=== PATIENT | male | born 1945 | race Caucasian/White ===

== ENCOUNTER 2016-07-16 16:50 | Outpatient (CLI) | payer MEDICARE, OTHER | END 2016-07-16 16:51 | disposition home or self-care (01) | DX: N19 Unspecified kidney failure (principal); E78.5 Hyperlipidemia, unspecified; D64.9 Anemia, unspecified; Z12.5 Encounter for screening for malignant neoplasm of prostate; I10 Essential (primary) hypertension | CPT/HCPCS: 36415; 80053; 80061; 84443; 85025; G0103 ==

== ENCOUNTER 2016-07-16 16:50 | Outpatient (CLI) | payer MEDICARE, OTHER | END 2016-07-16 16:51 | disposition home or self-care (01) | DX: M62.81 Muscle weakness (generalized) (principal) ==

== ENCOUNTER 2016-08-01 16:15 | Outpatient (CLI) | payer MEDICARE, OTHER | END 2016-08-01 16:16 | disposition home or self-care (01) | DX: G89.4 Chronic pain syndrome (principal); K59.09 Other constipation; K66.0 Peritoneal adhesions (postprocedural) (postinfection); G62.9 Polyneuropathy, unspecified; F17.210 Nicotine dependence, cigarettes, uncomplicated; J44.1 Chronic obstructive pulmonary disease with (acute) exacerbation; K46.9 Unspecified abdominal hernia without obstruction or gangrene; Z79.891 Long term (current) use of opiate analgesic; K64.9 Unspecified hemorrhoids; Z91.14 Patient's other noncompliance with medication regimen; Z51.5 Encounter for palliative care ==

== ENCOUNTER 2016-10-25 16:15 | Outpatient (CLI) | payer MEDICARE, OTHER | END 2016-10-25 23:59 | DX: Z51.5 Encounter for palliative care (principal); G89.4 Chronic pain syndrome; K59.00 Constipation, unspecified; R63.4 Abnormal weight loss; J44.9 Chronic obstructive pulmonary disease, unspecified; I71.4 Abdominal aortic aneurysm, without rupture; I74.8 Embolism and thrombosis of other arteries; Z72.0 Tobacco use; Z79.891 Long term (current) use of opiate analgesic ==

== ENCOUNTER 2016-11-07 16:28 | Outpatient (CLI) | payer MEDICARE, OTHER | END 2016-11-07 16:29 | disposition short-term general hospital (02) | DX: R10.9 Unspecified abdominal pain (principal); R20.0 Anesthesia of skin | CPT/HCPCS: A0425; A0427 ==

== ENCOUNTER 2016-12-28 16:00 | Outpatient (CLI) | payer MEDICARE, OTHER | END 2016-12-28 16:01 | disposition home or self-care (01) | LOC: LAB.R 16:00 | PROVIDERS: ATTEND Family Medicine | DX: N39.0 Urinary tract infection, site not specified (principal) | CPT/HCPCS: 87086 ==

== ENCOUNTER 2017-01-01 15:14 | Outpatient (CLI) | payer MEDICARE, OTHER ==
--- NOTE | 2017-01-01 18:01 | CONSULTATION NOTE ---
DATE OF CONSULTATION: 01/01/2017 00:00:00 REQUESTING PROVIDER: Matthew Nunn MD. TIME OF VISIT: 10:30 to 11:30. TOPIC: Follow up palliative care consult. Thank you, Dr. Nunn, for allowing the palliative care consult service to be involved in the care of your patient. I am providing support for pain and symptom management, as well as transitions of care. The patient was brought in to the outpatient setting, though this was a taxing effort by his daharlane r Alba. BRIEF HISTORY OF PRESENT ILLNESS UPDATE: The patient recently diagnosed with an abdominal aortic aneu rysm, as well as superficial femoral artery occlusion bilaterally. He was supposed to be following up with his vascular surgeon in [place], Dr. Hagan, and still has not completed an appointment with this. He had also gotten a referral to [place] and decided to be seen back at [place]. The pat delbert does present with moderate cognitive deficits and he and his have not followed up with a salena peat appointments on a regular basis. His daughter was not aware of this and will facilitate this as soon as possible. The patient presents today with his underlying severe pain, located mostly in his a bdominal region, particularly in the lower area, exacerbated with standing and walking, relieved with rest. He continues to be somewhat attached to his oxycodone 30 mg 4 tabs 4 times a day. Has been rosa roached multiple times and trying different regimens and transitioning to methadone, but remains quit e resistant. He does stay pretty much within the confines of his prescription but tends to call last minute, and finds this has been the most effective for him and quite fearful of making any other gudino ges. He continues to have constipation. He did have a large bowel movement today with relief of some discomfort. In the context of this, he is not very consistent in approaching his bowel management and gives conflicting information as far as what he is doing with his bowel program. We were going through his review of systems. He reports chest pain, reports it is mostly upon rising, some heaviness and denies that it is reflux pain and has sharp pain down into his left arm. When ask ed length of duration of this, he reports several weeks and about 3-4 times a week. He reports it did not happen this morning. His pulse is 63, blood pressure 104/58, and O2 sat at 95% today, respirator y rate is 20. He has in the past seen Dr. George. The patient does have a history of 10 cardiac stent s and is high risk for an event. His other presenting symptom, which he had followed up with Dr. Nunn earlier was some urinary retent ion, difficulty emptying the bladder. He was dipped and initially recommended Macrobid, but since titi t point in time, UA came back negative. He does have a referral to a urologist and is awaiting an rosa ointment for that as well. SYMPTOM BURDEN: His abdominal pain, he is unable to differentiate if it is his hernia or increasing a bdominal pain that he had attributed earlier when he had been to the ED for his AAA. He has been javon nded several times that this is an important thing to follow up on and any further increase in this p ain or debilitating pain, he needs to go back into the emergency room. His daughter is going to [facility] w up an appointment. He does have ongoing fatigue, does spend most of his time lying down or resting. Denies any nausea. Reports poor appetite. This is more attributed to he has pain with eating. His we ight continues to decrease. He reports his latest weight was 142. He does have shortness of breath an d continues to smoke a pack a day. He continues with depression and feeling overwhelmed with all of t hese multiple health issues, though also talks about not wanting to . He does have underlying anxi ety, though is not able to really express this and perceives his quality of life as quite poor right now. PERFORMANCE STATUS: The patient is limited by his pain and this is compounded by the fact that his ch ronic pain is exacerbated when he stands or walks. He is having difficulty increased with bathing. I would put him at a palliative care performance status at 50%. REVIEW OF SYSTEMS ENT: He has recently seen the eye doctor because of watering and continued blurry vision. He is hard of hearing. I did encourage him to follow up with his PCP for getting his ears cleaned. Daughter was asking about an audiology appointment, but we did discuss unless they are planning to follow up with looking at obtaining an hearing aid, it most likely would serve of little purpose. CARDIOVASCULAR: As noted above. RESPIRATORY: He has decreased his smoking down to 1 pack a day, though when I saw him a couple of sats ago, it was 2 packs. He continues to struggle with this. He does have a dry, nonproductive cough. Is using samples of inhalers, both BREO and Symbicort and albuterol nebulizer about 1 time a day. GASTROINTESTINAL: As noted above. Both early satiety, pain from eating, decreased intake. Has not bee n very compliant with following through with Ensure. GENITOURINARY: As noted above. INTEGUMENTARY: No further complaints. NEUROLOGICAL: He gets frustrated with his memory issues. He does have lower extremity neuropathy that he continues to take Lyrica for at night. PSYCHIATRIC: He has longstanding depression. Continues to be quite frustrated with his who also has health problems. They are having trouble following through as far as adherence to appointments an d medications. There is quite a bit of tension. Alba does try and intervene and assist, but meets qu ite a bit of resistance from Ms. Vivar. ENDOCRINE: He has hypothyroidism. HEMATOLOGIC/IMMUNOLOGIC: Thought to have a recent urinary tract infection, though was found to be neg ative. PHYSICAL EXAMINATION GENERAL APPEARANCE: He is quite sallow, has temporal waisting, upper and lower extremity waisting. EYES: With periorbital edema. Eyes are bright red and bloodshot. ENT: His mucous membranes are slightly dry. NECK: Trachea midline. RESPIRATORY: Diminished breath sounds, particularly in the left lower lobe. His O2 sats are 95% at re st. ABDOMEN: He does have his binder on, has multiple protrusions of his hernias. SKIN: His color is slightly ashen. EXTREMITIES: Hands and feet are quite cool to touch. PALLIATIVE CARE DISCUSSION: The patient does appear somewhat overwhelmed with his multiple health pro blems, including, but not limited to his AAA, his COPD, now his chest pain, his cognitive decline, an d does worry about his immediate future. Alba is currently here at the appointment and is willing to follow through on instructions, though this creates a dynamic as well. IMPRESSION: This is a 71-year-old gentleman with multiple comorbidities, including chronic pain syndr ome. I am concerned about his report of chest pain given his underlying coronary artery disease. Have followed up with his PCP who will make an urgent cardiology referral. The patient has been instructe d that if he were to have prolonged chest pain, to call 911. He does present with ongoing functional and cognitive decline and weight loss. RECOMMENDATIONS/COUNSELING DONE 1. Chronic pain syndrome. There have also been complications of his colonoscopy. Prescriptions were r amaliaen. The patient remains resistant to any kind of changes. He does have problems at times of sta tim within his limitation. 2. Constipation. He is currently not using the supplement. Spoke with him again regarding his hemorrh oids and concerns about straining. Have instructed him to start the Miralax. The daughter will help h im follow through with this. This is 1 capful daily. Previous, his baseline had been for senna at [facility]. I did recommend that this would be something to restart. 3. Weight loss. This is exacerbated by his increased discomfort with eating. Has not been compliant a s far as following through with supplements. Again, encouraged to use the Ensure 3 times a day with p evelyn hydration and nutrition, encouraging small frequent feedings. 4. Chronic obstructive pulmonary disease. He does have difficulty tracking his prescriptions. Current ly says he has an inhaler of BREO and his Symbicort and using his albuterol. Revisited tobacco cessat ion strategies. Encouraged him to decrease at least to 5-6 cigarettes a day. 5. Chest pain. Update and consulted with PCP, Dr. Nunn, will make urgent request for cardiology appo intment, this was relay to patient along with concern. Inst. To call 911 if worsens or not relieved, agreed. 5. Advanced care planning. The patient does have a POLST in place, which is a DO NOT ATTEMPT RESUSCIT ATION WITH LIMITED INTERVENTIONS. Did encourage the patient to continue to define the quality of life and psychosocial support was offered. The patient does appear overwhelmed and depressed given his cu rrent situation. TIME SPENT: 60 minutes with greater than 50% of this done in counseling, coordination of care, follow up with Dr. Nunn for cardiology referral. This is communicated back to the patient that looking for it within a week, as well as to call 911 if his Nitrostat was not effective. New prescriptions were p rovided for his oxycodone and his trazodone given his increase in dosing of 100 mg daily. He is takin g 2 at night, still with problems with insomnia. We will meet again in 1 month. JOB #: [id number] EXT JOB #:[id number]
== END 2017-01-01 15:15 | disposition home or self-care (01) ==
LOC: PC 15:14
PROVIDERS: ATTEND Nurse Practitioner Adult Health
DX: Z51.5 Encounter for palliative care (principal); G89.4 Chronic pain syndrome; K59.00 Constipation, unspecified; K64.9 Unspecified hemorrhoids; R63.4 Abnormal weight loss; R68.81 Early satiety; J44.9 Chronic obstructive pulmonary disease, unspecified; I25.10 Atherosclerotic heart disease of native coronary artery without angina pectoris; R07.9 Chest pain, unspecified; G47.00 Insomnia, unspecified; I71.4 Abdominal aortic aneurysm, without rupture; I74.8 Embolism and thrombosis of other arteries; R41.89 Other symptoms and signs involving cognitive functions and awareness; R33.9 Retention of urine, unspecified; F32.9 Major depressive disorder, single episode, unspecified; Z91.11 Patient's noncompliance with dietary regimen; Z66 Do not resuscitate; Z72.0 Tobacco use; Z79.891 Long term (current) use of opiate analgesic; Z95.5 Presence of coronary angioplasty implant and graft
CPT/HCPCS: 99215

== ENCOUNTER 2017-01-29 15:42 | Outpatient (CLI) | payer MEDICARE, OTHER | END 2017-01-29 15:43 | disposition critical access hospital (66) | LOC: EMS 15:42 | PROVIDERS: ATTEND Surgery | DX: R07.9 Chest pain, unspecified (principal); R06.00 Dyspnea, unspecified; R61 Generalized hyperhidrosis | CPT/HCPCS: A0425; A0429 ==

== ENCOUNTER 2017-01-29 15:56 | Inpatient (IN) | payer MEDICARE, OTHER ==
--- NOTE | 2017-01-29 16:25 | ED Physician Documentation ---
PD HPI CHEST PAIN - Stated complaint Stated Complaint: CP - Chief complaint Chief Complaint: Cardiac - History obtained from History obtained from: Patient - History of Present Illness Timing - onset: How many days ago (2 days of some mid to low abd cramping pains , and then had some left chest pain today. Chest pain improved after few minutes. Abd pain persists. 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 No: Shortness of air, Nausea, Vomiting, Palpitations, Cough Similar symptoms before: Has not had sx before Review of Systems Constitutional: denies: Fever, Chills Nose: denies: Rhinorrhea / runny nose, Congestion Throat: denies: Sore throat Cardiac: reports: Chest pain / pressure. denies: Palpitations, Pedal edema, Calf pain Respiratory: denies: Cough GI: reports: Abdominal Pain. denies: Nausea, Vomiting, Diarrhea, Bloody / black stool : denies: Dysuria, Frequency Skin: denies: Rash, Lesions Musculoskeletal: reports: Back pain. denies: Neck pain Neurologic: reports: Generalized weakness. denies: Focal weakness, Numbness, Syncope, Headache Endocrine: denies: Weight loss, Easy bruising / bleeding Immunocompromised: denies: Immunocompromised PD PAST MEDICAL HISTORY - Past Medical History Cardiovascular: Hypertension, Coronary artery disease, DC Respiratory: COPD Neuro: None Endocrine/Autoimmune: None GI: Other : Benign prostate hypertrophy HEENT: Chronic hearing loss Psych: Depression Musculoskeletal: None Derm: None - Past Surgical History Past Surgical History: Yes General: Colonoscopy, Other Cardiovascular: Coronary stent - Present Medications Home Medications: Ambulatory Orders Medication Instructions Recorded Confirmed Tamsulosin [Flomax] 0.4 mg PO DAILY 01/19/13 01/30/17 Citalopram Hydrobromide [Celexa] 20 mg PO QPM 03/20/14 01/30/17 Clopidogrel Bisulfate [Plavix] 75 mg PO DAILY 03/20/14 01/30/17 Lovastatin 40 mg PO DAILY 03/20/14 01/30/17 Oxycodone HCl [Roxicodone] 60 - 120 mg PO Q6H PRN 03/20/14 01/30/17 Albuterol Sulfate [Proair Hfa 2 inh IH Q4H PRN 09/20/14 01/30/17 Inhaler] Aspirin [Ecotrin] 81 mg PO DAILY 09/20/14 01/30/17 Budesonide/Formoterol Fumarate 2 inh IH BID 09/20/14 01/30/17 [Symbicort 160-4.5 Mcg Inhaler] Docusate Sodium 100Mg Capsule 200 mg PO DAILY 09/20/14 01/30/17 [Colace 100Mg Capsule] Magnesium Hydroxide [Milk of 2,400 mg PO DAILY 09/20/14 01/30/17 Magnesia] Metoprolol Tartrate [Lopressor] 50 mg PO DAILY 09/20/14 01/30/17 traZODone [Desyrel] 50 mg PO HS 12/06/15 01/30/17 Nitroglycerin [Nitrostat] 1 tab [id number] ONCE 12/07/15 01/25/16 Budesonide [Pulmicort] 0.5 mg INH RTBID neb 01/31/17 Citalopram [CeleXA] 20 mg PO QPM tablet 01/31/17 Clopidogrel [Plavix] 75 mg PO DAILY tablet 01/31/17 Metronidazole [Flagyl ER] 500 mg PO QID #40 tablet.er 01/31/17 - Allergies Allergies/Adverse Reactions: Allergies Allergy/AdvReac Type Severity Reaction Status Date / Time Penicillins AdvReac Unknown Verified 01/25/16 08:48 - Social History Does the pt smoke?: Yes Smoking Status: Former smoker Does the pt drink ETOH?: No Does the pt have substance abuse?: No - Family History Family history: reports: Non contributory - Immunizations Immunizations are current?: Yes - POLST Patient has POLST: No PD ED PE NORMAL - Vitals Vital signs reviewed: Yes - General General: Alert and oriented X 3, No acute distress, Well developed/nourished, Other (thin) - HEENT HEENT: Pharynx benign - Neck Neck: Supple, no meningeal sign, No adenopathy - Cardiac Cardiac: RRR, No murmur - Respiratory Respiratory: Clear bilaterally - Abdomen Abdomen: Normal bowel sounds, Soft, Non distended, No organomegaly, Other (some palpable mass lower mid abd without tenderness. There is tenderness suprapubic area. ) - Back Back: No CVA TTP - Derm Derm: Normal color, Warm and dry - Extremities Extremities: No tenderness to palpate, No edema, No calf tenderness / cord - Neuro Neuro: Alert and oriented X 3, No motor deficit, Normal speech Results - Vitals Vitals: Oxygen O2 Source [Without Activity] Room air O2 Source [With Activity] Room air O2 Source Room air - EKG (time done) 16:10 Rate: Rate (enter#) (73) Rhythm: NSR Intervals: RBBB Ischemia: Normal ST segments, Non specific changes. No: ST elevation c/w ischemia Compare to prior EKG: Unchanged from prior EKG - Labs Labs: Laboratory Tests 01/29/17 01/29/17 01/29/17 16:05 16:05 16:05 WBC 11.3 H RBC 5.26 Hgb 16.6 Hct 49.4 MCV 93.9 MCH 31.6 H MCHC 33.6 RDW 13.2 Plt Count 199 MPV 9.7 Neut # 9.0 H Lymph # 1.2 L Preble # 0.9 Eos # 0.1 Baso # 0.1 Absolute Nucleated RBC 0.00 Nucleated RBCs 0.0 Sodium 135 Potassium 4.4 Chloride 101 Carbon Dioxide 26 Anion Gap 8.0 BUN 21 H Creatinine 1.1 Estimated GFR (MDRD) 66 L Glucose 134 H Calcium 9.4 Total Bilirubin 0.5 AST 19 ALT 20 Alkaline Phosphatase 66 Troponin I < 0.04 Total Protein 6.9 Albumin 4.4 Globulin 2.5 Albumin/Globulin Ratio 1.8 Lipase 26 - Rads (name of study) abd with contrast Radiology: Prelim report reviewed (4.7 cm AAA, slightly increased in size. No signs of leakage/bleeding. Diverticulitis lower abd. No free fluids. ) chest Radiology: Prelim report reviewed, EMP read contemporaneously (no acute process) PD MEDICAL DECISION MAKING - ED course Complexity details: considered differential (history of AAA so concern for rupture/leaking. Did CT to evaluate. This was stable and he does have diverticulitis. He had had less to eat and drink and BP improved readily with IV fluids. ), d/w patient Departure - Departure Disposition: 66 [facility] DC/Xfer Clinical Impression: Transient hypotension, Atypical chest pain Diverticulitis Qualifiers: Diverticulitis site: large intestine Diverticulitis bleeding: without bleeding Diverticulitis complication: without perforation or abscess Qualified Code(s): K57.32 - Diverticulitis of large intestine without perforation or abscess without bleeding Abdominal pain Qualifiers: Abdominal location: lower abdomen, unspecified Qualified Code(s): R10.30 - Lower abdominal pain, unspecified Condition: Fair Record reviewed to determine appropriate education?: Yes Discharge Date/Time: 01/29/17 20:58
[2017-01-29 16:29] LABS: BASOPHILS # (AUTO) 0.1 10^3/uL (0.0-0.1); BASOPHILS % (AUTO) 0.5 %; EOSINOPHILS # (AUTO) 0.1 10^3/uL (0.0-0.7); EOSINOPHILS % (AUTO) 0.5 %; HCT - HEMATOCRIT 49.4 % (42.0-52.0); HGB - HEMOGLOBIN 16.6 g/dL (14.0-18.0); LYMPHOCYTES # (AUTO) 1.2 10^3/uL (1.5-3.5); LYMPHOCYTES % (AUTO) 10.7 %; MEAN CORPUSCULAR HEMOGLOBIN 31.6 pg (27.0-31.0); MEAN CORPUSCULAR HGB CONC 33.6 g/dL (32.0-36.0); MEAN CORPUSCULAR VOLUME 93.9 fL (80.0-94.0); MEAN PLATELET VOLUME 9.7 fL (7.4-11.4); MONOCYTES # (AUTO) 0.9 10^3/uL (0.0-1.0); MONOCYTES % (AUTO) 8.4 %; NEUTROPHILS % (AUTO) 79.9 %; RED BLOOD COUNT 5.26 10^6/uL (4.70-6.10); RED CELL DISTRIBUTION WIDTH 13.2 % (12.0-15.0); UNCORRECTED WHITE BLOOD COUNT 11.3 x10^3/uL; WHITE BLOOD COUNT 11.3 x10^3/uL (4.8-10.8)
[2017-01-29] MEDS ORDERED: SODIUM CHLORIDE 0.9% 500 ML IV ONE (16:42)
[2017-01-29] MEDS ORDERED: ONDANSETRON 4 MG/2 ML VIAL IVP STA (16:44)
[2017-01-29] MEDS ORDERED: MORPHINE 2 MG/ML CARPUJECT IVP STA (16:44)
[2017-01-29 16:48] LABS: ALBUMIN/GLOBULIN RATIO 1.8 (1.0-2.2); BILIRUBIN,TOTAL 0.5 mg/dL (0.2-1.0); CALCIUM 9.4 mg/dL (8.5-10.3); CREATININE 1.1 mg/dL (0.6-1.2); POTASSIUM 4.4 mmol/L (3.5-5.0); TOTAL PROTEIN 6.9 g/dL (6.7-8.2)
[2017-01-29] MEDS ORDERED: ONDANSETRON 4 MG/2 ML VIAL ONE (17:03)
[2017-01-29] MEDS ORDERED: MORPHINE 2 MG/ML CARPUJECT ONE (17:03)
[2017-01-29] MEDS ORDERED: IOPAMIDOL-300 100 ML VIAL IVP ONE (17:45)
--- NOTE | 2017-01-29 18:54 | CT Preliminary Report ---
Exam: CT Abdomen/Pelvis W/ IMPRESSION: 1. Slowly increasing size of the infrarenal abdominal aortic aneurysm measuring 4.7 x 4.5 cm on the c urrent study compared with the previous 4.3 x 4.1 cm. No retroperitoneal hematoma is noted. 2. Persistent wide mouth ventral wall hernia noted. No incarcerated bowel noted. 3. Multiple bowel resections are noted. At the site of anastomosis in the mid anterior abdomen, there is a short segment of dilated bowel. Remaining bowel is otherwise unremarkable. 4. Renal stones without obstruction. 5. Gallstones without inflammation 6. Diverticulosis with mild wall thickening. Minimal adjacent stranding. Acute or acute on chronic di verticulitis can have this appearance. Correlate clinically.. [facility] SITE ID: [id number]
[2017-01-29] MEDS ORDERED: cefTRIAXone 1 GM VIAL IVP STA (19:07)
[2017-01-29] MEDS ORDERED: metroNIDAZOLE 500 MG/100 ML 100 ML IV ONE (19:07)
[2017-01-29] MEDS ORDERED: SODIUM CHLORIDE FLUSH 0.9% 10 ML SYRINGE IVP PRN (19:34)
[2017-01-29] MEDS ORDERED: cefTRIAXone 1 GM VIAL ONE (19:39)
[2017-01-29] MEDS ORDERED: ACETAMINOPHEN 325 MG TABLET PO PRN (19:45)
[2017-01-29] MEDS ORDERED: PROCHLORPERAZINE 10 MG/2 ML VIAL IVP PRN (19:45)
[2017-01-29] MEDS ORDERED: ONDANSETRON 4 MG/2 ML VIAL IVP PRN (19:45)
--- NOTE | 2017-01-29 19:45 | CT Report ---
EXAM: CT ABDOMEN AND PELVIS EXAM DATE: 01/29/2017 05:47 PM. CLINICAL HISTORY: Chest/abdominal pain; history of AAA. COMPARISONS: 10/13/2014. TECHNIQUE: Routine helical CT imaging was performed through the abdomen and pelvis. IV contrast: 100 mL Isovue-300. Enteric contrast: No. Reconstructions: Coronal and sagittal. In accordance with CT protocol optimization, one or more of the following dose reduction techniques w ere utilized for this exam: automated exposure control, adjustment of mA and/or KV based on patient s ize, or use of iterative reconstructive technique. FINDINGS: Lung Bases: Emphysema is present at the lung bases. No consolidation, masses or nodules. No effusions . Small hiatal hernia. Liver: Normal. No masses. Small hypodense cystic structures are noted in the liver parenchyma. Gallbladder/Bile Ducts: Dependent stones are present in the gallbladder. No gallbladder wall thickeni ng or pericholecystic inflammation. Common bile duct dilation measures up to [address] one or mass. Spleen: Normal. Pancreas: No pancreatic mass is noted. Mild pancreatic duct dilation. No calcifications are present. Pancreatic atrophy is present. Adrenal Glands: Normal. Kidneys: No enhancing renal mass or hydronephrosis. Bilateral intrarenal calcifications are identifie d. No ureteral stone is noted. Focal areas of scarring are noted in the inferior right kidney. Peritoneal Cavity/Bowel: Normal-appearing stomach. Duodenum is normal. Previous small bowel resection with primary anastomosis. Increasing prominence of the mid to distal small bowel at the level of the anastomosis in the anterior mid abdomen. This is best seen on image 3, 47. The bowel distention has increased since the prior study. Remaining bowel is nondilated. Diffuse sigmoid diverticulosis is pre sent. Mild wall thickening is present in the mid to proximal sigmoid colon and distal left colon with minimal adjacent stranding. No colonic dilation concerning for obstruction. Appendix is not seen. No pathologic retroperitoneal, mesenteric or pelvic adenopathy. Pelvic Organs: No bladder stones or calcifications are noted. Moderate prostate enlargement with coar se calcifications. Mild seminal vesicle enlargement. No pelvic mass or adenopathy is present. Vasculature: Infrarenal abdominal aortic aneurysm measuring a maximum of 4.7 x 4.5 cm. Extensive thro mbus is noted. Previously measuring 4.3 x 4.1 cm. No retroperitoneal hematoma is noted. Right and lef t common iliac arteries measure 1.7 cm and 1.7 cm respectively. Extensive atheromatous calcified and noncalcified plaques are present throughout the abdominal aorta. The celiac axis and SMA are widely p atent. Significant atheromatous plaques are present at the origin of the renal arteries bilaterally. Bones: No significant abnormality. Other: Persistent wide mouth ventral wall hernia. No incarcerated bowel. Multiple bowel loops are adh erent to the anterior abdominal wall. Adhesions to the abdominal wall are not excluded. IMPRESSION: 1. Slowly increasing size of the infrarenal abdominal aortic aneurysm measuring 4.7 x 4.5 cm on the c urrent study compared with the previous 4.3 x 4.1 cm. No retroperitoneal hematoma is noted. 2. Persistent wide mouth ventral wall hernia noted. No incarcerated bowel noted. 3. Multiple bowel resections are noted. At the site of anastomosis in the mid anterior abdomen, there is a short segment of dilated bowel. Remaining bowel is otherwise unremarkable. 4. Renal stones without obstruction. 5. Gallstones without inflammation. 6. Diverticulosis with mild wall thickening. Minimal adjacent stranding. Acute or acute on chronic di verticulitis can have this appearance. Correlate clinically. [facility] Referring Provider Line: [phone] SITE ID: [id number]
[2017-01-29] MEDS ORDERED: diphenhydrAMINE INJ 50 MG/ML VIAL ONE (20:15)
[2017-01-29 20:16] LABS: BASOPHILS # (AUTO) 0.1 10^3/uL (0.0-0.1); EOSINOPHILS % (AUTO) 0.5 %; HCT - HEMATOCRIT 49.8 % (42.0-52.0); HGB - HEMOGLOBIN 16.9 g/dL (14.0-18.0); LYMPHOCYTES % (AUTO) 20.8 %; MEAN CORPUSCULAR HEMOGLOBIN 32.1 pg (27.0-31.0); MEAN CORPUSCULAR HGB CONC 33.9 g/dL (32.0-36.0); MEAN CORPUSCULAR VOLUME 94.5 fL (80.0-94.0); MEAN PLATELET VOLUME 9.2 fL (7.4-11.4); MONOCYTES # (AUTO) 0.9 10^3/uL (0.0-1.0); MONOCYTES % (AUTO) 9.3 %; NEUTROPHILS # (AUTO) 6.4 10^3/uL (1.5-6.6); NEUTROPHILS % (AUTO) 68.4 %; RED BLOOD COUNT 5.27 10^6/uL (4.70-6.10); UNCORRECTED WHITE BLOOD COUNT 9.4 x10^3/uL; WHITE BLOOD COUNT 9.4 x10^3/uL (4.8-10.8)
[2017-01-29] MEDS ORDERED: DEXAMETHASONE 10 MG/ML VIAL IVP STA (20:16)
[2017-01-29] MEDS ORDERED: ALBUTEROL NEB 2.5 MG/3 ML INH STA (20:16)
[2017-01-29] MEDS ORDERED: diphenhydrAMINE INJ 50 MG/ML VIAL IVP STA (20:16)
[2017-01-29] MEDS ORDERED: ALBUTEROL NEB 2.5 MG/3 ML INH ONE (20:30)
[2017-01-29] MEDS ORDERED: BUDESONIDE/FORMOTEROL 160/4.5 MCG INHALER INH SCH (21:00)
[2017-01-29] MEDS ORDERED: CITALOPRAM HYDROBROMIDE 20 MG PO SCH (21:00)
[2017-01-29] MEDS: SODIUM CHLORIDE 0.9% 1,000 ML IV SCH (21:57)
[2017-01-29] MEDS: traZODone 50 MG TABLET PO SCH ×2 (22:05→22:14)
[2017-01-29] MEDS: CITALOPRAM 10 MG TABLET PO SCH (22:09)
[2017-01-29] MEDS: SODIUM CHLORIDE FLUSH 0.9% 10 ML SYRINGE IVP SCH (22:15)
--- NOTE | 2017-01-29 23:31 | XRAY Preliminary Report ---
Exam: XR Chest 1 View IMPRESSION: Hyperinflation, otherwise unremarkable single view chest. [facility] SITE ID: [id number]
--- NOTE | 2017-01-29 23:34 | XRAY Report ---
EXAM: CHEST RADIOGRAPHY EXAM DATE: 01/29/2017 11:10 PM. CLINICAL HISTORY: Cough and shortness of breath. Fever. COMPARISON: 07/16/2016. TECHNIQUE: 1 view. FINDINGS: Lungs/Pleura: Hyperinflated lungs. No focal opacities evident. No pleural effusion. No pneumothorax. Mediastinum: Within exam limitations, cardiomediastinal contour is normal. Other: No bone abnormality identified. IMPRESSION: Hyperinflation, otherwise unremarkable single view chest. [facility] Referring Provider Line: [phone] SITE ID: [id number]
[2017-01-30] MEDS: MORPHINE 2 MG/ML CARPUJECT IVP PRN ×4 (03:27→21:32)
[2017-01-30] MEDS: metroNIDAZOLE 500 MG/100 ML 100 ML IV SCH ×4 (04:11→22:05)
--- NOTE | 2017-01-30 04:43 | HISTORY & PHYSICAL EXAMINATION ---
Chief Complaint - Chief Complaint Chief Complaint: Abdominal Pain History of Present Illness - Admitted From Admitted From:: Emergency Department - History Obtained From Records Reviewed: Yes History obtained from: Patient Exam Limitations: None - History of Present Illness HPI Comment/Other: Patient is a 71 yo male with a past medical history significant for an abdominal aortic aneurysm, colon resection with chronic abdominal pain on high dose opioids, umbilical hernia, coronary artery disease status post 10 stents, depression, hypertension and COPD who presented to the emergency department with 3-4 days of abdominal pain. The patient states that he initially began having left lower quadrant abdominal pain nearly a week ago and noticed this as it was different from his chronic abdominal. He states that the pain comes and goes but over the last 2 days it has become more frequent and severe. He admits to associated nausea and diarrhea which started this afternoon. He also states he has had a decreased appetite. He states he had fevers and chills yesterday as well as generalized weakness. He states that recently he is mostly bedbound and only gets out of bed to go to the bathroom or eat but has not left the house in sometime due to his chronic pain. The patient states that he has also been experiencing increasing shortness of breath and coughing. He admits to weight loss over the last 2-3 months but could not quantify the weight. He states that today he began having left sided chest pain in the lower left chest wall with diaphoresis. He states that this continued throughout the day and he finally decided to come to the ED. On presentation to the ED the patient was afebrile but he was hypotensive with blood pressure in the 90s systolic and hypoxic down to 87% on room air. The patient appeared to be quite anxious and in distress. His initial EKG was unchanged from previous and his troponin was negative. The patient did have a mild leukocytosis of 11.3. The patient underwent a CTA of his abdomen which showed a slowly increasing size of infrarenal abdominal aortic aneurysm measuring 4.7 x 4.5 cm increased from 4.3 x 4.1 cm with no hematoma noted. He also was found to have a ventral wall hernia and diverticulitis. The patient was admitted for IV antibiotics and further monitoring. Review of Systems - Constitutional Constitutional: reports: Fatigue, Fever, Chills, Malaise, Weakness, Poor appetite, Diaphoresis, Weight loss - Eyes Eyes: denies: Pain, Irritation, Amaurosis, Blurred vision, Spots in vision, Field loss, Vision loss, Dipolpia - Ears, Nose & Throat Ears, Nose & Throat: denies: Ear pain, Hearing loss, Hearing aids, Tinnitus, Vertigo, Nasal pain, Nasal discharge, Sore throat, Hoarseness - Cardiovascular Cariovascular: reports: Chest pain, Exertional dyspnea, Decr. exercise tolerance. denies: Edema, Lightheadedness, Syncope, Orthopnea - Respiratory Respiratory: reports: Cough, Sputum production, SOB at rest, SOB with exertion. denies: Wheezing - Gastrointestinal Gastrointestinal: reports: Abdominal pain, Diarrhea, Nausea, Vomiting, Poor appetite. denies: Abdominal distention, Constipation, Rectal bleeding, Black stools, Bloody stools, Coffee grounds emesis - Genitourinary Genitourinary: denies: Dysuria, Frequency, Urgency, Hematuria, Incontinence - Musculoskeletal Musculoskeletal: denies: Muscle pain, Back pain, Muscle aches, Stiffness, Limited range of motion, Muscle weakness, Joint pain - Integumentary Integumentary: reports: Lesions - Neurological Neurological: reports: General weakness. denies: Focal weakness, Headache, Dizziness, Numbness, Abnormal gait, Slurred speech - Psychiatric Psychiatric: reports: Depression, Anxiety - Endocrine Endocrine: denies: Polyuria, Polydypsia, Polyphagia, Intolerance to cold, Intolerance to heat - Hematologic/Lymphatic Hematologic/Lymphatic: denies: Bruising, Lymphadenopathy History - Past Medical History Cardiovascular: reports: Hypertension, Coronary artery disease (10 stents), PA Respiratory: reports: COPD Neuro: reports: None Endocrine/Autoimmune: reports: None GI: reports: Hiatal hernia, Other (Chronic abdominal pain) : reports: Benign prostate hypertrophy HEENT: reports: Chronic hearing loss Psych: reports: Depression, Anxiety Musculoskeletal: reports: None Derm: reports: None MRSA Hx?: No Other Past Medical History: AAA - Past Surgical History General: reports: Colonoscopy, Other Cardiovascular: reports: Coronary stent - Family & Social History Family History: Mother: (Bro: Suicide), Alzheimer's Disease, Father: , PA (at 57yo), Brother: , Mental Illness (Depression) Living arrangement: At home Living Situation: With spouse/s.o. Social History Notes: Lives in [place] with spouse. States that he prevously lived in [place] and had some abdominal pain and what sounds like an obstruction 8-9 years ago and had a bowel resection which apparently went wrong and he has a bunch of scarring on his abdomen and chronic pain since. He is very limited due to his pain and barely gets out of bed. He has 3 biological kids. He smokes 1PPD and has been doing so for 50 years. Was previously a heavy drinker but has quit. Denies any drug use. - Substance History Use: Uses substance without health or social issues: NONE Abuse: Recurrent use of substance despite neg consequences: NONE Dependence: Experiences withdrawal or developed tolerances: NONE - POLST Patient has POLST: No POLST Status: DNR Meds/Allgy - Home Medications Home Medications: Ambulatory Orders Medication Instructions Recorded Confirmed Tamsulosin [Flomax] 0.4 mg PO DAILY 01/19/13 01/25/16 Citalopram Hydrobromide [Celexa] 20 mg PO QPM 03/20/14 01/24/16 Clopidogrel Bisulfate [Plavix] 75 mg PO DAILY 03/20/14 01/24/16 Lovastatin 40 mg PO DAILY 03/20/14 01/24/16 Oxycodone HCl [Roxicodone] 60 - 120 mg PO Q6H PRN 03/20/14 01/24/16 Albuterol Sulfate [Proair Hfa] 2 inh IH Q4H PRN 09/20/14 01/25/16 Aspirin [Ecotrin] 81 mg PO DAILY 09/20/14 01/24/16 Budesonide/Formoterol Fumarate 2 inh IH BID 09/20/14 01/24/16 [Symbicort 160-4.5 Mcg Inhaler] Docusate Sodium 100Mg Capsule 200 mg PO DAILY 09/20/14 01/24/16 [Colace] Magnesium Hydroxide [Milk of 2,400 mg PO DAILY 09/20/14 01/24/16 Magnesia] Metoprolol Tartrate [Lopressor] 50 mg PO DAILY 09/20/14 01/24/16 traZODone [Desyrel] 50 mg PO HS 12/06/15 01/24/16 Nitroglycerin [Nitrostat] 1 tab [id number] ONCE 12/07/15 01/25/16 - Allergies Allergies/Adverse Reactions: Allergies Allergy/AdvReac Type Severity Reaction Status Date / Time Penicillins AdvReac Unknown Verified 01/25/16 08:48 Exam - Vital Signs Reviewed Vital Signs: Yes Vital Signs: Vital Signs x48h Temp Pulse Pulse Resp BP Pulse Ox 01/30/17 00:16 36.8 C 71 16 117/67 94 01/29/17 20:55 36.7 C 76 16 113/49 L 95 01/29/17 20:35 73 16 - Physical Exam General Appearance: positive: Alert, Mild distress, Anxious, Other (Grimacing in pain) Eyes Bilateral: positive: Normal inspection, PERRL, EOMI, No lid inflammation, Conjunctivae nml, No scleral icterus ENT: positive: ENT inspection nml, Pharynx nml, Dry mucous membranes. negative : Purulent nasal drainage, Pharyngeal erythema, Oral lesions Neck: positive: Nml inspection, Thyroid nml, No JVD, Trachea midline. negative : Thyromegaly, Lymphadenopathy (R), Lymphadenopathy (L), Stiff neck, Carotid bruit, Tracheal deviation Respiratory: positive: Chest non-tender, No respiratory distress, Other ( Diminished throughout) Cardiovascular: positive: Regular rate & rhythm, No murmur, No gallop Peripheral Pulses: positive: 2+ Abdomen: positive: Nml bowel sounds, Tenderness (Throughout including left lower quadrant), Other (scarring over the mid abd and ubilicus. Hernia.). negative: Guarding, Rebound, Hepatomegaly Back: positive: Nml inspection. negative: CVA tenderness (R), CVA tenderness (L ) Skin: positive: Color nml, No rash, Dry. negative: Cyanosis, Pallor Extremities: positive: Non-tender, Full ROM, Nml appearance, No pedal edema Neurologic/Psychiatric: positive: Oriented x3, CN's nml (2-12), Motor nml, Sensation nml, Depressed mood/affect (Depressed and anxious) Conclusion/Plan - Problem List (1) Diverticulitis Conclusion/Plan: Patient presented with LLQ abd pain, nausea, poor appetite and elevated WBC CTA of abdomen showed diverticulitis Plan: IV abx with cipro and flagyl Clear liquid diet IVFs Monitor Qualifiers: Diverticulitis site: large intestine Diverticulitis bleeding: without bleeding Diverticulitis complication: without perforation or abscess Qualified Code(s): K57.32 - Diverticulitis of large intestine without perforation or abscess without bleeding (2) Chest pain Conclusion/Plan: Does not appear to be cardiac with normal EKG and trops Does not appear to be secondary to AAA as no rupture Plan: Monitor on tele Repeat trops Echo (3) Chronic pain Conclusion/Plan: Chronic abdominal pain since surgery 8 years ago Patient on high dose opioids Sees pain clinic for Oxycodone 120 mg q6 hours Will continue patient on home dose of oxy with breakthrough IV pain meds given new pain. (4) COPD (chronic obstructive pulmonary disease) Conclusion/Plan: Stable Decreased breath sounds but no wheezing or exacerbation Place on O2 as patient was mildly hypoxic on presentation Continue budesonide and formoterol (5) AAA (abdominal aortic aneurysm) without rupture Conclusion/Plan: AAA has grown from previous imaging but only slightly No rupture or hematoma seen Will need to continue to monitor as outpatient Does not appear to be cause of abdominal or chest pain. (6) Depression Conclusion/Plan: Continue celexa and trazadone Patient appears to be anxious and has depressed mood (7) Prophylactic use of low molecular weight heparin for venous thromboembolism Conclusion/Plan: Place on lovenox - Lab Results Lab results reviewed: Yes Smith Bones: 01/29/17 20:10 01/29/17 16:05 - Diagnostic Imaging Results Diagnostic Imaging Results: positive: Final report reviewed Diagnostic Imaging Results Comments: CXR: Negative CTA Abdomen: Diverticulitis and slowly growing infrarenal AAA - EKG Results EKG Interpreted Independently: Yes Issues/Core Measures - Anticipated LOS Anticipated Stay Length: 2 or more midnights - DVT/VTE - Prophylaxis VTE/DVT Prophylaxis med ordered at admit?: Yes
[2017-01-30] MEDS: SODIUM CHLORIDE FLUSH 0.9% 10 ML SYRINGE IVP SCH ×3 (05:10→21:37)
[2017-01-30] MEDS: CIPROFLOXACIN 400 MG/200 ML 200 ML IV SCH ×2 (05:11→18:23)
[2017-01-30 06:34] LABS: INR 1.1 (0.8-1.2); PT - PROTHROMBIN TIME 12.7 secs (9.9-12.6)
[2017-01-30] MEDS: SODIUM CHLORIDE 0.9% 1,000 ML IV SCH ×2 (06:37→14:52)
[2017-01-30 06:42] LABS: ALBUMIN/GLOBULIN RATIO 1.3 (1.0-2.2); BILIRUBIN,TOTAL 0.7 mg/dL (0.2-1.0); MAGNESIUM 1.8 mg/dL (1.7-2.8); POTASSIUM 4.1 mmol/L (3.5-5.0); TOTAL PROTEIN 6.8 g/dL (6.7-8.2)
[2017-01-30] MEDS: PANTOPRAZOLE 40 MG TABLET PO SCH (06:47)
[2017-01-30] MEDS: BUDESONIDE 0.5 MG/2 ML NEB INH SCH ×2 (07:29→19:00)
[2017-01-30] MEDS: FORMOTEROL FUMARATE NEB 20 MCG/2 ML INH SCH ×2 (07:45→19:00)
[2017-01-30] MEDS ORDERED: cefTRIAXone 2 GM in SODIUM CHLORIDE 0.9% MINIBAG 100 ML IV SCH (09:00)
[2017-01-30] MEDS: ASPIRIN EC 81 MG TABLET PO SCH (09:32)
[2017-01-30] MEDS: METOPROLOL TARTRATE 50 MG TABLET PO SCH (09:32)
[2017-01-30] MEDS: TAMSULOSIN 0.4 MG CAPSULE PO SCH (09:32)
[2017-01-30] MEDS: CLOPIDOGREL 75 MG TABLET PO SCH (09:32)
[2017-01-30] MEDS: POLYETHYLENE GLYCOL 3350 17 GM PACKET PO SCH (09:33)
[2017-01-30] MEDS: ENOXAPARIN 40 MG/0.4 ML SYRINGE SUBQ SCH (09:33)
[2017-01-30] MEDS: oxyCODONE 30 MG TABLET PO PRN ×2 (11:09→17:26)
--- NOTE | 2017-01-30 18:50 | PROVIDER PROGRESS NOTE ---
Subjective - Prog Note Date Prog Note Date: 01/30/17 (Pt denies any further chest pain and cannot remember having any. Pt requesting advancing diet in order to be DCh more quickly. Palliative care reports Pt has severe PTSD from prior 18 mo hospitalization related to abd. surgery. Will advance diet. ) Prog Note Time: 18:50 (Pt becoming more anxious and had refused Nicoderm while not smoking, will start now.) Objective - Vital Signs/Intake & Output Vital Signs: Vital Signs x48h Temp Pulse Resp BP Pulse Ox 01/30/17 15:31 37.0 C 60 16 120/60 95 01/30/17 14:00 36.3 C L 60 18 107/66 95 Intake & Output: Intake & Output 01/27/17 01/28/17 01/29/17 01/30/17 23:59 23:59 23:59 23:59 Intake Total 2182 Output Total 1450 Balance 732 - Lab Results Fish Bones: 01/29/17 20:10 01/30/17 06:20 Other Labs: Lab Results x24hrs 01/30/17 01/30/17 01/30/17 Range/Units 06:20 06:20 06:20 WBC (4.8-10.8) x10^3/uL RBC (4.70-6.10) 10^6/uL Hgb (14.0-18.0) g/dL Hct (42.0-52.0) % MCV (80.0-94.0) fL MCH (27.0-31.0) pg MCHC (32.0-36.0) g/dL RDW (12.0-15.0) % Plt Count (130-450) 10^3/uL MPV (7.4-11.4) fL Neut # (1.5-6.6) 10^3/uL Lymph # (1.5-3.5) 10^3/uL Gladwin # (0.0-1.0) 10^3/uL Eos # (0.0-0.7) 10^3/uL Baso # (0.0-0.1) 10^3/uL Absolute Nucleated RBC x10^3/uL Nucleated RBCs /100WBC PT (9.9-12.6) secs INR (0.8-1.2) Sodium 136 (135-145) mmol/L Potassium 4.1 (3.5-5.0) mmol/L Chloride 103 (101-111) mmol/L Carbon Dioxide 23 (21-32) mmol/L Anion Gap 10.0 (6-13) BUN 21 H (6-20) mg/dL Creatinine 1.0 (0.6-1.2) mg/dL Estimated GFR (MDRD) 73 L (>89) Glucose 199 H (70-100) mg/dL Lactic Acid 1.3 (0.5-2.2) mmol/L Calcium 9.0 (8.5-10.3) mg/dL Phosphorus 3.0 (2.5-4.6) mg/dL Magnesium 1.8 (1.7-2.8) mg/dL Total Bilirubin 0.7 (0.2-1.0) mg/dL AST 20 (10-42) IU/L ALT 20 (10-60) IU/L Alkaline Phosphatase 58 (42-121) IU/L Troponin I < 0.04 (<0.49) ng/mL Total Protein 6.8 (6.7-8.2) g/dL Albumin 3.9 (3.2-5.5) g/dL Globulin 2.9 (2.1-4.2) g/dL Albumin/Globulin Ratio 1.3 (1.0-2.2) 01/30/17 01/30/17 01/29/17 Range/Units 06:20 00:35 20:10 WBC 9.4 (4.8-10.8) x10^3/uL RBC 5.27 (4.70-6.10) 10^6/uL Hgb 16.9 (14.0-18.0) g/dL Hct 49.8 (42.0-52.0) % MCV 94.5 H (80.0-94.0) fL MCH 32.1 H (27.0-31.0) pg MCHC 33.9 (32.0-36.0) g/dL RDW 13.0 (12.0-15.0) % Plt Count 188 (130-450) 10^3/uL MPV 9.2 (7.4-11.4) fL Neut # 6.4 (1.5-6.6) 10^3/uL Lymph # 2.0 (1.5-3.5) 10^3/uL Gladwin # 0.9 (0.0-1.0) 10^3/uL Eos # 0.0 (0.0-0.7) 10^3/uL Baso # 0.1 (0.0-0.1) 10^3/uL Absolute Nucleated RBC 0.00 x10^3/uL Nucleated RBCs 0.0 /100WBC PT 12.7 H (9.9-12.6) secs INR 1.1 (0.8-1.2) Sodium (135-145) mmol/L Potassium (3.5-5.0) mmol/L Chloride (101-111) mmol/L Carbon Dioxide (21-32) mmol/L Anion Gap (6-13) BUN (6-20) mg/dL Creatinine (0.6-1.2) mg/dL Estimated GFR (MDRD) (>89) Glucose (70-100) mg/dL Lactic Acid (0.5-2.2) mmol/L Calcium (8.5-10.3) mg/dL Phosphorus (2.5-4.6) mg/dL Magnesium (1.7-2.8) mg/dL Total Bilirubin (0.2-1.0) mg/dL AST (10-42) IU/L ALT (10-60) IU/L Alkaline Phosphatase (42-121) IU/L Troponin I < 0.04 (<0.49) ng/mL Total Protein (6.7-8.2) g/dL Albumin (3.2-5.5) g/dL Globulin (2.1-4.2) g/dL Albumin/Globulin Ratio (1.0-2.2)
[2017-01-30] MEDS: NICOTINE 14 MG PATCH TOP SCH (19:29)
[2017-01-30] MEDS: CITALOPRAM 10 MG TABLET PO SCH (21:31)
[2017-01-30] MEDS: traZODone 50 MG TABLET PO SCH (21:31)
[2017-01-30] MEDS ORDERED: traZODone 50 MG TABLET PO SCH (22:55)
[2017-01-31] MEDS: MORPHINE 2 MG/ML CARPUJECT IVP PRN ×2 (01:09→11:28)
[2017-01-31] MEDS: metroNIDAZOLE 500 MG/100 ML 100 ML IV SCH ×2 (03:49→10:41)
[2017-01-31] MEDS: SODIUM CHLORIDE 0.9% 1,000 ML IV SCH (03:50)
[2017-01-31] MEDS: CIPROFLOXACIN 400 MG/200 ML 200 ML IV SCH (05:10)
[2017-01-31] MEDS: SODIUM CHLORIDE FLUSH 0.9% 10 ML SYRINGE IVP SCH (05:57)
[2017-01-31] MEDS: PANTOPRAZOLE 40 MG TABLET PO SCH (06:27)
[2017-01-31 06:31] LABS: ALBUMIN/GLOBULIN RATIO 1.7 (1.0-2.2); BILIRUBIN,TOTAL 0.9 mg/dL (0.2-1.0); CALCIUM 8.3 mg/dL (8.5-10.3); CREATININE 0.8 mg/dL (0.6-1.2); MAGNESIUM 1.7 mg/dL (1.7-2.8); PHOSPHORUS 1.9 mg/dL (2.5-4.6); POTASSIUM 3.1 mmol/L (3.5-5.0); TOTAL PROTEIN 5.6 g/dL (6.7-8.2)
[2017-01-31] MEDS: FORMOTEROL FUMARATE NEB 20 MCG/2 ML INH SCH (07:45)
[2017-01-31] MEDS: BUDESONIDE 0.5 MG/2 ML NEB INH SCH (07:45)
[2017-01-31] MEDS: oxyCODONE 30 MG TABLET PO PRN (08:37)
[2017-01-31] MEDS ORDERED: POTASSIUM CHLORIDE 20 MEQ TABLET PO SCH (09:00)
[2017-01-31] MEDS: NICOTINE 14 MG PATCH TOP SCH (10:03)
[2017-01-31] MEDS: POLYETHYLENE GLYCOL 3350 17 GM PACKET PO SCH (10:04)
[2017-01-31] MEDS: CLOPIDOGREL 75 MG TABLET PO SCH (10:04)
[2017-01-31] MEDS: ASPIRIN EC 81 MG TABLET PO SCH (10:04)
[2017-01-31] MEDS: METOPROLOL TARTRATE 50 MG TABLET PO SCH (10:04)
[2017-01-31] MEDS: ENOXAPARIN 40 MG/0.4 ML SYRINGE SUBQ SCH (10:06)
[2017-01-31] MEDS: TAMSULOSIN 0.4 MG CAPSULE PO SCH (10:31)
[2017-01-31 11:24] VITALS: BP 126/59
--- NOTE | 2017-01-31 12:41 | Discharge Plan ---
Discharge Plan Diet: Regular Activity Restrictions: No Restrictions Shower Restrictions: No Driving Restrictions: No No Smoking: If you smoke, Please STOP! Call for help. Disposition: 01 Home, Self Care Condition: Fair Prescriptions: Metronidazole [Flagyl ER] 500 mg PO QID #40 tablet.er Instruction Topics: Aneurysm Abdominal Aortic, Chronic Pain, Chronic Pain Manage Activity, Chronic Pain Manage Meds, Chronic Pain Therapies Mind Body, Diverticulitis Dc, Hypotension Dc, Abdomen Aortic Aneurysm Surg Dc Follow-up with: Gareth Nunn MD [Primary Care Provider] -
--- NOTE | 2017-02-03 02:28 | DISCHARGE SUMMARY ---
DATE OF ADMISSION: 01/29/2017 DATE OF DISCHARGE: 01/31/2017 HISTORY: This is a 71-year-old white male with a history of abdominal aortic aneurysm, history of co ginette resection, chronic abdominal pain, umbilical hernia, PTSD secondary to an 18-month recuperation f rom extensive abdominal surgeries, coronary disease with multiple stents, hypertension, COPD, depress ion. The patient presented to the emergency room with 3-4 days of abdominal pain and then specifical ly left lower quadrant abdominal pain and generalized weakness. He was mostly bed bound, complaining of shortness of breath, cough, weight loss over 2-3 months. On the day of emergency room presentati on, he was complaining of significant left lower quadrant pain radiating up into the abdomen and up i nto the epigastric area and chest. His blood pressure was 90 systolic, and he was hypoxic with a sat uration on room air of 87%. FAMILY HISTORY: Noncontributory. SOCIAL HISTORY: There was no history of substance abuse or alcohol dependence. MEDICATIONS AT HOME 1. Flomax. 2. Celexa. 3. Plavix. 4. Lovastatin. 5. Oxycodone. 6. Albuterol inhaler. 7. Baby aspirin. 8. Symbicort. 9. Colace. 10. Milk of magnesia. 11. Lopressor. 12. Desyrel. 13. Nitroglycerin sublingual. ALLERGIES: PENICILLIN. PHYSICAL EXAMINATION ABDOMEN: Positive for mild abdominal pain diffusely to light palpation. RESPIRATORY: Diminished breath sounds diffusely, but no rales or rhonchi. HOSPITAL COURSE: The patient underwent a CTA of the abdomen, which showed a slightly increasing size of the infrarenal abdominal aortic aneurysm of 4.7 x 4.5 cm in size (increased from 4.3 x 4.1 cm), n o hematoma. White blood count 11.3 with a left shift, normal electrolytes, glucose of 199, normal BU N and creatinine, normal lipase, normal troponin x3. He had EKG that was unchanged from baseline. C hest x-ray showed hyperinflation but no acute changes. The patient was placed on IV antibiotics, he received resuscitation of his low blood pressure with fl uids, and his diet was made a clear diet and then slowly advanced to a solid diet. The patient impro cooper significantly on the second day with only localized mild left lower quadrant pain to palpation. He was able to tolerate solid foods. His white count decreased. There was no fever. He was able to ambulate without difficulty. He was discharged with p.o. Flagyl and continuation of his other medic ations in fair condition. JOB #: [id number] EXT JOB #:[id number]
== END 2017-01-31 15:20 | disposition home or self-care (01) | DRG 392 ==
LOC: EDUNIT# → ED 15:56 → MS2 19:35
PROVIDERS: ADMIT Internal Medicine; ATTEND Internal Medicine
DX: K57.32 Diverticulitis of large intestine without perforation or abscess without bleeding (principal); R07.89 Other chest pain; I95.9 Hypotension, unspecified; R10.30 Lower abdominal pain, unspecified; J44.9 Chronic obstructive pulmonary disease, unspecified; F17.210 Nicotine dependence, cigarettes, uncomplicated; I71.4 Abdominal aortic aneurysm, without rupture; F43.10 Post-traumatic stress disorder, unspecified; F32.9 Major depressive disorder, single episode, unspecified; G89.29 Other chronic pain; R10.9 Unspecified abdominal pain; K43.9 Ventral hernia without obstruction or gangrene; I10 Essential (primary) hypertension; I25.10 Atherosclerotic heart disease of native coronary artery without angina pectoris; N40.0 Benign prostatic hyperplasia without lower urinary tract symptoms; H91.90 Unspecified hearing loss, unspecified ear; Z95.5 Presence of coronary angioplasty implant and graft; I25.2 Old myocardial infarction; Z79.891 Long term (current) use of opiate analgesic; Z79.02 Long term (current) use of antithrombotics/antiplatelets; Z79.51 Long term (current) use of inhaled steroids; Z79.82 Long term (current) use of aspirin; Z79.899 Other long term (current) drug therapy; Z90.49 Acquired absence of other specified parts of digestive tract
CPT/HCPCS: 36415; 71010; 74177; 80053; 83605; 83690; 83735; 84100; 84484; 85025; 85610; 93005; 94640; 96374; 96375; 99284; 99285; 99406

== ENCOUNTER 2017-03-01 12:30 | Outpatient (CLI) | payer MEDICARE, OTHER ==
--- NOTE | 2017-03-01 17:21 | PROVIDER PROGRESS NOTE ---
Palliative Care Follow Up - Referral Referring Provider: Dr. Nunn Time of Visit: [id number] pm Referral setting: Home (patient is seen in his home setting secondary to it is a taxing and considerable effort for him to leave the home related to severe pain) Referral Reason: Chronic Abdominal Pain - Information Sources Records Reviewed: Old records reviewed, Other (recent hospitalization -01/31) History obtained from: Patient, Family ( Magy present for visit) Exam limitations: Clinical condition (patient with ongoing cognitive decline; [place]; and short term memory issues) - History of Present Illness Update Brief HPI Update: This is a 71 year old gentleman with chronic abdominal pain as a result of complications from a complications of a colonoscopy, requiring multiple abdominal surgeries, neuropathic in nature. He continues to have multiple pain generators including adhesions and herniations, needing to wear an abdominal binder as a result of thinning of the abdominal wall. he was recently diagnosed when he presented with severe escalating pain to [facility] in [place] with an abdominal aneurysm, most recently with increased pain resulting in hospitalization at [facility] 01/29-01/31, had a left shift with WBC so was treated with antibiotics with improvement of pain. He remains quite frail. He continues on his chronic pain regimen of oxycodone 30 mg tabs 4 times a day, has been unwilling to attempt another regimen, feels it works "good enough". Has tried sustained relief morphine with increased confusion, and did not finish transition of trial to methadone before returning back to baseline. Social History - Living Situation Living arrangement: At home Living Situation: With spouse/s.o. (complicated relationship as drinks) Support System: Daughter Thalia, lives on property, does try to assist as allowed, she herself has health problems but provides support and transportation. Medications/Allergies - Medications Home Medications: Ambulatory Orders Medication Instructions Recorded Confirmed Tamsulosin [Flomax] 0.4 mg PO DAILY 01/19/13 03/01/17 Lovastatin 40 mg PO DAILY 03/20/14 03/01/17 Oxycodone HCl [Roxicodone] 60 - 120 mg PO Q6H PRN 03/20/14 03/01/17 Albuterol Sulfate [Proair Hfa 2 inh IH Q4H PRN 09/20/14 03/01/17 Inhaler] Aspirin [Ecotrin] 81 mg PO DAILY 09/20/14 03/01/17 Metoprolol Tartrate [Lopressor] 50 mg PO DAILY 09/20/14 03/01/17 traZODone [Desyrel] 200 mg PO HS 12/06/15 03/01/17 Nitroglycerin [Nitrostat] 1 tab [id number] ONCE 12/07/15 03/01/17 Citalopram [CeleXA] 20 mg PO QPM tablet 01/31/17 03/01/17 Clopidogrel [Plavix] 75 mg PO DAILY tablet 01/31/17 03/01/17 Albuterol 2.5 mg NEB BID PRN 03/01/17 03/01/17 Fluticasone/Vilanterol [Breo 1 inh INH DAILY 03/01/17 03/01/17 Ellipta 100-25 Mcg INH] - Allergies Allergies/Adverse Reactions: Allergies Allergy/AdvReac Type Severity Reaction Status Date / Time Penicillins AdvReac Unknown Verified 01/25/16 08:48 Review of Systems - Constitutional Constitutional: reports: Fatigue, Poor appetite (increase in food intake causes escalation of pain), Other (patient feels he has not lost anymore weight though appears thinner; scales not available at home visit). denies: Fever, Chills - Eyes Eyes: reports: Blurred vision, Vision loss (recent cataract surgery, does not feel gained much sigh) - Ears, Nose & Throat Ears, Nose & Throat: reports: Hearing loss (very hard of hearing; often does not clarify information if can't hear) - Cardiovascular Cariovascular: reports: Chest pain (reports episodes of chest pain have abated) , Exertional dyspnea, Decr. exercise tolerance - Respiratory Respiratory: reports: Cough (still smoking about 8 cigs /day; uses neb about once daily), SOB at rest, SOB with exertion - Gastrointestinal Gastrointestinal: reports: Abdominal pain, Constipation, Nausea (intermittent nausea; run out of antiemetic), Reflux/heartburn, Poor appetite, Other (early satiety). denies: Rectal bleeding, Black stools, Bloody stools - Genitourinary Genitourinary: reports: Frequency (had appointment with urologist had to cancel ; feels going better wondering about rescheduling), Urgency - Musculoskeletal Musculoskeletal: reports: Muscle pain, Back pain, Muscle aches, Stiffness, Muscle weakness - Integumentary Integumentary: reports: Dryness, Hair changes (thinning) - Neurological Neurological: reports: General weakness, Memory problems, Abnormal gait ( difficult with increased pain when stands; more difficult to walk), Other ( upper extremety tremors intermittent in nature) - Psychiatric Psychiatric: reports: Depression, Anxiety. denies: Suicidal (wants this to be over; but denies will make or planning action; brother committed suicide last year "wouldn't do that to my family") - Endocrine Endocrine: reports: Intolerance to cold - Hematologic/Lymphatic Hematologic/Lymphatic: reports: Recurrent infections (treated recently for presume diverticulitis) - All Other Systems All Other Systems: reports: Reviewed and negative Physical Examination - Vital Signs Temperature: 96.5 C Pulse Rate: 65 Respiratory Rate: 20 O2 Saturation: 98 (ra at rest) Blood Pressure: 90/52 - Physical Exam General Appearance: positive: Mild distress, Anxious, Cachetic Eyes Bilateral: positive: Conjunctivae nml, No scleral icterus ENT: positive: No signs of dehydration Neck: positive: No JVD, Trachea midline Respiratory: positive: Other (very diminished throughout). negative: Wheezes, Rales, Rhonchi Cardiovascular: positive: Regular rate & rhythm Abdomen: positive: Tenderness, Guarding, Other (distant bowel tones-hypoactive;) Skin: positive: Pallor Extremities: positive: No pedal edema, Other (gait shuffled; difficulty standing straight) Neurologic/Psychiatric: positive: Disoriented to time, Depressed mood/affect Palliative Care - POLST Patient has POLST: Yes POLST Status: DNR, Limited Interventions (determine the use of AB with comfort as the goal; no medically assisted nutrition. Goal is to focus on quality of life) Pain: Pain worsening, Location (abdominal right upper quadrant baseline; lower abdominal new-dull ache) Drowsiness: Moderate (4-6) Nausea: Moderate (4-6) (reports intermittent nausea after eating) Anxiety: Mild (1-3) Dyspnea: Moderate (4-6) (noted with increase smoking; improves when cuts back or quits) Anorexia: Moderate (4-6) (using Ensure 2-3 times a day; does not tolerate much solid food these days) Insomnia: Sleeps poorly (has been taking more trazadone than recommended as poor sleep; inst. max 200 mg/24 hours agreed) Constipation: Yes, Opoid induced, Managed (patient unclear what taking reports moving regularly though has hemorrhoids is non adherent to inst. provided) Feelings of wellbeing/Perceived Quality of Life: Worsening Performance Status: Current level of functioning [difficult tolerating showering, spends most of time in bed; sitting more uncomfortable; does get up and walk through house several times a day, feels he is doing better but remains quite sedantary] . Palliative Care Performance Status [40%]. - Palliative Care Discussion: patient's understanding is AA is not worse; had scan so is not planning to follow up with vascular surgeon at this time. Patient remains very depressed about his current situation; isolates self; has both cognitive and functional decline. One joe is [place] who have started up with preseason, he looks forward to this. Is not interested in really changing anything or accepting increase support or referrals for pain clinic. "I am just getting tired of this ". Approached perhaps changing up antidepressant to mirtazipine to help with sleep/depression/appetite, he dislikes change but will consider. Results - Lab Results Lab results reviewed: Yes Lab and Imaging Results: Patient with low potassium/phosphorus in hospitalization; will arrange for labs in follow up unclear if corrected Impression and Recommendations - Palliative Care Impression: This is Recommendations/Counseling Done: 1. Chronic abdominal pain, evaluation regarding pain levels and current regimen. Patient despite severity of pain, feels current regimen is only one that has given some relief, unwilling to consider another trial of methadone. Rx written, counseled on opiod safety and storage, provides oversight as patient forgetful. 2. Depression, recent hospitalization for presumed diverticulitis, found very difficult, experiences almost a PTSD. Gets very anxious as can't smoke, heaving nicotine addiction. Continues to perceive poor quality of life with increasing health issues is very discouraged. 3. AAA, has increased slightly, ongoing monitoring,knows to access emergent care for acute pain changes. Unclear plan for ongoing follow up, will f/u with PCP recommendation. 4. COPD, remains compromised. Currently using Breo, feels symbicort works better , large co-pay so using samples. Encouraged if tight/wheezing to increase neb use. REviewed recommendations to stop or cut down on smoking, does better when he is not. 5. CAD. Patient with referral to cardiology, did never call and make appointment. Encouraged to follow up regarding risk factors and concerns. 6. Advanced care planning. Patient has difficulty following up on appointments needed to meet his ongoing complex health needs, has continued complaints and concerns, then cancels or does not follow up. Suspect with cognitive decline and depression is unable to follow through, complex social situation impacts this as well. Time Spent: 30 minutes with greater than 50% done in counseling for depression/pain and anticipatory guidance.
== END 2017-03-01 12:31 | disposition home or self-care (01) ==
LOC: PC 12:30
PROVIDERS: ATTEND Nurse Practitioner Adult Health
DX: Z51.5 Encounter for palliative care (principal); G89.4 Chronic pain syndrome; R10.30 Lower abdominal pain, unspecified; R10.11 Right upper quadrant pain; Z79.891 Long term (current) use of opiate analgesic; F32.9 Major depressive disorder, single episode, unspecified; I71.4 Abdominal aortic aneurysm, without rupture; J44.9 Chronic obstructive pulmonary disease, unspecified; I25.10 Atherosclerotic heart disease of native coronary artery without angina pectoris; K66.0 Peritoneal adhesions (postprocedural) (postinfection); F17.210 Nicotine dependence, cigarettes, uncomplicated; Z66 Do not resuscitate
CPT/HCPCS: 99348

== ENCOUNTER 2017-05-01 15:28 | Outpatient (CLI) | payer MEDICARE, OTHER ==
--- NOTE | 2017-05-01 20:40 | CONSULTATION NOTE ---
Palliative Care Follow Up - Referral Referring Provider: Dr. Tino Nunn Time of Visit: [id number] Referral setting: [facility] [place] Referral Reason: Chronic Pain Syndrome - Information Sources History/Review of Systems obtained from: Patient Exam limitations: Other (patient with STM issues; poor recall of symptoms and medication regimen) - History of Present Illness Update Brief HPI Update: This is a 71 year old gentleman with multiple co-morbidities that impact his health and quality of life including: advanced COPD with continued smoking; AAA currently not symptomatic; chronic abdominal pain as a result of complications of a colonoscopy, requiring multiple abdominal surgeries and continues to fairly chronic but severe in nature. He had a fall yesterday, unable to elicit underlying cause but did fall on abdomen. On exam, no bruising or acute trauma noted, tenderness to palpation but refuses further work up or exam. Patient is depressed, poor short term memory, question medication adherence and what is currently on. has been overseeing pain medications as patient tends to not keep track. He remains quite frail. He is on his baseline oxycodone 30 mg tabs 4 tabs every six hours, given his social situation, and resistant have continued current regimen and when offered alternatives today despite unhappy with pain levels and quality of life does not want to change. Social History - Living Situation Living arrangement: At home Living Situation: With spouse/s.o. (with own health care issue) Support System: Daughter on property, provides some support. Patient here today with friend Medications/Allergies - Medications Home Medications: Ambulatory Orders Medication Instructions Recorded Confirmed Tamsulosin [Flomax] 0.4 mg PO DAILY 01/19/13 05/01/17 Lovastatin 40 mg PO DAILY 03/20/14 05/01/17 Oxycodone HCl [Roxicodone] 120 mg PO Q6H PRN 03/20/14 05/01/17 Albuterol Sulfate [Proair Hfa 2 inh IH Q4H PRN 09/20/14 03/01/17 Inhaler] Aspirin [Ecotrin] 81 mg PO DAILY 09/20/14 03/01/17 Metoprolol Tartrate [Lopressor] 50 mg PO DAILY 09/20/14 05/01/17 traZODone [Desyrel] 200 mg PO HS 12/06/15 05/01/17 Nitroglycerin [Nitrostat] 1 tab [id number] ONCE 12/07/15 05/01/17 Citalopram [CeleXA] 20 mg PO QPM tablet 01/31/17 03/01/17 Clopidogrel [Plavix] 75 mg PO DAILY tablet 01/31/17 05/01/17 Albuterol 2.5 mg NEB BID PRN 03/01/17 03/01/17 Fluticasone/Vilanterol [Breo 1 inh INH DAILY 03/01/17 05/01/17 Ellipta 100-25 Mcg INH] - Allergies Allergies/Adverse Reactions: Allergies Allergy/AdvReac Type Severity Reaction Status Date / Time Penicillins AdvReac Unknown Verified 01/25/16 08:48 Review of Systems - Constitutional Constitutional: reports: Fatigue - Eyes Eyes: reports: Vision loss - Ears, Nose & Throat Ears, Nose & Throat: reports: Hearing loss, Postnasal drainage, Dry mouth - Cardiovascular Cardiovascular: reports: Decr. exercise tolerance. denies: Chest pain - Respiratory Respiratory: reports: Cough, SOB at rest, SOB with exertion, Other (continues to smoke 1/2-1 pack a day) - Gastrointestinal Gastrointestinal: reports: Abdominal pain, Constipation, Bloating, Poor appetite , Early satiety. denies: Rectal bleeding - Genitourinary Genitourinary: reports: Urgency, Nocturia - Musculoskeletal Musculoskeletal: reports: Muscle weakness, Assistive devices (uses cane/walker; wheelchair to get into clinic today) - Integumentary Integumentary: reports: Dryness - Neurological Neurological: reports: General weakness, Memory problems, Abnormal gait - Psychiatric Psychiatric: reports: Depression, Anxiety - Endocrine Endocrine: reports: Intolerance to cold - Hematologic/Lymphatic Hematologic/Lymphatic: reports: Bruising - All Other Systems All Other Systems: reports: Reviewed and negative Physical Exam - Vital Signs Temperature: 97.7 C Pulse Rate: 62 Respiratory Rate: 20 Blood Pressure: 106/55 - Physical Exam General Appearance: positive: Moderate distress (from pain) Eyes Bilateral: positive: Conjunctivae nml, No scleral icterus ENT: positive: No signs of dehydration Neck: positive: Trachea midline Cardiovascular: positive: Regular rate & rhythm Respiratory: positive: Diminished throughout, Rhonchi Abdomen: positive: Distended, Other (scarred stretching at surgical repair; hernia prominent; very tender to touch had binder loose and distress with reapplication; had fall yesterday on coffee table to abdomen; no external bruising noted;) Skin: positive: Pallor, Dryness Extremities: positive: No pedal edema, Other (in wheelchair;) Neurologic/Psychiatric: positive: Disoriented to time, Weakness, Depressed mood/ affect, Flat affect Palliative Care - POLST Patient has POLST: Yes POLST Status: DNR, Limited Interventions (determine the use of antibiotics with comfort as the goal; no medical nutrition) Pain: Pain unchanged, Location (abdominal particulary right sided area of hernia ; worsens with standing; eating; walking; reports severity not changed; no further exacerbation of aneurysm pain or chest pain but more painful from baseline related to fall; did not want further work up or testing) Tiredness/Fatigue: Moderate (4-6) Drowsiness/Sedation: Mild (1-3) Nausea: Mild (1-3) Depression: Severe (7-10), Suidical ideation ("wants to " denies has plan; wouldn't do that to my family or myself) Anxiety: None Dyspnea: Moderate (4-6) Anorexia: Moderate (4-6) ("forces self to eat" thinks has gained some weight) Sleep: Sleep improved (reports getting 3-4 hours of sleep at at time) Constipation: Yes, Opoid induced, Managed (reports using daily suppositories with relief of constipation;) Feelings of wellbeing/Perceived Quality of Life: Poor, Worsening Performance Status: Spends most of time in bed/couch as more comfortable in prone condition; tries to walk the hallways regularly; is able still to bath independently but is painful as has to have binder off - Palliative Care Discussion: Patient continues to complain of poor quality of life and poor pain control, though when offered other regimens; referrals or consider revisiting methadone is resistant and I suspect fearful. His perception is he does at least get some relief and it is what he "knows". Admits to depression, wanting to "be out of his misery" has very little to look forward to. Is less able to track things, aware of cognitive decline which adds one more stressor. and he argue alot about her issues. Impression and Recommendations - Palliative Care Impression: This is a 71 year old gentleman who continues to struggle with his poor quality of life, he has multiple co-morbidities, high symptom burden, and remains fearful of change. He is at high risk for hospitalization with his continued smoking and COPD, increasing weakness and risk for falls, and underlying AAA. Recommendations/Counseling Done: 1. Acute on chronic abdominal pain. Patient with recent fall though denies injury, and unable to elicit trauma injury other then some increase tenderness from baseline last night. Patient declines further work up or evaluation, does not feel warrants trip to ED. (hates ED/ hospitalization). Reviewed again my recommendations for opioid rotation, declines at this time. RX written, continues to over see as patient tracks poorly, did manage to not "run" out before we got to our appointment. Suggest consider possible celiac block, will to explore referral, declined at this time. Reviewed s/s to seek ED access if has worsening pain or noted injury. 2. Constipation, opioid induced. Will continue with daily suppositories as effective. 3. AAA, had increased slightly with scans from last hospitalization in January, has not further appointments and is somewhat fatalistic as well as poor understanding of condition. 4. COPD. Remains very compromised, counseled to decrease smoking as he does better with less, even he admits. Encouraged to contact PCP for samples of Symbicort (has not used for month and declines to buy); using nebulizer BID, encouraged to TID to keep secretions loose. Inst. to follow up on flu shot. 5. Weakness. Will get repeat labs as has not had since hospitalization, nutrition has improved some but concerned with recent fall and lack of follow through. Declined to have done at today's appointment, lab slip provided and friend reports will assist him in following through. 6. Advanced care planning. Patient has difficulty following up as needed on appointments, did not follow through on cardiology, urology, or thoracic surgeon. Fatalistic as far as ready to go, but also very fearful of dying. Encouraged to follow up with PCP as priority.
== END 2017-05-01 15:29 | disposition home or self-care (01) ==
LOC: PC 15:28
PROVIDERS: ATTEND Nurse Practitioner Adult Health
DX: Z51.5 Encounter for palliative care (principal); G89.4 Chronic pain syndrome; T40.2X5D Adverse effect of other opioids, subsequent encounter; K59.03 Drug induced constipation; I71.4 Abdominal aortic aneurysm, without rupture; J44.9 Chronic obstructive pulmonary disease, unspecified; R53.1 Weakness; Z72.0 Tobacco use; Z91.81 History of falling; Z79.891 Long term (current) use of opiate analgesic; Z66 Do not resuscitate
CPT/HCPCS: 99215

== ENCOUNTER 2017-06-27 17:12 | Outpatient (CLI) | payer MEDICARE, OTHER ==
--- NOTE | 2017-06-27 17:26 | CONSULTATION NOTE ---
Palliative Care Follow Up - Referral Referring Provider: Dr. Tino Nunn Time of Visit: 8425-6975 Referral setting: Home (Patient is seen in his home setting secondary is considerable and taxing effort for patient to leave the home related to his acute on chronic pain and fatigue.) Referral Reason: Abdominal Pain/COPD - Information Sources Records reviewed: Previous records reviewed History/Review of Systems obtained from: Patient Exam limitations: Clinical condition (Patient was short-term memory issues, poor recall and difficulty tracking symptoms) - History of Present Illness Update Brief HPI Update: This is a 71-year-old gentleman with multiple comorbidities that impact his health, and quality of life including; advanced COPD with continued tobacco abuse; AAA currently not symptomatic; chronic abdominal pain as result of complications of a colonoscopy requiring multiple abdominal surgeries with severe residual neuropathic pain syndrome patient continues to decline both cognitively and functionally, he does spend most of his time laying down, he can ambulate short distances. He does appear to have had more weight loss and quite cachectic. Reports this is attributed to the fact he has increased pain with eating. He does have long-standing advanced COPD. His breath sounds are diminished throughout, he does have a loose rolling cough with scattered rhonchi. He does use his albuterol nebulizer 2 times a day. He continues to smoke, he reports he cut back while down to 8-9 cigarettes but is back up to at least a pack and a half a day. It is coming on the anniversary of his brother' s suicide, he denies suicidality himself but does report increased depression with the holidays. He does appear somewhat holl[place] and ashen and remains quite entrenched in his current pain regimen and unwilling to make many changes, his perception it is as good as is going to get. Social History - Living Situation Living arrangement: At home Living Situation: With spouse/s.o. Support System: Patient lives with spouse, who also has underlying health problems and is very concerned about patient. They do have a daughter who provides intermittent support, but she currently is ill as well. Medications/Allergies - Medications Home Medications: Ambulatory Orders Medication Instructions Recorded Confirmed Tamsulosin [Flomax] 0.4 mg PO DAILY 01/19/13 05/01/17 Lovastatin 40 mg PO DAILY 03/20/14 05/01/17 Oxycodone HCl [Roxicodone] 120 mg PO Q6H PRN 03/20/14 05/01/17 Albuterol Sulfate [Proair Hfa 2 inh IH Q4H PRN 09/20/14 03/01/17 Inhaler] Aspirin [Ecotrin] 81 mg PO DAILY 09/20/14 03/01/17 Metoprolol Tartrate [Lopressor] 50 mg PO DAILY 09/20/14 05/01/17 traZODone [Desyrel] 200 mg PO HS 12/06/15 05/01/17 Nitroglycerin [Nitrostat] 1 tab [id number] ONCE 12/07/15 05/01/17 Citalopram [CeleXA] 20 mg PO QPM tablet 01/31/17 03/01/17 Clopidogrel [Plavix] 75 mg PO DAILY tablet 01/31/17 05/01/17 Albuterol 2.5 mg NEB BID PRN 03/01/17 03/01/17 - Allergies Allergies/Adverse Reactions: Allergies Allergy/AdvReac Type Severity Reaction Status Date / Time Penicillins AdvReac Unknown Verified 01/25/16 08:48 Review of Systems - Constitutional Constitutional: reports: Fatigue, Poor appetite, Weight loss - Eyes Eyes: reports: Vision loss - Ears, Nose & Throat Ears, Nose & Throat: reports: Hearing loss - Cardiovascular Cardiovascular: reports: Decr. exercise tolerance. denies: Chest pain - Respiratory Respiratory: reports: Cough, Sputum production, SOB at rest, SOB with exertion - Gastrointestinal Gastrointestinal: reports: Constipation, Poor appetite, Early satiety - Genitourinary Genitourinary: reports: Frequency - Musculoskeletal Musculoskeletal: reports: Muscle pain, Back pain, Stiffness, Muscle weakness - Integumentary Integumentary: reports: Dryness - Neurological Neurological: reports: General weakness, Memory problems - Psychiatric Psychiatric: reports: Depression. denies: Suicidal Physical Exam - Vital Signs Temperature: 98.0 C Pulse Rate: 81 Respiratory Rate: 18 O2 Saturation: 92 (ra @ rest) Blood Pressure: 114/72 - Physical Exam General Appearance: positive: Mild distress, Cachetic Eyes Bilateral: positive: Normal inspection ENT: positive: Dry mucous membranes Neck: positive: Trachea midline. negative: Lymphadenopathy (R), Lymphadenopathy (L) Cardiovascular: positive: Regular rate & rhythm Respiratory: positive: Diminished in bases, Rhonchi, Other (rolling cough) Abdomen: positive: Nml bowel sounds, Tenderness, Guarding, Other (abdominal binder on; hernia thinned skin protudes size of orange) Skin: positive: Pallor Extremities: positive: No pedal edema, Other (upper and lower extremity wasting) Neurologic/Psychiatric: positive: Disoriented to time, Weakness, Slurred/abnml speech, Depressed mood/affect Palliative Care - POLST Patient has POLST: Yes POLST Status: DNR, Limited Interventions Pain: Pain worsening, Location (abdominal; worsens with eating/digestion) Tiredness/Fatigue: Moderate (4-6) Drowsiness/Sedation: Moderate (4-6) Nausea: Mild (1-3) Depression: Moderate (4-6) Anxiety: Moderate (4-6) Dyspnea: Moderate (4-6) Anorexia: Severe (7-10) Sleep: Variable sleep pattern Constipation: Yes, Opoid induced, Managed (This is daily suppositories with good relief per patient report) Feelings of wellbeing/Perceived Quality of Life: Poor, Worsening Performance Status: Patient with increased pain with up and ambulating, though he is trying to stay active at least in the house. He is able to bathe independently, is most comfortable laying flat in bed where he spends most of his time watching TV. - Palliative Care Discussion: Patient continues to perceive his quality of life is quite poor and continues to perseverate on what has happened to him, I theme of "I am a good person" why this is happening to me. He does report depression, though denies suicidality at this point in time. He tends to be withdrawn, very little interaction with his , but does have a good friend that he meets with regularly on a daily basis that provides him support. He is expecting family here for the holidays, and is looking forward to this. Impression and Recommendations - Palliative Care Impression: .This is a 71-year-old gentleman who continues to struggle with worsening quality of life, has multiple comorbidities and high symptom burden, he remains quite fearful of change and with underlying depression. He remains at high risk for hospitalization with his continued smoking, advanced COPD, risk for falls, and underlying AAA Recommendations/Counseling Done: 1. Acute on chronic abdominal pain. Patient continues to have lower abdominal pain, worsening with eating, ambulation, and poor response to opioid therapy. Patient on oxycodone 120 mg every 6 hours, reports that last for 2-3 hours with some relief, has been offered multiple other options as far as follow-up but remains quite reticent to make any change. His is providing dosing, they are storing it in a safe place, re4. Advanced COPD. Continues to remain very compromised despite counseling for cutting back on smoking does try but is unable to sustain. He currently is only using his albuterol nebulizer, ran out of his other support MDIs. Remains at high risk for recurrent pneumonia. 2. Weakness. Had recommended repeat labs, patient was not accommodating last visit, reports he will follow through this time lab order sent to hospital. Did review this information with who will encourage him to follow through. 3. Depression. Patient continues with depressive symptoms, denies suicidality , discussed weighing benefits and burdens of titrating up antidepressant, patient currently wants to leave as is.visited other options i.e. including referral for celiac block, referral for buprenorphine consultation, has trialed long acting morphine, and methadone in distant past. 4 constipation, opioid induced, patient will continue with daily suppositories as effective and compliant. 5. AAA, has not had any further scans since January, no increase in symptoms originally that triggered previous ED visit. Recommended follow up with Dr. Nunn for further referrals as needed. Time Spent: 30 minutes with greater than 50% of this done in counseling and following up on opioid safety use, depressive symptoms, ordered labs.
== END 2017-06-27 17:13 | disposition home or self-care (01) ==
LOC: PC 17:12
PROVIDERS: ATTEND Nurse Practitioner Adult Health
DX: Z51.5 Encounter for palliative care (principal); G89.4 Chronic pain syndrome; R10.30 Lower abdominal pain, unspecified; R53.1 Weakness; F32.9 Major depressive disorder, single episode, unspecified; K59.03 Drug induced constipation; T40.2X5D Adverse effect of other opioids, subsequent encounter; I71.4 Abdominal aortic aneurysm, without rupture; J44.9 Chronic obstructive pulmonary disease, unspecified; Z66 Do not resuscitate; Z72.0 Tobacco use; Z91.81 History of falling; Z79.891 Long term (current) use of opiate analgesic
CPT/HCPCS: 99348

== ENCOUNTER 2017-07-31 11:00 | Outpatient (CLI) | payer MEDICARE, OTHER ==
--- NOTE | 2017-07-31 13:40 | CONSULTATION NOTE ---
Palliative Care Follow Up - Referral Referring Provider: Dr. Tino Nunn Time of Visit: 1111:45 Referral setting: Home Referral Reason: Chronic Abdominal Pain/COPD - Information Sources Records reviewed: Previous records reviewed History/Review of Systems obtained from: Patient, Family (spoke with Magy ) Exam limitations: Clinical condition (patient with short term memory issues;) - History of Present Illness Update Brief HPI Update: This is a 71-year-old gentleman with multiple comorbidities including advanced COPD, continued tobacco abuse, AAA though currently not symptomatic, chronic abdominal pain as result of complications of a colonoscopy requiring multiple abdominal surgeries with residual neuropathic pain syndrome. Patient does continue to decline both functionally and cognitively, he is quite thin and appears quite cachectic. He continues to smoke despite it impacting his long standing advanced COPD. He has continued on his oxycodone 30 mg tabs 120 mg every 6 hours, we have gone round and round about transitioning over to more effective pain regimen, he has agreed today though to consider titrating back. He does have intermittent depression, denies suicidality today, the continues to struggle with his perceived poor quality of life. Social History - Living Situation Living arrangement: At home Living Situation: With spouse/s.o. (He lives with his Magy, who is very concerned about patient's underlying issues particularly his cognitive decline. She herself is quite frail and has multiple health issues as well) Medications/Allergies - Medications Home Medications: Ambulatory Orders Medication Instructions Recorded Confirmed Tamsulosin [Flomax] 0.4 mg PO DAILY 01/19/13 07/31/17 Lovastatin 40 mg PO DAILY 03/20/14 07/31/17 Oxycodone HCl [Roxicodone] 120 mg PO TID 03/20/14 07/31/17 Albuterol Sulfate [Proair Hfa 2 inh IH Q4H PRN 09/20/14 07/31/17 Inhaler] Aspirin [Ecotrin] 81 mg PO DAILY 09/20/14 07/31/17 Metoprolol Tartrate [Lopressor] 50 mg PO DAILY 09/20/14 07/31/17 Nitroglycerin [Nitrostat] 1 tab [id number] ONCE 12/07/15 07/31/17 Citalopram [CeleXA] 20 mg PO QPM tablet 01/31/17 07/31/17 Clopidogrel [Plavix] 75 mg PO DAILY tablet 01/31/17 07/31/17 Albuterol 2.5 mg NEB BID PRN 03/01/17 07/31/17 Oxycodone HCl [Roxicodone] 90 mg PO DAILY MDD nte 15 tab07/31/17 07/31/17 hours - Allergies Allergies/Adverse Reactions: Allergies Allergy/AdvReac Type Severity Reaction Status Date / Time Penicillins AdvReac Unknown Verified 01/25/16 08:48 Review of Systems - Constitutional Constitutional: reports: Fatigue, Poor appetite - Eyes Eyes: reports: Vision loss - Ears, Nose & Throat Ears, Nose & Throat: reports: Hearing loss - Cardiovascular Cardiovascular: reports: Exertional dyspnea, Decr. exercise tolerance. denies: Chest pain - Respiratory Respiratory: reports: Cough, Wheezing, SOB with exertion - Gastrointestinal Gastrointestinal: reports: Constipation, Early satiety - Genitourinary Genitourinary: reports: Frequency - Musculoskeletal Musculoskeletal: reports: Stiffness, Limited range of motion, Muscle weakness - Integumentary Integumentary: reports: Dryness - Neurological Neurological: reports: General weakness, Memory problems - Psychiatric Psychiatric: reports: Depression, Anxiety. denies: Suicidal - Endocrine Endocrine: reports: Intolerance to cold - Hematologic/Lymphatic Hematologic/Lymphatic: denies: Recurrent infections - All Other Systems All Other Systems: reports: Reviewed and negative Physical Exam - Vital Signs Temperature: 98.5 C Pulse Rate: 96 Respiratory Rate: 18 O2 Saturation: 96 Blood Pressure: 108/64 - Physical Exam General Appearance: positive: Mild distress, Anxious Eyes Bilateral: positive: Normal inspection ENT: positive: No signs of dehydration Neck: positive: No JVD, Trachea midline Cardiovascular: positive: Regular rate & rhythm, Tachycardia Respiratory: positive: Diminished throughout Abdomen: positive: Nml bowel sounds, Tenderness, Other (herniated areas through thinned abdominal wall; tender to touch; wearing abdominal binder) Skin: positive: Pallor, Dryness, Bruising Extremities: positive: No pedal edema, Other (weak and shakey getting up and down; more pain with ambulation) Neurologic/Psychiatric: positive: Disoriented to time, Depressed mood/affect, Flat affect Palliative Care - POLST Patient has POLST: Yes POLST Status: DNR, Selective Treatment Pain: Pain unchanged, Severity (Pain continues to be quite severe, sharp shooting through abdomen, worse when needs to have bowel movement. Also worse when stand straight and walking with any kind of stretching onto the abdominal area. Spends most of his time laying down as this is the most comfortable position. He has been on the oxycodone 30 mg 4 tabs every 6 hours for a long extended period of time, despite multiple conversations about looking at alternatives. He is today ready to discuss at least titrating back, though does not want to introduce or retry methadone) Tiredness/Fatigue: Severe (7-10) (Reports has no energy to do anything, will draw labs today) Drowsiness/Sedation: Mild (1-3) Nausea: None Depression: Moderate (4-6) Anxiety: Moderate (4-6) Dyspnea: Moderate (4-6) (Reports is trying to cut back on smoking, is smoking about 9 cigerettes a day down from usual pack) Anorexia: Moderate (4-6) (Eating causes increased pain, patient tends to just have [employer] [place] breakfast sausages and soup. He is using Ensure 1-2 times a day ) Sleep: Sleeps poorly (Patient feels trazodone is no longer effective, does use occasional [id number] sleeping meds. Will discontinue trazodone per request), Variable sleep pattern Constipation: Yes, Opoid induced, Unmanaged (She intends to be inconsistent in his bowel program, uses senna occastionally and dependent on suppository) Feelings of wellbeing/Perceived Quality of Life: Poor, Worsening Performance Status: Patient having increased balance problems, less able to tolerate showering. Does spend most of his time in bed. He does take short walks in the house. His friend has been taking him out for drives and walks, this is been less often because of the weather - Palliative Care Discussion: Patient continues to perceive current quality of life is quite poor, has intermittent thoughts of suicidality, reports this is resolved at this point in time. Did discuss his overall goals, at this point in time would like to go ahead and titrate off opioids, significantly long conversation this patient has gone "cold turkey" before in the past. Discussed success with depend on him tolerating long slow taper, in the context of just his long-term use and his personality and his physical dependence as well as emotional concerns. Results - Lab Results Lab results reviewed: Yes Lab and Imaging Results: Labs drawn no significant abnormalities noted message left for patient 1/26 Impression and Recommendations - Palliative Care Impression: This is a 71-year-old gentleman who continues to struggle with his ongoing worsening quality of life, has multiple comorbidities and high symptom burden with chronic pain syndrome. He continues to be at high risk for hospitalization with his continued smoking, advanced COPD, risk for falls, and underlying AAA. At this point in time he has agreed to titrate back on his pain medication, patient does have ongoing short-term memory issues, as well as high risk depression and suicidality Recommendations/Counseling Done: 1. Chronic pain syndrome secondary to long-standing neuropathic changes as a result of multiple surgeries. Will decrease by 1 tablet from total of 16-15 for 1 month. Patient has gone "cold turkey in the past" education regarding danger in doing this, commitment for long-term success, also discussed at length other alternatives. Patient in agreement. is the one who gives out medications, agreement made that the 3 tablet timing would be after dinner, and we would continue to titrate down over the next few months. Can do a quicker if patient tolerates but will take a small step this month given patient's commitment to try 2. Depression. Patient has made agreement not to hurt himself, had recommended increasing his citalopram from 20 mg to 40, at this point in time remains resistant to any kind of medication changes or increases. We have tried this before as well. Did discuss at length again ways to challenge some of his catastrophic thinking, encouraged him to go out around rides and walks with his friends more often, as well as to decrease his isolation. Did offer follow-up counseling or referral, patient continues to be quite resistant to any intervention. 3. Insomnia. Patient has chosen to stop trazodone, will use [id number], patient is not a good candidate for further benzodiazepines or other sleep med. Does awaken frequently to vapor or smoke. 4. Constipation, opioid induced. Patient continues to titrate his own medications, though has been educated on bowel programs. 5. Advanced care planning. Does have a LISA ST in place, continues to struggle with poor health and fragility. With patient's cognitive issues does tend to cause quite a bit of tension as far as between he and his , did review care plan and goals where were heading with his decreasing opioid use with the goal for decreased sedation, constipation, and hopefully improved cognition. Time Spent: Time spent 45 minutes with good 50% of this done in counseling coordination of care follow-up regarding opioid safety, counseling for depression, and setting goals.
== END 2017-07-31 11:01 | disposition home or self-care (01) ==
LOC: PC 11:00
PROVIDERS: ATTEND Nurse Practitioner Adult Health
DX: Z51.5 Encounter for palliative care (principal); G89.4 Chronic pain syndrome; F32.9 Major depressive disorder, single episode, unspecified; G47.00 Insomnia, unspecified; K59.03 Drug induced constipation; T40.2X5D Adverse effect of other opioids, subsequent encounter; K66.0 Peritoneal adhesions (postprocedural) (postinfection); J44.9 Chronic obstructive pulmonary disease, unspecified; I71.4 Abdominal aortic aneurysm, without rupture; Z79.891 Long term (current) use of opiate analgesic; Z66 Do not resuscitate; Z72.0 Tobacco use; Z91.81 History of falling
CPT/HCPCS: 99349

== ENCOUNTER 2017-07-31 11:40 | Outpatient (CLI) | payer MEDICARE, OTHER ==
[2017-07-31 12:56] LABS: BASOPHILS # (AUTO) 0.1 10^3/uL (0.0-0.1); EOSINOPHILS # (AUTO) 0.1 10^3/uL (0.0-0.7); EOSINOPHILS % (AUTO) 0.9 %; HGB - HEMOGLOBIN 17.9 g/dL (14.0-18.0); LYMPHOCYTES # (AUTO) 1.4 10^3/uL (1.5-3.5); LYMPHOCYTES % (AUTO) 17.1 %; MEAN CORPUSCULAR HEMOGLOBIN 32.2 pg (27.0-31.0); MEAN CORPUSCULAR HGB CONC 34.4 g/dL (32.0-36.0); MEAN CORPUSCULAR VOLUME 93.6 fL (80.0-94.0); MEAN PLATELET VOLUME 10.4 fL (7.4-11.4); MONOCYTES % (AUTO) 12.7 %; NEUTROPHILS # (AUTO) 5.6 10^3/uL (1.5-6.6); NEUTROPHILS % (AUTO) 68.3 %; PLT - PLATELET COUNT 191 10^3/uL (130-450); RED BLOOD COUNT 5.54 10^6/uL (4.70-6.10); RED CELL DISTRIBUTION WIDTH 12.3 % (12.0-15.0); WHITE BLOOD COUNT 8.2 x10^3/uL (4.8-10.8)
[2017-07-31 13:10] LABS: PLATELET MORPHOLOGY RARE GIANT PLATELETS (NORMAL)
[2017-07-31 13:20] LABS: ALBUMIN 4.1 g/dL (3.2-5.5); ALBUMIN/GLOBULIN RATIO 1.5 (1.0-2.2); BILIRUBIN,TOTAL 0.7 mg/dL (0.2-1.0); CALCIUM 9.2 mg/dL (8.5-10.3); CREATININE 1.1 mg/dL (0.6-1.2); PHOSPHORUS 2.9 mg/dL (2.5-4.6); TOTAL PROTEIN 6.8 g/dL (6.7-8.2)
== END 2017-07-31 11:41 | disposition home or self-care (01) ==
LOC: LAB.R 11:40
PROVIDERS: ATTEND Nurse Practitioner Adult Health
DX: Z79.899 Other long term (current) drug therapy (principal); E83.39 Other disorders of phosphorus metabolism
CPT/HCPCS: 80053; 84100; 85025

== ENCOUNTER 2017-08-28 15:00 | Outpatient (CLI) | payer MEDICARE, OTHER ==
--- NOTE | 2017-08-28 17:23 | CONSULTATION NOTE ---
Palliative Care Follow Up - Referral Referring Provider: Dr. Tino Nunn Time of Visit: [id number] Referral setting: Home (Patient seen in his home setting secondary is patient seen in his home setting secondary considerable and taxing effort for the patient leave the home or to be upright for long periods of time secondary to his chronic pain. Also to facilitate family meeting with his Magy) Referral Reason: Chronic Abdominal Pain/COPD - Information Sources Records reviewed: Previous records reviewed History/Review of Systems obtained from: Patient, Family (Reviewed with June) Exam limitations: Clinical condition (patient continues to present with progressive neurocognitive decline) - History of Present Illness Update Brief HPI Update: This is a 71-year-old gentleman with multiple comorbidities including advanced COPD, tobacco abuse, AAA, and chronic abdominal pain as result of complications of a colonoscopy requiring multiple abdominal surgeries with residual neuropathic pain syndrome. Patient appears quite frail, reports challenged to get adequate intake secondary to eating increases his pain, does spend most of his time in bed as he is most comfortable laying out right. We have agreed to titrate back his oxycodone 30 mg tabs from a total of 16 tabs in 24 hours to 15 tabs. Patient had called me a few days after visit last time, had essentially cut back 50%, and ended up with severe withdrawal symptoms. Patient reports he was just impatient to get off these "hellish meds". Patient reports only taking 2 tabs every 6 hours, this was not the original discussion, we reviewed medication use though with was taking 4 tabs a.m. 4 tabs late afternoon 4 tabs at dinner and 3 tabs at bedtime as instructed. She reports he continues to have very severe short-term memory issues, gets days and nights mixed up, is quite impulsive, and now has developed some significant paranoia over the last couple months. She reports he is deathly afraid of getting cancer, any adds that are on the TV he sure he has that illness, and when she tries to correct her challenge his thought processes he gets quite angry and frustrated. Patient is disoriented to time, very poor recall of any short-term issues, appears to have some insight and is quite distressed by his ongoing cognitive decline. Social History - Living Situation Living arrangement: At home Living Situation: With spouse/s.o. (Magy is exhibiting severe caregiver fatigue, she does herself present as quite frail and with further weight loss. She does have a follow-up with her primary care physician next week, she is finding it much more difficult to manage patient's fluctuating cognitive and mental status.) Medications/Allergies - Medications Home Medications: Ambulatory Orders Medication Instructions Recorded Confirmed Tamsulosin [Flomax] 0.4 mg PO DAILY 01/19/13 08/28/17 Lovastatin 40 mg PO DAILY 03/20/14 08/28/17 Oxycodone HCl [Roxicodone] 120 mg PO BID 03/20/14 08/28/17 Albuterol Sulfate [Proair Hfa 2 inh IH Q4H PRN 09/20/14 08/28/17 Inhaler] Aspirin [Ecotrin] 81 mg PO DAILY 09/20/14 08/28/17 Metoprolol Tartrate [Lopressor] 50 mg PO DAILY 09/20/14 08/28/17 Nitroglycerin [Nitrostat] 1 tab [id number] ONCE 12/07/15 08/28/17 Citalopram [CeleXA] 20 mg PO QPM tablet 01/31/17 08/28/17 Clopidogrel [Plavix] 75 mg PO DAILY tablet 01/31/17 08/28/17 Albuterol 2.5 mg NEB BID PRN 03/01/17 08/28/17 Oxycodone HCl [Roxicodone] 90 mg PO BID MDD nte 14 tabs/24 07/31/17 08/28/17 hours Trazodone HCl 100 mg PO DAILY PRN 08/29/17 08/29/17 - Allergies Allergies/Adverse Reactions: Allergies Allergy/AdvReac Type Severity Reaction Status Date / Time Penicillins AdvReac Unknown Verified 01/25/16 08:48 Review of Systems - Constitutional Constitutional: reports: Fatigue, Weakness, Poor appetite, Weight loss (patient unable to weigh scale broken;) - Eyes Eyes: reports: Vision loss - Ears, Nose & Throat Ears, Nose & Throat: reports: Hearing loss, Dry mouth - Cardiovascular Cardiovascular: reports: Exertional dyspnea, Decr. exercise tolerance. denies: Chest pain - Respiratory Respiratory: reports: Cough (rolling cough; still smoking about 1/2 pack a day) , Wheezing, SOB with exertion - Gastrointestinal Gastrointestinal: reports: Abdominal distention, Constipation, Bloating, Poor appetite, Early satiety. denies: Rectal bleeding - Genitourinary Genitourinary: reports: Other (abdominal pain with urinating at baseline) - Musculoskeletal Musculoskeletal: reports: Muscle weakness (spending majority of time in bed because more comfortable laying down;) - Integumentary Integumentary: reports: Dryness, Other (distressed with frequent) - Neurological Neurological: reports: Memory problems (patient reports memory issues continue to be problematic; reports patient doesn't remember much of anything these days as to what had for breakfast; calls people to "solve problems" and doesn't remember has called) - Psychiatric Psychiatric: reports: Depression (patient continues to express feelings of hopelessness and last of worth), Delusions ( reports patient watching TV and paranoid about every thing right now; flu/getting cancer/any medication ad) - Endocrine Endocrine: reports: Intolerance to cold - Hematologic/Lymphatic Hematologic/Lymphatic: reports: Bleeding tendencies (patient skips plavix at times because of bruising; reiterated medication compliance). denies: Anemia, Recurrent infections - All Other Systems All Other Systems: reports: Reviewed and negative Physical Exam - Vital Signs Temperature: 97.8 C Pulse Rate: 68 Respiratory Rate: 20 O2 Saturation: 99 (ra @ rest) Blood Pressure: 112/76 - Physical Exam General Appearance: positive: No acute distress, Anxious Eyes Bilateral: positive: Conjunctivae nml ENT: positive: No signs of dehydration Neck: positive: Trachea midline Cardiovascular: positive: Regular rate & rhythm, Systolic murmur Respiratory: positive: Diminished in bases (scattered rhonchi; clear with coughing), Rhonchi Abdomen: positive: Abnml bowel sounds (hypoactive), Tenderness, Guarding, Other (abdominal binder on) Skin: positive: Dryness, Bruising Extremities: positive: No pedal edema Neurologic/Psychiatric: positive: Disoriented to time, Weakness, Depressed mood/ affect, Flat affect Palliative Care - POLST Patient has POLST: Yes POLST Status: DNR, Selective Treatment Pain: Pain unchanged, Location (abdominal pain; see HPI) Tiredness/Fatigue: Severe (7-10) Drowsiness/Sedation: None Nausea: None Depression: Moderate (4-6) Anxiety: Severe (7-10) Dyspnea: Moderate (4-6) Anorexia: Moderate (4-6), Weight loss Sleep: Sleeps poorly Constipation: Yes, Opoid induced, Unmanaged Feelings of wellbeing/Perceived Quality of Life: Poor, Worsening Performance Status: Patient reports that he spends most of his time in bed, he is showering more frequently, does ambulate around the house though his gait is quite tentative. I would put him at a PPS of 60% - Palliative Care Discussion: Patient continues to present with severe distress regarding his current situation, his increased dependence, and feeling of hopelessness and helplessness. He does denies suicidality today. He does present with a juxtaposition in the context he wants this to be over with, but he is actually deathly afraid of dying, and fearful of getting "cancer", though he understands this does not make much sense. Results - Lab Results Lab results reviewed: Yes Lab and Imaging Results: Reviewed labs with patient, reassurance given. Impression and Recommendations - Palliative Care Impression: This is a 71-year-old gentleman with multiple core morbidities including fairly severe chronic pain syndrome, he continues to struggle with his worsening quality of life. In agreement to continue to titrate back opioid load, patient remains at high risk for hospitalization with his continued smoking, advanced COPD, risk for falls, and underlying AAA. He presents with ongoing functional and cognitive decline, as well as progressive weight loss. Palliative care provide support as patient allows, to just symptom management and psychosocial distress Recommendations/Counseling Done: 1. Chronic pain syndrome secondary is long-standing neuropathic changes as result of his abdominal surgeries. Both patient and in agreement to continue slow taper of oxycodone. Will decrease by 1 tablet of oxycodone 30 mg tabs from 15-14. Patient resistant to considering other alternatives including methadone, has been giving correctly, patient with poor recall, and did attempt again a rapid titration resulting in severe withdrawal symptoms. Patient still having a fairly high degree of distress, worsening by positioning , and with eating and defecation. 2. Depression. Patient continues to express distress regarding current quality of life, but at this point denies suicidality. He continues to be resistant to titrating antidepressant up. As well as other psychosocial support. 3. Insomnia. Patient does want to reinitiate his trazodone 100 mg, Continues to sleep poorly. He reports this is related to the pain. Discuss he is not a good candidate for any benzodiazepines are further medications to increase his fall risk. He does awaken frequently to vapor or smoke, I suspect some of this is related to his tobacco abuse as well. 4. Constipation, opioid induced. reports patient still sits for long periods of time on the toilet, does not appear to titrate his medications appropriately though patient reports he does. Alternating between constipation and diarrhea, appears to have difficulty tracking as far as medication adherence. 5. Medication adherence. Patient able to show me his daily medications, he takes them from bottles. does feel like he is doing this appropriately, but does sound like he skips his Plavix from time to time, educated on risk of this. will continue to dispense pain medications, she is able to verbalize back correct regimen,. 6. Advanced care planning. Patient does have a LISA ST in place, continues to struggle with poor health and his fragility. is quite fragile as well, am concerned regarding caregiver fatigue and burden or if she were to have further decline. Initiate conversation with regarding considering increased support, she does feel she has people to call and her daughter would step up if needed. Time Spent: 45 minutes with greater than 50% of this done in counseling for opioid safety and coordination of care follow-up with family conference with and anticipatory guidance
== END 2017-08-28 15:01 | disposition home or self-care (01) ==
LOC: PC 15:00
PROVIDERS: ATTEND Nurse Practitioner Adult Health
DX: Z51.5 Encounter for palliative care (principal); G89.4 Chronic pain syndrome; F32.9 Major depressive disorder, single episode, unspecified; G47.00 Insomnia, unspecified; K59.03 Drug induced constipation; T40.2X5D Adverse effect of other opioids, subsequent encounter; J44.9 Chronic obstructive pulmonary disease, unspecified; Z72.0 Tobacco use; I71.4 Abdominal aortic aneurysm, without rupture; R10.9 Unspecified abdominal pain; M62.81 Muscle weakness (generalized); R63.4 Abnormal weight loss; F41.9 Anxiety disorder, unspecified; Z91.81 History of falling; Z79.82 Long term (current) use of aspirin; Z79.891 Long term (current) use of opiate analgesic; Z79.02 Long term (current) use of antithrombotics/antiplatelets; Z66 Do not resuscitate
CPT/HCPCS: 99349

== ENCOUNTER 2017-09-27 20:05 | Outpatient (CLI) | payer MEDICARE, OTHER ==
--- NOTE | 2017-09-27 20:16 | CONSULTATION NOTE ---
Palliative Care Follow Up - Referral Referring Provider: Dr. Tino Nunn Time of Visit: [id number] Referral setting: Home (Patient was severe pain, is a taxing considerable effort for him to leave the home. Also to facilitate family conferencing and treatment planning) Referral Reason: Advanced COPD/Chronic Abdominal Pain - Information Sources Records reviewed: Previous records reviewed History/Review of Systems obtained from: Patient, Family ( Magy) Exam limitations: Clinical condition (patient with severe STM issues; but appears much clearer today) - History of Present Illness Update Brief HPI Update: This is a 71-year-old gentleman with multiple comorbidities including advanced COPD, tobacco abuse, AAA, and chronic abdominal pain as result of complications of colonoscopy requiring multiple abdominal surgeries with residual neuropathic pain syndrome. Patient remains severely depressed, denies suicidal ideation, though does admit to quitting medications for 2 weeks, without any clear explanation. He has restarted these 2 days ago. The other concern is he does report severe symptoms, most likely cardiac in nature, yesterday. He refused to go to the hospital nor that his called 911. He does report symptoms have resolved today, but they included left shoulder pain, sweating, weakness, and report he was actually fairly fearful as he had slept with her last night. Patient did admit he was hoping it was his heart, and this would all be over with. I did recommend follow-up fairly urgently with his frame expander, he continues to decline any kind of intervention, this is consistent with his past behaviors. He perceives his life as "not worth living". But denies he would intentionally kill himself, he was hoping to let nature take its course. He did have a brother, who committed suicide by gunshot, and found this both distressing to himself as well as did does not feel like he could do that to his . Is continued to remain resistant to other means of pain relief, counseling for depression, or titration of his antidepressants. We have been decreasing his oxycodone slowly, this is in agreement that he is been more confused on it lately. We have decreased it from a total of 16 down to 14, and he is in agreement to continue at 13. He is on oxycodone 30 mg tabs. Patient does have some underlying cognitive decline, but both myself and his have noted in today's visit he has a little bit more clear, more able to track, he has previously tried to quit "cold turkey" with severe withdrawal symptoms. His pain remains fairly unrelenting though, it is worse with eating, also with standing and walking. He reports the pain pills do work some, but only give relief for 2-3 hours, he describes this as a sharp knife stabbing pain. It does interfere with sleep. He has been offered multiple times follow-up in a pain clinic, recommendation to switch to methadone, consider some kind of pain block. He remains resistant and fearful of any changes. He does report his AAA is "acting up" but and able to tell me specifically what this means. Social History - Living Situation Living arrangement: At home Living Situation: With spouse/s.o. Support System: His Magy, has her own underlying health issues, she is quite thin and cachectic and appears quite fragile and frail herself. She does get quite frustrated with Otoniel as far as his resistance to pursuing to make things any better. She has been overseeing his pain medication management, though he does his own other medications, she was not aware until his refills came on his pills that he had quit for 2 weeks and encouraged him to restart Medications/Allergies - Medications Home Medications: Ambulatory Orders Medication Instructions Recorded Confirmed Tamsulosin [Flomax] 0.4 mg PO DAILY 01/19/13 09/27/17 Lovastatin 40 mg PO DAILY 03/20/14 09/27/17 Oxycodone HCl [Roxicodone] 120 mg PO ACHS 03/20/14 09/27/17 Albuterol Sulfate [Proair Hfa 2 inh IH Q4H PRN 09/20/14 09/27/17 Inhaler] Aspirin [Ecotrin] 81 mg PO DAILY 09/20/14 09/27/17 Metoprolol Tartrate [Lopressor] 50 mg PO DAILY 09/20/14 09/27/17 Nitroglycerin [Nitrostat] 1 tab [id number] ONCE 12/07/15 09/27/17 Citalopram [CeleXA] 20 mg PO QPM tablet 01/31/17 09/27/17 Clopidogrel [Plavix] 75 mg PO DAILY tablet 01/31/17 09/27/17 Albuterol 2.5 mg NEB BID PRN 03/01/17 09/27/17 Oxycodone HCl [Roxicodone] 90 mg PO TID MDD nte 13 tabs/24 07/31/17 09/27/17 hours Trazodone HCl 100 mg PO DAILY PRN 08/29/17 09/27/17 Budesonide/Formoterol Fumarate 1 puffs INH DAILY 09/27/17 09/27/17 [Symbicort 160-4.5 Mcg Inhaler] - Allergies Allergies/Adverse Reactions: Allergies Allergy/AdvReac Type Severity Reaction Status Date / Time Penicillins AdvReac Unknown Verified 01/25/16 08:48 Review of Systems - Constitutional Constitutional: reports: Fatigue, Poor appetite, Other (Patient has not weighed himself, though he does appear quite thin and cachectic in appearance) - Eyes Eyes: reports: Vision loss - Ears, Nose & Throat Ears, Nose & Throat: reports: Hearing loss, Nasal congestion (Patient reports nasal congestion with allergies, discussed Claritin or Flonase, he will consider ) - Cardiovascular Cardiovascular: reports: Decr. exercise tolerance, Other (reports left shoulder pain yesterday; today resolved; did use nitro-does not recall if helpful or not) . denies: Palpitations - Respiratory Respiratory: reports: SOB with exertion, Other (smoking continues at 8-10 cigerettes/day) - Gastrointestinal Gastrointestinal: reports: Abdominal pain, Nausea (intermittent), Poor appetite , Early satiety. denies: Rectal bleeding - Genitourinary Genitourinary: denies: Incontinence - Musculoskeletal Musculoskeletal: reports: Stiffness, Muscle weakness, Assistive devices (uses cane) - Integumentary Integumentary: reports: Dryness - Neurological Neurological: reports: General weakness, Memory problems (Patient still has poor short-term memory issues, poor recall of events, but does seem more clear and engaged today.) - Psychiatric Psychiatric: reports: Depression (Please see HPI, patient continues with depression though is quite resistant to any kind of intervention) - Endocrine Endocrine: denies: Diabetes type 2, Hypothyroidism - Hematologic/Lymphatic Hematologic/Lymphatic: denies: Recurrent infections - All Other Systems All Other Systems: reports: Reviewed and negative Physical Exam - Vital Signs Temperature: 97.6 C Pulse Rate: 87 Respiratory Rate: 18 O2 Saturation: 94 (ra @ rest) Blood Pressure: 132/72 - Physical Exam General Appearance: positive: Moderate distress, Anxious Eyes Bilateral: positive: Conjunctivae nml, No scleral icterus ENT: positive: ENT inspection nml, No signs of dehydration Neck: positive: No JVD, Trachea midline Cardiovascular: positive: Regular rate & rhythm Respiratory: positive: Diminished throughout. negative: Wheezes, Rales, Rhonchi Abdomen: positive: Nml bowel sounds, Tenderness, Other (has abdominal binder on) Skin: positive: Pallor, Dryness Extremities: positive: No pedal edema, Other (very shakey when up; difficulty standing upright secondary to pain) Neurologic/Psychiatric: positive: Disoriented to time, Weakness, Depressed mood/ affect, Flat affect Palliative Care - POLST Patient has POLST: Yes POLST Status: DNR, Selective Treatment Pain: Pain unchanged, Location (see HPI;) Tiredness/Fatigue: Severe (7-10) Drowsiness/Sedation: Mild (1-3) Nausea: Mild (1-3) Depression: Severe (7-10), Suidical ideation Anxiety: Moderate (4-6) Dyspnea: Moderate (4-6) Anorexia: Moderate (4-6) Sleep: Sleeps poorly Constipation: Yes, Opoid induced, Managed Feelings of wellbeing/Perceived Quality of Life: Poor, Worsening Performance Status: Patient does spend the majority of his time laying flat in bed and watching TV, this is because standing or ambulating causes increased pain. He is able to ambulate to the bathroom, is getting weaker and more difficulty with tolerating showering. I would put him at a PPS of 50% - Palliative Care Discussion: Patient continues to express his distress and feeling "stuck" and "not worth living, and it sucks". Pain he should not gently challenged regarding his behaviors, that are quite self-destructive, and though not overtly suicidal certainly covert suicidal. Patient has restarted his medications, has agreed to no further self-harm, but is hoping at some point for it all to end. His father had had heart attack at 57, but reports family longevity except his brother's suicide, in his family. Reviewed options again regarding follow-up with cardiology, increasing antidepressant or switching out, as well as alternative pain regimens. He continues to be quite resistant, though he does allow me to continue to see him monthly, and is still intent on trying to taper down opioids. Patient has made contract for no further self-harm for the next 4 weeks, and has been encouraged to call 911 for any recurrent cardiac issues. Impression and Recommendations - Palliative Care Impression: This is a 71-year-old gentleman with multiple comorbidities, with exacerbation in his depression. He has been off his antidepressants for greater than 2 weeks , suspect this may be a contributing factor. He has restarted, will continue to titrate back opioid load per patient's goals. He remains at high risk for hospitalization with his continued smoking, advanced COPD, risk for falls, and underlying AAA. Palliative care support has patient allows, to provide symptom management and address psychological distress Recommendations/Counseling Done: 1. Chronic pain syndrome secondary long-standing neuropathic changes as result of his abdominal surgeries. Will continue with slow taper of oxycodone. Will decrease 1 tablet of oxycodone 30 mg tablets from 14-13. Again patient remains resistant to considering other alternatives including methadone. is been overseeing and giving correctly. Patient still has a fairly high degree of distress and pain, worsening by positioning, eating, and defecation. 2. Depression. This appears exacerbated today, I suspect it is worsened by his being off his antidepressants for 2 weeks. Does present with suicidal ideation, though has made contract not to intentionally further work on self- harm. Have instructed his Magy to call with any concerns, or contact the suicide hotline. 3. Insomnia. Patient did reinitiate his trazodone 100 mg, reports this has helped. 4. Constipation. Patient is reporting he is titrating his medications appropriately, no exacerbation in his hemorrhoids. 5. Medication adherence. Patient has reinitiated his medications, will continue per his report. 6. CAD. Patient does present with high risk for cardiac event, does appear have some kind of episode yesterday. Had declined to call 911. Declines follow -up with frame expander, the most likely would be of benefit. Did use nitro with relief, encouraged if recurrent chest pain to access emergency care. 7. Advanced care planning. Patient does have a LISA ST in place, does not want to extend his suffering or life if he were to have an event, he continues to struggle with poor health and his fragility. does present with caregiver burnout as well, she declines further support, had offered palliative medical cost consultant. Time Spent: 45 minutes with greater than 50% of this done in counseling regarding depression , pain management, medication adherence, and cardiac symptoms. Anticipatory guidance provided and family conference
== END 2017-09-27 20:06 | disposition home or self-care (01) ==
LOC: PC 20:05
PROVIDERS: ATTEND Nurse Practitioner Adult Health
DX: Z51.5 Encounter for palliative care (principal); G89.4 Chronic pain syndrome; F32.9 Major depressive disorder, single episode, unspecified; R45.851 Suicidal ideations; G47.00 Insomnia, unspecified; K59.03 Drug induced constipation; T40.2X5D Adverse effect of other opioids, subsequent encounter; I25.10 Atherosclerotic heart disease of native coronary artery without angina pectoris; J44.9 Chronic obstructive pulmonary disease, unspecified; I71.4 Abdominal aortic aneurysm, without rupture; R41.81 Age-related cognitive decline; K64.9 Unspecified hemorrhoids; Z79.02 Long term (current) use of antithrombotics/antiplatelets; Z79.891 Long term (current) use of opiate analgesic; Z72.0 Tobacco use; Z79.82 Long term (current) use of aspirin; Z66 Do not resuscitate; Z91.81 History of falling; Z91.14 Patient's other noncompliance with medication regimen
CPT/HCPCS: 99349

== ENCOUNTER 2017-11-06 14:36 | Outpatient (CLI) | payer MEDICARE, OTHER | END 2017-11-06 14:37 | disposition home or self-care (01) | LOC: EMS 14:36 | PROVIDERS: ATTEND Surgery | DX: K62.5 Hemorrhage of anus and rectum (principal); R10.9 Unspecified abdominal pain | CPT/HCPCS: A0425; A0429 ==

== ENCOUNTER 2017-11-06 14:51 | Emergency (ER) | payer MEDICARE, OTHER ==
[2017-11-06] MEDS ORDERED: SODIUM CHLORIDE 0.9% 1,000 ML IV ONE (15:02)
--- NOTE | 2017-11-06 15:05 | ED Physician Documentation ---
PD HPI ABD PAIN - Stated complaint Stated Complaint: ABD PX - Chief complaint Chief Complaint: Abd Pain - History obtained from History obtained from: Patient, EMS - History of Present Illness Timing - onset: Today (72-year-old gentleman with history of COPD, known AAA measuring about 4-1/[address] last year, diverticulosis, history of diverticulitis, and multiple bowel resections and abdominal wall hernias presents with a single episode of lower GI bleeding with diffuse abdominal pain today. He was noted to be orthostatic en route) Review of Systems Ten Systems: 10 systems reviewed and negative Constitutional: denies: Fever, Chills Cardiac: denies: Chest pain / pressure, Palpitations Respiratory: denies: Dyspnea, Cough GI: reports: Abdominal Pain, Bloody / black stool. denies: Nausea, Vomiting : denies: Dysuria, Frequency PD PAST MEDICAL HISTORY - Past Medical History Past Medical History: Yes Cardiovascular: Hypertension, Coronary artery disease, OR Respiratory: COPD Neuro: None Endocrine/Autoimmune: None GI: Hiatal hernia, Diverticulitis, Other : Benign prostate hypertrophy HEENT: Chronic hearing loss Psych: Depression Musculoskeletal: None Derm: None - Past Surgical History Past Surgical History: Yes General: Bowel surgery, Colonoscopy, Other Cardiovascular: Coronary stent, AAA - Present Medications Home Medications: Ambulatory Orders Medication Instructions Recorded Confirmed Tamsulosin [Flomax] 0.4 mg PO DAILY 01/19/13 09/27/17 Lovastatin 40 mg PO DAILY 03/20/14 09/27/17 Oxycodone HCl [Roxicodone] 120 mg PO ACHS 03/20/14 09/27/17 Albuterol Sulfate [Proair Hfa 2 inh IH Q4H PRN 09/20/14 09/27/17 Inhaler] Aspirin [Ecotrin] 81 mg PO DAILY 09/20/14 09/27/17 Metoprolol Tartrate [Lopressor] 50 mg PO DAILY 09/20/14 09/27/17 Nitroglycerin [Nitrostat] 1 tab [id number] ONCE 12/07/15 09/27/17 Citalopram [CeleXA] 20 mg PO QPM tablet 01/31/17 09/27/17 Clopidogrel [Plavix] 75 mg PO DAILY tablet 01/31/17 09/27/17 Albuterol 2.5 mg NEB BID PRN 03/01/17 09/27/17 Oxycodone HCl [Roxicodone] 90 mg PO TID MDD nte 13 tabs/24 07/31/17 09/27/17 hours Trazodone HCl 100 mg PO DAILY PRN 08/29/17 09/27/17 Budesonide/Formoterol Fumarate 1 puffs INH DAILY 09/27/17 09/27/17 [Symbicort 160-4.5 Mcg Inhaler] Ciprofloxacin HCl [Cipro] 500 mg PO BID #14 tablet 11/06/17 Metronidazole [Flagyl] 500 mg PO TID #20 tablet 11/06/17 - Allergies Allergies/Adverse Reactions: Allergies Allergy/AdvReac Type Severity Reaction Status Date / Time Penicillins AdvReac Unknown Verified 01/25/16 08:48 - Social History Does the pt smoke?: Yes Smoking Status: Current every day smoker Does the pt drink ETOH?: No Does the pt have substance abuse?: No - Immunizations Immunizations are current?: Yes - POLST Patient has POLST: Yes POLST Status: DNR PD ED PE NORMAL - Vitals Vital signs reviewed: Yes - General General: Alert and oriented X 3, No acute distress - HEENT HEENT: PERRL, EOMI - Neck Neck: Supple, no meningeal sign, No bony TTP - Cardiac Cardiac: RRR, No murmur - Respiratory Respiratory: No respiratory distress - Abdomen Abdomen: Other (Multiple anterior abdominal scars with palpable and protruding but non-tender ventral hernias. Active peristalsis noted visually. Normal bowel tones. There is some mild diffuse abdominal tenderness.) - Derm Derm: Normal color, Warm and dry - Extremities Extremities: No edema, No calf tenderness / cord - Neuro Neuro: Alert and oriented X 3, Normal speech - Psych Psych: Normal mood, Normal affect Results - Vitals Vitals: Vital Signs - 24 hr 11/06/17 11/06/17 14:55 15:29 Temperature 37.3 C Heart Rate 84 81 Respiratory 18 18 Rate Blood Pressure 134/84 H 134/84 H O2 Saturation 95 96 Oxygen O2 Source [Without Activity] Room air O2 Source [With Activity] Room air O2 Source Room air - Labs Labs: Laboratory Tests 11/06/17 11/06/17 11/06/17 15:15 15:15 15:15 WBC 10.7 RBC 4.98 Hgb 16.2 Hct 47.3 MCV 94.8 H MCH 32.5 H MCHC 34.3 RDW 13.4 Plt Count 202 MPV 9.1 Neut # 9.0 H Lymph # 0.8 L [place] # 0.8 Eos # 0.0 Baso # 0.1 Absolute Nucleated RBC 0.00 Nucleated RBC % 0.0 Sodium 139 Potassium 4.2 Chloride 104 Carbon Dioxide 25 Anion Gap 10.0 BUN 14 Creatinine 1.0 Estimated GFR (MDRD) 73 L Glucose 117 H Calcium 9.5 Total Bilirubin 0.4 AST 16 ALT 13 Alkaline Phosphatase 66 Total Protein 6.9 Albumin 4.4 Globulin 2.5 Albumin/Globulin Ratio 1.8 Lipase 22 Blood Type O POSITIVE Antibody Screen NEGATIVE - Rads (name of study) CT A/P Radiology: EMP read contemporaneously (Sigmoid colitis, Stable prominent postsurgical changes and AAA.) PD MEDICAL DECISION MAKING - ED course ED course: 72-year-old gentleman with a resolved episode of lower GI bleeding found due to colitis. He did not have any bleeding in the department and very much wanted to go home. He was administered Cipro and Flagyl for the colitis and advised to return for any recurrent bleeding. Departure - Departure Disposition: Home, Self Care Clinical Impression: Hematochezia, Colitis Condition: Good Record reviewed to determine appropriate education?: Yes Prescriptions: Ciprofloxacin HCl [Cipro] 500 mg PO BID #14 tablet Metronidazole [Flagyl] 500 mg PO TID #20 tablet Comments: Return for any recurrent bleeding or if anything else worsens. Follow-up with your doctor in 2 days for recheck.
[2017-11-06] MEDS ORDERED: IOPAMIDOL-300 100 ML VIAL ONE (15:22)
[2017-11-06 15:23] LABS: BASOPHILS # (AUTO) 0.1 10^3/uL (0.0-0.1); BASOPHILS % (AUTO) 0.6 %; EOSINOPHILS % (AUTO) 0.4 %; HGB - HEMOGLOBIN 16.2 g/dL (14.0-18.0); LYMPHOCYTES # (AUTO) 0.8 10^3/uL (1.5-3.5); LYMPHOCYTES % (AUTO) 7.7 %; MEAN CORPUSCULAR HEMOGLOBIN 32.5 pg (27.0-31.0); MEAN CORPUSCULAR HGB CONC 34.3 g/dL (32.0-36.0); MEAN CORPUSCULAR VOLUME 94.8 fL (80.0-94.0); MEAN PLATELET VOLUME 9.1 fL (7.4-11.4); MONOCYTES # (AUTO) 0.8 10^3/uL (0.0-1.0); MONOCYTES % (AUTO) 7.1 %; NEUTROPHILS % (AUTO) 84.2 %; PLT - PLATELET COUNT 202 10^3/uL (130-450); RED BLOOD COUNT 4.98 10^6/uL (4.70-6.10); RED CELL DISTRIBUTION WIDTH 13.4 % (12.0-15.0); WHITE BLOOD COUNT 10.7 x10^3/uL (4.8-10.8)
[2017-11-06 15:44] LABS: ALBUMIN 4.4 g/dL (3.2-5.5); ALBUMIN/GLOBULIN RATIO 1.8 (1.0-2.2); BILIRUBIN,TOTAL 0.4 mg/dL (0.2-1.0); CALCIUM 9.5 mg/dL (8.5-10.3); TOTAL PROTEIN 6.9 g/dL (6.7-8.2)
--- NOTE | 2017-11-06 16:40 | CT Preliminary Report ---
Exam: CT ABDOMEN/PELVIS W/ IMPRESSION: 1. Long segment distal left and mid and proximal sigmoid wall thickening and adjacent inflammation. I maging findings are most concerning for colitis. Additional diverticulosis is present. 2. Multiple small bowel resections. Probable previous appendectomy. Stable prominent air-fluid level within mildly dilated bowel in lower anterior abdomen at the site of a previous anastomosis. No addit ional dilated bowel to suggest obstruction. 3. Large fusiform infrarenal abdominal aortic aneurysm. No retroperitoneal hematoma or rupture. Exten sive atheromatous calcified plaques and thrombus are noted in the abdominal aorta. 4. Stable wide mouth midline anterior abdominal wall hernia. [facility] SITE ID: [id number]
--- NOTE | 2017-11-06 16:58 | CT Report ---
EXAM: CT ABDOMEN AND PELVIS EXAM DATE: 11/06/2017 04:09 PM. CLINICAL HISTORY: Abdominal pain, lower gastrointestinal bleed. COMPARISONS: 01/29/2017. TECHNIQUE: Routine helical CT imaging was performed through the abdomen and pelvis. IV contrast: 100 mL Isovue-300. Enteric contrast: No. Reconstructions: Coronal and sagittal. In accordance with CT protocol optimization, one or more of the following dose reduction techniques w ere utilized for this exam: automated exposure control, adjustment of mA and/or KV based on patient s ize, or use of iterative reconstructive technique. FINDINGS: Lung Bases: No cardiac enlargement. Coronary artery calcifications are noted in all the major vessels . No effusions. Incidental small hiatal hernia noted. Lower lobe emphysema noted. Liver: Small simple left liver cyst. No mass or intrahepatic bile duct dilation. Gallbladder/Bile Ducts: Debris present in the gallbladder without gallbladder fossa inflammation. Com mon bile duct measures up to 9 mm. No obstructing stone or mass. Spleen: Normal. Pancreas: Normal. Adrenal Glands: Mildly thickened left adrenal gland. No focal adrenal mass or nodule. Kidneys: No mass or hydronephrosis. Cortical thinning is noted in the inferior-posterior right kidney . Nonobstructing bilateral renal stones are noted. Peritoneal Cavity/Bowel: Diffuse colonic diverticulosis is present with long segment sigmoid wall thi ckening and pericolonic inflammation. Additional thickening and adjacent inflammation is noted in the distal left colon. No dilated bowel, perforation, abscess or portal venous gas. Patient is status po st multiple small bowel resections. Probable postsurgical changes in the region of the cecum possibly from a previous appendectomy. Visualized stomach and small bowel are grossly unremarkable. Stable pr ominent air-fluid level in the distal small bowel in the anterior lower abdomen in the region of prev ious resection and anastomosis. Distal small bowel resection in the left mid abdomen. No bulky adenopathy. Pelvic Organs: Normal bladder. Mild prostate enlargement with central coarse prostate calcifications. No seminal vesicle lesion or significant enlargement. Vasculature: Normal IVC. Extensive atheromatous calcified and noncalcified plaques throughout the abd ominal aorta. Extensive calcified plaques are present at the origin of both renal arteries. Fusiform infrarenal abdominal aortic aneurysm with significant thrombus. Maximal axial diameter is 4.5 x 4.5 c m on image 3, 44. No retroperitoneal hematoma. There is at least ectasia of both common iliac arterie s measuring up to 1.7 cm bilaterally. No retroperitoneal hematoma. Bones: No significant abnormality. Other: Stable wide mouth anterior midline abdominal wall hernia. Multiple bowel loops are adherent to this region as before. IMPRESSION: 1. Long segment distal left and mid and proximal sigmoid wall thickening and adjacent inflammation. I maging findings are most concerning for colitis. Additional diverticulosis is present. 2. Multiple small bowel resections. Probable previous appendectomy. Stable prominent air-fluid level and mildly dilated bowel in lower anterior abdomen at the site of a previous anastomosis. No addition al dilated bowel to suggest obstruction. 3. Large fusiform infrarenal abdominal aortic aneurysm. No retroperitoneal hematoma or rupture. Exten sive atheromatous calcified plaques and thrombus are noted in the abdominal aorta. 4. Stable wide mouth midline anterior abdominal wall hernia. [facility] Referring Provider Line: [phone] SITE ID: [id number]
[2017-11-06] MEDS ORDERED: metroNIDAZOLE 250 MG TABLET PO STA (17:11)
[2017-11-06] MEDS ORDERED: CIPROFLOXACIN 250 MG TABLET PO STA (17:11)
[2017-11-06 17:23] VITALS: BP 154/89
[2017-11-06] MEDS ORDERED: IOPAMIDOL-300 100 ML VIAL IVP ONE (17:49)
== END 2017-11-06 17:45 | disposition home or self-care (01) ==
LOC: EDUNIT# → ED 14:51
DX: K92.1 Melena (principal); K52.9 Noninfective gastroenteritis and colitis, unspecified; I10 Essential (primary) hypertension; I25.10 Atherosclerotic heart disease of native coronary artery without angina pectoris; I25.2 Old myocardial infarction; Z95.5 Presence of coronary angioplasty implant and graft; F17.200 Nicotine dependence, unspecified, uncomplicated
CPT/HCPCS: 36415; 74177; 80053; 83690; 85025; 86850; 86900; 86901; 96360; 96361; 99283; A9270; Q9967

== ENCOUNTER 2017-12-05 19:05 | Outpatient (CLI) | payer MEDICARE, OTHER ==
--- NOTE | 2017-12-05 20:52 | CONSULTATION NOTE ---
Palliative Care Follow Up - Referral Referring Provider: Dr. Tino Nunn Time of Visit: 11:45-12:30 Referral setting: Home (It is a taxing considerable effort for the patient to leave the home, this also allows for family conferencing his is quite frail also. She is also involved in overseeing his pain medications and needs to be included as part of the treatment plan) Referral Reason: Chronic Abd Pain/Depression/Advanced COPD - Information Sources Records reviewed: Previous records reviewed History/Review of Systems obtained from: Patient, Family ( Magy present at visit) Exam limitations: Clinical condition (patient with STM issues/COUNCIL) - History of Present Illness Update Brief HPI Update: This is a 71-year-old gentleman with multiple comorbidities including advanced COPD, tobacco abuse, AAA, and chronic abdominal pain as result of complications of colonoscopy requiring multiple abdominal surgeries with residual neuropathic pain syndrome. Patient did have ED visit on 11/[address] of the abdomen showing inflammatory process along the long distal sigmoid, given his presentation they did treat for colitis. He reports he had only minimal improvement in his pain with the course of Cipro and Flagyl. He does report his pain is close to baseline, but continues to be somewhat overwhelming. Patient had requested, though he does have very poor short-term memory and recall, to be titrated down off his oxycodone. He reports his pain goes from unbearable to bearable with the oxycodone 30 mg tabs he takes 4 tabs in the a.m. and then 3 tabs noon dinner and bedtime. Today he remains quite resistant as far as considering further titration, this is somewhat attributed to his exacerbation of pain episode. He does appear quite thin and cachectic, he reports he is down to 130 pounds, his baseline is usually between 145 and 150. His skills were not working at the home. He does report he is having increased pain with eating, he is using boost, his reports he eats all the time. Of note patient is terrified of having cancer, was quite relieved that his scans did not show any evidence of disease, though he does continue to smoke but has cut down to 10 cigarettes. Continues to struggle with memory problems, though he does seem somewhat clearer today. He is disoriented to date, but not to person or place. He remains profoundly depressed, and remains mostly isolated and homebound. Social History - Living Situation Living arrangement: At home Living Situation: With spouse/s.o. (His Magy also has significant health problems, she appears quite thin and cachectic as well. The daughter Ximena lives on the property, does provide some help and support.) Medications/Allergies - Medications Home Medications: Ambulatory Orders Medication Instructions Recorded Confirmed Tamsulosin [Flomax] 0.4 mg PO DAILY 01/19/13 12/05/17 Lovastatin 40 mg PO DAILY 03/20/14 12/05/17 Oxycodone HCl [Roxicodone] 120 mg PO ACHS 03/20/14 12/05/17 Albuterol Sulfate [Proair Hfa 2 inh IH Q4H PRN 09/20/14 12/05/17 Inhaler] Aspirin [Ecotrin] 81 mg PO DAILY 09/20/14 12/05/17 Metoprolol Tartrate [Lopressor] 50 mg PO DAILY 09/20/14 12/05/17 Nitroglycerin [Nitrostat] 1 tab [id number] ONCE 12/07/15 12/05/17 Citalopram [CeleXA] 20 mg PO QPM tablet 01/31/17 12/05/17 Clopidogrel [Plavix] 75 mg PO DAILY tablet 01/31/17 12/05/17 Albuterol 2.5 mg NEB BID PRN 03/01/17 12/05/17 Oxycodone HCl [Roxicodone] 90 mg PO TID MDD nte 13 tabs/24 07/31/17 12/05/17 hours Trazodone HCl 100 mg PO DAILY PRN 08/29/17 12/05/17 Budesonide/Formoterol Fumarate 1 puffs INH DAILY 09/27/17 12/05/17 [Symbicort 160-4.5 Mcg Inhaler] Bisacodyl [Dulcolax] 1 - 2 tab PO DAILY PRN 12/05/17 12/05/17 - Allergies Allergies/Adverse Reactions: Allergies Allergy/AdvReac Type Severity Reaction Status Date / Time Penicillins AdvReac Unknown Verified 01/25/16 08:48 Review of Systems - Constitutional Constitutional: reports: Fatigue, Weakness, Weight loss - Eyes Eyes: reports: Vision loss - Ears, Nose & Throat Ears, Nose & Throat: reports: Hearing loss, Dry mouth - Cardiovascular Cardiovascular: reports: Exertional dyspnea, Decr. exercise tolerance. denies: Chest pain - Respiratory Respiratory: reports: SOB with exertion. denies: SOB at rest - Gastrointestinal Gastrointestinal: reports: Constipation (does not follow any bowel program), Early satiety, Other (stomach pain with eating) - Genitourinary Genitourinary: reports: Frequency - Musculoskeletal Musculoskeletal: reports: Muscle aches, Stiffness, Muscle weakness, Assistive devices (uses cane) - Integumentary Integumentary: reports: Dryness - Neurological Neurological: reports: General weakness, Memory problems - Psychiatric Psychiatric: reports: Depression, Anxiety - All Other Systems All Other Systems: reports: Reviewed and negative Physical Exam - Vital Signs Temperature: 97.1 C Pulse Rate: 61 Respiratory Rate: 18 O2 Saturation: 91 (ra @ rest) Blood Pressure: 112/64 - Physical Exam General Appearance: positive: Moderate distress (related to pain behaviors;) Eyes Bilateral: positive: Normal inspection ENT: positive: No signs of dehydration Neck: positive: Trachea midline Cardiovascular: positive: Regular rate & rhythm Respiratory: positive: Diminished throughout. negative: Wheezes Abdomen: positive: Nml bowel sounds, Tenderness, Other (abdominal binder on) Skin: positive: Pallor, Dryness Extremities: positive: No pedal edema Neurologic/Psychiatric: positive: Disoriented to time, Weakness, Depressed mood/ affect, Flat affect Palliative Care - POLST Patient has POLST: Yes POLST Status: DNR, Selective Treatment Pain: Pain worsening, Location (abdominal; severe exacerabation with recent colitis) Tiredness/Fatigue: Severe (7-10) Drowsiness/Sedation: Moderate (4-6) Nausea: None Depression: Moderate (4-6) Anxiety: Moderate (4-6) Dyspnea: Moderate (4-6) Anorexia: Moderate (4-6) Sleep: Variable sleep pattern Constipation: Yes, Opoid induced, Unmanaged Feelings of wellbeing/Perceived Quality of Life: Poor, Worsening Performance Status: Patient does spend most of his time in bed, he does ambulate short distances in the house with his cane. He does mostly instant food for meal prep. Showers about every other day, but this is with poor activity tolerance. Patient does present today with some functional decline - Palliative Care Discussion: Patient reports has had a bad month with his recent ED visit and exacerbation of pain. Does feel overwhelmed at most times, lonely, and isolated. He reports he and Melida getting along a little bit better, both appear in poor health. He is to be this depressed, denies he would kill himself, he could not do that to his family. He does spend most of his time watching golf, and is most comfortable laying down. Results - Lab Results Lab results reviewed: Yes Impression and Recommendations - Palliative Care Impression: This is a 71-year-old gentleman with multiple comorbidities including a recent exacerbation of his abdominal pain. He was diagnosed with exacerbation of his colitis, recently treated Cipro and Flagyl with mild improvement. Patient continues to struggle with high symptom burden of pain, constipation, anxiety, and depression. He does present with cachexia and increased weight loss today. Palliative care provide support as patient allows to provide symptom management and address psychological distress. Recommendations/Counseling Done: 1. Chronic pain syndrome secondary long-standing neuropathic changes as a result of his abdominal surgeries. Patient remains both ambivalent and resistant regarding taper of oxycodone, with recent exacerbation of colitis he is at his 13 oxycodone 30 in 24 hours. His pain does cause him quite a bit of distress, worsening by positioning, walking, eating, and defecation. Requested he try to do 3 tabs every 6 hours and drop 1 tab, did the right prescription to cover 13 tabs in 24 hours. He was able to make it through the month this time, he often runs out early. Requested set aside at least 2-3 days worth, so this patient does not have withdrawals at end of month. Continue to offer alternatives the patient remains quite resistant though he has poor short-term memory is unable to recall exactly all his resistances he actually might benefit from methadone but given the home situation would not be appropriate. And there will soon be someone being able to prescribe buprenorphine, patient actually interested in considering treatment, will see when available. 2. Colitis. She with mild improvement, patient does meet with PCP on 12/13, will defer if further treatment would be of benefit. 3. Depression. Patient back on antidepressants, is doing somewhat better. Continues to have intermittent suicidal ideation, though has no plan for self- harm. Patient reports today he would not do that as he would not put his ' s to this. Instructed to call his symptoms of suicidality increase are to call if concern. 4.Constipation. Patient unable to recall our report what he is taking for his bowels, denies any pain with his hemorrhoids or bleeding. Patient has been educated multiple times will not further pursue. 5. Medication adherence. Patient reports he is taking his medication at this point in time. 6. CAD. Patient denies any chest pain since last visit. 7. Advanced care planning. Patient does have a LISA ST in place, he does not want to extend his suffering or life if he were to have an event, though this is in juxtaposition to his fear of dying of cancer. He continues to struggle with poor health and fragility. does get distressed with patient's fluctuating mood and health Time Spent: 50 minutes was given 50% of this done in counseling regarding pain and symptom management and anticipatory guidance. Will follow up with PCP he when available regarding referral for buprenorphine and follow-up on colitis
== END 2017-12-05 19:06 | disposition home or self-care (01) ==
LOC: PC 19:05
PROVIDERS: ATTEND Nurse Practitioner Adult Health
DX: Z51.5 Encounter for palliative care (principal); G89.4 Chronic pain syndrome; G98.8 Other disorders of nervous system; K66.0 Peritoneal adhesions (postprocedural) (postinfection); R45.851 Suicidal ideations; K59.03 Drug induced constipation; T40.2X5D Adverse effect of other opioids, subsequent encounter; K64.9 Unspecified hemorrhoids; I25.10 Atherosclerotic heart disease of native coronary artery without angina pectoris; F32.9 Major depressive disorder, single episode, unspecified; F41.9 Anxiety disorder, unspecified; J44.9 Chronic obstructive pulmonary disease, unspecified; I71.4 Abdominal aortic aneurysm, without rupture; R64 Cachexia; R41.3 Other amnesia; Z72.0 Tobacco use; Z66 Do not resuscitate; Z79.899 Other long term (current) drug therapy; Z79.891 Long term (current) use of opiate analgesic; K51.50 Left sided colitis without complications
CPT/HCPCS: 99349

== ENCOUNTER 2017-12-11 10:21 | Outpatient (CLI) | payer MEDICARE, OTHER | END 2017-12-11 10:22 | disposition critical access hospital (66) | LOC: EMS 10:21 | PROVIDERS: ATTEND Surgery | DX: M54.5 Low back pain (principal); W01.0XXA Fall on same level from slipping, tripping and stumbling without subsequent striking against object, initial encounter | CPT/HCPCS: A0425; A0429 ==

== ENCOUNTER 2017-12-11 10:38 | Emergency (ER) | payer MEDICARE, OTHER ==
[2017-12-11] MEDS ORDERED: fentaNYL 100 MCG/2 ML VIAL IVP STA ×4 (10:49→16:59)
--- NOTE | 2017-12-11 11:03 | ED Physician Documentation ---
PD HPI BACK INJURY - Stated complaint Stated Complaint: LOW BACK PX / GLF - History obtained from History obtained from: Patient, EMS - History of Present Illness Location: Lower Type of injury: Fall Where injury occurred: Home Timing - onset: Last night Timing - duration: Hours Timing - details: Abrupt onset, Still present Pain level max: 10 Pain level now: 10 Quality: Pain, Spasm, Sharp Improved by: Immobilization Worsened by: Moving, Palpating Associated symptoms: No: Fever, Weakness, Numbness, Incontinent of urine, Unable to urinate, Hematuria, Incontinent of stool Contributing factors: Anticoagulated (plavix). No: Prior back surgery Similar symptoms before: Has not had sx before Recently seen: Emergency Dept - Additional information Additional information: 72-year-old male with history of COPD has had a fall last night falling backwards landing directly on his buttocks and at that time he had significant pain in his lower back he continues to have pain at a level of 10 out of 10. He is having a hard time moving around or getting out of bed. He is called the ambulance this morning to be transported the hospital. He usually takes Percocet at home for pain he has not had pain medication since last night. His was taken to the emergency department last night for a fall and the patient fell while she was leaving the house in the ambulance. Review of Systems Constitutional: denies: Fever Eyes: denies: Decreased vision Ears: denies: Ear pain Nose: denies: Congestion Throat: denies: Sore throat Cardiac: denies: Chest pain / pressure Respiratory: denies: Dyspnea, Cough GI: denies: Abdominal Pain, Nausea, Vomiting : denies: Dysuria, Frequency Musculoskeletal: reports: Back pain. denies: Extremity pain Neurologic: denies: Generalized weakness, Focal weakness, Numbness PD PAST MEDICAL HISTORY - Past Medical History Cardiovascular: Hypertension, Coronary artery disease, [place] Respiratory: COPD Endocrine/Autoimmune: None GI: Hiatal hernia, Diverticulitis, Other : Benign prostate hypertrophy HEENT: Chronic hearing loss Psych: Depression Musculoskeletal: None Derm: None - Past Surgical History Past Surgical History: Yes General: Bowel surgery, Colonoscopy, Other Cardiovascular: Coronary stent, AAA - Present Medications Home Medications: Ambulatory Orders Medication Instructions Recorded Confirmed Tamsulosin [Flomax] 0.4 mg PO DAILY 01/19/13 12/05/17 Lovastatin 40 mg PO DAILY 03/20/14 12/05/17 Oxycodone HCl [Roxicodone] 120 mg PO ACHS 03/20/14 12/05/17 Albuterol Sulfate [Proair Hfa 2 inh IH Q4H PRN 09/20/14 12/05/17 Inhaler] Aspirin [Ecotrin] 81 mg PO DAILY 09/20/14 12/05/17 Metoprolol Tartrate [Lopressor] 50 mg PO DAILY 09/20/14 12/05/17 Nitroglycerin [Nitrostat] 1 tab [id number] ONCE 12/07/15 12/05/17 Citalopram [CeleXA] 20 mg PO QPM tablet 01/31/17 12/05/17 Clopidogrel [Plavix] 75 mg PO DAILY tablet 01/31/17 12/05/17 Albuterol 2.5 mg NEB BID PRN 03/01/17 12/05/17 Oxycodone HCl [Roxicodone] 90 mg PO TID MDD nte 13 tab/24 07/31/17 12/05/17 hours Trazodone HCl 100 mg PO DAILY PRN 08/29/17 12/05/17 Budesonide/Formoterol Fumarate 1 puffs INH DAILY 09/27/17 12/05/17 [Symbicort 160-4.5 Mcg Inhaler] Bisacodyl [Dulcolax] 1 - 2 tab PO DAILY PRN 12/05/17 12/05/17 Lidocaine Patch 5% [Lidoderm Patch] 1 each TOP DAILY PRN #12 patch 12/11/17 - Allergies Allergies/Adverse Reactions: Allergies Allergy/AdvReac Type Severity Reaction Status Date / Time No Known Drug Allergies Allergy Verified 12/11/17 10:43 - Social History Does the pt smoke?: Yes Smoking Status: Current every day smoker Does the pt drink ETOH?: No Does the pt have substance abuse?: No - Immunizations Immunizations are current?: Yes - POLST Patient has POLST: Yes POLST Status: DNR PD ED PE NORMAL - Vitals Vital signs reviewed: Yes (hypoxia) - General General: Well developed/nourished, Other (The patient appears to be in pain and has some delay in execution of motor commands. Smells heavily of tobacco) - HEENT HEENT: Atraumatic, PERRL, EOMI - Neck Neck: Supple, no meningeal sign - Respiratory Respiratory: No respiratory distress - Abdomen Abdomen: Soft, Non tender - Back Back: No CVA TTP, Other (There is tenderness and firmness to the lower lumbar spine centrally and to the paraspinous muscles bilaterally of the lower lumbar spine ) - Derm Derm: Normal color, Warm and dry, No rash - Extremities Extremities: No deformity, No edema - Neuro Neuro: No motor deficit, No sensory deficit Eye Opening: Spontaneous Motor: Obeys Commands Verbal: Oriented GCS Score: 15 - Psych Psych: Other (mood is withdrawn and the affect is flat. ) Results - Vitals Vitals: Vital Signs - 24 hr 12/11/17 12/11/17 12/11/17 10:43 14:07 16:45 Temperature 36.9 C Heart Rate 88 80 84 Respiratory 18 20 22 Rate Blood Pressure 121/79 123/62 156/111 H O2 Saturation 88 L 88 L 92 Oxygen O2 Source [] Room air O2 Source [] Room air O2 Source Room air - Labs Labs: Laboratory Tests 12/11/17 12/11/17 12/11/17 12:56 12:56 12:56 WBC 13.1 H RBC 5.25 Hgb 17.2 Hct 49.3 MCV 93.9 MCH 32.7 H MCHC 34.8 RDW 12.7 Plt Count 146 MPV 9.5 Neut # (Auto) 10.4 H Lymph # (Auto) 1.0 L Rooks # (Auto) 1.5 H Eos # (Auto) 0.1 Baso # (Auto) 0.1 Absolute Nucleated RBC 0.01 Nucleated RBC % 0.1 Sodium 135 Potassium 4.0 Chloride 101 Carbon Dioxide 26 Anion Gap 8.0 BUN 11 Creatinine 1.0 Estimated GFR (MDRD) 73 L Glucose 115 H Calcium 8.9 Total Bilirubin 1.1 H AST 21 ALT 20 Alkaline Phosphatase 69 Troponin I < 0.04 Total Protein 6.8 Albumin 3.9 Globulin 2.9 Albumin/Globulin Ratio 1.3 Lipase 23 - Rads (name of study) lumbar spine Radiology: Prelim report reviewed (Impression: 1. Multilevel lumbar spondylolysis spondylolysis without evidence of acute osseous abnormality bone detail is somewhat limited by demineralization. 2. 5.9 cm infrarenal abdominal aortic aneurysm, increased since prior study.), EMP read indepedently (There is an anterior wedge compression fracture of L1 that is not present on recent CT scan. ), See rad report CT abd/pel without Radiology: Prelim report reviewed (Impression: 1. New L1 vertebral body compression fracture with 20% loss of vertebral body height. New compared to 11/06/2017. 2 4.5 cm abdominal aortic aneurysm with extensive atherosclerotic calcified plaque and mural thrombus without interval change.3 Previous bowel surgery with dilated loops of small bowel and air-fluid levels associated with enteroenterostomy. This may represent postsurgical dilation, not excluding a pattern of ileus or early obstruction 4 no perforation or abscess 5 bilateral nonobstructing kidney stones.), EMP read indepedently, See rad report PD MEDICAL DECISION MAKING - ED course Complexity details: reviewed results, re-evaluated patient, considered differential, d/w patient ED course: 72-year-old male with a history of COPD and multiple abdominal surgeries and chronic pain has now developed a lumbar compression fracture secondary to a fall last night. He does have some relief of his pain with use of fentanyl given. He is placed into a TL brace. Departure - Departure Disposition: 01 Home, Self Care Clinical Impression: Lumbar compression fracture Qualifiers: Encounter type: initial encounter Lumbar vertebra fracture level: L1 Fracture type: closed Qualified Code(s): S32.010A - Wedge compression fracture of first lumbar vertebra, initial encounter for closed fracture Instructions: ED Fx Comp Vertebral Follow-Up: Gareth Nunn MD [Primary Care Provider] - Prescriptions: Lidocaine Patch 5% [Lidoderm Patch] 1 each TOP DAILY PRN #12 patch PRN Reason: Pain
--- NOTE | 2017-12-11 12:01 | XRAY Preliminary Report ---
Exam: XR LUMBAR SPINE 2 VIEW IMPRESSION: 1. Multilevel lumbar spondylosis without evidence of acute osseous abnormality. Bone detail is somewh at limited by demineralization. 2. 5.9 cm infrarenal abdominal aortic aneurysm, increased since the prior study. [facility] SITE ID: [id number]
--- NOTE | 2017-12-11 12:01 | XRAY Report ---
EXAM: LUMBOSACRAL SPINE RADIOGRAPHY EXAM DATE: 12/11/2017 11:41 AM. CLINICAL HISTORY: Fall on buttocks severe low back pain. COMPARISONS: 09/03/2012. TECHNIQUE: 3 views. FINDINGS: Alignment: Normal. No spondylolisthesis or scoliosis. Bones: Five ljo-isr-nmbmorr lumbar vertebral bodies are present. Bones are demineralized, thus limiti ng sensitivity for subtle fractures. No obvious acute fracture is seen. Disks: Loss of intervertebral disk space height is seen at L4-L5 L5-S1 along with mild marginal spurr ing. Facets: Facet arthropathy is seen at L4-L5 and L5-S1. Sacroiliac Joints: Unremarkable. Soft Tissues: Aortoiliac atherosclerotic disease is again seen. An infrarenal abdominal aortic aneury sm has increased in size now measuring 5.9 cm. IMPRESSION: 1. Multilevel lumbar spondylosis without evidence of acute osseous abnormality. Bone detail is somewh at limited by demineralization. 2. 5.9 cm infrarenal abdominal aortic aneurysm, increased since the prior study. [facility] Referring Provider Line: [phone] SITE ID: [id number]
[2017-12-11 13:02] LABS: BASOPHILS # (AUTO) 0.1 10^3/uL (0.0-0.1); BASOPHILS % (AUTO) 0.7 %; EOSINOPHILS # (AUTO) 0.1 10^3/uL (0.0-0.7); EOSINOPHILS % (AUTO) 0.5 %; HGB - HEMOGLOBIN 17.2 g/dL (14.0-18.0); LYMPHOCYTES % (AUTO) 7.8 %; MEAN CORPUSCULAR HEMOGLOBIN 32.7 pg (27.0-31.0); MEAN CORPUSCULAR HGB CONC 34.8 g/dL (32.0-36.0); MEAN CORPUSCULAR VOLUME 93.9 fL (80.0-94.0); MEAN PLATELET VOLUME 9.5 fL (7.4-11.4); MONOCYTES # (AUTO) 1.5 10^3/uL (0.0-1.0); MONOCYTES % (AUTO) 11.5 %; NEUTROPHILS # (AUTO) 10.4 10^3/uL (1.5-6.6); NEUTROPHILS % (AUTO) 79.5 %; PLT - PLATELET COUNT 146 10^3/uL (130-450); RED BLOOD COUNT 5.25 10^6/uL (4.70-6.10); RED CELL DISTRIBUTION WIDTH 12.7 % (12.0-15.0); WHITE BLOOD COUNT 13.1 x10^3/uL (4.8-10.8)
[2017-12-11 13:14] LABS: ALBUMIN 3.9 g/dL (3.2-5.5); ALBUMIN/GLOBULIN RATIO 1.3 (1.0-2.2); BILIRUBIN,TOTAL 1.1 mg/dL (0.2-1.0); CALCIUM 8.9 mg/dL (8.5-10.3); TOTAL PROTEIN 6.8 g/dL (6.7-8.2)
[2017-12-11] MEDS ORDERED: IOPAMIDOL-300 100 ML VIAL ONE (14:50)
--- NOTE | 2017-12-11 15:07 | CT Report ---
EXAM: CT ABDOMEN AND PELVIS EXAM DATE: 12/11/2017 02:36 PM. CLINICAL HISTORY: Severe lower back pain after fall. Abdominal aortic aneurysm. COMPARISONS: 11/06/2017. TECHNIQUE: Routine helical CT imaging was performed through the abdomen and pelvis. IV contrast: 100 ML ISOVUE 300. Enteric contrast: No. Reconstructions: Coronal and sagittal. In accordance with CT protocol optimization, one or more of the following dose reduction techniques w ere utilized for this exam: automated exposure control, adjustment of mA and/or KV based on patient s ize, or use of iterative reconstructive technique. FINDINGS: Lung Bases: There is asymmetric dependent density in the posterior right lower lobe. There is a moder ate degree of diffuse centrilobular emphysema. Liver: There are multiple small subcentimeter round low-density lesions within the liver which appear without significant interval change. Gallbladder/Bile Ducts: There are dependent densities of sludge or stones within the gallbladder with out other findings of acute cholecystitis. Spleen: Normal. Pancreas: Normal. Adrenal Glands: Normal. Kidneys: The right kidney is small in size. There is no hydronephrosis. There are bilateral kidney st ones. The larger stones in the upper pole of the right kidney measure 5 mm in diameter. Peritoneal Cavity/Bowel: Again demonstrated is diastases of the rectus sheath. There is thinning of t zoe ventral abdominal wall musculature with anterior bulging of the rectus sheath. There are findings of previous bowel surgery. There are dilated small bowel loops in the left mid abdomen which measure up to 5.4 cm in diameter and contain an air-fluid level, located near a surgical anastomosis. There i s gas and stool within the colon. There is no free air, free fluid or abscess. There are scattered di verticula within the colon which appear without significant change. Pelvic Organs: Urinary bladder appears unremarkable. Vasculature: There is an abdominal aortic aneurysm containing mural thrombus. The outer diameter of t zoe abdominal aortic aneurysm measures 4.5 cm on sagittal reconstructions, without significant interva l change. There is diffuse atherosclerotic vascular calcification. There is bilateral atherosclerotic disease and hypoenhancement of the femoral arteries. Bones: There is a new compression fracture of the L1 vertebral body. There is approximately 20% loss of vertebral body height without retropulsion or subluxation. No pedicle or facet fracture. Other: None. IMPRESSION: 1. New L1 vertebral body compression fracture with 20% loss of vertebral body height. New compared to 11/06/2017. 2. 4.5 cm abdominal aortic aneurysm with extensive atherosclerotic calcified plaque and mural thrombu s without interval change. 3. Previous bowel surgery with dilated loops of small bowel and air-fluid levels associated with ente roenterostomy. This may represent postsurgical dilation, not excluding 8 pattern of ileus or early ob struction. 4. No perforation or abscess. 5. Bilateral nonobstructing kidney stones. [facility] Referring Provider Line: [phone] SITE ID: [id number]
[2017-12-11 16:47] VITALS: BP 156/111
[2017-12-11] MEDS ORDERED: IOPAMIDOL-300 100 ML VIAL IVP ONE (17:14)
== END 2017-12-11 18:07 | disposition home or self-care (01) ==
LOC: EDUNIT# → ED 10:38
DX: S32.010A Wedge compression fracture of first lumbar vertebra, initial encounter for closed fracture (principal); W18.30XA Fall on same level, unspecified, initial encounter; Y92.009 Unspecified place in unspecified non-institutional (private) residence as the place of occurrence of the external cause; M43.06 Spondylolysis, lumbar region; I10 Essential (primary) hypertension; J44.9 Chronic obstructive pulmonary disease, unspecified; F17.200 Nicotine dependence, unspecified, uncomplicated; Z79.02 Long term (current) use of antithrombotics/antiplatelets; Z79.82 Long term (current) use of aspirin
CPT/HCPCS: 36415; 72100; 74177; 80053; 83690; 84484; 85025; 96374; 96376; 99283; 99284; Q9967

== ENCOUNTER 2017-12-14 09:39 | Outpatient (CLI) | payer MEDICARE, OTHER | END 2017-12-14 09:40 | disposition critical access hospital (66) | LOC: EMS 09:39 | PROVIDERS: ATTEND Surgery | DX: M54.5 Low back pain (principal); R26.2 Difficulty in walking, not elsewhere classified | CPT/HCPCS: A0425; A0427 ==

== ENCOUNTER 2017-12-14 09:48 | Emergency (ER) | payer MEDICARE, OTHER ==
--- NOTE | 2017-12-14 10:11 | ED Physician Documentation ---
PD HPI BACK INJURY - Stated complaint Stated Complaint: BACK PX - History obtained from History obtained from: Patient, EMS - History of Present Illness Location: Lower (thoracolumbar area) Type of injury: Fall (he is unsteady and walks with cane and sometimes walker ( is supposed to be using walker). fell few nights ago and hurt upper lumbar area. Seen in ED and had CT spine showing L1 compression fracture with 20% loss of height.) Where injury occurred: Home Timing - onset: How many days ago (few) Timing - duration: Days Timing - details: Abrupt onset, Still present, Waxing and waning Quality: Pain, Sharp Worsened by: Moving. No: Palpating Associated symptoms: Weakness (generalized). No: Fever, Numbness, Incontinent of urine Similar symptoms before: Has not had sx before Recently seen: Emergency Dept (Dx with compression fracture and sent home without Rx change.) Review of Systems Constitutional: reports: Myalgias, Fatigue (chronic). denies: Fever, Chills Nose: denies: Rhinorrhea / runny nose, Congestion Throat: denies: Sore throat Cardiac: denies: Chest pain / pressure, Palpitations Respiratory: denies: Dyspnea, Cough GI: denies: Abdominal Pain, Nausea : denies: Dysuria, Frequency, Incontinent Skin: denies: Rash, Lesions, Abrasion (s) Musculoskeletal: reports: Back pain. denies: Neck pain Neurologic: denies: Focal weakness, Numbness Immunocompromised: denies: Immunocompromised PD PAST MEDICAL HISTORY - Past Medical History Past Medical History: Yes Cardiovascular: Hypertension, Coronary artery disease, [place] Respiratory: COPD Endocrine/Autoimmune: None GI: Hiatal hernia, Diverticulitis, Other : Benign prostate hypertrophy HEENT: Chronic hearing loss Psych: Depression Musculoskeletal: None Derm: None - Past Surgical History Past Surgical History: Yes General: Bowel surgery, Colonoscopy, Other Cardiovascular: Coronary stent, AAA - Present Medications Home Medications: Ambulatory Orders Medication Instructions Recorded Confirmed Tamsulosin [Flomax] 0.4 mg PO DAILY 01/19/13 12/05/17 Lovastatin 40 mg PO DAILY 03/20/14 12/05/17 Oxycodone HCl [Roxicodone] 120 mg PO ACHS 03/20/14 12/05/17 Albuterol Sulfate [Proair Hfa 2 inh IH Q4H PRN 09/20/14 12/05/17 Inhaler] Aspirin [Ecotrin] 81 mg PO DAILY 09/20/14 12/05/17 Metoprolol Tartrate [Lopressor] 50 mg PO DAILY 09/20/14 12/05/17 Nitroglycerin [Nitrostat] 1 tab [id number] ONCE 12/07/15 12/05/17 Citalopram [CeleXA] 20 mg PO QPM tablet 01/31/17 12/05/17 Clopidogrel [Plavix] 75 mg PO DAILY tablet 01/31/17 12/05/17 Albuterol 2.5 mg NEB BID PRN 03/01/17 12/05/17 Oxycodone HCl [Roxicodone] 90 mg PO TID MDD nte 13 tab/07/31/17 12/05/17 hours Trazodone HCl 100 mg PO DAILY PRN 08/29/17 12/05/17 Budesonide/Formoterol Fumarate 1 puffs INH DAILY 09/27/17 12/05/17 [Symbicort 160-4.5 Mcg Inhaler] Bisacodyl [Dulcolax] 1 - 2 tab PO DAILY PRN 12/05/17 12/05/17 Lidocaine Patch 5% [Lidoderm Patch] 1 each TOP DAILY PRN #12 patch 12/11/17 Calcitonin [Fortical] 1 sprays CAM DAILY #1 bottle 12/14/17 Naproxen 375 mg PO BID #20 tablet 12/14/17 - Allergies Allergies/Adverse Reactions: Allergies Allergy/AdvReac Type Severity Reaction Status Date / Time No Known Drug Allergies Allergy Verified 12/11/17 10:43 - Social History Does the pt smoke?: Yes Smoking Status: Current every day smoker Does the pt drink ETOH?: No Does the pt have substance abuse?: No - Immunizations Immunizations are current?: Yes - POLST Patient has POLST: Yes POLST Status: DNR PD ED PE NORMAL - Vitals Vital signs reviewed: Yes - General General: Alert and oriented X 3, Well developed/nourished - HEENT HEENT: Atraumatic, Pharynx benign - Neck Neck: Supple, no meningeal sign, No adenopathy - Cardiac Cardiac: RRR, No murmur - Respiratory Respiratory: Clear bilaterally - Abdomen Abdomen: Normal bowel sounds, Soft, Non tender, Non distended - Derm Derm: Normal color, Warm and dry, No rash - Extremities Extremities: No tenderness to palpate, Normal ROM s pain - Neuro Neuro: Alert and oriented X 3, No motor deficit, Normal speech Eye Opening: Spontaneous Motor: Obeys Commands Verbal: Oriented GCS Score: 15 - Psych Psych: No: Normal affect (flat) Results - Vitals Vitals: Vital Signs - 24 hr 12/14/17 12/14/17 09:49 17:00 Temperature 98.6 C H Heart Rate 94 79 Respiratory 18 18 Rate Blood Pressure 136/74 H 155/78 H O2 Saturation 93 94 Oxygen O2 Source [Without Activity] Room air O2 Source [With Activity] Room air O2 Source Nasal cannula PD MEDICAL DECISION MAKING - ED course Complexity details: reviewed old records, re-evaluated patient (he went to bathroom using cane with escort but not really assisted. Shakey walking. Still normal neuro exam in legs. ), d/w family (Patient wanted to go back home after meds here. Concern from his and daughter about his ability to get around there due to pain and stability. They did not want to have him return home, but also realized hard to get to SNF/Rehab on a saturday. They asked about admission. Not admission criteria per se, except for intractable pain. I was going to supplement his usually meds with some extra orally, but daughter on phone expresses concern about his alertness and falling with medications for pain, so I did not give any extra nargotics (erased the Rx on discharge instructions) but will still give Clacitonin and ani-inflammatories. ), d/w multi site leasing consultant (Hospitalist, who felt not admission criteria, but she will come to ED and talk wiht the patient and family. Subsequently it was decided that the family would come pick him up. They can look into rehab or such through PMD Saturday if still needing help. ) - Sepsis Event Vital Signs: Vital Signs - 24 hr 12/14/17 12/14/17 09:49 17:00 Temperature 98.6 C H Heart Rate 94 79 Respiratory 18 18 Rate Blood Pressure 136/74 H 155/78 H O2 Saturation 93 94 Oxygen O2 Source [Without Activity] Room air O2 Source [With Activity] Room air O2 Source Nasal cannula Departure - Departure Disposition: 01 Home, Self Care Clinical Impression: Uncontrolled pain Lumbar compression fracture Qualifiers: Encounter type: subsequent encounter Lumbar vertebra fracture level: L1 Fracture type: closed Fracture healing: with routine healing Qualified Code(s): S32.010D - Wedge compression fracture of first lumbar vertebra, subsequent encounter for fracture with routine healing Back pain Qualifiers: Back pain location: low back pain Chronicity: acute Back pain laterality: midline Sciatica presence: without sciatica Qualified Code(s): M54.5 - Low back pain Condition: Stable Record reviewed to determine appropriate education?: Yes Instructions: ED Fx Comp Vertebral Follow-Up: Gareth Nunn MD [Primary Care Provider] - Olive Robles ARNP [Provider Admit Priv/Credential] - Prescriptions: Calcitonin [Fortical] 1 sprays CAM DAILY #1 bottle Naproxen 375 mg PO BID #20 tablet Comments: Continue usual medications for pain. Add anti-inflammatory naproxen twice daily for a week. Also calcitonin nasal spray to help heal the compression fracture faster so it hurts less. Follow-up with your primary care. I will put in for home health referral. Also contact Olive Robles on Saturday regarding other treatment options or medication adjustments. Discharge Date/Time: 12/14/17 17:57
[2017-12-14] MEDS ORDERED: KETOROLAC 60 MG/2 ML VIAL IVP STA (10:35)
[2017-12-14] MEDS ORDERED: HYDROmorphone 2 MG/ML VIAL IVP STA (10:35)
[2017-12-14] MEDS ORDERED: LORazepam 2 MG/ML VIAL IVP STA (10:35)
[2017-12-14] MEDS ORDERED: DEXAMETHASONE 10 MG/ML VIAL PO STA (13:44)
[2017-12-14] MEDS ORDERED: fentaNYL 50 MCG PATCH TOP STA (13:44)
[2017-12-14 17:57] VITALS: BP 155/78
== END 2017-12-14 17:57 | disposition home or self-care (01) ==
LOC: EDUNIT# → ED 09:48 → SUPCPDRO 09:48 → ED 17:57
DX: S32.010D Wedge compression fracture of first lumbar vertebra, subsequent encounter for fracture with routine healing (principal); M54.5 Low back pain; M54.6 Pain in thoracic spine; G89.29 Other chronic pain; W18.39XD Other fall on same level, subsequent encounter; I10 Essential (primary) hypertension; I25.10 Atherosclerotic heart disease of native coronary artery without angina pectoris; I25.2 Old myocardial infarction; J44.9 Chronic obstructive pulmonary disease, unspecified; N40.0 Benign prostatic hyperplasia without lower urinary tract symptoms; F17.200 Nicotine dependence, unspecified, uncomplicated
CPT/HCPCS: 96374; 96375; 99283; 99284; J1170; J2060

== ENCOUNTER 2017-12-17 11:15 | Outpatient (CLI) | payer MEDICARE, OTHER ==
--- NOTE | 2017-12-17 21:53 | CONSULTATION NOTE ---
Palliative Care Follow Up - Referral Referring Provider: Dr. Tino Nunn Time of Visit: [id number] Referral setting: Home (It is a taxing and considerable effort for the patient to leave the home secondary to pain and limited mobililty) Referral Reason: Lumbar Fx/Chronic Abd Pain/Depression/Advanced COPD - Information Sources Records reviewed: Previous records reviewed History/Review of Systems obtained from: Patient (Magy , present for visit ), Family Exam limitations: Clinical condition (patient with severe pain and STM issues/ moderately confused) - History of Present Illness Update Brief HPI Update: This is an unfortunate 72-year-old gentleman who underlying has severe ongoing chronic abdominal pain related to a recent complications of a colonoscopy requiring multiple abdominal surgeries with residual neuropathic pain syndrome. He also has a AAA,, advanced COPD, tobacco abuse, and recent treatment for colitis in November. His had passed out on 12/11, he had panicked and called 911 and she has rib fractures, he himself then had a fall falling backwards, landing directly on his buttocks with significant pain in his lower back. On evaluation at the ED he did have a lumbar fracture, to the L1 vertebral body. Of note during that examination his infrarenal abdominal aortic aneurysm was 5.9 cm increased from his 4.5 cm on 11/06. He is on baseline oxycodone 30 mg tablets that he usually at baseline takes 3 AM late afternoon dinnertime and 4 at midnight. He had been on a very slow taper given his anxiety and chronic pain syndrome. This was not providing enough assistance, they had been giving him 2-3 every 4 hours to respond to the acuteness of his pain, but he did end up back in the ED with uncontrolled pain 12/14. Today he feels like he needs to go to the half-way, he relates this as he cannot take care of himself. He had refused admission at the hospital for pain control, and returned home. It has been very difficult as far as his mobility, his pain is exacerbated from getting sitting to standing, with ambulation, he is quite tearful and overwrought. They have not picked up the calcitonin, they have been using the Advil as instructed and awaiting the Naprosyn, and have not applied the lidocaine patches. This would not be unusual for this situation, patient and both are quite frail and forgetful, and patient's cognitive status continues to worsen. Social History - Living Situation Living arrangement: At home Living Situation: With spouse/s.o. (Magy Now with further physical limitations secondary to her rib fractures; Ximena daughter providing some support ) Medications/Allergies - Medications Home Medications: Ambulatory Orders Medication Instructions Recorded Confirmed Tamsulosin [Flomax] 0.4 mg PO DAILY 01/19/13 12/17/17 Oxycodone HCl [Roxicodone] 120 mg PO ACHS 03/20/14 12/17/17 Albuterol Sulfate [Proair Hfa 2 inh IH Q4H PRN 09/20/14 12/17/17 Inhaler] Aspirin [Ecotrin] 81 mg PO DAILY 09/20/14 12/17/17 Metoprolol Tartrate [Lopressor] 50 mg PO DAILY 09/20/14 12/17/17 Nitroglycerin [Nitrostat] 1 tab [id number] ONCE 12/07/15 12/17/17 Citalopram [CeleXA] 20 mg PO QPM tablet 01/31/17 12/17/17 Albuterol 2.5 mg NEB BID PRN 03/01/17 12/17/17 Oxycodone HCl [Roxicodone] 90 mg PO TID MDD nte 13 tabs/24 07/31/17 12/17/17 hours Trazodone HCl 100 mg PO DAILY PRN 08/29/17 12/17/17 Budesonide/Formoterol Fumarate 1 puffs INH DAILY 09/27/17 12/17/17 [Symbicort 160-4.5 Mcg Inhaler] Bisacodyl [Dulcolax] 1 - 2 tab PO DAILY PRN 12/05/17 12/17/17 Lidocaine Patch 5% [Lidoderm Patch] 1 each TOP DAILY PRN #12 patch 12/11/1706/24 Calcitonin [Fortical] 1 sprays CAM DAILY #1 bottle 12/14/17 12/17/17 Naproxen 375 mg PO BID #20 tablet 12/14/17 12/17/17 - Allergies Allergies/Adverse Reactions: Allergies Allergy/AdvReac Type Severity Reaction Status Date / Time No Known Drug Allergies Allergy Verified 12/11/17 10:43 Review of Systems - Constitutional Constitutional: reports: Fatigue, Weakness, Poor appetite, Weight loss - Eyes Eyes: reports: Vision loss - Ears, Nose & Throat Ears, Nose & Throat: reports: Hearing loss, Dry mouth - Cardiovascular Cardiovascular: reports: Exertional dyspnea, Decr. exercise tolerance. denies: Chest pain, Edema - Respiratory Respiratory: reports: SOB at rest, SOB with exertion - Gastrointestinal Gastrointestinal: reports: Abdominal pain, Abdominal distention, Constipation, Reflux/heartburn, Bloating, Poor appetite, Early satiety - Genitourinary Genitourinary: reports: Frequency - Musculoskeletal Musculoskeletal: reports: Muscle pain, Back pain, Muscle aches, Stiffness, Limited range of motion, Muscle weakness, Assistive devices - Integumentary Integumentary: reports: Dryness - Neurological Neurological: reports: General weakness, Memory problems, Incoordination - Psychiatric Psychiatric: reports: Depression, Anxiety - Hematologic/Lymphatic Hematologic/Lymphatic: reports: Anemia - All Other Systems All Other Systems: reports: Reviewed and negative Physical Exam - Vital Signs Temperature: 97.2 C Pulse Rate: 104 Respiratory Rate: 20 O2 Saturation: 95 (ra @ rest) Blood Pressure: 128/64 - Physical Exam General Appearance: positive: Severe distress, Anxious, Cachetic Eyes Bilateral: positive: Normal inspection ENT: positive: Dry mucous membranes Neck: positive: No JVD, Trachea midline Cardiovascular: positive: Tachycardia (had not taken metoprolol) Respiratory: positive: Diminished throughout. negative: Wheezes, Rales, Rhonchi Abdomen: positive: Tenderness, Guarding, Other (has abd binder on) Skin: positive: Pallor, Dryness Extremities: positive: No pedal edema Neurologic/Psychiatric: positive: Disoriented to time, Weakness, Depressed mood/ affect, Flat affect, Other (difficulty tracking conversation; STM continues to worsen difficult recall of events;) Palliative Care - POLST Patient has POLST: Yes POLST Status: DNR, Selective Treatment Pain: Pain worsening, Location (Patient reports severe lower back pain, 10 out of 10. Patient pain worsens from sitting to standing any kind of twisting. Is using the walker, reports pain pills do help for about 2-3 hours, but difficulty finding overall relief. has been administering the oxycodone 30 mg tabs 2-3 at a time with a total of the 13 and 24 hours. Daughter to forklift picker Naprosyn today, in the meantime has been using 400 mg of Advil every 4-6 hours as well. I applied a lidocaine patch while I was there. They have used some ice.) Tiredness/Fatigue: Severe (7-10) (difficulty sleeping with the pain; reports getting nights and days mixed up) Drowsiness/Sedation: Mild (1-3) Nausea: None Depression: Severe (7-10) Anxiety: Severe (7-10) Dyspnea: Moderate (4-6) Anorexia: Mild (1-3) Sleep: Sleeps poorly Constipation: Yes, Opoid induced, Unmanaged Feelings of wellbeing/Perceived Quality of Life: Poor, Worsening Performance Status: Patient fragile and shaky, difficulty ambulating short distances, difficulty getting from sitting to standing does not appear he is going to be able to bathe himself. He has got a raised toilet seat, does have a front wheeled walker. We did discuss at length obtaining a hospital bed, at this point in time he wants to wait. Physical therapy visit do after mine, patient needs instruction on proper techniques for transfers and standing as well as use of walker - Palliative Care Discussion: Patient feeling overwhelmed and distressed, he just "wants to ". He reports is the worst pain is ever had, which is actually fairly significant given his underlying chronic pain syndrome. We did review that this is an acute process, that this will improve, patient does not have the resources to pay for a half-way facility stay. They have not initiated any kind of plan regarding accessing [place] [facility], though this was not unexpected that he would need increased assistance in the future. Magy herself is feeling poorly, she is overwrought, feeling somewhat distressed as reviewing the medications and patient's poor medication adherence "I feel like him to do bad data taking care of him". They are receiving some assistance from their daughter, and she is pain someone to come help with housecleaning temporarily. Impression and Recommendations - Palliative Care Impression: This is a 72-year-old gentleman who has a long list of comorbidities including advanced COPD, increasing AAA, recent diagnosis of colitis, chronic abdominal pain with neuropathic syndrome, and coronary artery disease. He does appear quite overwrought with his most recent acute injury of lumbar fracture, he presents with ongoing functional and cognitive decline. Both he and his are currently overwhelmed by current situation. Will enlist home health services including PT, QUALITY IMPROVEMENT COORDINATOR, and bathing services, the patient most likely would benefit from a half-way stay he is unable to afford it. Palliative care to provide ongoing support for pain and symptom management and anticipatory guidance Recommendations/Counseling Done: 1. Acute lumbar L1 fracture. Reviewed managing medications with regarding pain, instructed to obtain calcitonin and instructed on use, applied lidocaine patch to lumbar area, instructed to be placed daily. Instructed continue with the oxycodone 30 mg tabs 2-3 every 4 hours, to initiate Naprosyn when it arrives. Will enlist help of physical therapy for instruction on heat and ice and positioning. As well as proper body mechanics for managing getting in and out of bed and use a walker. Communication was made with pending physical therapist for visit. Will also have them provide home health aide services to address personal hygiene. 2. Medication adherence patient is not reordered multiple medications, he stopped the Plavix on his own secondary to bruising. He also stopped his antidepressant and his statin. Is quite adamant will not restart Plavix, despite risk, but agreed to restart antidepressant. to administer oxycodone , though this does create distress, patient's memory per her report he can he remember when he is given them from his and often argues with her. She will also oversee his other new medication coming and assist with patch change. Other medications were sorted through and throughout medications, patient did not want in [facility], but did allow me to put out pills. Patient has not taken his metoprolol and pulse was up, given at time of visit. 3. Constipation. Patient has been instructed multiple times on bowel program, reports no BM for 2 days, does use a variety of techniques including disimpaction. Again reviewed need with decreased mobility, decreased intake the need to be more adherent to regular bowel program. 4. COPD. Did encourage patient to decreased smoking, has increased over the last several days given his stress over his recent fall. Reviewed high risk for pneumonia given his immobility. He does have a nebulizer, instructed to use it if feeling more tight, also instructed to restart his Symbicort daily. 5. Advanced care planning. Will enlist the help of the certified medical transcriptionist to initiate COPD ES application, this does highlight the fragility of the situation, the patient continues to decline may need placement or workers in home. Patient does have a LISA ST in place, he does have multiple comorbidities and increasing sequela related to this, this is highlighted by his current acute situation. 6. Depression. Patient has long-standing depression, often toys with suicidal ideation though denies at current visit, he reports he would not do that to his . He is feeling somewhat of a rotten overwhelmed. Patient has agreed to restart his Celexa, [facility] Did instruct to reorder from their mail order. A medical palliative care social worker clinical to see patient for counseling as well Time Spent: [id number] for home health services. Patient is homebound secondary considerable taxing effort for him to leave the home given his pain and most recent acute injury of lumbar fracture. Home health PT for safety eval, evaluate and treat lumbar fracture, instruction on management of ergonomics, modalities for pain relief, and home exercise program when appropriate. Home health aide for bathing services is unable to shower independently at this point in time. emergency worker for long and short-term planning as well as counseling for adjustment to current situation. Patient does have ongoing severe depression. [facility] home health Time spent 45 minutes was given 50% of this done in counseling and coordination of care related to patient's current situation, pain and pain control and anticipatory guidance
== END 2017-12-17 11:16 | disposition home or self-care (01) ==
LOC: PC 11:15
PROVIDERS: ATTEND Nurse Practitioner Adult Health
DX: Z51.5 Encounter for palliative care (principal); S32.019D Unspecified fracture of first lumbar vertebra, subsequent encounter for fracture with routine healing; T41.3X6A Underdosing of local anesthetics, initial encounter; T50.996A Underdosing of other drugs, medicaments and biological substances, initial encounter; Z91.130 Patient's unintentional underdosing of medication regimen due to age-related debility; Y92.009 Unspecified place in unspecified non-institutional (private) residence as the place of occurrence of the external cause; R00.0 Tachycardia, unspecified; T44.7X6A Underdosing of beta-adrenoreceptor antagonists, initial encounter; F32.9 Major depressive disorder, single episode, unspecified; T43.226A Underdosing of selective serotonin reuptake inhibitors, initial encounter; K59.03 Drug induced constipation; T40.2X5D Adverse effect of other opioids, subsequent encounter; G89.4 Chronic pain syndrome; M79.2 Neuralgia and neuritis, unspecified; R10.9 Unspecified abdominal pain; I71.4 Abdominal aortic aneurysm, without rupture; J44.9 Chronic obstructive pulmonary disease, unspecified; F41.9 Anxiety disorder, unspecified; R41.0 Disorientation, unspecified; Z72.0 Tobacco use; Z79.1 Long term (current) use of non-steroidal anti-inflammatories (NSAID); Z79.891 Long term (current) use of opiate analgesic; Z66 Do not resuscitate; Z87.19 Personal history of other diseases of the digestive system; I25.10 Atherosclerotic heart disease of native coronary artery without angina pectoris; Z59.6 Low income
CPT/HCPCS: 99349

== ENCOUNTER 2018-01-01 00:15 | Outpatient (CLI) | payer MEDICARE, OTHER | END 2018-01-01 00:16 | disposition critical access hospital (66) | LOC: EMS 00:15 | PROVIDERS: ATTEND Surgery | DX: R19.7 Diarrhea, unspecified (principal) | CPT/HCPCS: A0425; A0429 ==

== ENCOUNTER 2018-01-01 00:43 | Emergency (ER) | payer MEDICARE, OTHER ==
[2018-01-01] MEDS: IPRATROPIUM/ALBUTEROL 3 ML NEB INH STA (01:21)
--- NOTE | 2018-01-01 01:48 | ED Physician Documentation ---
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 he has no c/o on my HPI. Review of Systems Constitutional: reports: Reviewed and negative Cardiac: reports: Reviewed and negative Respiratory: reports: Reviewed and negative GI: reports: Diarrhea (resolved). denies: Abdominal Pain, Nausea, Vomiting, Constipation : reports: Reviewed and negative Neurologic: reports: Generalized weakness PD PAST MEDICAL HISTORY - Past Medical History Cardiovascular: Hypertension, Coronary artery disease, [place] Respiratory: COPD Endocrine/Autoimmune: None GI: Hiatal hernia, Diverticulitis, Other : Benign prostate hypertrophy HEENT: Chronic hearing loss Psych: Depression Musculoskeletal: None Derm: None - Past Surgical History Past Surgical History: Yes General: Bowel surgery, Colonoscopy, Other Cardiovascular: Coronary stent, AAA - Present Medications Home Medications: Ambulatory Orders Medication Instructions Recorded Confirmed Tamsulosin [Flomax] 0.4 mg PO DAILY 01/19/13 12/17/17 Oxycodone HCl [Roxicodone] 120 mg PO ACHS 03/20/14 12/17/17 Albuterol Sulfate [Proair Hfa 2 inh IH Q4H PRN 09/20/14 12/17/17 Inhaler] Aspirin [Ecotrin] 81 mg PO DAILY 09/20/14 12/17/17 Metoprolol Tartrate [Lopressor] 50 mg PO DAILY 09/20/14 12/17/17 Nitroglycerin [Nitrostat] 1 tab [id number] ONCE 12/07/15 12/17/17 Citalopram [CeleXA] 20 mg PO QPM tablet 01/31/17 12/17/17 Albuterol 2.5 mg NEB BID PRN 03/01/17 12/17/17 Oxycodone HCl [Roxicodone] 90 mg PO TID MDD nte 13 tabs/24 07/31/17 12/17/17 hours Trazodone HCl 100 mg PO DAILY PRN 08/29/17 12/17/17 Budesonide/Formoterol Fumarate 1 puffs INH DAILY 09/27/17 12/17/17 [Symbicort 160-4.5 Mcg Inhaler] Bisacodyl [Dulcolax] 1 - 2 tab PO DAILY PRN 12/05/17 12/17/17 Lidocaine Patch 5% [Lidoderm Patch] 1 each TOP DAILY PRN #12 patch 12/11/1706/24 Calcitonin [Fortical] 1 sprays CAM DAILY #1 bottle 12/14/17 12/17/17 Naproxen 375 mg PO BID #20 tablet 12/14/17 12/17/17 - Allergies Allergies/Adverse Reactions: Allergies Allergy/AdvReac Type Severity Reaction Status Date / Time No Known Drug Allergies Allergy Verified 01/01/18 00:51 - Social History Does the pt smoke?: Yes Smoking Status: Current every day smoker Does the pt drink ETOH?: No Does the pt have substance abuse?: No - Immunizations Immunizations are current?: Yes - POLST Patient has POLST: Yes POLST Status: DNR PD ED PE NORMAL - Vitals Vital signs reviewed: Yes - General General: No acute distress, Well developed/nourished, Other (awake, alert, oriented x 2 (disoriented to time)) - HEENT HEENT: Atraumatic, PERRL, EOMI, Moist mucous membranes - Neck Neck: Supple, no meningeal sign - Cardiac Cardiac: RRR, No murmur - Respiratory Respiratory: No respiratory distress, Clear bilaterally - Abdomen Abdomen: Soft, Non tender, Non distended, Other (old, healed surgical scarring periumbicus and inferiorly in midline) - Back Back: No CVA TTP - Derm Derm: Normal color, Warm and dry - Extremities Extremities: No edema Results - Vitals Vitals: Vital Signs - 24 hr 01/01/18 01/01/18 01/01/18 00:48 01:06 02:48 Temperature 36.6 C Heart Rate 68 79 94 Respiratory 18 18 18 Rate Blood Pressure 137/78 H 134/84 H O2 Saturation 93 95 01/01/18 03:46 Temperature Heart Rate 71 Respiratory 18 Rate Blood Pressure 150/77 H O2 Saturation 97 Oxygen O2 Source [Without Activity] Room air O2 Source [With Activity] Room air O2 Source Room air - Labs Labs: Laboratory Tests 01/01/18 01/01/18 01/01/18 01:35 01:35 02:00 WBC 16.2 H RBC 5.25 Hgb 16.8 Hct 50.6 MCV 96.4 H MCH 32.1 H MCHC 33.3 RDW 12.8 Plt Count 253 MPV 9.3 Neut # (Auto) 13.7 H Lymph # (Auto) 1.2 L Hill # (Auto) 1.1 H Eos # (Auto) 0.1 Baso # (Auto) 0.1 Absolute Nucleated RBC 0.01 Nucleated RBC % 0.1 Sodium 136 Potassium 5.1 H Chloride 101 Carbon Dioxide 28 Anion Gap 7.0 BUN 22 H Creatinine 1.1 Estimated GFR (MDRD) 66 L Glucose 100 Calcium 9.3 Total Bilirubin 0.8 AST 20 ALT 18 Alkaline Phosphatase 93 Total Protein 6.8 Albumin 4.0 Globulin 2.8 Albumin/Globulin Ratio 1.4 Lipase 36 Urine Color YELLOW Urine Clarity CLEAR Urine pH 7.0 Ur Specific [place] 1.010 Urine Protein NEGATIVE Urine Glucose (UA) NEGATIVE Urine Ketones NEGATIVE Urine Occult Blood NEGATIVE Urine Nitrite NEGATIVE Urine Bilirubin NEGATIVE Urine Urobilinogen 1 (NORMAL) Ur Leukocyte Esterase NEGATIVE Ur Microscopic Review NOT INDICATED Urine Culture Comments NOT INDICATED PD MEDICAL DECISION MAKING - ED course Complexity details: reviewed results, re-evaluated patient, considered differential, d/w patient, d/w family - Sepsis Event Vital Signs: Vital Signs - 24 hr 01/01/18 01/01/18 01/01/18 00:48 01:06 02:48 Temperature 36.6 C Heart Rate 68 79 94 Respiratory 18 18 18 Rate Blood Pressure 137/78 H 134/84 H O2 Saturation 93 95 01/01/18 03:46 Temperature Heart Rate 71 Respiratory 18 Rate Blood Pressure 150/77 H O2 Saturation 97 Oxygen O2 Source [Without Activity] Room air O2 Source [With Activity] Room air O2 Source Room air Departure - Departure Disposition: 01 Home, Self Care Clinical Impression: COPD exacerbation, Chronic pain, Lumbar compression fracture, Diarrhea Condition: Good Instructions: ED Fx Comp Vertebral, ED Vomiting Diarrhea Nonspecific Ad Follow-Up: Gareth Nunn MD [Primary Care Provider] - Within 3 Days Discharge Date/Time: 01/01/18 04:02
[2018-01-01 02:12] LABS: BASOPHILS # (AUTO) 0.1 10^3/uL (0.0-0.1); BASOPHILS % (AUTO) 0.7 %; EOSINOPHILS # (AUTO) 0.1 10^3/uL (0.0-0.7); EOSINOPHILS % (AUTO) 0.5 %; HGB - HEMOGLOBIN 16.8 g/dL (14.0-18.0); LYMPHOCYTES # (AUTO) 1.2 10^3/uL (1.5-3.5); LYMPHOCYTES % (AUTO) 7.1 %; MEAN CORPUSCULAR HEMOGLOBIN 32.1 pg (27.0-31.0); MEAN CORPUSCULAR HGB CONC 33.3 g/dL (32.0-36.0); MEAN CORPUSCULAR VOLUME 96.4 fL (80.0-94.0); MEAN PLATELET VOLUME 9.3 fL (7.4-11.4); MONOCYTES # (AUTO) 1.1 10^3/uL (0.0-1.0); MONOCYTES % (AUTO) 6.7 %; NEUTROPHILS # (AUTO) 13.7 10^3/uL (1.5-6.6); PLT - PLATELET COUNT 253 10^3/uL (130-450); RED BLOOD COUNT 5.25 10^6/uL (4.70-6.10); RED CELL DISTRIBUTION WIDTH 12.8 % (12.0-15.0); WHITE BLOOD COUNT 16.2 x10^3/uL (4.8-10.8)
[2018-01-01 02:18] LABS: BILIRUBIN,URINE NEGATIVE (NEGATIVE); GLUCOSE, URINE (UA) NEGATIVE (NEGATIVE); KETONES,URINE (UA) NEGATIVE (NEGATIVE); LEUKOCYTE ESTERASE, URINE NEGATIVE (NEGATIVE); NITRITE,URINE NEGATIVE (NEGATIVE); OCCULT BLOOD,URINE NEGATIVE (NEGATIVE); PROTEIN,URINE NEGATIVE (NEGATIVE); UROBILINOGEN,URINE 1 (NORMAL) E.U./dL (NORMAL)
[2018-01-01 02:21] LABS: ALBUMIN/GLOBULIN RATIO 1.4 (1.0-2.2); BILIRUBIN,TOTAL 0.8 mg/dL (0.2-1.0); CALCIUM 9.3 mg/dL (8.5-10.3); CREATININE 1.1 mg/dL (0.6-1.2); TOTAL PROTEIN 6.8 g/dL (6.7-8.2)
[2018-01-01 02:42] LABS: CLARITY,URINE CLEAR (CLEAR)
[2018-01-01] MEDS: SODIUM CHLORIDE 0.9% 1,000 ML IV STA (02:49)
[2018-01-01 03:47] VITALS: BP 150/77
== END 2018-01-01 04:02 | disposition home or self-care (01) ==
LOC: EDUNIT# → SUPCPDRO 00:43 → ED 00:43
DX: J44.1 Chronic obstructive pulmonary disease with (acute) exacerbation (principal); G89.29 Other chronic pain; R19.7 Diarrhea, unspecified; I10 Essential (primary) hypertension; Z79.82 Long term (current) use of aspirin; Z79.891 Long term (current) use of opiate analgesic; F17.200 Nicotine dependence, unspecified, uncomplicated
CPT/HCPCS: 36415; 80053; 81001; 81003; 83690; 85025; 87086; 94640; 96360; 99283; 99284

== ENCOUNTER 2018-01-02 12:21 | Outpatient (CLI) | payer MEDICARE, OTHER | END 2018-01-02 12:22 | disposition critical access hospital (66) | LOC: EMS 12:21 | PROVIDERS: ATTEND Surgery | DX: M54.9 Dorsalgia, unspecified (principal); R20.0 Anesthesia of skin | CPT/HCPCS: A0425; A0427 ==

== ENCOUNTER 2018-01-02 12:35 | Emergency (ER) | payer MEDICARE, OTHER ==
[2018-01-02] MEDS ORDERED: HYDROmorphone 1 MG/ML CARPUJECT IVP STA ×2 (13:49→15:27)
[2018-01-02 14:04] LABS: BASOPHILS # (AUTO) 0.1 10^3/uL (0.0-0.1); BASOPHILS % (AUTO) 0.7 %; EOSINOPHILS # (AUTO) 0.1 10^3/uL (0.0-0.7); EOSINOPHILS % (AUTO) 0.8 %; LYMPHOCYTES # (AUTO) 1.7 10^3/uL (1.5-3.5); LYMPHOCYTES % (AUTO) 14.7 %; MEAN CORPUSCULAR HEMOGLOBIN 32.1 pg (27.0-31.0); MEAN CORPUSCULAR HGB CONC 33.6 g/dL (32.0-36.0); MEAN CORPUSCULAR VOLUME 95.4 fL (80.0-94.0); MEAN PLATELET VOLUME 8.9 fL (7.4-11.4); MONOCYTES # (AUTO) 1.2 10^3/uL (0.0-1.0); MONOCYTES % (AUTO) 10.2 %; NEUTROPHILS # (AUTO) 8.7 10^3/uL (1.5-6.6); NEUTROPHILS % (AUTO) 73.6 %; PLT - PLATELET COUNT 262 10^3/uL (130-450); RED BLOOD COUNT 5.62 10^6/uL (4.70-6.10); WHITE BLOOD COUNT 11.8 x10^3/uL (4.8-10.8)
[2018-01-02] MEDS ORDERED: IOPAMIDOL-300 100 ML VIAL ONE (14:10)
[2018-01-02 14:16] LABS: ALBUMIN 4.1 g/dL (3.2-5.5); ALBUMIN/GLOBULIN RATIO 1.4 (1.0-2.2); BILIRUBIN,TOTAL 0.8 mg/dL (0.2-1.0); CALCIUM 9.2 mg/dL (8.5-10.3); CREATININE 1.1 mg/dL (0.6-1.2); TOTAL PROTEIN 7.1 g/dL (6.7-8.2)
[2018-01-02] MEDS ORDERED: IOPAMIDOL-300 100 ML VIAL IVP ONE (14:26)
--- NOTE | 2018-01-02 14:55 | CT Report ---
Procedure Date: 01/02/2018 Accession Number: [id number] / [id number] Procedure: CT - Abdomen/Pelvis Angio CPT Code: FULL RESULT: EXAM: CT ANGIOGRAM ABDOMEN AND PELVIS WITH CONTRAST EXAM DATE: 01/02/2018 02:23 PM. CLINICAL HISTORY: Low back pain, h/o AAA. COMPARISONS: 12/11/2017. TECHNIQUE: Routine helical CT angiogram imaging was performed through the abdomen and pelvis in the arterial phase. IV contrast: ISOVUE 300 100mL. Enteric contrast: No. Reconstructions: Coronal, sagittal, and 3D MIP reconstructions. In accordance with CT protocol optimization, one or more of the following dose reduction techniques were utilized for this exam: automated exposure control, adjustment of mA and/or KV based on patient size, or use of iterative reconstructive technique. FINDINGS: Vasculature: Infrarenal abdominal aortic aneurysm with maximal transverse diameter of 4.8 x 4.3 cm, unchanged from prior (axial image 92). As before there is extensive mural thrombus and the opacified lumen measures approximately 18 mm in diameter at its narrowest. Mildly aneurysmal common iliac arteries are similar in diameter compared to prior. Moderate to severe atherosclerosis of the aorta and its major branches. Lung Bases: Emphysema. No consolidation or pleural effusion. Abdominal Solid Organs: The liver, spleen, pancreas, and bilateral adrenal glands demonstrate no significant abnormality. Nonobstructive bilateral nephrolithiasis again demonstrated. No hydronephrosis. Gallbladder/bile ducts: Cholelithiasis without evidence of cholecystitis. Upper normal diameter of the common bile duct as before. Peritoneal Cavity: No ascites or pneumoperitoneum. Bowel anastomoses and numerous right abdominal surgical clips. Dilated segment of small bowel measuring up to 7 cm in diameter, near an anastomosis, has mildly increased in caliber compared to prior. Additional dilated loops of small and large bowel with air-fluid levels are present. Moderate to severe diverticulosis without definite evidence of diverticulitis. Pelvic Organs: The urinary bladder and pelvic organs demonstrate no significant abnormality. Bones: Severe compression fracture of the L1 vertebral body, with greater than 75% loss of height, significantly progressed compared to prior. The bones are diffusely demineralized. Other: Diastasis recti and anteriorly bulging loops of bowel as before. IMPRESSION: 1. No significant change in size or appearance of the abdominal aortic aneurysm. No evidence of rupture. 2. Severe compression deformity of the L1 vertebral body has significantly worsened compared to prior study performed 22 days ago. 3. Bowel findings suggest ileus, but early/developing obstruction is not entirely excluded. 4. Chronic and incidental findings as above. RADIA
--- NOTE | 2018-01-02 14:58 | ED Physician Documentation ---
PD HPI BACK PAIN - Stated complaint Stated Complaint: BACK PX - Chief complaint Chief Complaint: Back Pain - History obtained from History obtained from: Patient, EMS - History of Present Illness Timing - onset: How many months ago (1) Timing - duration: Months (1) Timing - details: Gradual onset Pain level max: 10 Pain level now: 6 Location: Lower Quality: Pain, Spasm, Similar to prior episodes Associated symptoms: No: Fever, Weakness, Numbness, Incontinent of urine, Unable to urinate, Hematuria, Incontinent of stool Improves with: Rest Worsened by: Movement Contributing factors: Other (L1 compression fracture) Recently seen: Other (has been seen for pain control in the past.) Review of Systems Ten Systems: 10 systems reviewed and negative Constitutional: denies: Fever, Chills Ears: denies: Ear pain Nose: denies: Rhinorrhea / runny nose, Congestion Throat: denies: Sore throat Cardiac: denies: Chest pain / pressure Respiratory: denies: Cough GI: reports: Diarrhea (A few days ago, none now). denies: Vomiting, Hematemesis : denies: Dysuria, Frequency, Hesitancy Skin: denies: Rash Musculoskeletal: denies: Neck pain Neurologic: denies: Headache PD PAST MEDICAL HISTORY - Past Medical History Cardiovascular: Hypertension, Coronary artery disease, [place] Respiratory: COPD Endocrine/Autoimmune: None GI: Hiatal hernia, Diverticulitis, Other : Benign prostate hypertrophy HEENT: Chronic hearing loss Psych: Depression Musculoskeletal: None Derm: None - Past Surgical History Past Surgical History: Yes General: Bowel surgery, Colonoscopy, Other Cardiovascular: Coronary stent, AAA - Present Medications Home Medications: Ambulatory Orders Medication Instructions Recorded Confirmed Tamsulosin [Flomax] 0.4 mg PO DAILY 01/19/13 12/17/17 Oxycodone HCl [Roxicodone] 120 mg PO ACHS 03/20/14 12/17/17 Albuterol Sulfate [Proair Hfa 2 inh IH Q4H PRN 09/20/14 12/17/17 Inhaler] Aspirin [Ecotrin] 81 mg PO DAILY 09/20/14 12/17/17 Metoprolol Tartrate [Lopressor] 50 mg PO DAILY 09/20/14 12/17/17 Nitroglycerin [Nitrostat] 1 tab [id number] ONCE 12/07/15 12/17/17 Citalopram [CeleXA] 20 mg PO QPM tablet 01/31/17 12/17/17 Albuterol 2.5 mg NEB BID PRN 03/01/17 12/17/17 Oxycodone HCl [Roxicodone] 90 mg PO TID MDD nte 13 tabs/24 07/31/17 12/17/17 hours Trazodone HCl 100 mg PO DAILY PRN 08/29/17 12/17/17 Budesonide/Formoterol Fumarate 1 puffs INH DAILY 09/27/17 12/17/17 [Symbicort 160-4.5 Mcg Inhaler] Bisacodyl [Dulcolax] 1 - 2 tab PO DAILY PRN 12/05/17 12/17/17 Lidocaine Patch 5% [Lidoderm Patch] 1 each TOP DAILY PRN #12 patch 12/11/1706/24 Calcitonin [Fortical] 1 sprays CAM DAILY #1 bottle 12/14/17 12/17/17 Naproxen 375 mg PO BID #20 tablet 12/14/17 12/17/17 - Allergies Allergies/Adverse Reactions: Allergies Allergy/AdvReac Type Severity Reaction Status Date / Time No Known Drug Allergies Allergy Verified 01/01/18 00:51 - Social History Does the pt smoke?: Yes Smoking Status: Current every day smoker Does the pt drink ETOH?: No Does the pt have substance abuse?: No - Immunizations Immunizations are current?: Yes - POLST Patient has POLST: Yes POLST Status: DNR PD ED PE NORMAL - Vitals Vital signs reviewed: Yes - General General: Alert and oriented X 3, No acute distress, Well developed/nourished - HEENT HEENT: PERRL, Moist mucous membranes - Neck Neck: Supple, no meningeal sign - Cardiac Cardiac: RRR - Respiratory Respiratory: No respiratory distress, Clear bilaterally - Abdomen Abdomen: Soft, Non tender, Non distended - Back Back: Other (Tender to palpation around L1.) - Derm Derm: Warm and dry - Neuro Neuro: Alert and oriented X 3, No motor deficit, No sensory deficit - Psych Psych: Normal mood, Normal affect Results - Vitals Vitals: Oxygen O2 Source [Without Activity] Room air O2 Source [With Activity] Room air O2 Source Room air - Labs Labs: Laboratory Tests 01/02/18 01/02/18 13:56 13:56 WBC 11.8 H RBC 5.62 Hgb 18.0 Hct 53.6 H MCV 95.4 H MCH 32.1 H MCHC 33.6 RDW 13.0 Plt Count 262 MPV 8.9 Neut # (Auto) 8.7 H Lymph # (Auto) 1.7 [place] # (Auto) 1.2 H Eos # (Auto) 0.1 Baso # (Auto) 0.1 Absolute Nucleated RBC 0.01 Nucleated RBC % 0.1 Sodium 136 Potassium 4.0 Chloride 100 L Carbon Dioxide 28 Anion Gap 8.0 BUN 15 Creatinine 1.1 Estimated GFR (MDRD) 66 L Glucose 96 Calcium 9.2 Total Bilirubin 0.8 AST 19 ALT 19 Alkaline Phosphatase 96 Total Protein 7.1 Albumin 4.1 Globulin 3.0 Albumin/Globulin Ratio 1.4 Lipase 36 - Rads (name of study) Abdomen pelvis CT Radiology: Prelim report reviewed, EMP read contemporaneously, See rad report ( No significant change in size or appearance of the abdominal aortic aneurysm. No evidence of rupture. Severe compression deformity of the L1 vertebral body has significantly worsened compared to prior study performed 22 days ago. Bowel findings suggest ileus, but early/developing obstruction is not entirely excluded. Chronic and incidental findings as above.) PD MEDICAL DECISION MAKING - ED course Complexity details: reviewed results, re-evaluated patient, considered differential, d/w patient, d/w family ED course: Patient is a 72-year-old male with ongoing pain from an L1 compression fracture. He is being seen by palliative care with maritza Elizalde. His AAA is stable in appearance and shows no evidence of rupture at this time. Pain well controlled in the emergency department. An LSO brace was applied and he is able to get himself up from the bed with his cane walk across the emergency department to the bathroom, utilize the bathroom and walked back to bed without difficulty. He had not taken any of his pain medications at home today. Recommend that he continue his pain medications. We did discuss respite care, rehab or fdc and he declines all of these options. He is adamant that he does not want to be anywhere but out of his home and states that he has enough help at home. I then spoke with his daughter when she picked him up in the emergency department as well and she states she will follow-up with Olive Robles. Patient and family counseled regarding signs and symptoms for which I believe and urgent re-evaluation would be necessary. Patient with good understanding of and agreement to plan and is comfortable going home at this time This document was made in part using voice recognition software. While efforts are made to proofread this document, sound alike and grammatical errors may occur. - Sepsis Event Vital Signs: Oxygen O2 Source [Without Activity] Room air O2 Source [With Activity] Room air O2 Source Room air Departure - Departure Disposition: 01 Home, Self Care Clinical Impression: AAA (abdominal aortic aneurysm) without rupture Compression fracture of L1 lumbar vertebra Qualifiers: Encounter type: initial encounter Fracture type: closed Qualified Code(s): S32.010A - Wedge compression fracture of first lumbar vertebra, initial encounter for closed fracture Condition: Good Instructions: ED Fx Comp Vertebral Follow-Up: Gareth Nunn MD [Primary Care Provider] - Within 3 Days Comments: You need to use a walker at home and wear the LSO brace you were given today. This will help with your pain. Return if you worsen. Your AAA is stable today. Discharge Date/Time: 01/02/18 16:36
[2018-01-02 15:09] VITALS: BP 128/75
[2018-01-02] MEDS ORDERED: KETOROLAC 60 MG/2 ML VIAL IVP STA (15:27)
== END 2018-01-02 16:36 | disposition home or self-care (01) ==
LOC: EDUNIT# → ED 12:35
DX: I71.4 Abdominal aortic aneurysm, without rupture (principal); S32.010A Wedge compression fracture of first lumbar vertebra, initial encounter for closed fracture; X58.XXXA Exposure to other specified factors, initial encounter; I10 Essential (primary) hypertension; I25.10 Atherosclerotic heart disease of native coronary artery without angina pectoris; I25.2 Old myocardial infarction; F17.200 Nicotine dependence, unspecified, uncomplicated; Z95.5 Presence of coronary angioplasty implant and graft
CPT/HCPCS: 36415; 74174; 80053; 83690; 85025; 96374; 96375; 96376; 99283; 99284; J1170; Q9967

== ENCOUNTER 2018-01-28 16:04 | Outpatient (CLI) | payer MEDICARE, OTHER ==
[2018-01-28 16:26] LABS: BASOPHILS # (AUTO) 0.1 10^3/uL (0.0-0.1); BASOPHILS % (AUTO) 0.5 %; EOSINOPHILS # (AUTO) 0.1 10^3/uL (0.0-0.7); EOSINOPHILS % (AUTO) 0.9 %; HGB - HEMOGLOBIN 16.7 g/dL (14.0-18.0); LYMPHOCYTES # (AUTO) 1.4 10^3/uL (1.5-3.5); LYMPHOCYTES % (AUTO) 14.2 %; MEAN CORPUSCULAR HEMOGLOBIN 32.3 pg (27.0-31.0); MEAN CORPUSCULAR HGB CONC 33.3 g/dL (32.0-36.0); MEAN CORPUSCULAR VOLUME 97.1 fL (80.0-94.0); MEAN PLATELET VOLUME 9.1 fL (7.4-11.4); MONOCYTES # (AUTO) 0.7 10^3/uL (0.0-1.0); MONOCYTES % (AUTO) 7.4 %; NEUTROPHILS # (AUTO) 7.4 10^3/uL (1.5-6.6); PLT - PLATELET COUNT 201 10^3/uL (130-450); RED BLOOD COUNT 5.15 10^6/uL (4.70-6.10); RED CELL DISTRIBUTION WIDTH 13.1 % (12.0-15.0); WHITE BLOOD COUNT 9.6 x10^3/uL (4.8-10.8)
[2018-01-28 16:37] LABS: CALCIUM 9.3 mg/dL (8.5-10.3)
== END 2018-01-28 16:05 | disposition home or self-care (01) ==
LOC: LAB 16:04
PROVIDERS: ATTEND Physician Assistant
DX: Z01.818 Encounter for other preprocedural examination (principal); Z01.812 Encounter for preprocedural laboratory examination; M51.36 Other intervertebral disc degeneration, lumbar region; M54.5 Low back pain; S32.010A Wedge compression fracture of first lumbar vertebra, initial encounter for closed fracture
CPT/HCPCS: 36415; 80048; 85025; 93005

== ENCOUNTER 2018-02-14 13:00 | Outpatient (CLI) | payer MEDICARE, OTHER ==
--- NOTE | 2018-02-14 19:40 | CONSULTATION NOTE ---
Palliative Care Follow Up - Referral Referring Provider: Dr. Matthew Nunn Time of Visit: [id number] Referral setting: Home (It is a taxing considerable effort for the patient to leave the home secondary to severe pain, home visit also made to adjust treatment plan.) Referral Reason: L1 fracture/acute on chronic pain syndrome - Information Sources Records reviewed: Previous records reviewed History/Review of Systems obtained from: Patient, Family (Magy present for visit) Exam limitations: Clinical condition (patient with severe STM issues) - History of Present Illness Update Brief HPI Update: This is an unfortunate 72-year-old gentleman who has underlying chronic abdominal pain related to complications of a colonoscopy several years ago, requiring multiple abdominal surgeries and hospitalizations 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 He also has a AAA, advanced COPD, tobacco abuse, and recent treatment for colitis in November. On 12/11 Patient had a fall, landing directly on his buttocks with significant pain in his lower back. He was found at that point in time to have a lumbar fracture to the L1 vertebral body. Of note during that exam his AAA had also increased to 5.9 cm from 4.5 cm on 11/06/2017. He had another acute episode of uncontrolled pain on 01/02, at that point in time was found to have a worsening L1 fracture, with 75% loss of height. Had initiated home health PT, with little response. Patient finally agreed after much cajoling, to get workup with orthopedist. He was scheduled for a kyphoplasty after he was cleared for surgery, in early February, 3 days prior to the surgery he felt absolutely "wonderful" and canceled the surgery despite all the work that when in to getting him scheduled. About a week later, patient had exacerbated and severe pain searing pain again. He has difficulty with any kind of twisting or bending, worsens with standing and walking, and can barely stand to be up greater than 10 minutes. We discussed at length no increase in his opioid was going to address his loss of height in his spine, he has nerve compression, and has tolerated gabapentin/ Lyrica poorly in the past. Patient continues with poor balance, mild cough negative deficits, and ongoing weight loss. Social History - Living Situation Living arrangement: At home Living Situation: With spouse/s.o. (Both patient and are quite frail, is very resistant to hiring any assistance or further exploring [facility], have been seen by the home health high school social studies tutor and are aware of resources. Neither 1 of them drives, which complicates their access to appointments. They do have a daughter who lives on the property, she has health issues as well.) Medications/Allergies - Medications Home Medications: Ambulatory Orders Medication Instructions Recorded Confirmed Tamsulosin [Flomax] 0.4 mg PO DAILY 01/19/13 02/16/18 Oxycodone HCl [Roxicodone] 120 mg PO ACHS 03/20/14 02/16/18 Albuterol Sulfate [Proair Hfa 2 inh IH Q4H PRN 09/20/14 02/16/18 Inhaler] Aspirin [Ecotrin] 81 mg PO DAILY 09/20/14 02/16/18 Metoprolol Tartrate [Lopressor] 50 mg PO DAILY 09/20/14 02/16/18 Nitroglycerin [Nitrostat] 1 tab [id number] ONCE 12/07/15 02/16/18 Citalopram [CeleXA] 20 mg PO QPM tablet 01/31/17 12/17/17 Albuterol 2.5 mg NEB BID PRN 03/01/17 02/16/18 Oxycodone HCl [Roxicodone] 90 mg PO TID MDD nte 13 tab/24 07/31/17 02/16/18 hours Trazodone HCl 200 mg PO QPM PRN 08/29/17 02/16/18 Budesonide/Formoterol Fumarate 2 puffs INH BID 09/27/17 02/16/18 [Symbicort 160-4.5 Mcg Inhaler] Bisacodyl [Dulcolax] 1 - 2 tab PO DAILY PRN 12/05/17 02/16/18 Bisacodyl Supp [Dulcolax Supp] 10 mg ID DAILY PRN 02/16/18 02/16/18 Clopidogrel [Plavix] 75 mg PO DAILY 02/16/18 02/16/18 Lovastatin 40 mg PO DAILY 02/16/18 02/16/18 - Allergies Allergies/Adverse Reactions: Allergies Allergy/AdvReac Type Severity Reaction Status Date / Time No Known Drug Allergies Allergy Verified 01/01/18 00:51 Review of Systems - Constitutional Constitutional: reports: Fatigue, Weight loss (132) - Eyes Eyes: reports: Vision loss - Ears, Nose & Throat Ears, Nose & Throat: reports: Hearing loss, Dry mouth - Cardiovascular Cardiovascular: reports: Exertional dyspnea, Decr. exercise tolerance. denies: Chest pain (no recent use of nitrp) - Respiratory Respiratory: reports: Cough, Sputum production (white phelgm), Wheezing ( intermittent), SOB with exertion - Gastrointestinal Gastrointestinal: reports: Abdominal pain, Early satiety, Other (pain with eating; no new problem) - Genitourinary Genitourinary: reports: Frequency - Musculoskeletal Musculoskeletal: reports: Back pain (exacerbated again), Muscle aches, Stiffness , Limited range of motion, Muscle weakness, Assistive devices (uses cane despite encouragement to use walker; balance poor) - Integumentary Integumentary: reports: Dryness - Neurological Neurological: reports: General weakness, Memory problems - Psychiatric Psychiatric: reports: Depression, Anxiety - Hematologic/Lymphatic Hematologic/Lymphatic: reports: Bruising (restarted Plavix with increased spontancious bruising of UE). denies: Anemia, Recurrent infections - All Other Systems All Other Systems: reports: Reviewed and negative Physical Exam - Vital Signs Temperature: 96.8 C Pulse Rate: 65 Respiratory Rate: 18 O2 Saturation: 90 (ra @ rest; smoking more again) Blood Pressure: 102/64 - Physical Exam General Appearance: positive: Moderate distress (related to back pain) Eyes Bilateral: positive: Normal inspection ENT: positive: No signs of dehydration Neck: positive: No JVD, Trachea midline Cardiovascular: positive: Regular rate & rhythm Respiratory: positive: Diminished throughout, Wheezes (expiratory upper lobes;) Abdomen: positive: Tenderness, Guarding, Other (hernias with abdominal binder on ) Skin: positive: Dryness, Bruising Extremities: positive: No pedal edema, Other (hands and feet cold to touch) Neurologic/Psychiatric: positive: Disoriented to time, Depressed mood/affect, Flat affect Palliative Care - POLST Patient has POLST: Yes POLST Status: DNR, Selective Treatment Pain: Pain worsening, Location (Patient has baseline abdominal pain, that he does described as severe. It does worsen with eating, constipation, and standing for long periods of time. He is most comfortable laying flat. He does wear abdominal binder. Patient has been long-term on oxycodone 30 mg tabs for a total of 13 tabs in 24 hours. We were titrating him down until he had his lumbar fracture. Patient reports L1 fracture worsening, had improved for briefly about 3 days, and now is "excruciating again". Opioids are not helping. Patient had gone through workup to have procedure of I believe kyphoplasty done. But had canceled as he had felt he did not need it.) Tiredness/Fatigue: Moderate (4-6) Drowsiness/Sedation: Moderate (4-6) Nausea: None Depression: Severe (7-10) Anxiety: Moderate (4-6) Dyspnea: Moderate (4-6) Anorexia: Moderate (4-6) Sleep: Variable sleep pattern Constipation: Yes, Opoid induced, Intermittent constipation Feelings of wellbeing/Perceived Quality of Life: Poor, Worsening Performance Status: Patient had been working with physical therapy home health, with little improvement has patient pain continued to fluctuate. He was receiving bating services at that point in time, patient can only sponge bathe at this point as he cannot tolerate standing in the shower. He tries to be up several times a day and ambulate short distances, but can only tolerate being upright for about 10 minutes. - Palliative Care Discussion: Long discussion with patient and , patient has many barriers has why cannot reconsider surgery. We did discuss in the context as far as pain management, patient has tolerated other medications poorly, is been unwilling to transition to methadone, though with his current cardiac status and cognitive status would be challenging in this setting. Did discuss in the context of quality of life, given the patient's severe distress, would recommend moving forward again and rescheduling surgery. 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 Results - Lab Results Lab results reviewed: Yes Lab and Imaging Results: recent labs for surgery; no concerns; Impression and Recommendations - Palliative Care Impression: This is a 72-year-old gentleman who has a long list of comorbidities including advanced COPD, increasing AAA, chronic abdominal pain with neuropathic syndrome , coronary artery disease, and tobacco abuse. Patient with worsening back pain secondary to L1 fracture and 75% of height loss, has worsened his functional status as well as his quality of life significantly. Palliative care providing support and encouragement to follow through on procedure. Recommendations/Counseling Done: 1. L1 fracture. Patient with little motivation to be engaged with home health physical therapy, has been instructed on use of brace which he refuses to use, home exercises, and proper techniques. Long discussion frame benefits and burdens and encouraged to move forward with rescheduling surgery. He did have the consult done and surgery scheduled, had mild improvement for 3 days and cancel. Magy sees the benefit in this, she will follow through on rescheduling and making arrangements. Patient in agreement in the end, given there are very few options that will be of benefit medically. 2. Medication adherence. Patient has restarted his Plavix and lovastatin. does administer oxycodone as patient cannot remember when he is taking it. She is quite distressed as he does argue with her, patient did not allow me to review his medications the feels he is taking them appropriately. 3. COPD, patient has resumed his smoking and increased with his increased pain. He is at high risk for pneumonia given his immobility, he is using his Symbicort, he has somewhat wheezy today. Instructed to restart his albuterol nebulizer twice daily and cut down on his smoking. 4. Abdominal pain. Will continue to titrate back oxycodone after procedure. Patient would be a better candidate for methadone but given his memory and home situation unable to follow through on this. Patient does want to titrate back, but in agreement this is not the time to be doing this. Will keep him at the oxycodone 30 mg not to exceed 13 tablets in 24 hours. 5. Advanced care planning. The patient did see the biomedical repair technician, patient and did not want to follow through on [facility] application. Patient does have a LISA ST in place, he does have multiple comorbidities with increasing sequela related to this. Patient is quite fragile with ongoing weight loss, increased functional and cognitive decline Time Spent: 45 minutes with greater than 50% of this done in counseling particularly around follow-through on his surgery, anticipatory guidance, encouragement regarding medication adherence and continue with activity
== END 2018-02-14 13:01 | disposition home or self-care (01) ==
LOC: PC 13:00
PROVIDERS: ATTEND Nurse Practitioner Adult Health
DX: Z51.5 Encounter for palliative care (principal); S32.019D Unspecified fracture of first lumbar vertebra, subsequent encounter for fracture with routine healing; J44.9 Chronic obstructive pulmonary disease, unspecified; F17.200 Nicotine dependence, unspecified, uncomplicated; G89.29 Other chronic pain; R10.9 Unspecified abdominal pain; K59.03 Drug induced constipation; T40.2X5A Adverse effect of other opioids, initial encounter; Z79.82 Long term (current) use of aspirin; Z79.02 Long term (current) use of antithrombotics/antiplatelets; M62.81 Muscle weakness (generalized); F32.9 Major depressive disorder, single episode, unspecified; F41.9 Anxiety disorder, unspecified; I71.4 Abdominal aortic aneurysm, without rupture; Z66 Do not resuscitate
CPT/HCPCS: 99349

== ENCOUNTER 2018-03-17 12:17 | Outpatient (CLI) | payer MEDICARE, OTHER ==
--- NOTE | 2018-03-17 13:45 | MRI Report ---
Reason: LOW BACK PAIN Procedure Date: 03/17/2018 Accession Number: [id number] / [id number] Procedure: MRI - Lumbar Spine W/O CPT Code: FULL RESULT: EXAM: MRI LUMBAR SPINE WITHOUT CONTRAST EXAM DATE: 03/17/2018 12:57 PM. CLINICAL HISTORY: 72-year-old male. LOW BACK PAIN. COMPARISON: LUMBAR SPINE 2 VIEW 12/11/2017 ABDOMEN/PELVIS ANGIO 01/02/2018. TECHNIQUE: Multiplanar, multisequence T1-weighted and fluid-sensitive sequences of the lumbar spine from T12 to S1 without contrast. Other: None. FINDINGS: Spinal Canal: The conus terminates at T12-L1. The conus medullaris and cauda equina are unremarkable. Alignment: No scoliosis or spondylolisthesis. Bone Marrow: No interval development of new fractures. Stable severe compression fracture of the L1 vertebral body with approximately 75% central height loss, similar to prior CT performed on 01/02/2018. Approximately 4 mm retropulsion. There is edema within the L1 vertebral body, confirming subacute nature of the fracture. No bone marrow edema at other visualized levels. Disk Levels/Facets: T12-L1: Retropulsion of the L1 vertebral body results in mild central canal narrowing. No foraminal narrowing. L1-L2: No significant central canal or foraminal narrowing. L2-L3: Mild diffuse disk bulge. No significant facet arthropathy. No significant central canal narrowing. Mild bilateral foraminal narrowing. L3-L4: Mild diffuse disk bulge. Mild bilateral facet arthropathy. Mild central canal narrowing. Mild to moderate bilateral foraminal narrowing. L4-L5: Moderate disk height loss and desiccation. Moderate diffuse disk bulge with endplate spurring. Moderate right and mild to moderate left facet arthropathy. Mild central canal narrowing. Moderate to severe right foraminal narrowing. Mild left foraminal narrowing. Mild right lateral recess narrowing with mass-effect on traversing right L5 nerve. L5-S1: Moderate disk height loss and desiccation. Moderate diffuse disk bulge. Mild bilateral facet arthropathy. No significant central canal narrowing. Moderate to severe right and moderate left foraminal narrowing. Musculature: Normal. No edema or fatty atrophy. Other: Redemonstration large abdominal aortic aneurysm, with maximal AP dimension approximately 4.7 cm (series 701 image 15), similar to prior CT. The partially visualized retroperitoneum is unremarkable. IMPRESSION: 1. Moderate multilevel degenerative spondylosis, as detailed above and summarized below. The most significant levels are likely L4-L5 and L5-S1. No cord signal abnormality at any level. 2. No interval development of new fractures. 3. Stable severe compression fracture of the L1 vertebral body with approximately 75% central height loss, similar to prior CT performed on 01/02/2018. Approximately 4 mm retropulsion. There is edema within the L1 vertebral body, confirming subacute nature of the fracture. 4. At the T12-L1 level, the retropulsion of the L1 vertebral body results in mild central canal narrowing. No foraminal narrowing. 5. L2-L3 level demonstrates no significant central canal narrowing. Mild bilateral foraminal narrowing. 6. L3-L4 level demonstrates mild central canal narrowing. Mild to moderate bilateral foraminal narrowing. 7. L4-L5 level demonstrates mild central canal narrowing. Moderate to severe right foraminal narrowing. Mild left foraminal narrowing. Mild right lateral recess narrowing with mass-effect on traversing right L5 nerve. Recommend correlation for right L4 radicular symptoms. 8. L5-S1 level demonstrates no significant central canal narrowing. Moderate to severe right and moderate left foraminal narrowing. Recommend correlation for right greater than left L5 radicular symptoms. 9. Redemonstration large abdominal aortic aneurysm, with maximal AP dimension approximately 4.7 cm (series 701 image 15), similar to prior CT. Comment: The following findings are so common in adults without low back pain that while we report their presence, they must be interpreted with caution and in the context of the clinical situation. (Reference Katrinvik et al, Spine 2001) Prevalence of findings in patients without low back pain: Disk degeneration (any evidence): 92% Disk desiccation/T2 signal loss: 83% Disk height loss: 56% Disk bulge: 64% Disk protrusion: 32% Annular tear/high intensity zone: 38% RADIA
== END 2018-03-17 12:18 | disposition home or self-care (01) ==
LOC: DI 12:17
PROVIDERS: ATTEND Orthopaedic Surgery
DX: M47.816 Spondylosis without myelopathy or radiculopathy, lumbar region (principal); M48.061 Spinal stenosis, lumbar region without neurogenic claudication; M48.56XA Collapsed vertebra, not elsewhere classified, lumbar region, initial encounter for fracture; I71.4 Abdominal aortic aneurysm, without rupture
CPT/HCPCS: 72148

== ENCOUNTER 2018-03-21 14:50 | Outpatient (CLI) | payer MEDICARE, OTHER | END 2018-03-21 14:51 | disposition home or self-care (01) | LOC: RT 14:50 | PROVIDERS: ATTEND Orthopaedic Surgery | DX: Z01.818 Encounter for other preprocedural examination (principal) | CPT/HCPCS: 36415; 80048; 85027; 93005 ==

== ENCOUNTER → 2018-03-21 | Outpatient (CLI) | payer MEDICARE, OTHER ==
[2018-03-21 14:56] LABS: MEAN CORPUSCULAR HEMOGLOBIN 32.7 pg (27.0-31.0); MEAN CORPUSCULAR HGB CONC 34.4 g/dL (32.0-36.0); MEAN CORPUSCULAR VOLUME 94.9 fL (80.0-94.0); RED BLOOD COUNT 4.91 10^6/uL (4.70-6.10); RED CELL DISTRIBUTION WIDTH 13.6 % (12.0-15.0); WHITE BLOOD COUNT 11.7 x10^3/uL (4.8-10.8)
[2018-03-21 15:03] LABS: CALCIUM 9.2 mg/dL (8.5-10.3)
== END ==
LOC: LAB 08:00
PROVIDERS: ATTEND Orthopaedic Surgery
DX: Z01.812 Encounter for preprocedural laboratory examination (principal)
CPT/HCPCS: 36415; 80048; 85027

== ENCOUNTER 2018-04-29 11:50 | Outpatient (CLI) | payer MEDICARE, OTHER ==
--- NOTE | 2018-04-29 19:22 | CONSULTATION NOTE ---
Palliative Care Follow Up - Referral Referring Provider: Dr. Keller (new provider) Dr. Nunn referral source Time of Visit: [id number] Referral setting: Home (Is a taxing considerable effort for patient leave the home secondary to severe abdominal pain, weakness, and ability to facilitate family conference) Referral Reason: Acute on Chronic Pain/Advanced COPD - Information Sources Records reviewed: Previous records reviewed History/Review of Systems obtained from: Patient, Family (Magy part of visit, his ) Exam limitations: Clinical condition (Patient with mild dementia, significant short-term memory issues.) - History of Present Illness Update Brief HPI Update: This is a 72-year-old gentleman who has underlying chronic abdominal pain related to complications of colonoscopy several years ago, requiring multiple abdominal surgeries and hospitalizations 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 He also has a known AAA advanced COPD, tobacco abuse, and recent lumbar fracture to the L1 vertebrae. Of note during that exam his AAA is also increased to 5.9 cm from 4.5 cm on 11-06-2017. Due to her variety of issues, he finally did get his kyphoplasty, has had some improvement of his "searing pain", but continues with some residual back pain and ongoing background abdominal pain. Prior to his fall an acute fracture, we were attempting to titrate back his oxycodone, he has long-term been on high chronic doses. He has been unwilling to try other medications, and given his poor medication adherence is a poor candidate for methadone. He continues to have ongoing functional and cognitive decline, major depressive disorder, denies suicidality, though is just "waiting to ". He is to establish care with Dr. Keller on 05/07. Patient does appear more cachectic, his last weight was 132. Though he does report he is eating and drinking, this is confirmed by his . Social History - Living Situation Living arrangement: At home Living Situation: With spouse/s.o. Support System: Patient lives at home, his is chronically ill as well as well as concern regarding her fluctuating status secondary to drinking. She does oversee his pain medication, but is quite exhausted with his ongoing cognitive decline and intermittent confusion. The daughter does live on the property, provides intermittent transportation but for the most part is not involved in their care Medications/Allergies - Medications Home Medications: Ambulatory Orders Medication Instructions Recorded Confirmed Tamsulosin [Flomax] 0.4 mg PO DAILY 01/19/13 04/29/18 Albuterol Sulfate [Proair Hfa 2 inh IH Q4H PRN 09/20/14 04/29/18 Inhaler] Aspirin [Ecotrin] 81 mg PO DAILY 09/20/14 04/29/18 Metoprolol Tartrate [Lopressor] 50 mg PO DAILY 09/20/14 04/29/18 Nitroglycerin [Nitrostat] 1 tab [id number] ONCE 12/07/15 04/29/18 Citalopram [CeleXA] 20 mg PO QPM tablet 01/31/17 04/29/18 Albuterol 2.5 mg NEB BID PRN 03/01/17 04/29/18 Oxycodone HCl [Roxicodone] 90 mg PO QID MDD nte 13 tabs/24 07/31/17 04/29/18 hours Trazodone HCl 100 - 200 mg PO QPM PRN 08/29/17 04/29/18 Budesonide/Formoterol Fumarate 2 puffs INH BID 09/27/17 04/29/18 [Symbicort 160-4.5 Mcg Inhaler] Bisacodyl [Dulcolax] 1 - 2 tab PO DAILY PRN 12/05/17 04/29/18 Bisacodyl Supp [Dulcolax Supp] 10 mg OR DAILY PRN 02/16/18 04/29/18 Clopidogrel [Plavix] 75 mg PO DAILY 02/16/18 04/29/18 Lovastatin 40 mg PO DAILY 02/16/18 04/29/18 - Allergies Allergies/Adverse Reactions: Allergies Allergy/AdvReac Type Severity Reaction Status Date / Time No Known Drug Allergies Allergy Verified 01/01/18 00:51 Review of Systems - Constitutional Constitutional: reports: Fatigue, Weakness, Weight loss (patient unable to weigh self but admits to weight loss; appears thin). denies: Fever, Chills - Eyes Eyes: reports: Vision loss - Ears, Nose & Throat Ears, Nose & Throat: reports: Hearing loss, Dental decay (Patient has lost multiple teeth, bridge is broken, has plan to follow-up with dentist.), Dry mouth - Cardiovascular Cardiovascular: reports: Decr. exercise tolerance. denies: Chest pain, Edema - Respiratory Respiratory: reports: Cough, SOB with exertion. denies: SOB at rest - Gastrointestinal Gastrointestinal: reports: Constipation (reports goes every other day with supp and ducolax tabs), Nausea (intermittent nausea; does not take medication), Good appetite (using supplements;) - Genitourinary Genitourinary: reports: Dysuria, Frequency (up at night several times) - Musculoskeletal Musculoskeletal: reports: Back pain (improved after surgery; not resolved but much better), Muscle aches, Stiffness, Limited range of motion, Muscle weakness - Integumentary Integumentary: reports: Dryness - Neurological Neurological: reports: General weakness, Memory problems, Abnormal gait (related to pain; unable to stand efrect) - Psychiatric Psychiatric: reports: Depression, Anxiety - All Other Systems All Other Systems: reports: Reviewed and negative Physical Exam - Vital Signs Temperature: 97.2 C Pulse Rate: 62 Respiratory Rate: 18 O2 Saturation: 95 (ra @ rest) Blood Pressure: 122/62 - Physical Exam General Appearance: positive: Mild distress, Anxious Eyes Bilateral: positive: Normal inspection ENT: positive: No signs of dehydration Neck: positive: No JVD, Trachea midline Cardiovascular: positive: Irregularly irregular Respiratory: positive: Diminished throughout. negative: Wheezes, Rales, Rhonchi Abdomen: positive: Soft, Nml bowel sounds, Tenderness, Distended, Other (abdominal binder; can see herniation) Skin: positive: Pallor, Dryness Extremities: positive: No pedal edema Neurologic/Psychiatric: positive: Disoriented to time, Weakness, Depressed mood/affect, Flat affect Palliative Care - POLST Patient has POLST: Yes POLST Status: DNR, Selective Treatment Pain: Location (Patient has 2 areas of pain; lower mid back at L1, reports is improving slowly. Increased pain with bending or twisting. Patient also has chronic low abdominal pain, reports hernias are increasing, escalated pain with bowel movements, residual sharp shooting pain after moves bowels. Has been compliant with staying within his 13/tabs in 24 hours. continues to allocate. Patient's pain though is impacting his sleep, though this is not new. He continues to perceive his life is "miserable". Though does not want to change his pain regimen, but is willing to talk to Dr. Keller regarding buprenorphine) Tiredness/Fatigue: Severe (7-10) Drowsiness/Sedation: Mild (1-3) Nausea: Mild (1-3) Depression: Moderate (4-6) Anxiety: Severe (7-10) Dyspnea: Moderate (4-6) Anorexia: None Sleep: Sleeps poorly Constipation: Yes, Opoid induced, Managed (Reports goes every other day with suppository and use of Dulcolax tabs.) Feelings of wellbeing/Perceived Quality of Life: Poor, No change Performance Status: Patient's pain is exacerbated by standing, patient does spend most the time in recliner and/or in bed. He does shower independently but is very fearful of falling. Patient is quite sedentary, does ambulate around the house. Has had PT in past without much improvement of pain or activity - Palliative Care Discussion: Patient continues to be overwhelmed by his poor quality of life, feels like he is just "existing" and waiting to . He is not able to identify any joe, or activities of distraction. Patient remains chronically depressed, resistant to any suggestions or changes or offers of counseling and support. Impression and Recommendations - Palliative Care Impression: This is a 72-year-old gentleman who has a long list of comorbidities including advanced COPD, increasing AAA, chronic abdominal pain with neuropathic syndrome, coronary artery disease, top alcohol abuse, and recent worsening back pain secondary to L1 fracture in 75% of height loss. He did follow through with kyphoplasty, with some improvement in his pain, but overall continues to perceive his quality of life is poor. Palliative care providing support and oversight in this fragile situation. Recommendations/Counseling Done: 1. Aftercare L1 fracture. Patient has had surgery, did follow through, did improve his pain control though continues to have residual back pain. 2. Medication adherence patient is currently not taking his medications, continues to administer oxycodone as patient cannot remember when he is taking it. Continue to be concerned regarding adherence to schedule, this complicates making any further pain regimen changes. 3. Abdominal pain. Will titrate back oxycodone to 12 in 24 hours from 13. We had started titration prior to fall. Patient seen Dr. Keller 05/07. Unclear if patient could candidate for buprenorphine because of difficulty with adherence. Could enlist help of , may be able to switch. requested not to change amount, in case patient does not tolerate titration down. Goal will be to stay compliant with 12 tablets in 24 hours. 4. COPD. Patient smoking 10-12 cigarettes a day, does report increased shortness of breath. Is using Symbicort, has not wheezing, is using Nebulizer twice a day. He is starting to feel increased shortness of breath. Encouraged to get his flu shot MD appointment or at pharmacy sooner. Patient has been counseled yet again on cutting down his smoking. 5. Insomnia. Patient tends to overuse medications, he ran out of his trazodone early. Reviewed maximum dose is 200 mg at bedtime. May start with 100 and re peat if needed. Requested put limitations as far as access to medication. Prescription provided 6. Advanced care planning. Patient and have seen medical front desk specialist, they choose again not to follow through on the COPD EES application. Patient does have a POLST in place. Patient presents is very anxious regarding and dying in contrast to his complaints regarding quality of life and wanting this to be done with. Will have medical palliative care bilingual social worker follow-up again soon. Time Spent: 30 minutes with greater than 50% of this done in counseling regarding pain and symptom management, insomnia, and anticipatory guidance.
== END 2018-04-29 11:51 | disposition home or self-care (01) ==
LOC: PC 11:50
PROVIDERS: ATTEND Nurse Practitioner Adult Health
DX: Z51.5 Encounter for palliative care (principal); G89.4 Chronic pain syndrome; J44.9 Chronic obstructive pulmonary disease, unspecified; F03.90 Unspecified dementia, unspecified severity, without behavioral disturbance, psychotic disturbance, mood disturbance, and anxiety; M54.5 Low back pain; K66.0 Peritoneal adhesions (postprocedural) (postinfection); K46.9 Unspecified abdominal hernia without obstruction or gangrene; I71.4 Abdominal aortic aneurysm, without rupture; F32.9 Major depressive disorder, single episode, unspecified; T43.211A Poisoning by selective serotonin and norepinephrine reuptake inhibitors, accidental (unintentional), initial encounter; G47.00 Insomnia, unspecified; Z91.14 Patient's other noncompliance with medication regimen; Z66 Do not resuscitate; Z79.891 Long term (current) use of opiate analgesic; Z72.0 Tobacco use; F10.10 Alcohol abuse, uncomplicated; Z79.51 Long term (current) use of inhaled steroids; Z79.899 Other long term (current) drug therapy
CPT/HCPCS: 99348

== ENCOUNTER 2018-05-27 14:00 | Outpatient (CLI) | payer MEDICARE, OTHER ==
--- NOTE | 2018-05-27 17:20 | CONSULTATION NOTE ---
Palliative Care Follow Up - Referral Referring Provider: Dr. Keller Time of Visit: [id number] Referral setting: Home Referral Reason: Chronic Abd Pain/COPD/Pal Care - Information Sources Records reviewed: Previous records reviewed History/Review of Systems obtained from: Patient, Family ( Magy at visit) Exam limitations: Clinical condition (patient with poor STM; ongoing cognitive decline;) - History of Present Illness Update Brief HPI Update: This is a 72-year-old gentleman who has underlying chronic abdominal pain related to complications of a colonoscopy several years ago, requiring multiple abdominal surgeries and hospitalizations leaving him with residual chronic neuropathic pain syndrome. He reports this continues to be quite painful, it wakes him up the pain is nagging at him at all times., He describes it is a sharp pain deep ache, eating makes it worse, he gets some relief with bowel mo vements but then has residual painful bowel spasms. He continues on oxycodone 30 mg tablets using up 13 tabs in 24 hours. We had started titration as he is been on long-term high chronic doses, late spring, then he had an acute injury with his lumbar fracture. Reports this is continued to heal and is coming along. He continues to have a AAA, denies any increased pain or abdominal discomfort related to this, does feel this has a different pain related to it. Patient continues to be somewhat sedentary, is most comfortable laying down. He does get some dizziness when he is up, he does try to get up and ambulate short distances. But spends most this time watching TV. He continues to have cognitive decline, gets easily confused, has difficulty tracking. His is in poor health as well, she is quite forgetful and sleeps a lot. Patient was supposed of established with Dr. Keller on 05/07, hope for is for him to be evaluated for Suboxone. Patient unable to obtain the appropriate transportation, continues have difficulty complying with appointments and or medications. Social History - Living Situation Living arrangement: At home Living Situation: With spouse/s.o. Support System: His daughter does provide most of the transportation for appointments, shopping, they do hire some. They have limited financial and emotional resources. Medications/Allergies - Medications Home Medications: Ambulatory Orders Medication Instructions Recorded Confirmed Tamsulosin [Flomax] 0.4 mg PO DAILY 01/19/13 04/29/18 Albuterol Sulfate [Proair Hfa 2 inh IH Q4H PRN 09/20/14 04/29/18 Inhaler] Aspirin [Ecotrin] 81 mg PO DAILY 09/20/14 04/29/18 Metoprolol Tartrate [Lopressor] 50 mg PO DAILY 09/20/14 04/29/18 Nitroglycerin [Nitrostat] 1 tab [id number] ONCE 12/07/15 04/29/18 Citalopram [CeleXA] 20 mg PO QPM tablet 01/31/17 04/29/18 Albuterol 2.5 mg NEB BID PRN 03/01/17 04/29/18 Oxycodone HCl [Roxicodone] 90 mg PO QID MDD nte 13 tab/24 07/31/17 04/29/18 hours Trazodone HCl 100 - 200 mg PO QPM PRN 08/29/17 04/29/18 Budesonide/Formoterol Fumarate 2 puffs INH BID 09/27/17 04/29/18 [Symbicort 160-4.5 Mcg Inhaler] Bisacodyl [Dulcolax] 1 - 2 tab PO DAILY PRN 12/05/17 04/29/18 Bisacodyl Supp [Dulcolax Supp] 10 mg ID DAILY PRN 02/16/18 04/29/18 Clopidogrel [Plavix] 75 mg PO DAILY 02/16/18 04/29/18 Lovastatin 40 mg PO DAILY 02/16/18 04/29/18 - Allergies Allergies/Adverse Reactions: Allergies Allergy/AdvReac Type Severity Reaction Status Date / Time No Known Drug Allergies Allergy Verified 01/01/18 00:51 Review of Systems - Constitutional Constitutional: reports: Fatigue, Weakness. denies: Fever - Eyes Eyes: reports: Vision loss - Ears, Nose & Throat Ears, Nose & Throat: reports: Hearing loss, Hearing aids (tried and sent back;), Dental decay - Cardiovascular Cardiovascular: reports: Lightheadedness, Exertional dyspnea, Decr. exercise tolerance - Respiratory Respiratory: reports: Cough, SOB with exertion. denies: SOB at rest - Gastrointestinal Gastrointestinal: reports: Abdominal pain, Abdominal distention, Constipation, Good appetite. denies: Rectal bleeding, Nausea, Reflux/heartburn - Musculoskeletal Musculoskeletal: reports: Muscle pain, Back pain, Muscle aches, Stiffness, Muscle weakness - Integumentary Integumentary: reports: Dryness - Neurological Neurological: reports: General weakness, Memory problems - Psychiatric Psychiatric: reports: Depression, Anxiety. denies: Suicidal - Endocrine Endocrine: reports: Intolerance to cold - Hematologic/Lymphatic Hematologic/Lymphatic: denies: Recurrent infections - All Other Systems All Other Systems: reports: Reviewed and negative Physical Exam - Vital Signs Temperature: 97.7 C Pulse Rate: 64 Respiratory Rate: 18 O2 Saturation: 93 (ra @ rest) Blood Pressure: 102/64 - Physical Exam General Appearance: positive: Moderate distress, Other (appears very cachetic) Eyes Bilateral: positive: Normal inspection ENT: positive: Other (poor dentition; top teeth are mostly broken; planning to see dentist) Neck: positive: Trachea midline Cardiovascular: positive: Irregularly irregular Respiratory: positive: Diminished throughout. negative: Wheezes, Rales, Rhonchi Abdomen: positive: Tenderness, Other (has abdominal binder on) Skin: positive: Pallor, Dryness Extremities: positive: No pedal edema Neurologic/Psychiatric: positive: Disoriented to time, Weakness, Depressed mood/affect, Flat affect, Other (easily confused) Palliative Care - POLST Patient has POLST: Yes POLST Status: DNR, Selective Treatment Pain: Pain worsening (abdominal see HPI), Pain improved (in back) Tiredness/Fatigue: Moderate (4-6) Drowsiness/Sedation: Moderate (4-6) Nausea: None Depression: Moderate (4-6) (reports "not to bad" from his baseline) Anxiety: Moderate (4-6) (resumed discussion regarding titrating pain meds) Dyspnea: Moderate (4-6) Anorexia: None Sleep: Variable sleep pattern (awakens in pain) Constipation: Opoid induced, Managed Feelings of wellbeing/Perceived Quality of Life: Poor, No change Performance Status: Patient most comfortable lying down, does spend most the day in the bed watching TV. Does report he gets up and walks short distances. He is somewhat concerned over his unsteadiness, so is less often bathing. Patient unable to participate in any household tasks. I would put him at a PPS of 50% - Palliative Care Discussion: Patient perceives he is "just waiting to ". He has no plans to hasten this, but feels like it is taking quite a while. In juxtaposition to this though, patient is very anxious about dying and his health. Though he is an willing to make any significant health changes. He continues to smoke, though reports is down to 6 cigarettes a day. He dislikes being on the opioids, but is fearful of any kind of change as far as his medications or pain management. He continues to perceive his quality of life is quite poor, is one thing he likes to do is to watch football. Impression and Recommendations - Palliative Care Impression: This is a 72-year-old gentleman with a long list of comorbidities including advanced COPD, increasing AAA, chronic abdominal pain with neuropathic pain syndrome, coronary artery disease, tobacco abuse, both functional and cognitive decline. Patient remains quite fragile, perceives his life is poor, has high symptom burden. Palliative care providing support and oversight in this fragile situation is much as patient allows. Recommendations/Counseling Done: 1. COPD. Patient reports decreased his smoking to 6 cigarettes a day, continues have fluctuating shortness of breath. Patient has been counseled multiple times regarding his smoking, is willing to cut down but does not perceive it as a achievable goal to quit. 2. Medication adherence. Unclear exactly what patient is taking, does take his meds from the bottle. Reports he has following directions but did not agreed to review today. reports she is providing oversight, though does not appear she is reliably involved. 3. Abdominal pain. Patient did not trial cutting back oxycodone to 12 in 24 hours from 13. Patient was to see Dr. Keller, was hopeful he be a candidate for buprenorphine, but concern regarding difficulty of adherence. We will go ahead and decreased total amount given by 5 tabs every month, patient is in agreement with this strategy. Rx is written for oxycodone 30 mg tabs for a total of 385 tabs. 4. Advanced care planning. Patient does have a LISA ST in place, continues to have high anxiety, but also quite distressed with his current quality of life. Patient does have difficulty following through on medical appointments and adherence to medical regimens. Palliative care continue to work with patient, as patient does trust our relationship. Time Spent: 30 minutes with greater than 50% of this done in counseling regarding pain and symptom management, safety review, and anticipatory guidance.
== END 2018-05-27 14:01 | disposition home or self-care (01) ==
LOC: PC 14:00
PROVIDERS: ATTEND Nurse Practitioner Adult Health
DX: Z51.5 Encounter for palliative care (principal); J44.9 Chronic obstructive pulmonary disease, unspecified; G89.4 Chronic pain syndrome; K66.0 Peritoneal adhesions (postprocedural) (postinfection); F41.9 Anxiety disorder, unspecified; F32.9 Major depressive disorder, single episode, unspecified; I71.4 Abdominal aortic aneurysm, without rupture; R41.81 Age-related cognitive decline; R26.81 Unsteadiness on feet; I25.10 Atherosclerotic heart disease of native coronary artery without angina pectoris; Z66 Do not resuscitate; Z72.0 Tobacco use; Z79.891 Long term (current) use of opiate analgesic; Z91.14 Patient's other noncompliance with medication regimen; Z91.19 Patient's noncompliance with other medical treatment and regimen
CPT/HCPCS: 99348

== ENCOUNTER 2018-06-06 15:36 | Outpatient (CLI) | payer MEDICARE, OTHER | END 2018-06-06 15:37 | disposition critical access hospital (66) | LOC: EMS 15:36 | PROVIDERS: ATTEND Surgery | DX: R06.02 Shortness of breath (principal); R05 Cough | CPT/HCPCS: A0425; A0429 ==

== ENCOUNTER 2018-06-06 15:46 | Emergency (ER) | payer MEDICARE, OTHER ==
[2018-06-06 16:06] LABS: BASOPHILS # (AUTO) 0.1 10^3/uL (0.0-0.1); BASOPHILS % (AUTO) 1.4 %; EOSINOPHILS # (AUTO) 0.1 10^3/uL (0.0-0.7); EOSINOPHILS % (AUTO) 1.3 %; HGB - HEMOGLOBIN 16.6 g/dL (14.0-18.0); LYMPHOCYTES # (AUTO) 1.1 10^3/uL (1.5-3.5); LYMPHOCYTES % (AUTO) 13.4 %; MEAN CORPUSCULAR HEMOGLOBIN 32.3 pg (27.0-31.0); MEAN CORPUSCULAR HGB CONC 33.4 g/dL (32.0-36.0); MEAN CORPUSCULAR VOLUME 96.7 fL (80.0-94.0); MONOCYTES # (AUTO) 0.6 10^3/uL (0.0-1.0); MONOCYTES % (AUTO) 7.6 %; NEUTROPHILS # (AUTO) 6.2 10^3/uL (1.5-6.6); NEUTROPHILS % (AUTO) 76.3 %; PLT - PLATELET COUNT 220 10^3/uL (130-450); RED BLOOD COUNT 5.13 10^6/uL (4.70-6.10); WHITE BLOOD COUNT 8.2 x10^3/uL (4.8-10.8)
--- NOTE | 2018-06-06 16:08 | ED Physician Documentation ---
PD HPI DYSPNEA - Stated complaint Stated Complaint: SOA - History obtained from History obtained from: Patient - History of Present Illness Timing - onset: Other (72 yo with COPD with 4 days of cough. Makes chronic abd hernia pain worse. Taking albuterol/symbicort without relief. Chronic abd pain treated with oxycodone.) Review of Systems Ten Systems: 10 systems reviewed and negative Constitutional: denies: Fever, Chills Cardiac: reports: Chest pain / pressure (tight) Respiratory: reports: Dyspnea, Cough GI: reports: Abdominal Pain. denies: Nausea, Vomiting, Diarrhea PD PAST MEDICAL HISTORY - Past Medical History Cardiovascular: Hypertension, Coronary artery disease, [place] Respiratory: COPD Endocrine/Autoimmune: None GI: Hiatal hernia, Diverticulitis, Other : Benign prostate hypertrophy HEENT: Chronic hearing loss Psych: Depression Musculoskeletal: None Derm: None - Past Surgical History Past Surgical History: Yes General: Bowel surgery, Colonoscopy, Other Cardiovascular: Coronary stent, AAA - Present Medications Home Medications: Ambulatory Orders Medication Instructions Recorded Confirmed Tamsulosin [Flomax] 0.4 mg PO DAILY 01/19/13 04/29/18 Albuterol Sulfate [Proair Hfa 2 inh IH Q4H PRN 09/20/14 04/29/18 Inhaler] Aspirin [Ecotrin] 81 mg PO DAILY 09/20/14 04/29/18 Metoprolol Tartrate [Lopressor] 50 mg PO DAILY 09/20/14 04/29/18 Nitroglycerin [Nitrostat] 1 tab [id number] ONCE 12/07/15 04/29/18 Citalopram [CeleXA] 20 mg PO QPM tablet 01/31/17 04/29/18 Albuterol 2.5 mg NEB BID PRN 03/01/17 04/29/18 Oxycodone HCl [Roxicodone] 90 mg PO QID MDD nte 13 tabs/24 07/31/17 04/29/18 hours Trazodone HCl 100 - 200 mg PO QPM PRN 08/29/17 04/29/18 Budesonide/Formoterol Fumarate 2 puffs INH BID 09/27/17 04/29/18 [Symbicort 160-4.5 Mcg Inhaler] Bisacodyl [Dulcolax] 1 - 2 tab PO DAILY PRN 12/05/17 04/29/18 Bisacodyl Supp [Dulcolax Supp] 10 mg UT DAILY PRN 02/16/18 04/29/18 Clopidogrel [Plavix] 75 mg PO DAILY 02/16/18 04/29/18 Lovastatin 40 mg PO DAILY 02/16/18 04/29/18 Benzonatate [Tessalon Perle] 100 - 200 mg PO TID PRN #30 capsule 06/06/18 Doxycycline Hyclate 100 mg PO BID #20 capsule 06/06/18 predniSONE [Deltasone] 20 mg PO [id number] #21 tab 06/06/18 - Allergies Allergies/Adverse Reactions: Allergies Allergy/AdvReac Type Severity Reaction Status Date / Time No Known Drug Allergies Allergy Verified 06/06/18 15:53 - Social History Does the pt smoke?: Yes Smoking Status: Current every day smoker Does the pt drink ETOH?: No Does the pt have substance abuse?: No - Family History Family history: reports: Non contributory - Immunizations Immunizations are current?: Yes - POLST Patient has POLST: Yes POLST Status: DNR PD ED PE NORMAL - Vitals Vital signs reviewed: Yes - General General: Alert and oriented X 3, No acute distress - HEENT HEENT: PERRL, EOMI - Neck Neck: Supple, no meningeal sign, No bony TTP - Cardiac Cardiac: RRR, No murmur - Respiratory Respiratory: Other (Wheezy throughout with increased I:E ratio) - Abdomen Abdomen: Soft, Other (mild diffuse TTP, a lot of incisional scars with weak abd wall) - Back Back: No CVA TTP, No spinal TTP - Extremities Extremities: No edema, No calf tenderness / cord - Neuro Neuro: Alert and oriented X 3, Normal speech - Psych Psych: Normal mood, Normal affect Results - Vitals Vitals: Vital Signs - 24 hr 06/06/18 06/06/18 15:47 16:30 Temperature 37.3 C Heart Rate 84 75 Respiratory 18 18 Rate Blood Pressure 167/89 H O2 Saturation 97 Oxygen O2 Source [] Room air O2 Source [] Room air O2 Source Nasal cannula - EKG (time done) 1603 Rate: Rate (enter#) (71) Rhythm: NSR [place]: Normal Intervals: RBBB QRS: Normal Ischemia: Normal ST segments - Labs Labs: Laboratory Tests 06/06/18 06/06/18 06/06/18 15:57 15:57 15:57 WBC 8.2 RBC 5.13 Hgb 16.6 Hct 49.6 MCV 96.7 H MCH 32.3 H MCHC 33.4 RDW 13.0 Plt Count 220 MPV 9.0 Neut # (Auto) 6.2 Lymph # (Auto) 1.1 L [place] # (Auto) 0.6 Eos # (Auto) 0.1 Baso # (Auto) 0.1 Absolute Nucleated RBC 0.00 Nucleated RBC % 0.0 Sodium 138 Potassium 4.2 Chloride 103 Carbon Dioxide 27 Anion Gap 8.0 BUN 16 Creatinine 1.0 Estimated GFR (MDRD) 73 L Glucose 173 H Calcium 9.0 Total Bilirubin 0.9 AST 24 ALT 23 Alkaline Phosphatase 76 Troponin I < 0.04 Total Protein 7.0 Albumin 4.3 Globulin 2.7 Albumin/Globulin Ratio 1.6 Lipase 25 - Rads (name of study) 1v chest Radiology: EMP read contemporaneously (Mostly clear with evidence of hyperinflation for me, the radiologist reads minimal bibasilar nonspecific infiltrates.) PD MEDICAL DECISION MAKING - ED course ED course: 52-year-old gentleman with history of COPD who presents with apparent COPD exacerbation. He received nebs in the department as well as steroids and doxycycline. No clear pneumonia on x-ray and his white count is normal. We ambulated him on room air in the hallway after treatment and he remained above 90% without supplemental oxygen. Departure - Departure Disposition: 01 Home, Self Care Clinical Impression: COPD exacerbation Condition: Good Record reviewed to determine appropriate education?: Yes Instructions: ED COPD Flare Prescriptions: Benzonatate [Tessalon Perle] 100 - 200 mg PO TID PRN #30 capsule PRN Reason: Cough Doxycycline Hyclate 100 mg PO BID #20 capsule predniSONE [Deltasone] 20 mg PO [id number] #21 tab Comments: Call your doctor to arrange a follow-up appointment, make the next available appointment. In the interim, return anytime if worse or if new symptoms develop. Your blood pressure was elevated today on check into the emergency department. This does not mean that you have hypertension, it is a common phenomenon to come to the emergency department and have elevated blood pressure. I recommend that you see your primary care physician within the week to have it rechecked when you are feeling better.
[2018-06-06 16:16] LABS: ALBUMIN 4.3 g/dL (3.2-5.5); ALBUMIN/GLOBULIN RATIO 1.6 (1.0-2.2); BILIRUBIN,TOTAL 0.9 mg/dL (0.2-1.0)
[2018-06-06] MEDS ORDERED: IPRATROPIUM/ALBUTEROL 3 ML NEB INH STA (16:16)
--- NOTE | 2018-06-06 16:28 | XRAY Report ---
Reason: short of air Procedure Date: 06/06/2018 Accession Number: [id number] / [id number] Procedure: XR - Chest 1 View X-Ray CPT Code: 46619 FULL RESULT: EXAM: CHEST RADIOGRAPHY EXAM DATE: 06/06/2018 04:12 PM. CLINICAL HISTORY: Shortness of breath. Cough for 3 days. COMPARISON: CHEST 1 VIEW 01/29/2017 11:16 PM. TECHNIQUE: 1 view. FINDINGS: Lungs/Pleura: Mild bibasal interstitial opacity, atelectasis versus mild edema or infiltrate. No significant pleural effusion or evidence of pneumothorax. Mediastinum: Heart size is in the normal range. Moderately tortuous, calcified aorta. Mild central pulmonary vascular congestion. Other: None. IMPRESSION: 1. Mild bibasal interstitial opacity, atelectasis versus mild edema or infiltrate. RADIA
[2018-06-06] MEDS ORDERED: predniSONE 20 MG TABLET PO STA (16:30)
[2018-06-06] MEDS ORDERED: DOXYCYCLINE 100 MG TABLET PO STA (16:30)
[2018-06-06 17:23] VITALS: BP 156/80
== END 2018-06-06 17:12 | disposition home or self-care (01) ==
LOC: EDUNIT# → ED 15:46
DX: J44.1 Chronic obstructive pulmonary disease with (acute) exacerbation (principal); I45.10 Unspecified right bundle-branch block; I10 Essential (primary) hypertension; I25.2 Old myocardial infarction; I25.10 Atherosclerotic heart disease of native coronary artery without angina pectoris; Z95.5 Presence of coronary angioplasty implant and graft; F17.200 Nicotine dependence, unspecified, uncomplicated
CPT/HCPCS: 36415; 71045; 80053; 83690; 84484; 85025; 93005; 94640; 99284; A9270; J7512

== ENCOUNTER 2018-09-04 15:15 | Outpatient (CLI) | payer MEDICARE, OTHER ==
--- NOTE | 2018-09-04 18:16 | CONSULTATION NOTE ---
Palliative Care Follow Up - Referral Referring Provider: Dr. Ricki Esteban Time of Visit: 1137-1228 Referral setting: Home (It is a taxing and considerable effort for the patient to leave the home; home visit to facilitate family conference and treatment plan) Referral Reason: Chronic Abdominal Pain/advanced COPD - Information Sources Records reviewed: Previous records reviewed History/Review of Systems obtained from: Patient, Family ( Magy) Exam limitations: Clinical condition (patient with STM deficits; poor recall) - History of Present Illness Update Brief HPI Update: This is a 72-year-old gentleman who has underlying chronic abdominal pain related to complications of a colonoscopy several years ago, requiring multiple abdominal surgeries and hospitalizations leaving him with residual chronic neuropathic pain syndrome he has been long-term on oxycodone, on fairly high doses, have trialed other approaches including methadone, long-acting morphine, but patient has defaulted back to what he is familiar with. He did have an episode of acute pain from injury of his lumbar fracture, he had a kyphoplasty for this which is improved his baseline pain but still has residual. Continues to have a AAA, denies increased pain or abdominal discomfort related to this. He does feel his herniations are worsening, and on examination they are bulging out significantly more, no redness, are easily reduced, and recommended wearing his binder titer. We had started a titration down on his oxycodone both by my recommendations at his request, but got interrupted with his acute pain with his fall. Today he would like to continue this. He has been on oxycodone 30 mg using up to 13 tabs in 24 hours, we are going to decrease this slowly given his past history to 12 tabs in 24 hours. Patient has had an exacerbation of his COPD since I last seen him, he is currently on oxygen now for about a month, though continues to smoke. His O2 sats off of oxygen are 90% at rest, with deep breathing can bring up to 93. He has had lower readings in his physician office. He continues with a chronic moist cough, using DuoNeb twice daily, continues to smoke 10 cigarettes a day, and remains quite sedentary. Patient does present today with hypotension of 92/52, has had ongoing weight loss, and continues to struggle with transportation and support for managing at home, as well as dental problems. Social History - Living Situation Living arrangement: At home Living Situation: With spouse/s.o. Support System: continues to appear quite frail and fragile as well, they do have a daugh ter lives on the property. She does help with some transportation and shopping, as well as they do hire some assistance. no longer drives and this is made it more complicated. Medications/Allergies - Medications Home Medications: Ambulatory Orders Medication Instructions Recorded Confirmed Tamsulosin [Flomax] 0.4 mg PO DAILY 01/19/13 09/05/18 Albuterol Sulfate [Proair Hfa 2 inh IH Q4H PRN 09/20/14 09/05/18 Inhaler] Aspirin [Ecotrin] 81 mg PO DAILY 09/20/14 09/05/18 Metoprolol Tartrate [Lopressor] 50 mg PO DAILY 09/20/14 09/05/18 Nitroglycerin [Nitrostat] 1 tab [id number] ONCE 12/07/15 09/05/18 Citalopram [CeleXA] 20 mg PO QPM tablet 01/31/17 09/05/18 Albuterol 2.5 mg NEB BID PRN 03/01/17 09/05/18 Oxycodone HCl [Roxicodone] 90 mg PO QID MDD nte 12 tabs/24 07/31/17 09/05/18 hours Trazodone HCl 100 - 200 mg PO QPM PRN 08/29/17 09/05/18 Budesonide/Formoterol Fumarate 2 puffs INH BID 09/27/17 09/05/18 [Symbicort 160-4.5 Mcg Inhaler] Bisacodyl [Dulcolax] 1 - 2 tab PO DAILY PRN 12/05/17 09/05/18 Bisacodyl Supp [Dulcolax Supp] 10 mg AL DAILY PRN 02/16/18 09/05/18 Clopidogrel [Plavix] 75 mg PO DAILY 02/16/18 09/05/18 Lovastatin 40 mg PO DAILY 02/16/18 09/05/18 Ipratropium/Albuterol [Duoneb] 1 inh INH Q4HR PRN 09/05/18 09/05/18 - Allergies Allergies/Adverse Reactions: Allergies Allergy/AdvReac Type Severity Reaction Status Date / Time codeine Allergy Unknown Verified 07/17/18 09:06 Penicillins Allergy Unknown Verified 07/17/18 09:06 iv dye Allergy Unknown Uncoded 07/17/18 09:06 Review of Systems - Constitutional Constitutional: reports: Fatigue, Poor appetite, Weight loss (128 at md office yesterday). denies: Fever, Chills - Eyes Eyes: reports: Vision loss - Ears, Nose & Throat Ears, Nose & Throat: reports: Hearing loss, Dental decay (Patient is a losing upper teeth, has a bridge, is moving towards having teeth all pulled for dentures. Also complains of taste changes interfering with his intake), Dry mouth - Cardiovascular Cardiovascular: reports: Decr. exercise tolerance. denies: Chest pain - Respiratory Respiratory: reports: Cough, Sputum production (yellow), SOB with exertion, Other (new oxygen). denies: SOB at rest - Gastrointestinal Gastrointestinal: reports: Early satiety, Other (taste changes). denies: Constipation, Rectal bleeding, Nausea - Musculoskeletal Musculoskeletal: reports: Stiffness, Muscle weakness, Assistive devices (uses walker outside of home) - Integumentary Integumentary: reports: Dryness - Neurological Neurological: reports: General weakness, Memory problems - Psychiatric Psychiatric: reports: Depression, Anxiety. denies: Suicidal - Endocrine Endocrine: reports: Intolerance to cold - All Other Systems All Other Systems: reports: Reviewed and negative Physical Exam - Vital Signs Temperature: 96.8 C Pulse Rate: 72 Respiratory Rate: 20 O2 Saturation: 90 (ra @ rest; with deep breathing up to 93) Blood Pressure: 92/52 - Physical Exam General Appearance: positive: Mild distress Eyes Bilateral: positive: Normal inspection ENT: positive: Other (poor dentition) Cardiovascular: positive: Regular rate & rhythm Respiratory: positive: Diminished throughout. negative: Wheezes Abdomen: positive: Tenderness, Other (right LQ ;hernias more pronounced; easily reduced) Skin: positive: Pallor, Dryness, Bruising Extremities: positive: No pedal edema Neurologic/Psychiatric: positive: Disoriented to time, Weakness, Depressed mood/affect, Flat affect Palliative Care - POLST Patient has POLST: Yes POLST Status: DNR, Selective Treatment Pain: Pain unchanged, Location (Includes baseline abdominal pain sharp shooting, travels to abdomen. Worse with standing or stretching. Patient most comfortable laying down flat. Patient also has residual back pain, though this is improved. Is using 13 oxycodone 30 mg/24; did not run out; psmp checke d/verified) Tiredness/Fatigue: Moderate (4-6) Drowsiness/Sedation: Mild (1-3) Nausea: None Depression: Moderate (4-6) Anxiety: Moderate (4-6) Dyspnea: Moderate (4-6) Anorexia: Moderate (4-6), Weight loss ( documented wt ER 145; yest 09/03 128 at md office; patient attributes it to early satiety, taste changes, and difficulty with teeth; reports eats well; patient using instant breakfast but out currently) Constipation: Yes, Opoid induced, Managed, Comment (no further problem with hemmorhoids) Feelings of wellbeing/Perceived Quality of Life: Poor, No change Performance Status: Patient remains quite sedentary, does spend most of his time lying in bed watching TV, most of this is related to his underlying pain syndrome. He does get up and ambulate around the home, but his friend is encouraging him trying to get him out to walk with walker. He has been to could hold to do it during the winter months, but is looking forward to this coming spring. He is able to shower couple times so week, but this does exacerbate his pain as well. I would put him at a PPS of 60% - Palliative Care Discussion: Patient continues to ends decreased quality of life, expresses depression and anxiety, though denies suicidality. He keeps hoping he will does not in his sleep. He gets very anxious when he does have health problems, and often called 911 or goes to the ED, though his expression for his goals are to not have his suffering extended, and feels like he is ready for end of life. Patient gets quite exacerbated with his cognitive deficits, reports he "feels stupid", is unable to really express anything that provides him joe or comfort. He and his continue to do have a somewhat complicated relationship, both with underlying health and addiction problems Impression and Recommendations - Palliative Care Impression: Is a 72-year-old gentleman with a long list of comorbidities including advanced COPD, now oxygen dependent, increasing AAA, chronic abdominal pain with neuropathic pain syndrome, coronary artery disease, tobacco abuse, and continues to presents with both functional and cognitive decline. Patient now presenting with increased weight loss, from last visit 144 down today 128. Palliative care continue to provide support and oversight in both this complex social situation as patient allows, as well as patient's ongoing failure to thrive. Recommendations/Counseling Done: 1. Weight loss. Patient presents with a 9% weight loss over 3-month period, this is multifactorial in origin. Patient attributes some to his dental decay, he is getting dentures, as well as taste changes, and early satiety. Patient also has increased pain when he eats, and this can be a deterrent. Also identified barrier is shopping and getting food, discussed with both patient and is willing to try Meals on Wheels, left referral for 2-week trial and cannot to contact . Did encourage to increase his use of instant breakfast to 2-3 times a day if patient continues to not eat. 2. Advanced COPD. Patient with recent exacerbation of his COPD, did have an ED visit and May. Patient now oxygen dependent, though currently not wearing oxygen secondary to smoking. 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 Patient's use of new DuoNeb was initiated through his own doing and has been using his 's, though it is on his primary care list, call the primary care office for patient to get proper prescription and instruction. Counseling provided regarding tobacco cessation, and oxygen safety. 3. Abdominal pain. Patient instructed to wear his abdominal binder somewhat tighter, is having more trouble with his hernias, they are easily reduced. Patient wanting to continue oxycodone taper, has remained compliant within his prescription, will go ahead and write oxycodone 30 mg for #360 with not to exceed 12 tabs in 24 hours. Agreement is next prescription if patient tolerates to go down to #330. Counseling provided regarding encouraged increase activity, to initiate walking program to augment support for his pain management. Particularly his back. Patient had declined follow-up at outpatient therapy. 4. Advanced care planning. Patient does have a LISA ST in place, continues to have high anxiety this is juxtaposed to his concern for poor quality of life, and not wanting to extend suffering. Patient does present with ongoing decline with cognitive, functional, and now with weight loss and progression of his COPD. Palliative care to continue to provide support for patient and transition to hospice when appropriate Time Spent: 30 minutes with greater than 50% of this done in counseling regarding pain management instruction on diet and weight loss, tobacco cessation, and proper medication use and adherence
== END 2018-09-04 15:16 | disposition home or self-care (01) ==
LOC: PC 15:15
PROVIDERS: ATTEND Nurse Practitioner Adult Health
DX: Z51.5 Encounter for palliative care (principal); R63.4 Abnormal weight loss; J44.9 Chronic obstructive pulmonary disease, unspecified; G89.4 Chronic pain syndrome; K46.9 Unspecified abdominal hernia without obstruction or gangrene; K66.0 Peritoneal adhesions (postprocedural) (postinfection); M54.5 Low back pain; S32.009S Unspecified fracture of unspecified lumbar vertebra, sequela; I71.4 Abdominal aortic aneurysm, without rupture; I95.9 Hypotension, unspecified; R68.81 Early satiety; R43.9 Unspecified disturbances of smell and taste; F32.9 Major depressive disorder, single episode, unspecified; F41.9 Anxiety disorder, unspecified; I25.10 Atherosclerotic heart disease of native coronary artery without angina pectoris; R41.81 Age-related cognitive decline; K02.9 Dental caries, unspecified; Z66 Do not resuscitate; Z72.0 Tobacco use; Z99.81 Dependence on supplemental oxygen; Z91.81 History of falling; Z79.891 Long term (current) use of opiate analgesic
CPT/HCPCS: 99348

== ENCOUNTER 2018-09-10 07:55 | Outpatient (CLI) | payer MEDICARE, OTHER | END 2018-09-10 07:56 | disposition critical access hospital (66) | LOC: EMS 07:55 | PROVIDERS: ATTEND Surgery | DX: R06.02 Shortness of breath (principal); R05 Cough; R10.31 Right lower quadrant pain | CPT/HCPCS: A0425; A0427 ==

== ENCOUNTER 2018-09-10 08:12 | Inpatient (IN) | payer MEDICARE, OTHER ==
--- NOTE | 2018-09-10 08:26 | ED Physician Documentation ---
History of Present Illness - Stated complaint Stated Complaint: SOA - Chief complaint Chief Complaint: Resp - Additonal information Additional information: 72-year-old male who was brought in for increased of breath. The patient has a history of COPD and is oxygen dependent. The patient reports normally only being able to go a short distance before he is short of breath but now the patient feels short of breath at rest. The patient reports increased cough. The patient denies any chest pain, racing heart or increased peripheral edema. No other associated symptoms. No clear triggering factors. No other associated symptoms Review of Systems Constitutional: reports: Fatigue. denies: Fever, Chills Eyes: denies: Discharge Ears: denies: Ear pain Nose: denies: Congestion Throat: denies: Oral lesions / sores, Sore throat Cardiac: denies: Chest pain / pressure Respiratory: reports: Dyspnea, Cough GI: denies: Abdominal Pain : denies: Dysuria Skin: denies: Rash Musculoskeletal: denies: Neck pain Neurologic: denies: Generalized weakness PD PAST MEDICAL HISTORY - Past Medical History Cardiovascular: Hypertension, Coronary artery disease, [place] Respiratory: COPD Endocrine/Autoimmune: None GI: Hiatal hernia, Diverticulitis, Other : Benign prostate hypertrophy HEENT: Chronic hearing loss Psych: Depression Musculoskeletal: None Derm: None - Past Surgical History Past Surgical History: Yes General: Bowel surgery, Colonoscopy, Other Cardiovascular: Coronary stent, AAA - Present Medications Home Medications: Ambulatory Orders Medication Instructions Recorded Confirmed Tamsulosin [Flomax] 0.4 mg PO DAILY 01/19/13 09/05/18 Albuterol Sulfate [Proair Hfa 2 inh IH Q4H PRN 09/20/14 09/05/18 Inhaler] Aspirin [Ecotrin] 81 mg PO DAILY 09/20/14 09/05/18 Metoprolol Tartrate [Lopressor] 50 mg PO DAILY 09/20/14 09/05/18 Nitroglycerin [Nitrostat] 1 tab [id number] ONCE 12/07/15 09/05/18 Citalopram [CeleXA] 20 mg PO QPM tablet 01/31/17 09/05/18 Albuterol 2.5 mg NEB BID PRN 03/01/17 09/05/18 Oxycodone HCl [Roxicodone] 90 mg PO QID MDD nte 12 tab/07/31/1719 hours Trazodone HCl 100 - 200 mg PO QPM PRN 08/29/17 09/05/18 Budesonide/Formoterol Fumarate 2 puffs INH BID 09/27/17 09/05/18 [Symbicort 160-4.5 Mcg Inhaler] Bisacodyl [Dulcolax] 1 - 2 tab PO DAILY PRN 12/05/17 09/05/18 Bisacodyl Supp [Dulcolax Supp] 10 mg [place] DAILY PRN 02/16/18 09/05/18 Clopidogrel [Plavix] 75 mg PO DAILY 02/16/18 09/05/18 Lovastatin 40 mg PO DAILY 02/16/18 09/05/18 Ipratropium/Albuterol [Duoneb] 1 inh INH Q4HR PRN 09/05/18 09/05/18 - Allergies Allergies/Adverse Reactions: Allergies Allergy/AdvReac Type Severity Reaction Status Date / Time codeine Allergy Unknown Verified 09/10/18 08:17 Penicillins Allergy Unknown Verified 09/10/18 08:17 iv dye Allergy Unknown Uncoded 07/17/18 09:06 - Social History Does the pt smoke?: Yes Smoking Status: Current every day smoker Does the pt drink ETOH?: No Does the pt have substance abuse?: No - Immunizations Immunizations are current?: Yes - POLST Patient has POLST: Yes POLST Status: DNR PD ED PE NORMAL - General General: Alert and oriented X 3, Other (72-year-old frail-appearing male who at rest is not actively short of breath but with gentle motion becomes tachypneic) - HEENT HEENT: Atraumatic, PERRL, EOMI, Ears normal - Neck Neck: No JVD - Cardiac Cardiac: RRR, Strong equal pulses - Respiratory Respiratory: Other (Decreased aeration, no respiratory distress, bilateral rhonchi) - Abdomen Abdomen: Soft, Non tender - Derm Derm: Normal color - Extremities Extremities: No deformity, No edema - Neuro Neuro: Alert and oriented X 3, Normal speech - Psych Psych: Normal mood Results - Vitals Vitals: Vital Signs - 24 hr 09/10/18 09/10/18 09/10/18 08:14 09:22 10:02 Temperature 37.4 C 36.9 C Heart Rate 98 100 103 H Respiratory 20 26 H 22 Rate Blood Pressure 127/63 122/59 L O2 Saturation 91 L 92 09/10/18 11:22 Temperature 36.7 C Heart Rate 104 H Respiratory 22 Rate Blood Pressure 116/68 O2 Saturation 91 L Oxygen O2 Source [] Room air O2 Source [] Room air O2 Source Nasal cannula Oxygen Flow Rate 6 - EKG (time done) 08:26 Rate: Rate (enter#) Rhythm: NSR Other comments: Other comments (Sinus rhythm, [place] interval 118 ms, QRS duration 118 ms, nonspecific ST segments, upright T waves: Sinus rhythm with premature atrial beats and incomplete right bundle branch block) - Labs Labs: Laboratory Tests 09/10/18 09/10/18 09/10/18 08:45 08:45 08:45 WBC 21.8 H RBC 4.62 L Hgb 14.7 Hct 44.4 MCV 96.2 H MCH 31.9 H MCHC 33.1 RDW 13.8 Plt Count 255 MPV 9.0 Neut # (Auto) Not Reportable Lymph # (Auto) Not Reportable [place] # (Auto) Not Reportable Eos # (Auto) Not Reportable Baso # (Auto) Not Reportable Absolute Nucleated RBC Not Reportable Total Counted 100 Band Neuts % (Manual) 2 Reactive Lymphs % (Man) 3 Abnorm Lymph % (Manual) 0 Nucleated RBC % Not Reportable Neutrophils # (Manual) 19.6 H Lymphocytes # (Manual) 1.3 L Monocytes # (Manual) 0.9 Eosinophils # (Manual) 0.0 Basophils # (Manual) 0.0 Differential Comment MANUAL DIFFERENTIAL Platelet Morphology RARE GIANT PLATELETS Sodium 138 Potassium 3.9 Chloride 99 L Carbon Dioxide 27 Anion Gap 12.0 BUN 16 Creatinine 0.9 Estimated GFR (MDRD) 83 L Glucose 145 H Lactic Acid Calcium 8.8 Total Bilirubin 2.1 H AST 53 H ALT 46 Alkaline Phosphatase 75 Troponin I < 0.04 B-Natriuretic Peptide Total Protein 6.6 L Albumin 3.3 Globulin 3.3 Albumin/Globulin Ratio 1.0 Lipase 25 09/10/18 09/10/18 08:45 10:10 WBC RBC Hgb Hct MCV MCH MCHC RDW Plt Count MPV Neut # (Auto) Lymph # (Auto) [place] # (Auto) Eos # (Auto) Baso # (Auto) Absolute Nucleated RBC Total Counted Band Neuts % (Manual) Reactive Lymphs % (Man) Abnorm Lymph % (Manual) Nucleated RBC % Neutrophils # (Manual) Lymphocytes # (Manual) Monocytes # (Manual) Eosinophils # (Manual) Basophils # (Manual) Differential Comment Platelet Morphology Sodium Potassium Chloride Carbon Dioxide Anion Gap BUN Creatinine Estimated GFR (MDRD) Glucose Lactic Acid 1.7 Calcium Total Bilirubin AST ALT Alkaline Phosphatase Troponin I B-Natriuretic Peptide 160 H Total Protein Albumin Globulin Albumin/Globulin Ratio Lipase - Rads (name of study) CXR Radiology: Final report received, See rad report (1. Obstructive airways disease. 2. Heterogeneous lung base opacities concerning for pneumonia. Recommend follow-up to resolution. ) PD MEDICAL DECISION MAKING - ED course ED course: The patient appears to have acute pneumonia, the patient is hypoxic despite using his normal oxygen. Given the patient's already severe lung disease and the acute process superimposed With hypoxia the patient will require admission to the hospital. The patient understands and agrees to the plan. The case was discussed with the hospitalist Dr. Porras who accepts the patient onto his service Departure - Departure Disposition: 66 [facility] DC/Xfer Clinical Impression: Hypoxia Pneumonia Qualifiers: Pneumonia type: due to unspecified organism Laterality: unspecified laterality Lung location: unspecified part of lung Qualified Code(s): J18.9 - Pneumonia, unspecified organism
[2018-09-10] MEDS ORDERED: IPRATROPIUM/ALBUTEROL 3 ML NEB INH STA (08:34)
[2018-09-10] MEDS ORDERED: ALBUTEROL NEB 2.5 MG/3 ML INH STA (08:34)
[2018-09-10 08:59] LABS: BASOPHILS % (AUTO) 0.6 %; EOSINOPHILS % (AUTO) 0.1 %; HGB - HEMOGLOBIN 14.7 g/dL (14.0-18.0); LYMPHOCYTES % (AUTO) 2.8 %; MEAN CORPUSCULAR HEMOGLOBIN 31.9 pg (27.0-31.0); MEAN CORPUSCULAR HGB CONC 33.1 g/dL (32.0-36.0); MEAN CORPUSCULAR VOLUME 96.2 fL (80.0-94.0); MONOCYTES % (AUTO) 7.9 %; NEUTROPHILS % (AUTO) 88.6 %; PLT - PLATELET COUNT 255 10^3/uL (130-450); RED BLOOD COUNT 4.62 10^6/uL (4.70-6.10); RED CELL DISTRIBUTION WIDTH 13.8 % (12.0-15.0); WHITE BLOOD COUNT 21.8 x10^3/uL (4.8-10.8)
[2018-09-10 09:09] LABS: ALBUMIN 3.3 g/dL (3.2-5.5); BILIRUBIN,TOTAL 2.1 mg/dL (0.2-1.0); CALCIUM 8.8 mg/dL (8.5-10.3); CREATININE 0.9 mg/dL (0.6-1.2); TOTAL PROTEIN 6.6 g/dL (6.7-8.2)
[2018-09-10 09:12] LABS: ABNORMAL LYMPHS % (MANUAL) 0 %
[2018-09-10 09:33] LABS: BAND NEUTROPHILS % (MANUAL) 2 %; LYMPHOCYTES # (MANUAL) 1.3 10^3/uL (1.5-3.5); LYMPHOCYTES % (MANUAL) 3 %; MONOCYTES # (MANUAL) 0.9 10^3/uL (0.0-1.0); NEUTROPHILS # (MANUAL) 19.6 10^3/uL (1.5-6.6); NEUTROPHILS % (MANUAL) 88 %; PLATELET MORPHOLOGY RARE GIANT PLATELETS (NORMAL)
[2018-09-10 09:34] LABS: DIFFERENTIAL COMMENT MANUAL DIFFERENTIAL
--- NOTE | 2018-09-10 09:36 | XRAY Report ---
Reason: SOA Procedure Date: 09/10/2018 Accession Number: [id number] / [id number] Procedure: XR - Chest 2 View X-Ray CPT Code: 85820 FULL RESULT: EXAM: CHEST RADIOGRAPHY EXAM DATE: 09/10/2018 09:16 AM. CLINICAL HISTORY: SOA. COMPARISON: CHEST 1 VIEW 06/06/2018 4:02 PM. TECHNIQUE: 2 views. FINDINGS: Lungs/Pleura: Increased lung markings. Increased volumes. Heterogeneous lung base opacities. Bleb in the right lung apex. Mediastinum: Stable. Coronary stent versus atherosclerotic calcification. Other: None. IMPRESSION: 1. Obstructive airways disease. 2. Heterogeneous lung base opacities concerning for pneumonia. Recommend follow-up to resolution. RADIA
[2018-09-10] MEDS ORDERED: AZITHROMYCIN 250 MG TABLET PO STA (09:42)
[2018-09-10] MEDS ORDERED: cefTRIAXone 2 GM VIAL IVP STA (09:43)
[2018-09-10] MEDS ORDERED: ONDANSETRON 4 MG/2 ML VIAL IVP PRN (11:51)
[2018-09-10] MEDS ORDERED: ONDANSETRON ODT 4 MG TABLET TL PRN (11:51)
[2018-09-10] MEDS ORDERED: ALBUTEROL NEB 2.5 MG/3 ML INH PRN (11:51)
[2018-09-10] MEDS ORDERED: IPRATROPIUM 0.2 MG/ML NEB INH PRN (11:51)
[2018-09-10] MEDS ORDERED: MORPHINE IR 15 MG TABLET PO PRN (11:58)
[2018-09-10] MEDS ORDERED: FORMOTEROL FUMARATE NEB 20 MCG/2 ML INH PRN (12:09)
[2018-09-10] MEDS ORDERED: methylPREDNISolone SUCCINATE 40 MG/ML VIAL IVP STA (12:10)
--- NOTE | 2018-09-10 12:24 | HISTORY & PHYSICAL EXAMINATION ---
Chief Complaint - Chief Complaint Chief Complaint: SOB with associated cough, weakness Respiratory Admission HPI - Admitted From Admitted from: ED - History Obtained From Records Reviewed: RN notes reviewed, Old records reviewed History obtained from: Patient Exam limitations: No limitations - History of Present Illness HPI Comment/Other: 72-year-old male With a history of advanced COPD, Chronic tobacco dependence smoking 10 cigarettes/day, opioid dependence with chronic neuropathic pain as well as chronic abdominal pain secondary to multiple abdominal surgeries for which patient is on oxycodone 90 mg p.o. 4 times daily, who was brought in for increased of breath With associated productive to nonproductive cough. The patient has a history of COPD and is oxygen dependent. The patient reports normally only being able to go a short distance before he is short of breath but now the patient feels short of breath at rest. The patient reports increased cough. The patient denies any chest pain, racing heart or increased peripheral edema. No other associated symptoms. No clear triggering factors. No other associated symptoms. Patient was last seen by palliative care on 09/04/18 with a resting pulse ox of 90%. Patient is a DNR and a POLST is present in chart. Review of clinical presentation as well as labs reveals that patient has WBC of 20.8 K, left shifting with chest x-ray showing bilateral lung base opacities, patient was given azithromycin and with no improvement with albuterol in the emergency department, creatinine 0.9 with normal electrolytes, troponin x1 within normal limits, T bilirubin of 2.1, lactic acid 1.7 with LFTs within normal limits. Patient was tachycardic with a blood pressure 116/68 and 91% O2 saturation on 5 L nasal cannula. Patient will be admitted to ICU for underlying sepsis related to patient's commute acquired pneumonia. PMH/PSH - Past Medical History Cardiovascular: positive: Hypertension, Coronary artery disease, [place] Respiratory: positive: COPD Endocrine/Autoimmune: positive: None GI: positive: Hiatal hernia, Diverticulitis, Other : positive: Benign prostate hypertrophy HEENT: positive: Chronic hearing loss Psych: positive: Depression Musculoskeletal: positive: None Derm: positive: None MRSA Hx?: No - Past Surgical History General: positive: Bowel surgery, Colonoscopy, Other Cardiovascular: positive: Coronary stent, AAA Social & Family Hx - Social History Does the pt smoke?: Yes Smoking Status: Current every day smoker Does the pt drink ETOH?: No Does the pt have substance abuse?: No - POLST Patient has POLST: Yes POLST Status: DNR Meds/Allgy - Home Medications Home Medications: Ambulatory Orders Medication Instructions Recorded Confirmed Tamsulosin [Flomax] 0.4 mg PO DAILY 01/19/13 09/05/18 Albuterol Sulfate [Proair Hfa 2 inh IH Q4H PRN 09/20/14 09/05/18 Inhaler] Aspirin [Ecotrin] 81 mg PO DAILY 09/20/14 09/05/18 Metoprolol Tartrate [Lopressor] 50 mg PO DAILY 09/20/14 09/05/18 Nitroglycerin [Nitrostat] 1 tab [id number] ONCE 12/07/15 09/05/18 Citalopram [CeleXA] 20 mg PO QPM tablet 01/31/17 09/05/18 Albuterol 2.5 mg NEB BID PRN 03/01/17 09/05/18 Oxycodone HCl [Roxicodone] 90 mg PO QID MDD nte 12 tabs/24 07/31/17 09/05/18 hours Trazodone HCl 100 - 200 mg PO QPM PRN 08/29/17 09/05/18 Budesonide/Formoterol Fumarate 2 puffs INH BID 09/27/17 09/05/18 [Symbicort 160-4.5 Mcg Inhaler] Bisacodyl [Dulcolax] 1 - 2 tab PO DAILY PRN 12/05/17 09/05/18 Bisacodyl Supp [Dulcolax Supp] 10 mg [place] DAILY PRN 02/16/18 09/05/18 Clopidogrel [Plavix] 75 mg PO DAILY 02/16/18 09/05/18 Lovastatin 40 mg PO DAILY 02/16/18 09/05/18 Ipratropium/Albuterol [Duoneb] 1 inh INH Q4HR PRN 09/05/18 09/05/18 - Allergies Allergies/Adverse Reactions: Allergies Allergy/AdvReac Type Severity Reaction Status Date / Time codeine Allergy Unknown Verified 09/10/18 08:17 Iodinated Contrast- Oral and Allergy Unknown Verified 09/10/18 12:56 IV Dye Penicillins Allergy Unknown Verified 09/10/18 08:17 Exam - Vital Signs Reviewed Vital Signs: Yes Vital Signs: Vital Signs x48h Temp Pulse Resp BP Pulse Ox 09/10/18 11:52 37.1 C 106 H 20 114/49 L 94 09/10/18 11:22 36.7 C 104 H 22 116/68 91 L 09/10/18 10:02 36.9 C 103 H 22 122/59 L 92 09/10/18 09:22 100 26 H 09/10/18 08:14 37.4 C 98 20 127/63 91 L - Physical Exam General Appearance: positive: Alert, Mild distress, Other (Patient appears chronically ill appearing, cachectic and with weakness) Eyes Bilateral: positive: Normal inspection, PERRL, EOMI ENT: positive: ENT inspection nml, Pharynx nml, Dry mucous membranes. negative: Oral lesions Neck: positive: Nml inspection, Thyroid nml, No JVD, Trachea midline. negative: Thyromegaly, Carotid bruit Respiratory: positive: No respiratory distress, Rales (To the bases), Rhonchi (Prolonged expiratory phase), Other (Patient has pleuritic type chest pain.) Cardiovascular: positive: Regular rate & rhythm, No murmur, No gallop. negative: JVD present Peripheral Pulses: positive: 2+ Abdomen: positive: Tenderness (All quadrants, Mainly to the epigastrium.), Bruit (Prior history of a AAA). negative: Hepatomegaly, Splenomegaly Skin: positive: Color nml, No rash, Warm Extremities: positive: Non-tender, Full ROM, Nml appearance, Other (Muscle wasting seen at intercostal muscles as well as peripheral distal muscles.) Neurologic/Psychiatric: positive: Oriented x3, CN's nml (2-12) Results - Lab Results Lab results reviewed: Yes Fish Bones: 09/10/18 08:45 09/10/18 08:45 Other Lab Results: Lab Results x24hrs 09/10/18 09/10/18 09/10/18 Range/Units 10:10 08:45 08:45 WBC (4.8-10.8) x10^3/uL RBC (4.70-6.10) 10^6/uL Hgb (14.0-18.0) g/dL Hct (42.0-52.0) % MCV (80.0-94.0) fL MCH (27.0-31.0) pg MCHC (32.0-36.0) g/dL RDW (12.0-15.0) % Plt Count (130-450) 10^3/uL MPV (7.4-11.4) fL Neut # (Auto) Lymph # (Auto) [place] # (Auto) Eos # (Auto) Baso # (Auto) Absolute Nucleated RBC Total Counted Band Neuts % (Manual) (0 - 10) % Reactive Lymphs % (Man) % Abnorm Lymph % (Manual) % Nucleated RBC % Neutrophils # (Manual) (1.5-6.6) 10^3/uL Lymphocytes # (Manual) (1.5-3.5) 10^3/uL Monocytes # (Manual) (0.0-1.0) 10^3/uL Eosinophils # (Manual) (0-0.7) 10^3/uL Basophils # (Manual) (0-0.1) 10^3/uL Differential Comment Platelet Morphology (NORMAL) Sodium (135-145) mmol/L Potassium (3.5-5.0) mmol/L Chloride (101-111) mmol/L Carbon Dioxide (21-32) mmol/L Anion Gap (6-13) BUN (6-20) mg/dL Creatinine (0.6-1.2) mg/dL Estimated GFR (MDRD) (>89) Glucose (70-100) mg/dL Lactic Acid 1.7 (0.5-2.2) mmol/L Calcium (8.5-10.3) mg/dL Total Bilirubin (0.2-1.0) mg/dL AST (10-42) IU/L ALT (10-60) IU/L Alkaline Phosphatase (42-121) IU/L Troponin I < 0.04 (<0.49) ng/mL B-Natriuretic Peptide 160 H (5-100) pg/mL Total Protein (6.7-8.2) g/dL Albumin (3.2-5.5) g/dL Globulin (2.1-4.2) g/dL Albumin/Globulin Ratio (1.0-2.2) Lipase (22-51) U/L 09/10/18 09/10/18 Range/Units 08:45 08:45 WBC 21.8 H (4.8-10.8) x10^3/uL RBC 4.62 L (4.70-6.10) 10^6/uL Hgb 14.7 (14.0-18.0) g/dL Hct 44.4 (42.0-52.0) % MCV 96.2 H (80.0-94.0) fL MCH 31.9 H (27.0-31.0) pg MCHC 33.1 (32.0-36.0) g/dL RDW 13.8 (12.0-15.0) % Plt Count 255 (130-450) 10^3/uL MPV 9.0 (7.4-11.4) fL Neut # (Auto) Not Reportable Lymph # (Auto) Not Reportable [place] # (Auto) Not Reportable Eos # (Auto) Not Reportable Baso # (Auto) Not Reportable Absolute Nucleated RBC Not Reportable Total Counted 100 Band Neuts % (Manual) 2 (0 - 10) % Reactive Lymphs % (Man) 3 % Abnorm Lymph % (Manual) 0 % Nucleated RBC % Not Reportable Neutrophils # (Manual) 19.6 H (1.5-6.6) 10^3/uL Lymphocytes # (Manual) 1.3 L (1.5-3.5) 10^3/uL Monocytes # (Manual) 0.9 (0.0-1.0) 10^3/uL Eosinophils # (Manual) 0.0 (0-0.7) 10^3/uL Basophils # (Manual) 0.0 (0-0.1) 10^3/uL Differential Comment MANUAL DIFFERENTIAL Platelet Morphology RARE GIANT PLATELETS (NORMAL) Sodium 138 (135-145) mmol/L Potassium 3.9 (3.5-5.0) mmol/L Chloride 99 L (101-111) mmol/L Carbon Dioxide 27 (21-32) mmol/L Anion Gap 12.0 (6-13) BUN 16 (6-20) mg/dL Creatinine 0.9 (0.6-1.2) mg/dL Estimated GFR (MDRD) 83 L (>89) Glucose 145 H (70-100) mg/dL Lactic Acid (0.5-2.2) mmol/L Calcium 8.8 (8.5-10.3) mg/dL Total Bilirubin 2.1 H (0.2-1.0) mg/dL AST 53 H (10-42) IU/L ALT 46 (10-60) IU/L Alkaline Phosphatase 75 (42-121) IU/L Troponin I (<0.49) ng/mL B-Natriuretic Peptide (5-100) pg/mL Total Protein 6.6 L (6.7-8.2) g/dL Albumin 3.3 (3.2-5.5) g/dL Globulin 3.3 (2.1-4.2) g/dL Albumin/Globulin Ratio 1.0 (1.0-2.2) Lipase 25 (22-51) U/L - Diagnostic Imaging Results Diagnostic Imaging Results: positive: Final report reviewed (Chest x-ray shows bibasilar opacities consistent with bilateral pneumonia.) - EKG Results EKG Interpreted Independently: Yes EKG Comparison: positive: No prior EKG EKG Findings: EKG shows an incomplete right bundle branch block with a posterior right fascicular block along with premature atrial complexes and a heart rate of 99 bpm Sepsis Event Note (H) - Evaluation Current Stage of Sepsis: Sepsis Possible source of Sepsis: positive: Pulmonary - Sepsis Criteria Sepsis Criteria: Recorded Heart Rate greater than 90 bpm, WBC count greater than 12,000 or less than 4000, Hepatic: Bilirubin greater than 2mg/dl Impression/Plan - Problem List Problem List: Assessment: 1. Sepsis 2. Community-acquired pneumonia 3. Acute recurrent exacerbation of COPD 4. Advanced care planning with prior palliative care management 5. Acute on chronic hypoxemic respiratory failure secondary to #2 and #3 6. Chronic neuropathic pain with a history of chronic abdominal pain 7. Chronic opioid dependence on high dose oxycodone 8. Chronic tobacco dependence 9. Failure to thrive with anorexia 10. Moderate to severe protein/calorie deficiency malnutrition Plan: Will place on early goal-directed therapy with IV antibiotics to cover for typical microbes as well as atypicals with azithromycin/Rocephin along with administration of IV fluids as needed, addressing patient's underlying pain with oxycodone with employing the help of palliative care services who have seen patient is well-known to the service. To continue with current medical management, home medication reconciliation, continuation of O2 therapy along with pulmonary toileting, Singulair, duo nebs, incentive spirometry. Patient continues to smoke despite advanced COPD and AAA pre-existing diagnoses. Education and counseling on smoking cessation will be given as well as nicotine replacement therapy. We will start on Remeron and low-dose Megace to improve nutritional intake as well as optimize nutritional status in the setting of patient's current condition and advanced COPD. Dietitian consultation placed. CODE STATUS: DNR We will initiate DVT prophylaxis with SCDs bilaterally as well as Lovenox at 40 mg subcu daily GI prophylaxis will be initiated by H2 ronnie Total critical care time 30 minutes. Core Measures - Anticipated LOS I expect patient to be DC'd or transferred within 96 hours.: Yes - Issues Hospital Issues and Management Plan: Due to patient's chronic tobacco use patient will have high risk of continued pulmonary issues with advanced COPD along with recurrence of coming acquired pneumonia which will be treated on this admission and will provide medical management for such. - DVT/VTE - Prophylaxis VTE/DVT Device ordered at admit?: Yes VTE/DVT Prophylaxis med ordered at admit?: Yes - Stroke - Rehab Assessment Rehab services assessment to be ordered?: No Not Ordered - Medical Reason: Not indicated - AMI - Statin at Admit Aspirin Prescribed on Admit: No Not Ordered - Medical Reason: Not indicated
--- NOTE | 2018-09-10 12:34 | ADVANCE CARE PLANNING NOTE ---
Advance Care Planning - Date/Time Date: 09/10/18 Time: 12:32 - Purpose of encounter Text: Purpose of encounter is to address goals of care, disease management and symptoms management along with disease trajectory. 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 Patient now presenting with increased weight loss, from last visit 144 down today 128. Palliative care continue to provide support and oversight in both this complex social situation as patient allows, as well as patient's ongoing failure to thrive. Patient continues to ends decreased quality of life, expresses depression and anxiety, though denies suicidality. He keeps hoping he will does not in his sleep. He gets very anxious when he does have health problems, and often called 911 or goes to the ED, though his expression for his goals are to not have his suffering extended, and feels like he is ready for end of life. Patient gets quite exacerbated with his cognitive deficits, reports he "feels stupid", is unable to really express anything that provides him joe or comfort. He and his continue to do have a somewhat complicated relationship, both with underlying health and addiction problems - Objective/Medical story Objective/Medical Story: Patient was admitted for sepsis with community-acquired pneumonia and moderate to severe recurrence to acute advanced COPD exacerbation with multiple exacerbations in the past for which patient has had visits in the emergency department dating back to May 2018. Patient is now oxygen dependent though currently not wearing oxygen secondary to smoking. Patient uses duo nebs twice daily as well as Symbicort and has other medications that sporadically he takes off and on. Patient was provided counseling regarding tobacco cessation and oxygen safety. Patient was started on intravenous antibiotics along with Duo n ebs, oxygen therapy, Solu-Medrol, spirometry, Singulair, medication reconciliation being performed by pharmacy. Patient with high risk of respiratory failure as acute on chronic hypoxemia seen and requiring up to 5 L nasal cannula. Patient to have pulmonary toileting, sputum to be sent for Gram stain and culture, sepsis to be evaluated daily and de-escalation of IV antibiotics to an eventual wean off of steroids. Labs and imaging studies to be monitored for clinical improvement.Patient likely will require some form of physical therapy and possible nutritional consultation as patient has had weight loss as it pertains to patient's advanced COPD. - Goals of Care Goals of care determinations: Goals of care and delineated and patient's medical plan as well - Plan Plan: As far as patient's chronic neuropathic pain as well as abdominal pain. Patient instructed to wear his abdominal binder as well as continuing oxycodone taper has remained compliant with his prescription and was given a written prescription of oxycodone 30 mg for 360 tablets not to exceed 12 tablets in 24 hours as per palliative care service. Agreement is In place. MSIR was started until patient has a verification of oxycodone. Will obtain a another palliative care consult while patient is hospitalized. And if patient tolerates to go down to 330 tabs. Counseling provided regarding encourage increase activity to initiate walking program to augment support for his pain management particularly his back as patient has history of kyphoplasty as well as L-spine degenerative disc disease. Patient had declined follow-up as an outpatient therapy for this. Advance care planning. Patient does have a pulse in place, continues to have high anxiety which is concerning for poor quality of life and not wanting to extend suffering. Patient does present with ongoing decline with cognitive, functional, and now some progression of weight loss associated with patient's COPD. Palliative care service has continue to provide patient support as well as symptom management and offering transition to hospice when appropriate. P atient continues to smoke despite worsening COPD and AAA. In addition patient's weight loss has been presented with a 9% weight loss over 3 months. With a multifactorial origin may be attributable to his dental decay as it he is getting dentures as well as taste changes and early satiety. Patient has an increase pain when he masticate and can be a deterrent also identified barrier was shopping getting the appropriate amount of nutrition as well as his is willing to try Meals on Wheels with a referral left in place by palliative care service 2-week trial and cannot contact the . Did encourage to increase his use of instant breakfast to 2-3 times a day if patient continues not to eat. Will consider nutritional consultation. Time Spent: 30 minutes with greater than 50% of this done in counseling regarding pain management instruction on diet and weight loss, tobacco cessation, and proper medication use and adherence - Code Status Code Status: Do Not Attempt Resuscitation - Time Spent on Advance Care Planning Time spent on advance care planning: Time spent on advanced care planning approximately 35 minutes of which more
[2018-09-10] MEDS: NICOTINE 14 MG PATCH TOP STA ×2 (14:34→19:20)
[2018-09-10] MEDS: SODIUM CHLORIDE FLUSH 0.9% 10 ML SYRINGE IVP PRN ×4 (14:37→20:19)
[2018-09-10] MEDS ORDERED: NITROGLYCERIN SL 0.4 MG TABLET SL PRN (16:53)
[2018-09-10] MEDS: oxyCODONE 30 MG TABLET PO SCH ×2 (17:20→21:46)
[2018-09-10] MEDS: MULTIVITAMIN W/IRON, MINERALS 15 ML PO SCH ×2 (17:44→17:52)
[2018-09-10] MEDS: SACCHAROMYCES BOULARDII 250 MG CAPSULE PO SCH (17:44)
[2018-09-10] MEDS: SODIUM CHLORIDE FLUSH 0.9% 10 ML SYRINGE IVP SCH ×2 (17:50→19:22)
[2018-09-10] MEDS ORDERED: HYDROmorphone 2 MG/ML VIAL IVP PRN (18:45)
[2018-09-10] MEDS ORDERED: IPRATROPIUM/ALBUTEROL 3 ML NEB INH PRN (18:52)
[2018-09-10] MEDS: methylPREDNISolone SUCCINATE 40 MG/ML VIAL IVP SCH (19:20)
[2018-09-10] MEDS ORDERED: methylPREDNISolone SUCCINATE 40 MG/ML VIAL IVP SCH (19:30)
[2018-09-10] MEDS: FAMOTIDINE 20 MG/2 ML VIAL IVP SCH (19:58)
[2018-09-10] MEDS ORDERED: PANTOPRAZOLE 40 MG VIAL IV STA (20:04)
[2018-09-10] MEDS ORDERED: METOCLOPRAMIDE 10 MG/2 ML VIAL IVP PRN (20:05)
[2018-09-10] MEDS: PROCHLORPERAZINE 10 MG/2 ML VIAL IVP PRN (20:18)
[2018-09-10] MEDS ORDERED: PANTOPRAZOLE 40 MG VIAL IV SCH (20:43)
[2018-09-10] MEDS ORDERED: oxyCODONE ER 40 MG TABLET PO SCH (21:00)
[2018-09-10] MEDS: traZODone 50 MG TABLET PO PRN (21:09)
[2018-09-10] MEDS: MIRTAZAPINE 15 MG TABLET PO SCH (21:09)
[2018-09-10] MEDS: MONTELUKAST 10 MG TABLET PO SCH (21:09)
[2018-09-10] MEDS ORDERED: MAG HYDROX/AL HYDROX/SIMETH 30 ML UDC PO PRN (22:16)
[2018-09-11] MEDS: methylPREDNISolone SUCCINATE 40 MG/ML VIAL IVP SCH ×5 (00:01→23:24)
[2018-09-11] MEDS: FORMOTEROL FUMARATE NEB 20 MCG/2 ML INH SCH ×3 (00:04→21:11)
[2018-09-11] MEDS: SODIUM CHLORIDE FLUSH 0.9% 10 ML SYRINGE IVP SCH ×5 (00:05→23:24)
[2018-09-11 05:03] LABS: BASOPHILS % (AUTO) 0.1 %; EOSINOPHILS % (AUTO) 0.1 %; HGB - HEMOGLOBIN 15.1 g/dL (14.0-18.0); LYMPHOCYTES # (AUTO) 0.5 10^3/uL (1.5-3.5); LYMPHOCYTES % (AUTO) 3.7 %; MEAN CORPUSCULAR HEMOGLOBIN 31.7 pg (27.0-31.0); MEAN CORPUSCULAR HGB CONC 32.1 g/dL (32.0-36.0); MEAN CORPUSCULAR VOLUME 98.8 fL (80.0-94.0); MONOCYTES # (AUTO) 0.8 10^3/uL (0.0-1.0); MONOCYTES % (AUTO) 5.9 %; NEUTROPHILS # (AUTO) 12.2 10^3/uL (1.5-6.6); NEUTROPHILS % (AUTO) 90.2 %; PLT - PLATELET COUNT 305 10^3/uL (130-450); RED BLOOD COUNT 4.77 10^6/uL (4.70-6.10); RED CELL DISTRIBUTION WIDTH 13.7 % (12.0-15.0); WHITE BLOOD COUNT 13.6 x10^3/uL (4.8-10.8)
[2018-09-11 05:07] LABS: VBG PH 7.445 (7.31-7.41)
[2018-09-11] MEDS: SODIUM CHLORIDE FLUSH 0.9% 10 ML SYRINGE IVP PRN (05:12)
[2018-09-11] MEDS: PROCHLORPERAZINE 10 MG/2 ML VIAL IVP PRN (05:12)
[2018-09-11 05:13] LABS: ALBUMIN 3.3 g/dL (3.2-5.5); ALBUMIN/GLOBULIN RATIO 0.9 (1.0-2.2); BILIRUBIN,TOTAL 0.9 mg/dL (0.2-1.0); CALCIUM 8.9 mg/dL (8.5-10.3); CREATININE 0.9 mg/dL (0.6-1.2); MAGNESIUM 2.2 mg/dL (1.7-2.8); PHOSPHORUS 2.9 mg/dL (2.5-4.6); TOTAL PROTEIN 6.8 g/dL (6.7-8.2)
--- NOTE | 2018-09-11 06:59 | XRAY Report ---
Reason: nausea and vomiting possible SBO Procedure Date: 09/11/2018 Accession Number: [id number] / [id number] Procedure: XR - Abdomen Acute CPT Code: FULL RESULT: EXAM: ABDOMINAL SERIES AND PA CHEST EXAM DATE: 09/11/2018 06:16 AM. CLINICAL HISTORY: Nausea and vomiting possible small bowel obstruction. COMPARISON: CHEST 2 VIEW 09/10/2018 9:07 AM. TECHNIQUE: 2 views abdomen and 1 view chest. FINDINGS: CHEST: Lungs/Pleura: Large lung volumes. Bibasilar pulmonary opacities are slightly improved. No pleural effusion seen. No pneumothorax. Mediastinum: Within exam limitations, heart size appears normal. Tortuous atherosclerotic aorta. ABDOMEN: Bowel Gas Pattern: Nonspecific. Gaseous distention of large and small bowel loops. Free Air: None. Other: Postoperative changes in the abdomen. Osteopenia. Vertebral body fracture and vertebroplasty at L1. IMPRESSION: 1. Nonspecific gas pattern with gaseous distention of large and small bowel loops. 2. Large lung volumes. Bibasilar pulmonary opacities are slightly improved. RADIA
[2018-09-11] MEDS ORDERED: IOVERSOL 320 100 ML VIAL IVP ONE (08:43)
[2018-09-11] MEDS ORDERED: AZITHROMYCIN INJ 500 MG in SODIUM CHLORIDE 0.9% 250 ML IV SCH (09:00)
[2018-09-11] MEDS: cefTRIAXone 1 GM in SODIUM CHLORIDE 0.9% MINIBAG 100 ML IV SCH (09:10)
[2018-09-11] MEDS: FAMOTIDINE 20 MG/2 ML VIAL IVP SCH ×2 (09:10→20:30)
[2018-09-11] MEDS: ASPIRIN EC 81 MG TABLET PO SCH (09:18)
[2018-09-11] MEDS: SACCHAROMYCES BOULARDII 250 MG CAPSULE PO SCH ×2 (09:18→17:32)
[2018-09-11] MEDS: CLOPIDOGREL 75 MG TABLET PO SCH (09:18)
[2018-09-11] MEDS: NICOTINE 14 MG PATCH TOP SCH ×2 (09:19→14:42)
[2018-09-11] MEDS: MEGESTROL 400 MG/10 ML UDC PO SCH (09:19)
[2018-09-11] MEDS: MULTIVITAMIN W/IRON, MINERALS 15 ML PO SCH (09:19)
[2018-09-11] MEDS: METOPROLOL TARTRATE 50 MG TABLET PO SCH (09:19)
[2018-09-11] MEDS: oxyCODONE 30 MG TABLET PO SCH ×4 (09:19→20:35)
[2018-09-11] MEDS: TAMSULOSIN 0.4 MG CAPSULE PO SCH (09:38)
[2018-09-11] MEDS: ENOXAPARIN 40 MG/0.4 ML SYRINGE SUBQ SCH (09:41)
[2018-09-11 10:35] LABS: ABG BASE EXCESS 1.9 mmol/L (-2.0-3.0); ABG HCO3 25.2 mmol/L (22.0-26.0); ABG OXYGEN SATURATION 91 % (94-98); ABG PCO2 36 mmHg (34-45); ABG PH 7.47 (7.35-7.45); ABG PO2 59 mmHg (80-100); ABG TCO2 26.3 MMOL/L (21.0-29.0)
[2018-09-11 10:36] LABS: ALLEN TEST POSITIVE
--- NOTE | 2018-09-11 10:56 | CT Report ---
Reason: Worsening hypoxemia Procedure Date: 09/11/2018 Accession Number: [id number] / [id number] Procedure: CT - CHEST WO CPT Code: FULL RESULT: EXAM: CT CHEST EXAM DATE: 09/11/2018 10:04 AM. CLINICAL HISTORY: Worsening hypoxemia. COMPARISONS: CHEST 2 VIEW 09/10/2018 9:07 AM. TECHNIQUE: Routine helical CT imaging was performed through the chest. IV contrast: None. Reconstructions: Coronal and sagittal. In accordance with CT protocol optimization, one or more of the following dose reduction techniques were utilized for this exam: automated exposure control, adjustment of mA and/or KV based on patient size, or use of iterative reconstructive technique. FINDINGS: Lungs/Pleura: Severe bullous emphysema throughout both lungs. Bibasilar consolidation is noted. No pleural effusion or pneumothorax. Mediastinum: Severely calcified thoracic aorta and coronary arteries. Borderline enlarged main pulmonary artery with prominent size of left and right pulmonary arteries, suggestive of pulmonary hypertension. No pericardial effusion. No mediastinal or hilar lymphadenopathy is detected. 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 Visualized Abdomen: Abdominal aortic aneurysm which measures at least 4.1 cm just below the level of the renal arteries, not characterized. Other: None. IMPRESSION: Severe bullous emphysema and bibasilar consolidation. Abdominal aortic aneurysm. RADIA
[2018-09-11] MEDS: HYDROmorphone 0.5 MG/0.5 ML SYRINGE IVP PRN ×2 (11:08→13:43)
[2018-09-11] MEDS: CLINDAMYCIN 900 MG/50 ML 50 ML IV SCH ×3 (11:15→23:25)
[2018-09-11] MEDS ORDERED: METOPROLOL 5 MG/5 ML VIAL IVP PRN (11:47)
[2018-09-11] MEDS ORDERED: METOPROLOL 5 MG/5 ML VIAL IVP ONE (12:00)
--- NOTE | 2018-09-11 12:22 | CONSULTATION NOTE ---
Palliative Care Follow Up - Referral Referring Provider: Domenico Rodriguez Time of Visit: 10:00-10:40 Referral setting: Hospitalized patient Referral Reason: Pneumonia/Advanced COPD/Chronic Pain Syndrome - Information Sources Records reviewed: Previous records reviewed Exam limitations: Clinical condition (patient with mod cognitive deficits at baseline; does not recall last few days) - History of Present Illness Update Brief HPI Update: Is a 72-year-old gentleman who is well-known to me, as he has underlying chronic abdominal pain related to complications of a colonoscopy several years ago, this had required multiple abdominal surgeries and hospitalizations. He has residual chronic neuropathic pain syndrome he has been long-term on oxycodone on fairly high doses of 480 mg now down to 360 mg, we have continued to attempt a trial cutting back. This was somewhat interrupted as he did have an episode of acute pain from injuring his lumbar fracture, for which he has had a kyphoplasty with only some improvement from his baseline pain. Follow-up with his , reports he been having increased shortness of breath and cough, and probably should have gone in the day or 2 before. She reports his breathing was terrible, he had been using oxygen continuously, he is actually newly on oxygen as he had a COPD exacerbation in the previous month treated by his PCP. She reports the pain became unbearable for him and having respiratory distress, and he decided to allow her to call 911. Patient has a significant aversion to hospitals, given his previous history, and often waits too late to access emergency support. In exchange with patient, he does not recall, (he does have fairly moderate to significant cognitive deficits at baseline), the last couple days. I suspect that he has probably been noncompliant with his medications. His does not really oversee them and his set up is less than reliable, though she does and vergara s been enlisted in the past to work with his oxycodone. Patient reports to me again he is "waiting to ". He has for a long time and very unhappy with his quality of life. He is very isolated, continues to smoke, and though is often expressing distress and "ready to be done with it", is also very fearful of the dying process. Patient's other medical conditions include an enlarging AAA, BPH, chronic constipation, insomnia, severe depression, intermittent chest pain, and most recently has had fairly acute weight loss over a few months. He attributes this to increased pain with eating, early satiety, dental problems, and anorexia. Social History - Living Situation Living arrangement: At home Living Situation: With spouse/s.o. Support System: is with her own health problems, they do have a daughter who lives on the property and provides intermittent support. They have been counseled by the palliative care manager social services regarding accessing community resources, [facility] program, did agree and will start MOW next week. Medications/Allergies - Medications Active Medication List: Active Medications Al Hydroxide/Mg Hydroxide (Mylanta Plus) 30 ml PO Q4HR PRN PRN Reason: INDIGESTION Last Admin: 09/10/18 22:43 Dose: 30 ml Albuterol/Ipratropium (Duoneb) 3 ml INH Q4HR NORA Alprazolam (Xanax) 0.25 mg PO Q6HR PRN PRN Reason: Anxiety Aspirin (Ecotrin) 81 mg PO DAILY [facility] Last Admin: 09/11/18 09:18 Dose: Not Given Clopidogrel Bisulfate (Plavix) 75 mg PO DAILY [facility] Last Admin: 09/11/18 09:18 Dose: Not Given Enoxaparin Sodium (Lovenox) 40 mg SUBQ DAILY [facility] Last Admin: 09/11/18 09:41 Dose: 40 mg Famotidine (Pepcid) 20 mg IVP BID [facility] Last Admin: 09/11/18 09:10 Dose: 20 mg Formoterol Fumarate (Perforomist) 20 mcg INH RTBID [facility] Last Admin: 09/11/18 10:56 Dose: 20 mcg Hydromorphone HCl (Dilaudid Inj Syringe) 0.5 mg IVP Q2H PRN PRN Reason: PAIN Last Admin: 09/11/18 11:08 Dose: 0.5 mg Ceftriaxone Sodium 1 gm/ (Sodium Chloride) 100 mls @ 200 mls/hr IV DAILY [facility] Last Infusion: 09/11/18 09:45 Dose: Infused Clindamycin Phosphate (Cleocin 900 Mg/50 Ml) 50 mls @ 50 mls/hr IV Q6HR [facility] Last Admin: 09/11/18 11:15 Dose: 50 mls/hr Megestrol Acetate (Megace) 400 mg PO DAILY [facility] Last Admin: 09/11/18 09:19 Dose: Not Given Methylprednisolone (Solu-Medrol (40mg Vial)) 80 mg IVP Q6HR [facility] Last Admin: 09/11/18 12:01 Dose: 80 mg Metoclopramide HCl (Reglan Inj) 5 mg IVP Q6HR PRN PRN Reason: Nausea / Vomiting Last Admin: 09/10/18 22:42 Dose: 5 mg Metoprolol Tartrate (Lopressor) 50 mg PO DAILY [facility] Last Admin: 09/11/18 09:19 Dose: Not Given Metoprolol Tartrate (Lopressor Inj) 5 mg IVP Q4HR PRN PRN Reason: HR>120 Last Admin: 09/11/18 11:59 Dose: 5 mg Mirtazapine (Remeron) 7.5 mg PO QPM [facility] Last Admin: 09/10/18 21:09 Dose: 7.5 mg Montelukast Sodium (Singulair) 10 mg PO QPM [facility] Last Admin: 09/10/18 21:09 Dose: 10 mg Multivitamins/Folic Acid/Vitamin C (Centrum) 15 ml PO DAILY [facility] Last Admin: 09/11/18 09:19 Dose: Not Given Nicotine (Nicoderm) 1 patch TOP DAILY [facility] Last Admin: 09/11/18 09:19 Dose: Not Given Nitroglycerin (Nitrostat) 0.4 mg SL Q5M PRN PRN Reason: Chest Pain Ondansetron HCl (Zofran Inj) 4 mg IVP Q6HR PRN PRN Reason: Nausea / Vomiting Last Admin: 09/10/18 19:15 Dose: 4 mg Oxycodone HCl (Roxicodone) 90 mg PO QID [facility] Last Admin: 09/11/18 09:19 Dose: Not Given Prochlorperazine Edisylate (Compazine Inj) 10 mg IVP Q4HR PRN PRN Reason: Nausea / Vomiting Last Admin: 09/11/18 05:12 Dose: 10 mg Saccharomyces Boulardii (Florastor) 250 mg PO BIDWM [facility] Last Admin: 09/11/18 09:18 Dose: Not Given Sodium Chloride (Normal Saline Flush 0.9%) 10 ml IVP 0100,0900,1700 [facility] Last Admin: 09/11/18 09:20 Dose: 10 ml Sodium Chloride (Normal Saline Flush 0.9%) 10 ml IVP PRN PRN PRN Reason: NEEDED PER PROVIDER ORDERS Last Admin: 09/11/18 05:12 Dose: 10 ml Tamsulosin HCl (Flomax) 0.4 mg PO DAILY [facility] Last Admin: 09/11/18 09:38 Dose: Not Given Trazodone HCl (Desyrel) 100 mg PO QPM PRN PRN Reason: Insomnia Last Admin: 09/10/18 21:09 Dose: 100 mg Tamsulosin [Flomax] 0.4 mg PO DAILY 01/19/13 Albuterol Sulfate [Proair Hfa Inhaler] 2 inh IH Q4H PRN 09/20/14 Aspirin [Ecotrin] 81 mg PO DAILY 09/20/14 Metoprolol Tartrate [Lopressor] 50 mg PO DAILY 09/20/14 Nitroglycerin [Nitrostat] 1 tab [id number] ONCE 12/07/15 Albuterol 2.5 mg NEB BID PRN 03/01/17 Oxycodone HCl [Roxicodone] 90 mg PO QID MDD nte 12 tabs/24 hours 07/31/17 Trazodone HCl 100 - 200 mg PO QPM PRN 08/29/17 Budesonide/Formoterol Fumarate [Symbicort 160-4.5 Mcg Inhaler] 2 puffs INH BID 09/27/17 Clopidogrel [Plavix] 75 mg PO DAILY 02/16/18 Lovastatin 40 mg PO DAILY 02/16/18 Ipratropium/Albuterol [Duoneb] 1 inh INH Q4HR PRN 09/05/18 - Allergies Allergies/Adverse Reactions: Allergies Allergy/AdvReac Type Severity Reaction Status Date / Time codeine Allergy Unknown Verified 09/10/18 08:17 Iodinated Contrast- Oral and Allergy Unknown Verified 09/10/18 12:56 IV Dye Penicillins Allergy Unknown Verified 09/10/18 08:17 Review of Systems - Constitutional Constitutional: reports: Fatigue, Poor appetite, Weight loss (last weight was 128) - Eyes Eyes: reports: Vision loss (cataract surgery; remains unhappy with results) - Ears, Nose & Throat Ears, Nose & Throat: reports: Hearing loss, Dental pain (was to follow through on dental work; adding to decreased intake), Dry mouth - Cardiovascular Cardiovascular: reports: Decr. exercise tolerance - Respiratory Respiratory: reports: Cough, Sputum production, SOB at rest, SOB with exertion - Gastrointestinal Gastrointestinal: reports: Abdominal pain, Nausea (last night), Vomiting - Genitourinary Genitourinary: reports: Frequency - Musculoskeletal Musculoskeletal: reports: Back pain, Stiffness, Limited range of motion, Muscle weakness, Assistive devices (uses walker at home for longer distances outside; "furniture" walks but spends most of time in bed/sedentary) - Integumentary Integumentary: reports: Dryness - Neurological Neurological: reports: General weakness, Memory problems (confirmed with , does feel these are worsening but acute delerium for several days) - Psychiatric Psychiatric: reports: Depression, Anxiety - Hematologic/Lymphatic Hematologic/Lymphatic: reports: Recurrent infections (recent COPD exacerbation) - All Other Systems All Other Systems: reports: Other (limited ROS patient poor historian) Physical Exam - Vital Signs Vital Signs: Vital Signs x48h Pulse Pulse Resp BP BP Pulse Ox 09/11/18 11:59 128/72 09/11/18 10:50 82 26 H 09/11/18 09:00 83 29 H 115/61 94 09/11/18 06:18 27 H 94 09/11/18 06:02 32 H 91 L 09/11/18 06:00 92 27 H 126/62 91 L 09/11/18 05:19 31 H 94 09/11/18 05:16 93 30 H 140/76 H - Physical Exam General Appearance: positive: Moderate distress, Anxious ENT: positive: Dry mucous membranes Neck: positive: No JVD, Trachea midline Cardiovascular: positive: Regular rate & rhythm Respiratory: positive: Diminished in bases, Rhonchi, Other (moderate respiratory distress and effort; moist cough) Abdomen: positive: Tenderness, Guarding Skin: positive: Pallor, Dryness, Other (skin very dry; feet with fungal nails) Extremities: positive: No pedal edema Neurologic/Psychiatric: positive: Disoriented to time, Weakness, Depressed mood/affect, Flat affect Palliative Care - POLST Patient has POLST: Yes POLST Status: Selective Treatment Pain: Pain worsening, Location (abdominal; confused regarding hx of) Depression: Severe (7-10) Anxiety: Severe (7-10) Sleep: Sleeps poorly Constipation: Yes, Opoid induced, Intermittent constipation Feelings of wellbeing/Perceived Quality of Life: Poor, Worsening Performance Status: Patient at home mostly sedentary, does walk short distances to the bathroom. Does have a walker, but tends to furniture walk. Patient does appear quite weak, with increased muscle wasting. I would put him at a PPS of 50% at previous level of functioning. - Palliative Care Discussion: Patient appears quite anxious, and fearful. Is able to engage but seems moderately confused. Given long-term relationship with patient, try to be reassuring, encouraged patient to focus on current treatment plan and returning home. Patient hates hospitals, he repeatedly expresses his wish to be done with his suffering, he did have a brother who committed suicide in the last couple years and has been quite adamant he would not do that to his family. Patient has continued to decline both functionally and cognitively, with increasing complications related to his chronic pain syndrome, and advanced COPD. Patient perceives his quality of life has continued to deteriorate, patient at this point in time acutely ill unable to engage further in conversations related to goals of care. Patient often per previous history, often wants to discharge both because of his dislike of hospitals but his tobacco abuse. Results - Lab Results Lab results reviewed: Yes Fish Bones: 09/11/18 04:30 09/11/18 04:30 Lab and Imaging Results: Lab Results x24hrs 09/11/18 09/11/18 09/11/18 Range/Units 10:21 08:33 08:33 WBC (4.8-10.8) x10^3/uL RBC (4.70-6.10) 10^6/uL Hgb (14.0-18.0) g/dL Hct (42.0-52.0) % MCV (80.0-94.0) fL MCH (27.0-31.0) pg MCHC (32.0-36.0) g/dL RDW (12.0-15.0) % Plt Count (130-450) 10^3/uL MPV (7.4-11.4) fL Neut # (Auto) (1.5-6.6) 10^3/uL Lymph # (Auto) (1.5-3.5) 10^3/uL [place] # (Auto) (0.0-1.0) 10^3/uL Eos # (Auto) (0.0-0.7) 10^3/uL Baso # (Auto) (0.0-0.1) 10^3/uL Absolute Nucleated RBC x10^3/uL Nucleated RBC % /100WBC D-Dimer 1050.5 H (200.0-255.0) ng/mL Bld Gas Analysis Time 1030 Sample Site RIGHT RADIAL ABG pH 7.47 H (7.35-7.45) ABG pCO2 36 (34-45) mmHg ABG pO2 59 L (80-100) mmHg ABG HCO3 25.2 (22.0-26.0) mmol/L ABG Total CO2 26.3 (21.0-29.0) MMOL/L ABG O2 Saturation 91 L (94-98) % ABG Oximetry Spot Check 90 % ABG Base Excess 1.9 (-2.0-3.0) mmol/L Srinivas Test POSITIVE VBG pH (7.31-7.41) Ionized Calcium (1.15-1.33) mmol/L Respiration Rate 28 b/min O2 Delivery Device OXYMIZER O2 Liters/Min 8.00 LPM Sodium (135-145) mmol/L Potassium (3.5-5.0) mmol/L Chloride (101-111) mmol/L Carbon Dioxide (21-32) mmol/L Anion Gap (6-13) BUN (6-20) mg/dL Creatinine (0.6-1.2) mg/dL Estimated GFR (MDRD) (>89) Glucose (70-100) mg/dL Lactic Acid 0.8 (0.5-2.2) mmol/L Calcium (8.5-10.3) mg/dL Phosphorus (2.5-4.6) mg/dL Magnesium (1.7-2.8) mg/dL Total Bilirubin (0.2-1.0) mg/dL AST (10-42) IU/L ALT (10-60) IU/L Alkaline Phosphatase (42-121) IU/L Total Protein (6.7-8.2) g/dL Albumin (3.2-5.5) g/dL Globulin (2.1-4.2) g/dL Albumin/Globulin Ratio (1.0-2.2) Nasal Screen MRSA (PCR) (NEGATIVE) 09/11/18 09/11/18 09/11/18 Range/Units 04:30 04:30 04:30 WBC (4.8-10.8) x10^3/uL RBC (4.70-6.10) 10^6/uL Hgb (14.0-18.0) g/dL Hct (42.0-52.0) % MCV (80.0-94.0) fL MCH (27.0-31.0) pg MCHC (32.0-36.0) g/dL RDW (12.0-15.0) % Plt Count (130-450) 10^3/uL MPV (7.4-11.4) fL Neut # (Auto) (1.5-6.6) 10^3/uL Lymph # (Auto) (1.5-3.5) 10^3/uL [place] # (Auto) (0.0-1.0) 10^3/uL Eos # (Auto) (0.0-0.7) 10^3/uL Baso # (Auto) (0.0-0.1) 10^3/uL Absolute Nucleated RBC x10^3/uL Nucleated RBC % /100WBC D-Dimer (200.0-255.0) ng/mL Bld Gas Analysis Time Sample Site ABG pH (7.35-7.45) ABG pCO2 (34-45) mmHg ABG pO2 (80-100) mmHg ABG HCO3 (22.0-26.0) mmol/L ABG Total CO2 (21.0-29.0) MMOL/L ABG O2 Saturation (94-98) % ABG Oximetry Spot Check % ABG Base Excess (-2.0-3.0) mmol/L Srinivas Test VBG pH 7.445 H (7.31-7.41) Ionized Calcium 1.09 L (1.15-1.33) mmol/L Respiration Rate b/min O2 Delivery Device O2 Liters/Min LPM Sodium 140 (135-145) mmol/L Potassium 4.0 (3.5-5.0) mmol/L Chloride 100 L (101-111) mmol/L Carbon Dioxide 27 (21-32) mmol/L Anion Gap 13.0 (6-13) BUN 17 (6-20) mg/dL Creatinine 0.9 (0.6-1.2) mg/dL Estimated GFR (MDRD) 83 L (>89) Glucose 153 H (70-100) mg/dL Lactic Acid (0.5-2.2) mmol/L Calcium 8.9 (8.5-10.3) mg/dL Phosphorus 2.9 (2.5-4.6) mg/dL Magnesium 2.2 (1.7-2.8) mg/dL Total Bilirubin 0.9 (0.2-1.0) mg/dL AST 34 (10-42) IU/L ALT 46 (10-60) IU/L Alkaline Phosphatase 74 (42-121) IU/L Total Protein 6.8 (6.7-8.2) g/dL Albumin 3.3 (3.2-5.5) g/dL Globulin 3.5 (2.1-4.2) g/dL Albumin/Globulin Ratio 0.9 L (1.0-2.2) Nasal Screen MRSA (PCR) (NEGATIVE) 09/11/18 09/10/18 Range/Units 04:30 13:15 WBC 13.6 H (4.8-10.8) x10^3/uL RBC 4.77 (4.70-6.10) 10^6/uL Hgb 15.1 (14.0-18.0) g/dL Hct 47.1 (42.0-52.0) % MCV 98.8 H (80.0-94.0) fL MCH 31.7 H (27.0-31.0) pg MCHC 32.1 (32.0-36.0) g/dL RDW 13.7 (12.0-15.0) % Plt Count 305 (130-450) 10^3/uL MPV 9.0 (7.4-11.4) fL Neut # (Auto) 12.2 H (1.5-6.6) 10^3/uL Lymph # (Auto) 0.5 L (1.5-3.5) 10^3/uL [place] # (Auto) 0.8 (0.0-1.0) 10^3/uL Eos # (Auto) 0.0 (0.0-0.7) 10^3/uL Baso # (Auto) 0.0 (0.0-0.1) 10^3/uL Absolute Nucleated RBC 0.00 x10^3/uL Nucleated RBC % 0.0 /100WBC D-Dimer (200.0-255.0) ng/mL Bld Gas Analysis Time Sample Site ABG pH (7.35-7.45) ABG pCO2 (34-45) mmHg ABG pO2 (80-100) mmHg ABG HCO3 (22.0-26.0) mmol/L ABG Total CO2 (21.0-29.0) MMOL/L ABG O2 Saturation (94-98) % ABG Oximetry Spot Check % ABG Base Excess (-2.0-3.0) mmol/L Srinivas Test VBG pH (7.31-7.41) Ionized Calcium (1.15-1.33) mmol/L Respiration Rate b/min O2 Delivery Device O2 Liters/Min LPM Sodium (135-145) mmol/L Potassium (3.5-5.0) mmol/L Chloride (101-111) mmol/L Carbon Dioxide (21-32) mmol/L Anion Gap (6-13) BUN (6-20) mg/dL Creatinine (0.6-1.2) mg/dL Estimated GFR (MDRD) (>89) Glucose (70-100) mg/dL Lactic Acid (0.5-2.2) mmol/L Calcium (8.5-10.3) mg/dL Phosphorus (2.5-4.6) mg/dL Magnesium (1.7-2.8) mg/dL Total Bilirubin (0.2-1.0) mg/dL AST (10-42) IU/L ALT (10-60) IU/L Alkaline Phosphatase (42-121) IU/L Total Protein (6.7-8.2) g/dL Albumin (3.2-5.5) g/dL Globulin (2.1-4.2) g/dL Albumin/Globulin Ratio (1.0-2.2) Nasal Screen MRSA (PCR) NEGATIVE (NEGATIVE) Impression and Recommendations - Palliative Care Impression: This is a 72-year-old gentleman with a long list of comorbidities including advanced COPD, recently oxygen dependent, increasing AAA, chronic abdominal pain with neuropathic syndrome, coronary artery disease, tobacco abuse and most recently with increased functional and cognitive decline. He now presents acutely with pneumonia, concern for aspiration, mild delirium superimposed on cognitive deficits, recent weight loss, and at baseline high symptom burden. Palliative care will follow during acute hospitalization to provide support related to skilled nursing relationship. Recommendations/Counseling Done: 1. Acute nausea and vomiting. Most likely can be attributed to patient withdrawals. Patient has long-term for years been on oxycodone, patient is somewhat confused, has had an OBS stay in the past, and had to pay for the medications. He has been refusing medications and told the nurses he takes him 1 time a day as he in his mind was thinking he had to pay for it. Patient has titrated back to oxycodone 90 mg 4 times daily, Did call and confirm with he has been taking it on a regular basis and has been compliant with titration. Patient has long-standing opioid use disorder, severe chronic pain, and has tried several times to go "cold turkey" with severe nausea vomiting and diarrhea in the past. Encouraged patient to continue his routine, we can continue to titrate back, but given his acute illness do not want to add withdrawal symptoms. 2. Advanced COPD. Patient now presents with acute pneumonia, possibly superimpo sed with aspiration. Patient has had a recent exacerbation of his COPD in the last few weeks, and recently oxygen dependent. Patient presents with failure to thrive, high symptom burden, and recent weight loss. Will follow and explore regarding goals of care, patient has been quite clear in past conversations regarding not wanting to extend his suffering and his poor quality of life. Patient does have high anxiety, but has expressed some insight to his ongoing decline. 3. Advanced care planning. Patient does have a LISA ST in place, his D POA is his Magy [phone]. They do have a complex relationship, she has significant health problems as well, and it is a complex social situation but she very much is worried and concerned about him.Call and get further background information regarding patient's decline over the last several days, as well as provided her update at this point in time. We will continue to make contact provide support. Time Spent: 40 minutes with greater than 50% of this done in counseling and coordination of care, follow-up with and providing anticipatory guidance
[2018-09-11] MEDS: IPRATROPIUM/ALBUTEROL 3 ML NEB INH SCH ×3 (13:18→21:11)
--- NOTE | 2018-09-11 17:33 | PROVIDER PROGRESS NOTE ---
Subjective - Prog Note Date Prog Note Date: 09/11/18 Prog Note Time: 17:31 - Subjective Pt reports feeling: Worse Subjective: Overnight patient had episode of hypoxemia for which suspected aspiration event occurred with nausea and vomiting which was given with Compazine and Reglan coughing subsequently placed on Oxymizer to about 8 L with abnormal ABG. Patient received chest X-ray as well as abdominal x-ray which showed improved infiltrates. Patient was complaining about abdominal distention. Current Medications - Current Medications Current Medications: Active Medications Al Hydroxide/Mg Hydroxide (Mylanta Plus) 30 ml PO Q4HR PRN PRN Reason: INDIGESTION Last Admin: 09/10/18 22:43 Dose: 30 ml Albuterol/Ipratropium (Duoneb) 3 ml INH Q4HR [facility] Last Admin: 09/11/18 17:12 Dose: 3 ml Alprazolam (Xanax) 0.25 mg PO Q6HR PRN PRN Reason: Anxiety Aspirin (Ecotrin) 81 mg PO DAILY [facility] Last Admin: 09/11/18 09:18 Dose: Not Given Clopidogrel Bisulfate (Plavix) 75 mg PO DAILY [facility] Last Admin: 09/11/18 09:18 Dose: Not Given Enoxaparin Sodium (Lovenox) 40 mg SUBQ DAILY [facility] Last Admin: 09/11/18 09:41 Dose: 40 mg Famotidine (Pepcid) 20 mg IVP BID [facility] Last Admin: 09/11/18 09:10 Dose: 20 mg Formoterol Fumarate (Perforomist) 20 mcg INH RTBID [facility] Last Admin: 09/11/18 10:56 Dose: 20 mcg Hydromorphone HCl (Dilaudid Inj Syringe) 0.5 mg IVP Q2H PRN PRN Reason: PAIN Last Admin: 09/11/18 13:43 Dose: 0.25 mg Ceftriaxone Sodium 1 gm/ (Sodium Chloride) 100 mls @ 200 mls/hr IV DAILY [facility] Last Infusion: 09/11/18 09:45 Dose: Infused Clindamycin Phosphate (Cleocin 900 Mg/50 Ml) 50 mls @ 50 mls/hr IV Q6HR [facility] Last Infusion: 09/11/18 12:40 Dose: Infused Megestrol Acetate (Megace) 400 mg PO DAILY [facility] Last Admin: 09/11/18 09:19 Dose: Not Given Methylprednisolone (Solu-Medrol (40mg Vial)) 80 mg IVP Q6HR [facility] Last Admin: 09/11/18 12:01 Dose: 80 mg Metoclopramide HCl (Reglan Inj) 5 mg IVP Q6HR PRN PRN Reason: Nausea / Vomiting Last Admin: 09/10/18 22:42 Dose: 5 mg Metoprolol Tartrate (Lopressor) 50 mg PO DAILY [facility] Last Admin: 09/11/18 09:19 Dose: Not Given Metoprolol Tartrate (Lopressor Inj) 5 mg IVP Q4HR PRN PRN Reason: HR>120 Last Admin: 09/11/18 11:59 Dose: 5 mg Mirtazapine (Remeron) 7.5 mg PO QPM [facility] Last Admin: 09/10/18 21:09 Dose: 7.5 mg Montelukast Sodium (Singulair) 10 mg PO QPM [facility] Last Admin: 09/10/18 21:09 Dose: 10 mg Multivitamins/Folic Acid/Vitamin C (Centrum) 15 ml PO DAILY [facility] Last Admin: 09/11/18 09:19 Dose: Not Given Nicotine (Nicoderm) 1 patch TOP DAILY [facility] Last Admin: 09/11/18 14:42 Dose: 1 patch Nitroglycerin (Nitrostat) 0.4 mg SL Q5M PRN PRN Reason: Chest Pain Ondansetron HCl (Zofran Inj) 4 mg IVP Q6HR PRN PRN Reason: Nausea / Vomiting Last Admin: 09/10/18 19:15 Dose: 4 mg Oxycodone HCl (Roxicodone) 90 mg PO QID [facility] Last Admin: 09/11/18 13:42 Dose: Not Given Prochlorperazine Edisylate (Compazine Inj) 10 mg IVP Q4HR PRN PRN Reason: Nausea / Vomiting Last Admin: 09/11/18 05:12 Dose: 10 mg Saccharomyces Boulardii (Florastor) 250 mg PO BIDWM [facility] Last Admin: 09/11/18 09:18 Dose: Not Given Sodium Chloride (Normal Saline Flush 0.9%) 10 ml IVP 0100,0900,1700 [facility] Last Admin: 09/11/18 09:20 Dose: 10 ml Sodium Chloride (Normal Saline Flush 0.9%) 10 ml IVP PRN PRN PRN Reason: NEEDED PER PROVIDER ORDERS Last Admin: 09/11/18 05:12 Dose: 10 ml Tamsulosin HCl (Flomax) 0.4 mg PO DAILY [facility] Last Admin: 09/11/18 09:38 Dose: Not Given Trazodone HCl (Desyrel) 100 mg PO QPM PRN PRN Reason: Insomnia Last Admin: 09/10/18 21:09 Dose: 100 mg Tamsulosin [Flomax] 0.4 mg PO DAILY 01/19/13 Albuterol Sulfate [Proair Hfa Inhaler] 2 inh IH Q4H PRN 09/20/14 Aspirin [Ecotrin] 81 mg PO DAILY 09/20/14 Metoprolol Tartrate [Lopressor] 50 mg PO DAILY 09/20/14 Nitroglycerin [Nitrostat] 1 tab [id number] ONCE 12/07/15 Albuterol 2.5 mg NEB BID PRN 03/01/17 Oxycodone HCl [Roxicodone] 90 mg PO QID [facility] nte 12 tabs/24 hours 07/31/17 Trazodone HCl 100 - 200 mg PO QPM PRN 08/29/17 Budesonide/Formoterol Fumarate [Symbicort 160-4.5 Mcg Inhaler] 2 puffs INH BID 09/27/17 Clopidogrel [Plavix] 75 mg PO DAILY 02/16/18 Lovastatin 40 mg PO DAILY 02/16/18 Ipratropium/Albuterol [Duoneb] 1 inh INH Q4HR PRN 09/05/18 Objective - Vital Signs/Intake & Output Reviewed Vital Signs: Yes Vital Signs: Vital Signs x48h Temp Pulse Pulse Resp BP BP Pulse Ox 09/11/18 17:13 79 20 09/11/18 16:00 78 30 H 116/64 93 09/11/18 15:00 76 28 H 109/72 95 09/11/18 14:00 80 27 H 96/55 L 93 09/11/18 13:18 73 28 H 09/11/18 13:00 78 31 H 112/58 L 96 09/11/18 12:30 78 32 H 113/69 95 09/11/18 12:29 121/58 L 09/11/18 12:15 82 32 H 118/65 95 09/11/18 12:00 97 30 H 112/65 96 09/11/18 11:59 128/72 09/11/18 11:00 36.9 C 95 39 H 126/69 96 09/11/18 10:50 82 26 H 09/11/18 10:00 98 30 H 96 Intake & Output: Intake & Output 09/08/18 09/09/18 09/10/18 09/11/18 23:59 23:59 23:59 23:59 Intake Total 560 640 Output Total 200 375 Balance 360 265 - Objective General Appearance: positive: Alert, Mild distress, Other (Chronically ill- appearing, cachectic and frail) Eyes Bilateral: positive: PERRL, EOMI ENT: positive: Pharynx nml, No signs of dehydration Neck: positive: Nml inspection, Thyroid nml, No JVD, Trachea midline, Thyromegaly Respiratory: positive: Chest non-tender, Wheezes (Scattered fine bibasilar wheezing), Rales, Rhonchi Cardiovascular: positive: Regular rate & rhythm, No murmur, No gallop Peripheral Pulses: 2+ Dorsalis pedis (R), 2+ Dorsalis pedis (L) Abdomen: positive: Non-tender, No organomegaly, Nml bowel sounds, No distention. negative: Tenderness, Guarding, Rebound Skin: positive: Color nml, No rash, Warm Extremities: positive: Non-tender, Full ROM, Nml appearance Neurologic/Psychiatric: positive: CN's nml (2-12), Weakness, Depressed mood/affect - Lab Results Fish Bones: 09/11/18 04:30 09/11/18 04:30 Other Labs: Lab Results x24hrs 09/11/18 09/11/18 09/11/18 Range/Units 10:21 08:33 08:33 WBC (4.8-10.8) x10^3/uL RBC (4.70-6.10) 10^6/uL Hgb (14.0-18.0) g/dL Hct (42.0-52.0) % MCV (80.0-94.0) fL MCH (27.0-31.0) pg MCHC (32.0-36.0) g/dL RDW (12.0-15.0) % Plt Count (130-450) 10^3/uL MPV (7.4-11.4) fL Neut # (Auto) (1.5-6.6) 10^3/uL Lymph # (Auto) (1.5-3.5) 10^3/uL Morgan # (Auto) (0.0-1.0) 10^3/uL Eos # (Auto) (0.0-0.7) 10^3/uL Baso # (Auto) (0.0-0.1) 10^3/uL Absolute Nucleated RBC x10^3/uL Nucleated RBC % /100WBC D-Dimer 1050.5 H (200.0-255.0) ng/mL Bld Gas Analysis Time 1030 Sample Site RIGHT RADIAL ABG pH 7.47 H (7.35-7.45) ABG pCO2 36 (34-45) mmHg ABG pO2 59 L (80-100) mmHg ABG HCO3 25.2 (22.0-26.0) mmol/L ABG Total CO2 26.3 (21.0-29.0) MMOL/L ABG O2 Saturation 91 L (94-98) % ABG Oximetry Spot Check 90 % ABG Base Excess 1.9 (-2.0-3.0) mmol/L Srinivas Test POSITIVE VBG pH (7.31-7.41) Ionized Calcium (1.15-1.33) mmol/L Respiration Rate 28 b/min O2 Delivery Device OXYMIZER O2 Liters/Min 8.00 LPM Sodium (135-145) mmol/L Potassium (3.5-5.0) mmol/L Chloride (101-111) mmol/L Carbon Dioxide (21-32) mmol/L Anion Gap (6-13) BUN (6-20) mg/dL Creatinine (0.6-1.2) mg/dL Estimated GFR (MDRD) (>89) Glucose (70-100) mg/dL Lactic Acid 0.8 (0.5-2.2) mmol/L Calcium (8.5-10.3) mg/dL Phosphorus (2.5-4.6) mg/dL Magnesium (1.7-2.8) mg/dL Total Bilirubin (0.2-1.0) mg/dL AST (10-42) IU/L ALT (10-60) IU/L Alkaline Phosphatase (42-121) IU/L Total Protein (6.7-8.2) g/dL Albumin (3.2-5.5) g/dL Globulin (2.1-4.2) g/dL Albumin/Globulin Ratio (1.0-2.2) 09/11/18 09/11/18 09/11/18 Range/Units 04:30 04:30 04:30 WBC (4.8-10.8) x10^3/uL RBC (4.70-6.10) 10^6/uL Hgb (14.0-18.0) g/dL Hct (42.0-52.0) % MCV (80.0-94.0) fL MCH (27.0-31.0) pg MCHC (32.0-36.0) g/dL RDW (12.0-15.0) % Plt Count (130-450) 10^3/uL MPV (7.4-11.4) fL Neut # (Auto) (1.5-6.6) 10^3/uL Lymph # (Auto) (1.5-3.5) 10^3/uL Morgan # (Auto) (0.0-1.0) 10^3/uL Eos # (Auto) (0.0-0.7) 10^3/uL Baso # (Auto) (0.0-0.1) 10^3/uL Absolute Nucleated RBC x10^3/uL Nucleated RBC % /100WBC D-Dimer (200.0-255.0) ng/mL Bld Gas Analysis Time Sample Site ABG pH (7.35-7.45) ABG pCO2 (34-45) mmHg ABG pO2 (80-100) mmHg ABG HCO3 (22.0-26.0) mmol/L ABG Total CO2 (21.0-29.0) MMOL/L ABG O2 Saturation (94-98) % ABG Oximetry Spot Check % ABG Base Excess (-2.0-3.0) mmol/L Srinivas Test VBG pH 7.445 H (7.31-7.41) Ionized Calcium 1.09 L (1.15-1.33) mmol/L Respiration Rate b/min O2 Delivery Device O2 Liters/Min LPM Sodium 140 (135-145) mmol/L Potassium 4.0 (3.5-5.0) mmol/L Chloride 100 L (101-111) mmol/L Carbon Dioxide 27 (21-32) mmol/L Anion Gap 13.0 (6-13) BUN 17 (6-20) mg/dL Creatinine 0.9 (0.6-1.2) mg/dL Estimated GFR (MDRD) 83 L (>89) Glucose 153 H (70-100) mg/dL Lactic Acid (0.5-2.2) mmol/L Calcium 8.9 (8.5-10.3) mg/dL Phosphorus 2.9 (2.5-4.6) mg/dL Magnesium 2.2 (1.7-2.8) mg/dL Total Bilirubin 0.9 (0.2-1.0) mg/dL AST 34 (10-42) IU/L ALT 46 (10-60) IU/L Alkaline Phosphatase 74 (42-121) IU/L Total Protein 6.8 (6.7-8.2) g/dL Albumin 3.3 (3.2-5.5) g/dL Globulin 3.5 (2.1-4.2) g/dL Albumin/Globulin Ratio 0.9 L (1.0-2.2) 09/11/18 Range/Units 04:30 WBC 13.6 H (4.8-10.8) x10^3/uL RBC 4.77 (4.70-6.10) 10^6/uL Hgb 15.1 (14.0-18.0) g/dL Hct 47.1 (42.0-52.0) % MCV 98.8 H (80.0-94.0) fL MCH 31.7 H (27.0-31.0) pg MCHC 32.1 (32.0-36.0) g/dL RDW 13.7 (12.0-15.0) % Plt Count 305 (130-450) 10^3/uL MPV 9.0 (7.4-11.4) fL Neut # (Auto) 12.2 H (1.5-6.6) 10^3/uL Lymph # (Auto) 0.5 L (1.5-3.5) 10^3/uL Morgan # (Auto) 0.8 (0.0-1.0) 10^3/uL Eos # (Auto) 0.0 (0.0-0.7) 10^3/uL Baso # (Auto) 0.0 (0.0-0.1) 10^3/uL Absolute Nucleated RBC 0.00 x10^3/uL Nucleated RBC % 0.0 /100WBC D-Dimer (200.0-255.0) ng/mL Bld Gas Analysis Time Sample Site ABG pH (7.35-7.45) ABG pCO2 (34-45) mmHg ABG pO2 (80-100) mmHg ABG HCO3 (22.0-26.0) mmol/L ABG Total CO2 (21.0-29.0) MMOL/L ABG O2 Saturation (94-98) % ABG Oximetry Spot Check % ABG Base Excess (-2.0-3.0) mmol/L Srinivas Test VBG pH (7.31-7.41) Ionized Calcium (1.15-1.33) mmol/L Respiration Rate b/min O2 Delivery Device O2 Liters/Min LPM Sodium (135-145) mmol/L Potassium (3.5-5.0) mmol/L Chloride (101-111) mmol/L Carbon Dioxide (21-32) mmol/L Anion Gap (6-13) BUN (6-20) mg/dL Creatinine (0.6-1.2) mg/dL Estimated GFR (MDRD) (>89) Glucose (70-100) mg/dL Lactic Acid (0.5-2.2) mmol/L Calcium (8.5-10.3) mg/dL Phosphorus (2.5-4.6) mg/dL Magnesium (1.7-2.8) mg/dL Total Bilirubin (0.2-1.0) mg/dL AST (10-42) IU/L ALT (10-60) IU/L Alkaline Phosphatase (42-121) IU/L Total Protein (6.7-8.2) g/dL Albumin (3.2-5.5) g/dL Globulin (2.1-4.2) g/dL Albumin/Globulin Ratio (1.0-2.2) - Diagnostic Imaging Diagnostic Imaging Results: positive: Final report reviewed (CT chest shows severe bullous emphysema with bilateral consolidation as well as evidence of a AAA. 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 Continue to cycle lactic acid as well as WBC trends which appeared to be improved today at 13.6. D-dimer was elevated. CT chest showed severe bullous emphysema with bilateral consolidation along with a AAA. Patient not needing pressor support at this time. Continue with empiric IV antibiotics to be switched over to clindamycin and continuation of Rocephin. Qualifiers: Sepsis type: sepsis due to unspecified organism Qualified Code(s): A41.9 - Sepsis, unspecified organism (2) Acute on chronic respiratory failure with hypoxemia Impression: Severe hypoxemia while on 8 L Oxymizer with an ABG showing pH of 7.4, PCO2 35.8, PO2 of 58.7, with a bicarb of 25.2. Likely as a result of an acute aspiration pneumonitis insult. Will place on Solu-Medrol plus duo nebs every 4 [id number] plus the addition of clindamycin to Rocephin. Differential is pulmonary embolism with a d-dimer of 1050 however patient is unable to tolerate or has an allergy to contrast and a noncontrast CT was performed. Still could have a pulmonary embolism however patient has a DNR status and would likely not pursue a V/Q scan. Patient unable to tolerate BiPAP at this point and on oxygen mask will be provided for further oxygenation as patient might be VQ mismatching at this point. (3) COPD with acute exacerbation Impression: Severe bullous emphysema seen on CT with no blebs or ruptures or pneumothorax. Continue with current medical management (4) Community acquired bacterial pneumonia Impression: Patient initially was on azithromycin as well as Rocephin however in the setting of suspected acute aspiration pneumonitis patient will be changed over to clindamycin in addition to Rocephin with nebulizers every 4 around the clock to continue and addition of Solu-Medrol. Oxygenation will be obtained through an Oxymizer at 8 L currently with pulse ox to be achieved above 90% and oxygen mask will be added due to patient's severe hypoxemia seen on patient's ABG today with a PCO2 of 35.8 pH of 7.4 and a PO2 of 58.7. Sputum Gram stain and culture respiratory to obtain. (5) SVT (supraventricular tachycardia) Impression: Secondary to acute hypoxemia as it pertains to possible demand ischemia with no symptoms of chest pain however due to CT chest without contrast findings with severe bullous emphysema and bilateral consolidation this would be the cause of increased myocardial demand with poor oxygenation which would create an SVT pattern. At the time patient was n.p.o. and was placed on IV Lopressor as needed to control heart rate above 120. Patient is on aspirin and will relook resume oral Lopressor. Patient's heart rate has gone down and is now controlled. (7) Aspiration pneumonitis Impression: N.p.o. was initially placed due to patient's aspiration event during nausea and vomiting about however patient is asking for food now. We will add clindamycin and discontinue a azithromycin continue with Rocephin, Solu-Medrol was added as well as duo nebs every 4 [id number]. Continue with pulmonary toileting, incentive spirometry. (8) Severe nausea and vomiting that has lasted a long time Impression: Patient is asking for food. Will place on antiemetics consider Marinol 2.5 mg p.o. twice daily AC. (9) Elevated d-dimer Impression: D-dimer 1050. Patient still could have a pulmonary embolism in the setting of hypoxemia with a low PO2 while on Oxymizer at 8 L which make an indication of VQ mismatching. However patient had a noncontrast CT and Likelihood of PE would only be differentiated on a VQ scan.
[2018-09-11] MEDS: DRONABINOL 2.5 MG CAPSULE PO SCH (18:08)
[2018-09-11] MEDS ORDERED: methylPREDNISolone SUCCINATE 40 MG/ML VIAL IVP SCH (19:00)
[2018-09-11] MEDS: MONTELUKAST 10 MG TABLET PO SCH (20:29)
[2018-09-11] MEDS: diphenhydrAMINE 25 MG CAPSULE PO PRN (20:29)
[2018-09-11] MEDS: MIRTAZAPINE 15 MG TABLET PO SCH (20:29)
[2018-09-11] MEDS: ALPRAZolam 0.25 MG TABLET PO PRN (20:33)
[2018-09-11] MEDS: traZODone 50 MG TABLET PO PRN (21:29)
[2018-09-12] MEDS: IPRATROPIUM/ALBUTEROL 3 ML NEB INH SCH ×6 (01:36→19:51)
[2018-09-12 05:10] LABS: BASOPHILS % (AUTO) 0.1 %; HGB - HEMOGLOBIN 12.8 g/dL (14.0-18.0)
[2018-09-12 05:14] LABS: VBG PH 7.4 (7.31-7.41)
[2018-09-12 05:15] LABS: ALBUMIN 2.8 g/dL (3.2-5.5); ALBUMIN/GLOBULIN RATIO 1.1 (1.0-2.2); BILIRUBIN,TOTAL 0.5 mg/dL (0.2-1.0); CALCIUM 8.8 mg/dL (8.5-10.3); CREATININE 0.9 mg/dL (0.6-1.2); MAGNESIUM 2.3 mg/dL (1.7-2.8); PHOSPHORUS 3.2 mg/dL (2.5-4.6); TOTAL PROTEIN 5.4 g/dL (6.7-8.2)
[2018-09-12 05:22] LABS: LYMPHOCYTES % (AUTO) 3.2 %; MEAN CORPUSCULAR HEMOGLOBIN 31.7 pg (27.0-31.0); MEAN CORPUSCULAR HGB CONC 32.7 g/dL (32.0-36.0); MONOCYTES % (AUTO) 5.1 %; NEUTROPHILS % (AUTO) 91.6 %; PLT - PLATELET COUNT 286 10^3/uL (130-450); RED BLOOD COUNT 4.04 10^6/uL (4.70-6.10); RED CELL DISTRIBUTION WIDTH 13.1 % (12.0-15.0)
[2018-09-12 05:24] LABS: ABNORMAL LYMPHS % (MANUAL) 0 %
[2018-09-12] MEDS: methylPREDNISolone SUCCINATE 40 MG/ML VIAL IVP SCH ×3 (06:44→22:13)
[2018-09-12] MEDS: DRONABINOL 2.5 MG CAPSULE PO SCH ×2 (06:44→17:38)
[2018-09-12] MEDS: SODIUM CHLORIDE FLUSH 0.9% 10 ML SYRINGE IVP PRN ×5 (06:44→15:29)
[2018-09-12] MEDS: CLINDAMYCIN 900 MG/50 ML 50 ML IV SCH ×4 (06:44→23:51)
[2018-09-12 06:45] LABS: BAND NEUTROPHILS % (MANUAL) 8 %; DIFFERENTIAL COMMENT MANUAL DIFFERENTIAL; LYMPHOCYTES # (MANUAL) 0.7 10^3/uL (1.5-3.5); LYMPHOCYTES % (MANUAL) 4 %; METAMYELOCYTES % (MANUAL) 1 %; MONOCYTES # (MANUAL) 0.4 10^3/uL (0.0-1.0); MYELOCYTES % (MANUAL) 2 %; NEUTROPHILS # (MANUAL) 16.4 10^3/uL (1.5-6.6); NEUTROPHILS % (MANUAL) 83 %; PLATELET ESTIMATE, MANUAL NORMAL (130-450,000) (NORMAL); RBC MORPHOLOGY (MULTIPLE) NORMAL APPEARANCE (NORMAL)
[2018-09-12] MEDS: oxyCODONE 30 MG TABLET PO SCH ×4 (07:52→20:22)
[2018-09-12] MEDS: FORMOTEROL FUMARATE NEB 20 MCG/2 ML INH SCH ×2 (07:56→19:52)
[2018-09-12] MEDS: cefTRIAXone 1 GM in SODIUM CHLORIDE 0.9% MINIBAG 100 ML IV SCH (09:21)
[2018-09-12] MEDS: FAMOTIDINE 20 MG/2 ML VIAL IVP SCH (09:31)
[2018-09-12] MEDS: MULTIVITAMIN W/IRON, MINERALS 15 ML PO SCH (09:42)
[2018-09-12] MEDS: MEGESTROL 400 MG/10 ML UDC PO SCH (09:42)
[2018-09-12] MEDS: TAMSULOSIN 0.4 MG CAPSULE PO SCH (09:44)
[2018-09-12] MEDS: METOPROLOL TARTRATE 50 MG TABLET PO SCH (09:44)
[2018-09-12] MEDS: ASPIRIN EC 81 MG TABLET PO SCH (09:44)
[2018-09-12] MEDS: CLOPIDOGREL 75 MG TABLET PO SCH (09:45)
[2018-09-12] MEDS: ENOXAPARIN 40 MG/0.4 ML SYRINGE SUBQ SCH (09:46)
[2018-09-12] MEDS: NICOTINE 14 MG PATCH TOP SCH (09:47)
[2018-09-12] MEDS: SACCHAROMYCES BOULARDII 250 MG CAPSULE PO SCH ×2 (09:49→17:38)
[2018-09-12] MEDS ORDERED: SODIUM CHLORIDE FLUSH 0.9% 10 ML SYRINGE ONE (11:35)
[2018-09-12 11:40] LABS: ABG PCO2 41 mmHg (34-45); ABG PH 7.46 (7.35-7.45)
[2018-09-12 11:41] LABS: ABG BASE EXCESS 3.7 mmol/L (-2.0-3.0); ABG HCO3 27.9 mmol/L (22.0-26.0); ABG OXYGEN SATURATION 95 % (94-98); ABG PO2 74 mmHg (80-100); ABG TCO2 29.2 MMOL/L (21.0-29.0); ALLEN TEST POSITIVE
[2018-09-12] MEDS: MIN OIL/DIMETHICON/COCONUT OIL 92 GM TUBE TOP PRN ×2 (11:51→15:29)
[2018-09-12] MEDS: SODIUM CHLORIDE FLUSH 0.9% 10 ML SYRINGE IVP SCH ×3 (11:51→23:51)
[2018-09-12] MEDS: NYSTATIN 500000 UNITS/5 ML UDC PO SCH ×3 (15:00→20:22)
--- NOTE | 2018-09-12 17:45 | CONSULTATION NOTE ---
Palliative Care Follow Up - Referral Referring Provider: Domenico Porras MD Time of Visit: [id number] Referral setting: Hospitalized patient Referral Reason: Advanced COPD/Pneumonia/Pal Care - Information Sources Records reviewed: RN notes reviewed, Previous records reviewed History/Review of Systems obtained from: Patient, Family (Call to ; she is not able to come in related to health issues) Exam limitations: Clinical condition (patient with STM; much clearer today and able to partipate in visit/goal setting) - History of Present Illness Update Brief HPI Update: Is a 72-year-old gentleman well-known to me for greater than 3 years. Patient has progressive and advancing COPD, tobacco dependence, opioid dependence with chronic neuropathic pain related to chronic abdominal pain secondary to multiple abdominal surgeries. Patient was acutely admitted for COPD exacerbation and pneumonia, is currently responding to treatment. I do find him today without delirium, able to express his needs, and participate in goals of care conversation. Patient does report he has severe fatigue, is short of breath with any kind of activity, continues with moist cough, breath sounds with rhonchi and expiratory wheezing on the right. He is on Oxymizer, but his needs are decreasing. Patient reports pain is currently controlled, has been taking his medications as ordered. Palliative care meeting with patient secondary to patient's decline, advancing symptoms of COPD, acute admit, weight loss, and value to thrive. Patient most likely at this point would meet hospice criteria, is willing to discuss at this point goals of care and transition plan. Social History - Living Situation Living arrangement: At home Living Situation: With spouse/s.o. Support System: Patient lives at home with his who has health problems as well, and have a complicated social situation, but daughter does provide some support. Neither of them drive at this point in time. Medications/Allergies - Medications Active Medication List: Active Medications Al Hydroxide/Mg Hydroxide (Mylanta Plus) 30 ml PO Q4HR PRN PRN Reason: INDIGESTION Last Admin: 09/10/18 22:43 Dose: 30 ml Albuterol/Ipratropium (Duoneb) 3 ml INH Q4HR NORA Last Admin: 09/12/18 16:05 Dose: 3 ml Alprazolam (Xanax) 0.25 mg PO Q6HR PRN PRN Reason: Anxiety Last Admin: 09/11/18 20:33 Dose: 0.25 mg Aspirin (Ecotrin) 81 mg PO DAILY [facility] Last Admin: 09/12/18 09:44 Dose: 81 mg Clopidogrel Bisulfate (Plavix) 75 mg PO DAILY [facility] Last Admin: 09/12/18 09:45 Dose: 75 mg Diphenhydramine HCl (Benadryl) 25 mg PO QPM PRN PRN Reason: Insomnia Last Admin: 09/11/18 20:29 Dose: 25 mg Dronabinol (Marinol) 2.5 mg PO BIDAC [facility] Last Admin: 09/12/18 17:38 Dose: 2.5 mg Enoxaparin Sodium (Lovenox) 40 mg SUBQ DAILY [facility] Last Admin: 09/12/18 09:46 Dose: 40 mg Famotidine (Pepcid) 20 mg PO BID [facility] Formoterol Fumarate (Perforomist) 20 mcg INH RTBID [facility] Last Admin: 09/12/18 07:56 Dose: 20 mcg Hydromorphone HCl (Dilaudid Inj Syringe) 0.5 mg IVP Q2H PRN PRN Reason: PAIN Last Admin: 09/11/18 13:43 Dose: 0.25 mg Ceftriaxone Sodium 1 gm/ (Sodium Chloride) 100 mls @ 200 mls/hr IV DAILY [facility] Last Infusion: 09/12/18 09:51 Dose: Infused Clindamycin Phosphate (Cleocin 900 Mg/50 Ml) 50 mls @ 50 mls/hr IV Q6HR [facility] Last Admin: 09/12/18 17:39 Dose: 50 mls/hr Megestrol Acetate (Megace) 400 mg PO DAILY [facility] Last Admin: 09/12/18 09:42 Dose: 400 mg Methylprednisolone (Solu-Medrol (40mg Vial)) 40 mg IVP Q8HR [facility] Last Admin: 09/12/18 14:31 Dose: 40 mg Metoclopramide HCl (Reglan Inj) 5 mg IVP Q6HR PRN PRN Reason: Nausea / Vomiting Last Admin: 09/10/18 22:42 Dose: 5 mg Metoprolol Tartrate (Lopressor) 50 mg PO DAILY [facility] Last Admin: 09/12/18 09:44 Dose: 50 mg Metoprolol Tartrate (Lopressor Inj) 5 mg IVP Q4HR PRN PRN Reason: HR>120 Last Admin: 09/11/18 11:59 Dose: 5 mg Mineral Oil (Cavilon) 1 applic TOP PRN PRN PRN Reason: Skin Care Last Admin: 09/12/18 15:29 Dose: 1 applic Mirtazapine (Remeron) 7.5 mg PO QPM [facility] Last Admin: 09/11/18 20:29 Dose: 7.5 mg Montelukast Sodium (Singulair) 10 mg PO QPM [facility] Last Admin: 09/11/18 20:29 Dose: 10 mg Multivitamins/Folic Acid/Vitamin C (Centrum) 15 ml PO DAILY [facility] Last Admin: 09/12/18 09:42 Dose: 15 ml Nicotine (Nicoderm) 1 patch TOP DAILY [facility] Last Admin: 09/12/18 09:47 Dose: 1 patch Nitroglycerin (Nitrostat) 0.4 mg SL Q5M PRN PRN Reason: Chest Pain Nystatin (Mycostatin) 5 ml PO QID [facility] Last Admin: 09/12/18 15:00 Dose: 5 ml Ondansetron HCl (Zofran Inj) 4 mg IVP Q6HR PRN PRN Reason: Nausea / Vomiting Last Admin: 09/10/18 19:15 Dose: 4 mg Oxycodone HCl (Roxicodone) 90 mg PO QID [facility] Last Admin: 09/12/18 14:31 Dose: 90 mg Prochlorperazine Edisylate (Compazine Inj) 10 mg IVP Q4HR PRN PRN Reason: Nausea / Vomiting Last Admin: 09/11/18 05:12 Dose: 10 mg Saccharomyces Boulardii (Florastor) 250 mg PO BIDWM [facility] Last Admin: 09/12/18 17:38 Dose: 250 mg Sodium Chloride (Normal Saline Flush 0.9%) 10 ml IVP 0100,0900,1700 [facility] Last Admin: 09/12/18 17:38 Dose: 10 ml Sodium Chloride (Normal Saline Flush 0.9%) 10 ml IVP PRN PRN PRN Reason: NEEDED PER PROVIDER ORDERS Last Admin: 09/12/18 15:29 Dose: 10 ml Tamsulosin HCl (Flomax) 0.4 mg PO DAILY [facility] Last Admin: 09/12/18 09:44 Dose: 0.4 mg Trazodone HCl (Desyrel) 100 mg PO QPM PRN PRN Reason: Insomnia Last Admin: 09/11/18 21:29 Dose: 100 mg Tamsulosin [Flomax] 0.4 mg PO DAILY 01/19/13 Albuterol Sulfate [Proair Hfa Inhaler] 2 inh IH Q4H PRN 09/20/14 Aspirin [Ecotrin] 81 mg PO DAILY 09/20/14 Metoprolol Tartrate [Lopressor] 50 mg PO DAILY 09/20/14 Nitroglycerin [Nitrostat] 1 tab [id number] ONCE 12/07/15 Albuterol 2.5 mg NEB BID PRN 03/01/17 Oxycodone HCl [Roxicodone] 90 mg PO QID MDD nte 12 tabs/24 hours 07/31/17 Trazodone HCl 100 - 200 mg PO QPM PRN 08/29/17 Budesonide/Formoterol Fumarate [Symbicort 160-4.5 Mcg Inhaler] 2 puffs INH BID 09/27/17 Clopidogrel [Plavix] 75 mg PO DAILY 02/16/18 Lovastatin 40 mg PO DAILY 02/16/18 Ipratropium/Albuterol [Duoneb] 1 inh INH Q4HR PRN 09/05/18 - Allergies Allergies/Adverse Reactions: Allergies Allergy/AdvReac Type Severity Reaction Status Date / Time codeine Allergy Unknown Verified 09/10/18 08:17 Iodinated Contrast- Oral and Allergy Unknown Verified 09/10/18 12:56 IV Dye Penicillins Allergy Unknown Verified 09/10/18 08:17 Review of Systems - Constitutional Constitutional: reports: Fatigue ( reports feeling very fatigued and weak.), Weakness, Poor appetite, Weight loss - Eyes Eyes: reports: Vision loss - Ears, Nose & Throat Ears, Nose & Throat: reports: Hearing loss, Dry mouth (Complaining of things tasting badly, dry mouth, and sticking in his mouth. Patient does have broken upper plate, and is scheduled to see dentist in the next month) - Cardiovascular Cardiovascular: reports: Exertional dyspnea, Decr. exercise tolerance, Orthopnea. denies: Chest pain - Respiratory Respiratory: reports: Cough (moist), Sputum production, Wheezing, Orthopnea, SOB at rest, SOB with exertion, Pleuritic pain (improved) - Gastrointestinal Gastrointestinal: reports: Abdominal pain, Poor appetite, Early satiety. denies: Nausea - Genitourinary Genitourinary: reports: Frequency, Urgency - Musculoskeletal Musculoskeletal: reports: Back pain, Muscle aches, Stiffness, Limited range of motion, Muscle weakness, Assistive devices - Integumentary Integumentary: reports: Dryness, Nail changes (thickened fungal toe nails) - Neurological Neurological: reports: General weakness, Memory problems (improved mentation today; is still with STM; patient gets very frustrated) - Psychiatric Psychiatric: reports: Depression, Anxiety - Hematologic/Lymphatic Hematologic/Lymphatic: reports: Recurrent infections (had COPD exacerbation early in month with tx of zpack) - All Other Systems All Other Systems: reports: Other (llimited ROS) Physical Exam - Vital Signs Vital Signs: Vital Signs x48h Temp Pulse Pulse Resp BP BP Pulse Ox 09/12/18 17:37 91 24 130/64 92 09/12/18 15:46 78 18 09/12/18 15:35 36.4 C L 79 26 H 110/65 91 L 09/12/18 15:32 94 09/12/18 14:45 81 24 116/61 93 09/12/18 14:04 95 09/12/18 13:14 92 09/12/18 12:32 36.8 C 26 H 107/55 L 92 09/12/18 12:13 84 18 09/12/18 11:00 36.8 C 82 26 H 112/65 93 09/12/18 09:59 89 24 94/55 L 92 09/12/18 09:44 112/70 - Physical Exam General Appearance: positive: Mild distress, Anxious, Other (Patient historically starts to feel better, starts getting more agitated and belligerent. He does not like being at hospitals, this is multifactorial, including some PTSD from previous hospitalizations, tobacco abuse, and anxiety.) Eyes Bilateral: positive: Normal inspection ENT: positive: Other (Patient presents with oral candidiasis, has scattered fecal lesions, bright red beefy tongue, as well as plaques under broken denture.) Neck: positive: Trachea midline Cardiovascular: positive: Regular rate & rhythm Respiratory: positive: Diminished throughout, Wheezes, Rhonchi Abdomen: positive: Other (has abdominal binder on;) Skin: positive: Pallor, Dryness Extremities: positive: No pedal edema Neurologic/Psychiatric: positive: Disoriented to time, Weakness, Depressed mood/affect, Flat affect Palliative Care - POLST Patient has POLST: Yes POLST Status: DNR, Selective Treatment Pain: Pain unchanged, Location (Abdominal pain, mostly located in the right lower quadrant over his severe herniation. His back pain has not been exacerbated, most of his pain gets worse with movement, walking, he is most comfortable in bed and is not been up much.) Tiredness/Fatigue: Severe (7-10) Drowsiness/Sedation: Moderate (4-6) Nausea: None Depression: Moderate (4-6) Anxiety: Moderate (4-6) Dyspnea: Severe (7-10) Anorexia: Moderate (4-6), Weight loss Sleep: Sleeps poorly Constipation: Yes, Opoid induced, Intermittent constipation Performance Status: Patient's previous level of function was fairly sedentary, patient did spend most of the time in bed, this was more related to his he is most comfortable laying flat, his pain does exacerbate when he stands and stretches against the abdominal wall. He also has increased pain with weightbearing in his lower back where he had his L1 fracture. - Palliative Care Discussion: Patient well-known to me, we did have a akash discussion. Discussed we were at a fork in the road,. Patient often has expressed his suffering is high, his quality of life is not good. We discussed at this point in time given his weight loss his progressive COPD, now with acute hospitalization, we could look at transitioning to hospice and focus on comfort and not returning to the hospital. We also discussed continue with palliative care, he responded "I do not want to go", he does profess "I want to get better". He says often will and he is feeling so sick he just wants to quit. Today he feels like he does want to continue, to focus on getting better. He reflects he never thought he would make it past 39, particularly given most recent decade with all his multiple health problems. He is able to identify that living for his Magy, given that she would be somewhat devastated without him, would be a reason to continue. He has again severe distress over his story, of life changing fairly dramatically with the perforation of his colonoscopy, and the sequela of this. He continues with fairly unresolved anger and bitterness regarding this. Patient was redirected, discussed if patient were to look at getting better, this would include at this point in time increased effort for tobacco sensation, focus on nutrition and gaining weight, increasing activity and medication adherence. He would like to take that for can the road, recognizing that he is quite frail. I did call his Magy, to include her in the conversation and reflect on the conversation I had with him, she is aware of his significant depression. She reflects on her loss as well when her life changed dramatically when he had this acute decline secondary to perforated colonoscopy. She reports he is felt helpless for so many years, she feels her purpose is to take care of him, and was glad to hear he was willing to consider investing and getting better. She does recognize though his fragility, notes that he may continue to decline and that we may be revisiting the hospice conversation again soon. Results - Lab Results Lab results reviewed: Yes Fish Bones: 09/12/18 04:25 09/12/18 04:25 Lab and Imaging Results: Lab Results x24hrs 09/12/18 09/12/18 09/12/18 Range/Units 11:39 04:25 04:25 WBC (4.8-10.8) x10^3/uL RBC (4.70-6.10) 10^6/uL Hgb (14.0-18.0) g/dL Hct (42.0-52.0) % MCV (80.0-94.0) fL MCH (27.0-31.0) pg MCHC (32.0-36.0) g/dL RDW (12.0-15.0) % Plt Count (130-450) 10^3/uL MPV (7.4-11.4) fL Neut # (Auto) Lymph # (Auto) Braxton # (Auto) Eos # (Auto) Baso # (Auto) Absolute Nucleated RBC Total Counted Band Neuts % (Manual) (0 - 10) % Abnorm Lymph % (Manual) % Metamyelocytes % ( - 0) % Myelocytes % ( - 0) % Nucleated RBC % Neutrophils # (Manual) (1.5-6.6) 10^3/uL Lymphocytes # (Manual) (1.5-3.5) 10^3/uL Monocytes # (Manual) (0.0-1.0) 10^3/uL Eosinophils # (Manual) (0-0.7) 10^3/uL Basophils # (Manual) (0-0.1) 10^3/uL Differential Comment Platelet Estimate (NORMAL) RBC Morph Micro Appear (NORMAL) Bld Gas Analysis Time 1135 Sample Site RIGHT RADIAL ABG pH 7.46 H (7.35-7.45) ABG pCO2 41 (34-45) mmHg ABG pO2 74 L (80-100) mmHg ABG HCO3 27.9 H (22.0-26.0) mmol/L ABG Total CO2 29.2 H (21.0-29.0) MMOL/L ABG O2 Saturation 95 (94-98) % ABG Base Excess 3.7 H (-2.0-3.0) mmol/L Srinivas Test POSITIVE VBG pH 7.400 (7.31-7.41) Ionized Calcium 1.17 (1.15-1.33) mmol/L O2 Delivery Device OXYMIZER O2 Liters/Min 7.00 LPM Sodium 141 (135-145) mmol/L Potassium 4.4 (3.5-5.0) mmol/L Chloride 104 (101-111) mmol/L Carbon Dioxide 29 (21-32) mmol/L Anion Gap 8.0 (6-13) BUN 21 H (6-20) mg/dL Creatinine 0.9 (0.6-1.2) mg/dL Estimated GFR (MDRD) 83 L (>89) Glucose 201 H (70-100) mg/dL Calcium 8.8 (8.5-10.3) mg/dL Phosphorus 3.2 (2.5-4.6) mg/dL Magnesium 2.3 (1.7-2.8) mg/dL Total Bilirubin 0.5 (0.2-1.0) mg/dL AST 52 H (10-42) IU/L ALT 71 H (10-60) IU/L Alkaline Phosphatase 60 (42-121) IU/L Total Protein 5.4 L (6.7-8.2) g/dL Albumin 2.8 L (3.2-5.5) g/dL Globulin 2.6 (2.1-4.2) g/dL Albumin/Globulin Ratio 1.1 (1.0-2.2) 09/12/18 Range/Units 04:25 WBC 18.0 H (4.8-10.8) x10^3/uL RBC 4.04 L (4.70-6.10) 10^6/uL Hgb 12.8 L (14.0-18.0) g/dL Hct 39.2 L (42.0-52.0) % MCV 97.0 H (80.0-94.0) fL MCH 31.7 H (27.0-31.0) pg MCHC 32.7 (32.0-36.0) g/dL RDW 13.1 (12.0-15.0) % Plt Count 286 (130-450) 10^3/uL MPV 9.0 (7.4-11.4) fL Neut # (Auto) Not Reportable Lymph # (Auto) Not Reportable Braxton # (Auto) Not Reportable Eos # (Auto) Not Reportable Baso # (Auto) Not Reportable Absolute Nucleated RBC Not Reportable Total Counted 100 Band Neuts % (Manual) 8 (0 - 10) % Abnorm Lymph % (Manual) 0 % Metamyelocytes % 1 H ( - 0) % Myelocytes % 2 H ( - 0) % Nucleated RBC % Not Reportable Neutrophils # (Manual) 16.4 H (1.5-6.6) 10^3/uL Lymphocytes # (Manual) 0.7 L (1.5-3.5) 10^3/uL Monocytes # (Manual) 0.4 (0.0-1.0) 10^3/uL Eosinophils # (Manual) 0.0 (0-0.7) 10^3/uL Basophils # (Manual) 0.0 (0-0.1) 10^3/uL Differential Comment MANUAL DIFFERENTIAL Platelet Estimate NORMAL (130-450,000) (NORMAL) RBC Morph Micro Appear NORMAL APPEARANCE (NORMAL) Bld Gas Analysis Time Sample Site ABG pH (7.35-7.45) ABG pCO2 (34-45) mmHg ABG pO2 (80-100) mmHg ABG HCO3 (22.0-26.0) mmol/L ABG Total CO2 (21.0-29.0) MMOL/L ABG O2 Saturation (94-98) % ABG Base Excess (-2.0-3.0) mmol/L Srinivas Test VBG pH (7.31-7.41) Ionized Calcium (1.15-1.33) mmol/L O2 Delivery Device O2 Liters/Min LPM Sodium (135-145) mmol/L Potassium (3.5-5.0) mmol/L Chloride (101-111) mmol/L Carbon Dioxide (21-32) mmol/L Anion Gap (6-13) BUN (6-20) mg/dL Creatinine (0.6-1.2) mg/dL Estimated GFR (MDRD) (>89) Glucose (70-100) mg/dL Calcium (8.5-10.3) mg/dL Phosphorus (2.5-4.6) mg/dL Magnesium (1.7-2.8) mg/dL Total Bilirubin (0.2-1.0) mg/dL AST (10-42) IU/L ALT (10-60) IU/L Alkaline Phosphatase (42-121) IU/L Total Protein (6.7-8.2) g/dL Albumin (3.2-5.5) g/dL Globulin (2.1-4.2) g/dL Albumin/Globulin Ratio (1.0-2.2) Impression and Recommendations - Palliative Care Impression: This is a 72-year-old gentleman with a long list of comorbidities including advanced COPD, recently oxygen dependent, increasing AAA, chronic abdominal pain with neuropathic syndrome, coronary artery disease, tobacco abuse and most recently decreased functional status and cognitive decline. He has presented with acutely pneumonia, is at this point in time responding to treatment, patient presented with mild delirium superimposed on cognitive deficits and has demonstrated improvement today. Patient does have high symptom burden at baseline, and concern regarding recent weight loss. Palliative care will continue to follow patient provide support Recommendations/Counseling Done: 1. Advanced care planning. Counseling provided regarding goals of care conversation, decision of hospice versus palliative and define what is most important. Patient is point in time wants to concentrate on getting better, improving both functional status, respiratory to status, and improved nutrition. Patient does have a LISA ST in place, his goal is to "go quick", does not went any suffering prolonged, but currently does not feel he is ready to transition to hospice. This was communicated to his health care team. 2. Oral candidiasis. Follow-up with hospitalist regarding patient's symptoms, may also be adding to his decreased intake. 3. Tobacco abuse. Counseling provided regarding this is a good time to transition to quit his smoking. He has been on nicotine patch, reviewed my concerns regarding his worsening emphysema, recurrent pneumonia now, and ongoing decline. Patient does want to give it a try, did call the and encouraged to remove cigarettes, clean up the ashes, and clear out the air. It is significant in a smoky environment and hard not to trigger. does not smoke, she VAPS. 4. Depression. Patient has long-term struggled with depression, expressing feelings of grief and loss, now with ongoing health problems he does feel significantly helpless. He has been suicidal in the past, denies suicidal ideation at this time. Patient does tend to have PTSD, gets more crabby and belligerent to staff at times when he is improved. Patient does not like to be in the hospital, but is concerned patient will be sent home too soon. Patient may benefit from home health both nursing and PT on discharge. He has had it before, and it has been helpful to monitor progress and improve medication adherence. 5. Generalized weakness. This is multifactorial in origin, would recommend physical therapy while inpatient, and transition to home health physical therapy on discharge. [id number]; it is a taxing considerable effort for the patient leave the home secondary to his dyspnea, lower extremity weakness, as well as chronic pain syndrome. RN to monitor new oxygen therapy, oversight in teaching regarding medication adherence, instruction and follow-up on duo nebs/nebulizer and cleaning. PT for safety eval, strengthening program, and home exercise program. Home health aide to assist with bathing and personal care. Time Spent: 40 minutes with greater than 50% of this done in counseling regarding goals of care, hospice versus palliative on discharge, tobacco sensation, and transition planning. Coordination of care with , clinical team, and home health. [facility]
--- NOTE | 2018-09-12 18:04 | MISCELLANEOUS PROVIDER NOTE ---
Miscellaneous Provider Note - - Note: Subjective: Patient has improvement to his shortness of breath as it pertains to his respiratory failure. Patient conveys some generalized weakness with nonproductive cough, no fevers no chills, no chest pain. Is complaining of oral discomfort with whitish substance to tongue. Objective: Vital signs are hemodynamically stable afebrile heart rate of 78 bpm, blood pressure 110/65, RR 18,92% O2 saturation on a 7 L Oxymizer General: Patient is cachectic thin frail chronically ill-appearing In mild to moderate respiratory distress speaking in full sentences HEENT: No buccal lesions, NCAT, pupils are equal round to react to light and accommodation Neck: No JVD no bruits no lymphadenopathy CV/lungs: Decreased breath sounds bilaterally with scattered rales with no wheezing, no increased work of breath no intercostal retractions. RRR. No murmurs gallops clicks or rubs. Abdomen: Soft nontender nondistended positive bowel sounds all quadrants no HSM next Extremities/skin no edema clubbing or cyanosis. Full range of motion upper and lower extremities. No lesions. No pedal edema. Neuro: Grossly intact next Labs: Reviewed expressive imaging studies: Reviewed next Assessment/Plan Assessment/plan: (1) Sepsis Impression: Improved Respiratory function has significantly improved as well as mental status. Patient continues to have hypoxemia however WBC count has gone up to 18,000 with no compromise of organ dysfunction with good renal function and a creatinine along with electrolytes slight elevation of AST and ALT. We will continue with aggressive IV antibiotics and medical management along with clindamycin/Satinder ephin. Differential diagnosis of pulmonary embolism in the setting of hypoxemia still present with an elevated d-dimer. However I suspect that leukocytosis may have elevated as well in the setting of IV steroids Which has been now changed to 40 mg IV every 8. Qualifiers: Sepsis type: sepsis due to unspecified organism Qualified Code(s): A41.9 - Sepsis, unspecified organism (2) Acute on chronic respiratory failure with hypoxemia Impression: Improved Severe hypoxemia Seen on serial blood gases with improved blood gas currently. Likely as a result of an acute aspiration pneumonitis insult. Continue on Solu- Medrol plus duo nebs every 4 [id number] plus the addition of clindamycin to Rocephin. Differential is pulmonary embolism with a d-dimer of 1050 however patient is unable to tolerate or has an allergy to contrast and a noncontrast CT was performed. Still could have a pulmonary embolism however patient has a DNR status and would likely not pursue a V/Q scan. Patient unable to tolerate BiPAP at this point and on oxygen mask will be provided for further oxygenation as patient might be VQ mismatching at this point. (3) COPD with acute exacerbation Impression: Severe bullous emphysema seen on CT with no blebs or ruptures or pneumothorax. Continue with current medical management (4) Community acquired bacterial pneumonia Impression: Patient initially was on azithromycin as well as Rocephin however in the setting of suspected acute aspiration pneumonitis patient Was switchedover to clindamycin in addition to Rocephin with nebulizers every 4 around the clock. Solu-Medrol to be down titrated to 40 mg IV every 8. Oxygenation Has improved and currently on an Oxymizer at 7 L and has been titrated by RT down to 5 L. Sputum Gram stain and culture respiratory to obtain. (5) Aspiration pneumonitis Impression: Patient has been cleared by speech therapy and currently on a mechanical altered diet. Solu-Medrol has been weaned down to 40 mg IV every 8. Continuation of clindamycin to cover for anaerobes as it pertains to aspiration events and to continue with Rocephin at this point. Continue with pulmonary toileting, incentive spirometry As well as nebulizers. (6) Oral thrush likely as a result of steroids and IV antibiotics with suppression of oral petra. Will place on nystatin 5 mL's p.o. 4 times daily. (7) Abdominal distention secondary to Oxymizer and oxygenation creating insufflation of the stomach. Impression: Patient does not complain of abdominal pain and there is no ascites present. Patient is tolerating diet and is currently on antiemetics with Marinol. Will place on simethicone. Abdominal series does not show overt ileus or small bowel obstruction other than nonspecific gas pattern within the intestines. (8) Elevated d-dimer Impression: D-dimer 1050. Patient still could have a pulmonary embolism in the setting of hypoxemia with a low PO2 while on Oxymizer at 8 L which make an indication of VQ mismatching. Currently patient's blood gases have improved. However patient had a noncontrast CT and Likelihood of PE would only be differentiated on a VQ scan. (9) Palliative care status: As per palliative care service, Palliative care meeting with patient secondary to patient's decline, advancing symptoms of COPD, acute admit, weight loss, and value to thrive. Patient most likely at this point would meet hospice criteria, is willing to discuss at this point goals of care and transition plan. Continue with DVT/GI prophylaxis.
[2018-09-12] MEDS: diphenhydrAMINE 25 MG CAPSULE PO PRN (19:27)
[2018-09-12] MEDS: MONTELUKAST 10 MG TABLET PO SCH (20:21)
[2018-09-12] MEDS: SIMETHICONE CHEW 80 MG TABLET PO SCH (20:21)
[2018-09-12] MEDS: ALPRAZolam 0.25 MG TABLET PO PRN (20:21)
[2018-09-12] MEDS: FAMOTIDINE 20 MG TABLET PO SCH (20:21)
[2018-09-12] MEDS: MIRTAZAPINE 15 MG TABLET PO SCH (20:22)
[2018-09-12] MEDS: traZODone 50 MG TABLET PO PRN (20:22)
[2018-09-13] MEDS: IPRATROPIUM/ALBUTEROL 3 ML NEB INH SCH ×5 (02:13→20:05)
[2018-09-13] MEDS: ALPRAZolam 0.25 MG TABLET PO PRN ×2 (02:19→22:19)
[2018-09-13 05:52] LABS: VBG PH 7.482 (7.31-7.41)
[2018-09-13 06:01] LABS: LYMPHOCYTES # (AUTO) 0.5 10^3/uL (1.5-3.5); LYMPHOCYTES % (AUTO) 2.6 %; MEAN CORPUSCULAR HEMOGLOBIN 31.8 pg (27.0-31.0); MEAN CORPUSCULAR HGB CONC 33.2 g/dL (32.0-36.0); MEAN CORPUSCULAR VOLUME 95.8 fL (80.0-94.0); MEAN PLATELET VOLUME 8.6 fL (7.4-11.4); MONOCYTES # (AUTO) 1.1 10^3/uL (0.0-1.0); MONOCYTES % (AUTO) 5.6 %; NEUTROPHILS # (AUTO) 17.3 10^3/uL (1.5-6.6); NEUTROPHILS % (AUTO) 91.8 %; PLT - PLATELET COUNT 324 10^3/uL (130-450); RED CELL DISTRIBUTION WIDTH 13.4 % (12.0-15.0); WHITE BLOOD COUNT 18.9 x10^3/uL (4.8-10.8)
[2018-09-13 06:08] LABS: ALBUMIN 2.7 g/dL (3.2-5.5); BILIRUBIN,TOTAL 0.5 mg/dL (0.2-1.0); CALCIUM 8.7 mg/dL (8.5-10.3); CREATININE 0.8 mg/dL (0.6-1.2); MAGNESIUM 2.2 mg/dL (1.7-2.8); PHOSPHORUS 2.6 mg/dL (2.5-4.6); TOTAL PROTEIN 5.3 g/dL (6.7-8.2)
[2018-09-13] MEDS: DRONABINOL 2.5 MG CAPSULE PO SCH ×2 (06:12→17:08)
[2018-09-13] MEDS: CLINDAMYCIN 900 MG/50 ML 50 ML IV SCH ×3 (06:12→18:07)
[2018-09-13] MEDS: methylPREDNISolone SUCCINATE 40 MG/ML VIAL IVP SCH ×2 (06:12→17:56)
[2018-09-13] MEDS: FORMOTEROL FUMARATE NEB 20 MCG/2 ML INH SCH ×2 (06:14→20:17)
[2018-09-13] MEDS: oxyCODONE 30 MG TABLET PO SCH ×4 (08:14→21:13)
[2018-09-13] MEDS: SACCHAROMYCES BOULARDII 250 MG CAPSULE PO SCH ×2 (08:15→17:48)
[2018-09-13] MEDS ORDERED: METHYLNALTREXONE BROMIDE 12 MG/0.6 ML SYRINGE SQ ONE (08:47)
[2018-09-13] MEDS: cefTRIAXone 1 GM in SODIUM CHLORIDE 0.9% MINIBAG 100 ML IV SCH (10:16)
[2018-09-13] MEDS: MULTIVITAMIN W/IRON, MINERALS 15 ML PO SCH (10:18)
[2018-09-13] MEDS: CLOPIDOGREL 75 MG TABLET PO SCH (10:20)
[2018-09-13] MEDS: ASPIRIN EC 81 MG TABLET PO SCH (10:20)
[2018-09-13] MEDS: MEGESTROL 400 MG/10 ML UDC PO SCH (10:20)
[2018-09-13] MEDS: FAMOTIDINE 20 MG TABLET PO SCH ×2 (10:20→21:09)
[2018-09-13] MEDS: TAMSULOSIN 0.4 MG CAPSULE PO SCH (10:21)
[2018-09-13] MEDS: METOPROLOL TARTRATE 50 MG TABLET PO SCH (10:21)
[2018-09-13] MEDS: ENOXAPARIN 40 MG/0.4 ML SYRINGE SUBQ SCH (10:23)
[2018-09-13] MEDS: NICOTINE 14 MG PATCH TOP SCH (10:23)
[2018-09-13] MEDS: SIMETHICONE CHEW 80 MG TABLET PO SCH ×4 (10:25→21:13)
[2018-09-13] MEDS: SODIUM CHLORIDE FLUSH 0.9% 10 ML SYRINGE IVP SCH ×2 (10:28→17:53)
[2018-09-13] MEDS: NYSTATIN 500000 UNITS/5 ML UDC PO SCH ×4 (10:28→21:13)
--- NOTE | 2018-09-13 12:24 | CT Report ---
Reason: abdominal distention Procedure Date: 09/13/2018 Accession Number: [id number] / [id number] Procedure: CT - Abdomen/Pelvis WO CPT Code: FULL RESULT: EXAM: CT ABDOMEN AND PELVIS (CT KUB) EXAM DATE: 09/13/2018 10:01 AM. CLINICAL HISTORY: Abdominal distention. COMPARISONS: CTA of the abdomen and pelvis from 01/02/2018. TECHNIQUE: Routine axial helical CT imaging was performed through the abdomen and pelvis without IV contrast. Reconstructions: Coronal and sagittal. In accordance with CT protocol optimization, one or more of the following dose reduction techniques were utilized for this exam: automated exposure control, adjustment of mA and/or KV based on patient size, or use of iterative reconstructive technique. FINDINGS: Lung Bases: There is moderate emphysema in the lung bases with linear bilateral lower lobe opacities, most compatible with atelectasis. There is mild groundglass opacity in right middle lobe (series 3, image 7), which may represent atelectasis or infiltrate. Liver: Subcentimeter hyperattenuating foci are too small to characterize. Otherwise unremarkable. Gallbladder/bile ducts: Multiple stones present in the gallbladder. Gallbladder is not distended. Caliber of the bile ducts is within normal limits. Spleen: Unremarkable. Pancreas: Unremarkable. Adrenal glands: No nodules. Kidneys: There are bilateral nonobstructing renal calculi. The largest on the left is in the lower pole and measures 4 mm (series 5, image 30). The largest on the right is in the upper pole and measures 5 mm (series 5, image 39). No hydronephrosis or contour deforming lesion. Retroperitoneum: There is atherosclerotic calcification of the abdominal aorta with fusiform aneurysm of the infrarenal abdominal aorta to a caliber of 4.7 cm (series 5, image 24). No retroperitoneal adenopathy. Peritoneal Cavity: Evaluation of the bowel is somewhat limited by absence of intravenous contrast. There is dilation of small bowel loops in the central abdomen, measuring up to 4.7 cm. The greatest distention is at areas of previous small bowel surgery in the left abdomen (series 3, image 42) and central lower abdomen (series 3, image 51). These segments of bowel can normally be dilated secondary to postsurgical disruption of the myenteric plexus. A discrete transition point is not identified. There is no evidence of bowel inflammation. Diverticulosis of the sigmoid colon is demonstrated. Pelvic Organs: Urinary bladder is decompressed. No pelvic adenopathy or free fluid. Other: There is right-sided ventral hernia as well as lower abdominal rectus diastases, containing portions of bowel. However, no evidence of bowel obstruction. There is L1 compression fracture with vertebroplasty cement. IMPRESSION: 1. Postsurgical changes from multiple prior bowel surgeries with moderate dilation of small bowel in the central abdomen. A discrete transition point is not demonstrated, suggesting this may represent ileus. However, partial small bowel obstruction cannot be entirely excluded. 2. Cholelithiasis. 3. Nonobstructing bilateral nephrolithiasis. 4. Hazy opacity in the right lobe, which may represent atelectasis or infiltrate. 5. Fusiform aneurysm of the infrarenal abdominal aorta to a caliber of 4.7 cm, not significantly changed. RADIA
[2018-09-13] MEDS: MIN OIL/DIMETHICON/COCONUT OIL 92 GM TUBE TOP PRN (13:30)
[2018-09-13] MEDS: SODIUM CHLORIDE FLUSH 0.9% 10 ML SYRINGE IVP PRN ×3 (13:43→17:53)
[2018-09-13] MEDS: ALBUTEROL NEB 2.5 MG/3 ML INH PRN (13:58)
[2018-09-13] MEDS: HYDROmorphone 0.5 MG/0.5 ML SYRINGE IVP PRN ×3 (17:08→23:52)
--- NOTE | 2018-09-13 17:25 | MISCELLANEOUS PROVIDER NOTE ---
Miscellaneous Provider Note - - Note: Subjective: Patient is doing slightly better with his respiratory status shortness of breath. Although patient mentions abdominal distention with some discomfort. Patient had a bowel movement approximately 2 days ago small caliber stool. Patient denies fevers chills nausea vomiting GI or symptoms otherwise. Objective: Vital signs are hemodynamically stable afebrile, heart rate of 93, RR 22, 94% O2 saturation on a 7 L Oxymizer General: Patient is chronically ill-appearing in mild to moderate respiratory distress on 94% O2 saturation 7 L Oxymizer. Thin cachectic. HEENT: Oral lesions whitish plaque to tongue. NCAT Neck: No JVD no bruits no lymphadenopathy, Trachea midline and no thyromegaly CV/lungs: RRR. No gallops clicks or rubs. Decreased breath sounds with expiratory rhonchi and bibasilar rales with increased work of breath and inter costal retractions. Abdomen: Tense with tympany on percussion. Mild tenderness all quadrants. Decreased bowel sounds. No bruits. /rectal: No suprapubic pain on deep palpation. No scrotal edema. Rectal deferred Extremities/skin: No edema clubbing or cyanosis Neuro: Grossly intact Labs: Reviewed Imaging studies: CT abdomen and pelvis with contrast shows Moderate emphysema with bilateral opacities previously seen On CT chest. There is an L1 compression fracture with vertebroplasty cement. Postsurgical changes from multiple prior bowel surgeries with moderate dilation of small bowel in the central abdomen. A discrete transition point is not demonstrated, suggesting this may be representing ileus. However, partial small bowel obstruction cannot be entirely excluded. Cholelithiasis. Non-obstructing bilateral nephrolithiasis. Hazy opacity in the right lobe which may represent atelectasis or infiltrate. Fusiform aneurysm of the infrarenal abdominal aorta to a caliber of 4.7 cm not significantly changed per A/P: (1) Sepsis Impression: Improved Respiratory function has significantly improved as well as mental status. Patient continues to have hypoxemia however WBC count has gone up to 18,000 with no compromise of organ dysfunction with good renal function and a creatinine along with electrolytes slight elevation of AST and ALT. We will continue with aggressive IV antibiotics and medical management along with clindamycin/Rocephin. Differential diagnosis of pulmonary embolism in the setting of hypoxemia still present with an elevated d-dimer. However I suspect that leukocytosis may have elevated as well in the setting of IV steroids Which has been now changed to 40 mg IV every 8. Qualifiers: Sepsis type: sepsis due to unspecified organism Qualified Code(s): A41.9 - Sepsis, unspecified organism (2) Acute on chronic respiratory failure with hypoxemia Impression: Improved Severe hypoxemia Seen on serial blood gases with improved blood gas currently. Likely as a result of an acute aspiration pneumonitis insult. Continue on Solu- Medrol plus duo nebs every 4 [id number] plus the addition of clindamycin, De-escalation to Keflex 590s p.o. 4 times daily now. Differential is pulmonary embolism with a d-dimer of 1050 however patient is unable to tolerate or has an allergy to contrast and a noncontrast CT was performed. Still could have a pulmonary embolism however patient has a DNR status and would likely not pursue a V/Q scan. Patient unable to tolerate BiPAP at this point and on oxygen mask will be provided for further oxygenation as patient might be VQ mismatching at this point. CTA of the abdomen pelvis does not show any dissection of AAA nor clot burden in pulm (3) Acute partial small bowel obstruction/opiate induced ileus. We will continue with monitoring we will give Relistor as well as bowel care regimen protocol to see if patient is able to improve on abdominal distention. Otherwise we will n.p.o. and place an NG tube if needed as CTA shows no definitive transition point. This is most likely due to patient's chronic narcotic use. (4) COPD with acute exacerbation Impression: Severe bullous emphysema seen on CT with no blebs or ruptures or pneumothorax. Continue with current medical management (5) Community acquired bacterial pneumonia Impression: Patient initially was on azithromycin as well as Rocephin however in the setting of suspected acute aspiration pneumonitis patient Was switched over to clindamycin in addition to Rocephin. Solu-Medrol to be down titrated to 40 mg IV every 8. Oxygenation Has improved and currently on an Oxymizer at 7 L. Sputum Gram stain and culture respiratory to obtain. We will switch over to p.o. Keflex 500 minutes p.o. 4 times daily and d/c rocephin. Continue with pulmonary toileting, incentive spirometry As well as nebulizers. (6) Aspiration pneumonitis Impression: Patient has been cleared by speech therapy and currently on a mechanical altered diet. Solu-Medrol has been weaned down to 40 mg IV every 8. Continuation of clindamycin to cover for anaerobes as it pertains to aspiration events. We will switch over to p.o. Keflex 500 minutes p.o. 4 times daily. Continue with pulmonary toileting, incentive spirometry As well as nebulizers, Albuterol every 2 as needed for wheezing. (7) Oral thrush likely as a result of steroids and IV antibiotics with suppression of oral petra. Will place on nystatin 5 mL's p.o. 4 times daily. (8) Abdominal distention secondary to Oxymizer and oxygenation creating insufflation of the stomach. Impression: Patient does not complain of abdominal pain and there is no ascites present. Patient is tolerating diet and is currently on antiemetics with Marinol. Will place on simethicone. Abdominal series does not show overt ileus or small bowel obstruction other than nonspecific gas pattern within the intestines. (9) Elevated d-dimer Impression: D-dimer 1050. Patient still could have a pulmonary embolism in the setting of hypoxemia with a low PO2 while on Oxymizer at 8 L which make an indication of VQ mismatching. Currently patient's blood gases have improved. However patient had a noncontrast CT and Likelihood of PE would only be differentiated on a VQ scan. As of the most recent CTA of the abdomen pelvis does not appear to have any pulmonary embolism present. (10) Asymptomatic AAA: Chronic There is a stable fusiform aneurysm of the infrarenal abdominal aorta to a caliber of 4.7 cm (11) Palliative care status: As per palliative care service, Palliative care meeting with patient secondary to patient's decline, advancing symptoms of COPD, acute admit, weight loss, and value to thrive. Patient most likely at this point would meet hospice criteria, is willing to discuss at this point goals of care and transition plan. Continue with DVT/GI prophylaxis. Patient remains a DNR.
[2018-09-13] MEDS: cephALEXin 250 MG CAPSULE PO SCH ×2 (17:48→21:10)
[2018-09-13] MEDS: MONTELUKAST 10 MG TABLET PO SCH (21:10)
[2018-09-13] MEDS: MIRTAZAPINE 15 MG TABLET PO SCH (21:11)
[2018-09-13] MEDS: guaiFENesin 600 MG TABLET PO SCH (21:12)
[2018-09-13] MEDS: traZODone 50 MG TABLET PO PRN (23:52)
[2018-09-14] MEDS: CLINDAMYCIN 900 MG/50 ML 50 ML IV SCH ×4 (00:05→18:34)
[2018-09-14] MEDS: SODIUM CHLORIDE FLUSH 0.9% 10 ML SYRINGE IVP SCH ×3 (01:00→16:57)
[2018-09-14] MEDS: methylPREDNISolone SUCCINATE 40 MG/ML VIAL IVP SCH ×2 (05:20→18:34)
[2018-09-14] MEDS: SODIUM CHLORIDE FLUSH 0.9% 10 ML SYRINGE IVP PRN ×3 (05:20→18:34)
[2018-09-14 05:39] LABS: BASOPHILS % (AUTO) 0.1 %; HGB - HEMOGLOBIN 13.2 g/dL (14.0-18.0); LYMPHOCYTES # (AUTO) 0.9 10^3/uL (1.5-3.5); MEAN CORPUSCULAR HEMOGLOBIN 31.2 pg (27.0-31.0); MEAN CORPUSCULAR HGB CONC 32.5 g/dL (32.0-36.0); MEAN CORPUSCULAR VOLUME 96.1 fL (80.0-94.0); MEAN PLATELET VOLUME 7.9 fL (7.4-11.4); MONOCYTES # (AUTO) 1.5 10^3/uL (0.0-1.0); NEUTROPHILS # (AUTO) 19.6 10^3/uL (1.5-6.6); NEUTROPHILS % (AUTO) 88.9 %; PLT - PLATELET COUNT 326 10^3/uL (130-450); RED BLOOD COUNT 4.22 10^6/uL (4.70-6.10); RED CELL DISTRIBUTION WIDTH 13.5 % (12.0-15.0); WHITE BLOOD COUNT 22.1 x10^3/uL (4.8-10.8)
[2018-09-14 05:51] LABS: ALBUMIN 2.8 g/dL (3.2-5.5); ALBUMIN/GLOBULIN RATIO 1.1 (1.0-2.2); BILIRUBIN,TOTAL 0.2 mg/dL (0.2-1.0); CALCIUM 8.3 mg/dL (8.5-10.3); CREATININE 0.9 mg/dL (0.6-1.2); TOTAL PROTEIN 5.3 g/dL (6.7-8.2)
[2018-09-14 06:39] LABS: PLATELET ESTIMATE, MANUAL NORMAL (130-450,000) (NORMAL); PLATELET MORPHOLOGY NORMAL APPEARANCE (NORMAL); RBC MORPHOLOGY (MULTIPLE) NORMAL APPEARANCE (NORMAL)
[2018-09-14] MEDS: SACCHAROMYCES BOULARDII 250 MG CAPSULE PO SCH ×2 (07:31→16:57)
[2018-09-14] MEDS: DRONABINOL 2.5 MG CAPSULE PO SCH ×2 (07:31→16:19)
[2018-09-14] MEDS: IPRATROPIUM/ALBUTEROL 3 ML NEB INH SCH ×5 (07:47→18:05)
[2018-09-14] MEDS: FORMOTEROL FUMARATE NEB 20 MCG/2 ML INH SCH ×2 (07:47→18:01)
[2018-09-14] MEDS: ALBUTEROL NEB 2.5 MG/3 ML INH PRN (08:26)
[2018-09-14 08:48] LABS: ABG HCO3 27.1 mmol/L (22.0-26.0); ABG PCO2 36 mmHg (34-45); ABG PH 7.49 (7.35-7.45); ABG PO2 64 mmHg (80-100)
[2018-09-14 08:49] LABS: ABG OXYGEN SATURATION 94 % (94-98); ABG TCO2 28.2 MMOL/L (21.0-29.0); ALLEN TEST POSITIVE
[2018-09-14] MEDS: NICOTINE 14 MG PATCH TOP SCH (09:36)
[2018-09-14] MEDS: guaiFENesin 600 MG TABLET PO SCH ×2 (09:37→21:45)
[2018-09-14] MEDS: METOPROLOL TARTRATE 50 MG TABLET PO SCH (09:37)
[2018-09-14] MEDS: CLOPIDOGREL 75 MG TABLET PO SCH (09:37)
[2018-09-14] MEDS: cephALEXin 250 MG CAPSULE PO SCH ×4 (09:37→21:45)
[2018-09-14] MEDS: SIMETHICONE CHEW 80 MG TABLET PO SCH ×4 (09:37→21:45)
[2018-09-14] MEDS: TAMSULOSIN 0.4 MG CAPSULE PO SCH (09:37)
[2018-09-14] MEDS: MULTIVITAMIN W/IRON, MINERALS 15 ML PO SCH (09:38)
[2018-09-14] MEDS: NYSTATIN 500000 UNITS/5 ML UDC PO SCH ×4 (09:38→21:45)
[2018-09-14] MEDS: MEGESTROL 400 MG/10 ML UDC PO SCH (09:38)
[2018-09-14] MEDS: ENOXAPARIN 40 MG/0.4 ML SYRINGE SUBQ SCH (09:38)
[2018-09-14] MEDS: FAMOTIDINE 20 MG TABLET PO SCH ×2 (09:38→21:44)
[2018-09-14] MEDS: ASPIRIN EC 81 MG TABLET PO SCH (09:38)
[2018-09-14] MEDS: SODIUM CHLORIDE INHALATION 3 ML NEB INH SCH ×2 (13:22→18:05)
--- NOTE | 2018-09-14 18:43 | MISCELLANEOUS PROVIDER NOTE ---
Miscellaneous Provider Note - - Note: Subjective: Patient had respiratory distress today and required albuterol for his wheezing. No fevers no chest pain, no GI or symptoms. Objective: Vital signs are hemodynamically stable afebrile, Heart rate of 83, blood pressure 143/76, RR of 24, 96% O2 saturation on 6 L Oxymizer. General: Patient is chronically ill-appearing in Moderate distress, on 6 L Oxymizer, Speaking in short sentences,Thin cachectic. HEENT: Oral lesions whitish plaque to tongue. NCAT Neck: No JVD no bruits no lymphadenopathy, Trachea midline and no thyromegaly CV/lungs: RRR. No gallops clicks or rubs. Decreased breath sounds with expiratory rhonchi and bibasilar rales with increased work of breath and intercostal retractions. Abdomen: Abdominal distention present.Tense with tympany on percussion. Mild tenderness all quadrants. Decreased bowel sounds. No bruits. /rectal: No suprapubic pain on deep palpation. No scrotal edema. Rectal deferred Extremities/skin: No edema clubbing or cyanosis Neuro: Grossly intact Labs: Reviewed Imaging studies: CT abdomen and pelvis with contrast shows Moderate emphysema with bilateral opacities previously seen On CT chest. There is an L1 compression fracture with vertebroplasty cement. Postsurgical changes from multiple prior bowel surgeries with moderate dilation of small bowel in the central abdomen. A discrete transition point is not demonstrated, suggesting this may be representing ileus. However, partial small bowel obstruction cannot be entirely excluded. Cholelithiasis. Non-obstructing bilateral nephrolithiasis. Hazy opacity in the right lobe which may represent atelectasis or infiltrate. Fusiform aneurysm of the infrarenal abdominal aorta to a caliber of 4.7 cm not significantly changed per A/P: (1) Sepsis Impression: Improved Although WBC is elevated at 22.1. There is a component of steroid induced lymphocytosis. Respiratory function has significantly improved as well as mental status. Patient continues to have hypoxemia however with no compromise of organ dysfunction with good renal function and a creatinine along with electrolytes slight elevation of AST and ALT. We will continue with aggressive IV antibiotics and medical management along with clindamycin/Rocephin. Differential diagnosis of pulmonary embolism in the setting of hypoxemia still present with an elevated d-dimer. However I suspect that leukocytosis may have elevated as well in the setting of IV steroids Which has been now changed to 40 mg IV every 8. (2) Acute on chronic respiratory failure with hypoxemia Impression: Improved Severe hypoxemia Seen on serial blood gases with improved blood gas currently. Likely as a result of an acute aspiration pneumonitis insult. Continue on Solu- Medrol plus duo nebs every 4 [id number] plus the addition of clindamycin, De-escalation to Keflex 500 p.o. 4 times daily. Differential is pulmonary embolism with a d-dimer of 1050 however patient is unable to tolerate or has an allergy to contrast and a noncontrast CT was perfor med. Still could have a pulmonary embolism however patient has a DNR status and would likely not pursue a V/Q scan. Patient unable to tolerate BiPAP at this point and on oxygen mask will be provided for further oxygenation as patient might be VQ mismatching at this point. CTA of the abdomen pelvis does not show any dissection of AAA nor clot burden in pulm (3) Acute opioid induced ileus Patient already received Relistor 12 mcg dose subcu x1. We will continue with monitoring we will give Relistor In a.m., as well as bowel care regimen protocol to see if patient is able to improve on abdominal distention. Otherwise we will n.p.o. and place an NG tube if needed as CTA shows no definitive transition point. This is most likely due to patient's chronic narcotic use. (4) COPD with acute exacerbation Impression: Severe bullous emphysema seen on CT with no blebs or ruptures or pneumothorax. Continue with current medical management (5) Community acquired bacterial pneumonia Impression: Patient to continue with IV clindamycin as well as oral Keflex. Oxygenation Has improved and currently on an Oxymizer at 6 L. Sputum Gram stain and culture respiratory to obtain. Continue with pulmonary toileting, incentive spirometry As well as nebulizers. (6) Aspiration pneumonitis Impression: Will provide hypertonic saline for mucin-like therapy, Acapella 3 times daily patient did not tolerate CPT. Patient has been cleared by speech therapy and currently on a mechanical altered diet. Solu-Medrol has been weaned down to 40 mg IV every 12. Continuation of clindamycin to cover for anaerobes as it pertains to aspiration events. Continue with p.o. Keflex 500 minutes p.o. 4 times daily. Continue with pulmonary toileting, incentive spirometry As well as nebulizers, Albuterol every 2 as needed for wheezing. (7) Oral thrush likely as a result of steroids and IV antibiotics with suppression of oral petra. Continue on nystatin 5 mL's p.o. 4 times daily. (8) Elevated d-dimer Impression: D-dimer 1050. Patient still could have a pulmonary embolism in the setting of hypoxemia with a low PO2 while on Oxymizer at 8 L which make an indication of VQ mismatching. Currently patient's blood gases have improved. However patient had a noncontrast CT and Likelihood of PE would only be differentiated on a VQ scan. As of the most recent CTA of the abdomen pelvis does not appear to have any pulmonary embolism present. (9) Asymptomatic AAA: Chronic There is a stable fusiform aneurysm of the infrarenal abdominal aorta to a caliber of 4.7 cm 10. Steroid-induced hyperglycemia will place on insulin sliding scale and diabetic Carb controlled diet. (11) Palliative care status: Patient currently not ready for hospice at this point. As per palliative care service, Palliative care meeting with patient secondary to patient's decline, advancing symptoms of COPD, acute admit, weight loss, and value to thrive. Continue with DVT/GI prophylaxis. Patient remains a DNR.
[2018-09-14 19:20] LABS: HB2 TOTAL 14.2 g/dL; HEMOGLOBIN A1C 0.53 g/dL; HEMOGLOBIN A1C % 5.6 % (4.6-6.2)
[2018-09-14] MEDS: oxyCODONE 10 MG/0.5 ML SYRINGE PO SCH ×2 (19:54→19:58)
[2018-09-14] MEDS: ALPRAZolam 0.25 MG TABLET PO PRN (21:43)
[2018-09-14] MEDS: traZODone 50 MG TABLET PO PRN (21:44)
[2018-09-14] MEDS: MONTELUKAST 10 MG TABLET PO SCH (21:44)
[2018-09-14] MEDS: INSULIN ASPART 300 UNIT/3 ML PEN SUBQ SCH (21:58)
[2018-09-14] MEDS: MIRTAZAPINE 15 MG TABLET PO SCH (21:58)
[2018-09-15] MEDS: CLINDAMYCIN 900 MG/50 ML 50 ML IV SCH ×2 (00:02→06:38)
[2018-09-15] MEDS: SODIUM CHLORIDE FLUSH 0.9% 10 ML SYRINGE IVP SCH ×3 (00:03→14:04)
[2018-09-15] MEDS: IPRATROPIUM/ALBUTEROL 3 ML NEB INH SCH ×6 (03:37→20:12)
[2018-09-15 05:12] LABS: BASOPHILS % (AUTO) 0.2 %; HGB - HEMOGLOBIN 13.2 g/dL (14.0-18.0); LYMPHOCYTES # (AUTO) 0.8 10^3/uL (1.5-3.5); LYMPHOCYTES % (AUTO) 3.6 %; MEAN CORPUSCULAR HEMOGLOBIN 32.8 pg (27.0-31.0); MEAN CORPUSCULAR HGB CONC 34.3 g/dL (32.0-36.0); MEAN CORPUSCULAR VOLUME 95.7 fL (80.0-94.0); MONOCYTES # (AUTO) 1.5 10^3/uL (0.0-1.0); MONOCYTES % (AUTO) 6.5 %; NEUTROPHILS # (AUTO) 20.8 10^3/uL (1.5-6.6); NEUTROPHILS % (AUTO) 89.7 %; PLT - PLATELET COUNT 322 10^3/uL (130-450); RED BLOOD COUNT 4.03 10^6/uL (4.70-6.10); RED CELL DISTRIBUTION WIDTH 13.3 % (12.0-15.0); WHITE BLOOD COUNT 23.2 x10^3/uL (4.8-10.8)
[2018-09-15 05:27] LABS: ALBUMIN 2.7 g/dL (3.2-5.5); ALBUMIN/GLOBULIN RATIO 1.1 (1.0-2.2); BILIRUBIN,TOTAL 0.5 mg/dL (0.2-1.0); CALCIUM 8.6 mg/dL (8.5-10.3); CREATININE 1.2 mg/dL (0.6-1.2); TOTAL PROTEIN 5.1 g/dL (6.7-8.2)
[2018-09-15 05:29] LABS: PLATELET ESTIMATE, MANUAL NORMAL (130-450,000) (NORMAL); PLATELET MORPHOLOGY NORMAL APPEARANCE (NORMAL); RBC MORPHOLOGY (MULTIPLE) NORMAL APPEARANCE (NORMAL)
[2018-09-15] MEDS: methylPREDNISolone SUCCINATE 40 MG/ML VIAL IVP SCH ×2 (06:43→17:45)
[2018-09-15] MEDS: INSULIN ASPART 300 UNIT/3 ML PEN SUBQ SCH ×4 (07:18→21:43)
[2018-09-15] MEDS: TAMSULOSIN 0.4 MG CAPSULE PO SCH (07:20)
[2018-09-15] MEDS: guaiFENesin 600 MG TABLET PO SCH ×2 (07:20→21:23)
[2018-09-15] MEDS: SACCHAROMYCES BOULARDII 250 MG CAPSULE PO SCH ×2 (07:20→17:43)
[2018-09-15] MEDS: FAMOTIDINE 20 MG TABLET PO SCH ×2 (07:20→21:23)
[2018-09-15] MEDS: NICOTINE 14 MG PATCH TOP SCH (07:20)
[2018-09-15] MEDS: DRONABINOL 2.5 MG CAPSULE PO SCH ×2 (07:20→15:44)
[2018-09-15] MEDS: MULTIVITAMIN W/IRON, MINERALS 15 ML PO SCH (07:22)
[2018-09-15] MEDS: oxyCODONE 30 MG TABLET PO PRN ×2 (07:30→21:23)
[2018-09-15] MEDS ORDERED: METHYLNALTREXONE BROMIDE 12 MG/0.6 ML SYRINGE SQ ONE (08:00)
[2018-09-15] MEDS: FORMOTEROL FUMARATE NEB 20 MCG/2 ML INH SCH ×2 (08:28→20:14)
[2018-09-15] MEDS: MEGESTROL 400 MG/10 ML UDC PO SCH (08:57)
[2018-09-15] MEDS: NYSTATIN 500000 UNITS/5 ML UDC PO SCH ×4 (08:58→21:23)
[2018-09-15] MEDS: ASPIRIN EC 81 MG TABLET PO SCH (08:59)
[2018-09-15] MEDS: CLOPIDOGREL 75 MG TABLET PO SCH (08:59)
[2018-09-15] MEDS ORDERED: VANCOMYCIN INJ 1 GM, VANCOMYCIN INJ 500 MG in SODIUM CHLORIDE 0.9% 500 ML IV ONE (09:00)
[2018-09-15] MEDS: SIMETHICONE CHEW 80 MG TABLET PO SCH ×4 (09:01→21:23)
[2018-09-15] MEDS: levoFLOXacin 500 MG/100 ML 500 MG/100 ML BAG IV SCH (09:03)
[2018-09-15] MEDS: METOPROLOL TARTRATE 50 MG TABLET PO SCH (09:13)
[2018-09-15] MEDS: ENOXAPARIN 40 MG/0.4 ML SYRINGE SUBQ SCH (09:14)
--- NOTE | 2018-09-15 12:22 | MISCELLANEOUS PROVIDER NOTE ---
Miscellaneous Provider Note - - Note: Subjective: Patient With improvement to abdominal distention, still has some slight wheezing and increased short of breath On exertion along with productive cough. No fevers no chest pain, no GI or symptoms. Objective: Vital signs are hemodynamically stable afebrile, Slightly tachypneic at 24Non-tachycardic heart rate of 80, blood pressure 135/58. 90% O2 saturation on 5 L Oxymizer General: Patient is chronically ill-appearing in Moderate distress, on 6 L Oxymizer, Speaking in short sentences,Thin cachectic. HEENT: Oral lesions whitish plaque to tongue. NCAT Neck: No JVD no bruits no lymphadenopathy, Trachea midline and no thyromegaly CV/lungs: RRR. No gallops clicks or rubs. Decreased breath sounds with expiratory rhonchi and bibasilar rales; Mild upper and basilar wheezing scattered. Abdomen: Improved Abdominal distention present. Tense with tympany on percussion. Mild tenderness all quadrants. Decreased bowel sounds. No bruits. /rectal: No suprapubic pain on deep palpation. No scrotal edema. Rectal deferred Extremities/skin: No edema clubbing or cyanosis Neuro: Grossly intact Labs: Reviewed Imaging studies: CT abdomen and pelvis with contrast shows Moderate emphysema with bilateral opacities previously seen On CT chest. There is an L1 compression fracture with vertebroplasty cement. Postsurgical changes from multiple prior bowel surgeries with moderate dilation of small bowel in the central abdomen. A discrete transition point is not demonstrated, suggesting this may be representing ileus. However, partial small bowel obstruction cannot be entirely excluded. Cholelithiasis. Non-obstructing bilateral ne phrolithiasis. Hazy opacity in the right lobe which may represent atelectasis or infiltrate. Fusiform aneurysm of the infrarenal abdominal aorta to a caliber of 4.7 cm not significantly changed per A/P: (1) Sepsis Impression: Improved Although WBC is elevated at 23.2. There is a component of steroid induced lymphocytosis. Respiratory function has significantly improved as well as mental status. Respiratory culture shows 1+ normal respiratory petra. Patient continues to have hypoxemia however with no compromise of organ dysfunction with good renal function and a creatinine along with electrolytes slight elevation of AST and ALT. Patient may be developing underlying healthcare associated pneumonia. Would change IV antibiotics to vancomycin and Levaquin as patient has an allergy to penicillin. Differential diagnosis of pulmonary embolism in the setting of hypoxemia still present with an elevated d-dimer. However I suspect that leukocytosis may have elevated as well in the setting of IV steroids Which has been now changed to 40 mg IV every 12. (2) Acute on chronic respiratory failure with hypoxemia Impression: Improved Patient's hypoxemia has improved on Oxymizer. Latest blood gas show a pH of 7.49 with a P O2 of 64 and a PCO2 of 36 with a bicarb of 27.1. Likely as a result of an acute aspiration pneumonitis insult. As well as may deep developing a healthcare associated pneumonia Continue on Solu-Medrol plus duo nebs every 4 [id number], Pulmonary toileting and incentive spirometry. Differential is pulmonary embolism with a d-dimer of 1050 however patient is unable to tolerate or has an allergy to contrast and a noncontrast CT was performed. Still could have a pulmonary embolism however patient has a DNR status and would likely not pursue a V/Q scan. Patient unable to tolerate BiPAP at this point and on oxygen mask will be provided for further oxygenation as patient might be VQ mismatching at this point. CTA of the abdomen pelvis does not show any dissection of AAA nor clot burden in pulm tree. (3) Healthcare associated pneumonia. Not present on admission. Initially thought to have community-acquired pneumonia which patient had empiric IV antibiotics however due to aspiration event patient likely has H CAP and will now receive vancomycin and Levaquin due to allergy to penicillin. Continue with IV Solu-Medrol along with the addition of Pulmicort nebs pulmonary toileting incentive spirometry and respiratory treatments. Respiratory culture does not show MRSA or any concerning resistant organisms. Patient not significantly getting better despite aggressive IV abx's, nebs, resp treatments and medical mgmt. (4) Acute opioid induced ileus Patient already received Relistor 12 mcg dose subcu x1. We will continue with monitoring we will give Relistor In a.m., as well as bowel care regimen protocol to see if patient is able to improve on abdominal distention. Otherwise we will n.p.o. and place an NG tube if needed as CTA shows no definitive transition point. This is most likely due to patient's chronic narcotic use. (5) COPD with acute exacerbation Impression: Severe bullous emphysema seen on CT with no blebs or ruptures or pneumothorax. Continue with current medical management (6) Aspiration pneumonitis Impression: Will provide hypertonic saline for mucin-like therapy, Acapella 3 times daily patient did not tolerate CPT. Patient has been cleared by speech therapy and currently on a mechanical altered diet. Solu-Medrol has been weaned down to 40 mg IV every 12. Continuation of IV antibiotics on vancomycin and Levaquin now. Continue with pulmonary toileting, incentive spirometry As well as nebulizers, Albuterol every 2 as needed for wheezing. (7) Oral thrush likely as a result of steroids and IV antibiotics with suppression of oral petra. Continue on nystatin 5 mL's p.o. 4 times daily. (8) Elevated d-dimer Impression: D-dimer 1050. Patient still could have a pulmonary embolism in the setting of hypoxemia with a low PO2 while on Oxymizer at 8 L which make an indication of VQ mismatching. Currently patient's blood gases have improved. However patient had a noncontrast CT and Likelihood of PE would only be differentiated on a VQ scan. As of the most recent CTA of the abdomen pelvis does not appear to have any pulmonary embolism present. (9) Asymptomatic AAA: Chronic There is a stable fusiform aneurysm of the infrarenal abdominal aorta to a caliber of 4.7 cm 10. Steroid-induced hyperglycemia, Continue on insulin sliding scale and diabetic Carb controlled diet. (11) Palliative care status: Patient currently not ready for hospice at this point. As per palliative care service, Palliative care meeting with patient secondary to patient's decline, advancing symptoms of COPD, acute admit, weight loss, and value to thrive. Continue with DVT/GI prophylaxis. Patient remains a DNR.
[2018-09-15] MEDS: ALPRAZolam 0.25 MG TABLET PO PRN ×2 (12:40→22:11)
--- NOTE | 2018-09-15 13:14 | CONSULTATION NOTE ---
Palliative Care Follow Up - Referral Referring Provider: Domenico Porras MD Time of Visit: 115-1200 Referral setting: Hospitalized patient Medications/Allergies - Medications Active Medication List: Active Medications Al Hydroxide/Mg Hydroxide (Mylanta Plus) 30 ml PO Q4HR PRN PRN Reason: INDIGESTION Last Admin: 09/10/18 22:43 Dose: 30 ml Albuterol () 2.5 mg INH Q2H PRN PRN Reason: Wheezing Last Admin: 09/14/18 08:26 Dose: 2.5 mg Albuterol/Ipratropium (Duoneb) 3 ml INH Q4HR NORA Last Admin: 09/15/18 12:14 Dose: 3 ml Alprazolam (Xanax) 0.25 mg PO Q6HR PRN PRN Reason: Anxiety Last Admin: 09/15/18 12:40 Dose: 0.25 mg Aspirin (Ecotrin) 81 mg PO DAILY [facility] Last Admin: 09/15/18 08:59 Dose: 81 mg Budesonide (Pulmicort) 0.5 mg INH RTBID [facility] Clopidogrel Bisulfate (Plavix) 75 mg PO DAILY [facility] Last Admin: 09/15/18 08:59 Dose: 75 mg Diphenhydramine HCl (Benadryl) 25 mg PO QPM PRN PRN Reason: Insomnia Last Admin: 09/12/18 19:27 Dose: 25 mg Dronabinol (Marinol) 2.5 mg PO BIDAC [facility] Last Admin: 09/15/18 07:20 Dose: 2.5 mg Enoxaparin Sodium (Lovenox) 40 mg SUBQ DAILY [facility] Last Admin: 09/15/18 09:14 Dose: 40 mg Famotidine (Pepcid) 20 mg PO BID [facility] Last Admin: 09/15/18 07:20 Dose: 20 mg Formoterol Fumarate (Perforomist) 20 mcg INH DAILY [facility] Guaifenesin (Mucinex) 600 mg PO BID [facility] Last Admin: 09/15/18 07:20 Dose: 600 mg Levofloxacin (Levaquin 500 Mg/100 Ml) 500 mg in 100 mls @ 100 mls/hr IV Q24H [facility] Last Infusion: 09/15/18 10:05 Dose: Infused Vancomycin HCl 500 mg/ Sodium (Chloride) 100 mls @ 100 mls/hr IV Q12H [facility] Insulin Aspart (Novolog) 2 - 10 unit SUBQ 0800,1200,1700,2100 [facility]; Protocol Last Admin: 09/15/18 12:39 Dose: 4 unit Megestrol Acetate (Megace) 400 mg PO DAILY [facility] Last Admin: 09/15/18 08:57 Dose: 400 mg Methylprednisolone (Solu-Medrol (40mg Vial)) 40 mg IVP Q12H [facility] Last Admin: 09/15/18 06:43 Dose: 40 mg Metoclopramide HCl (Reglan Inj) 5 mg IVP Q6HR PRN PRN Reason: Nausea / Vomiting Last Admin: 09/10/18 22:42 Dose: 5 mg Metoprolol Tartrate (Lopressor) 50 mg PO DAILY [facility] Last Admin: 09/15/18 09:13 Dose: 50 mg Metoprolol Tartrate (Lopressor Inj) 5 mg IVP Q4HR PRN PRN Reason: HR>120 Last Admin: 09/11/18 11:59 Dose: 5 mg Mineral Oil (Cavilon) 1 applic TOP PRN PRN PRN Reason: Skin Care Last Admin: 09/13/18 13:30 Dose: 1 applic Mirtazapine (Remeron) 7.5 mg PO QPM [facility] Last Admin: 09/14/18 21:58 Dose: 7.5 mg Montelukast Sodium (Singulair) 10 mg PO QPM [facility] Last Admin: 09/14/18 21:44 Dose: 10 mg Multivitamins/Folic Acid/Vitamin C (Centrum) 15 ml PO DAILY [facility] Last Admin: 09/15/18 07:22 Dose: 15 ml Nicotine (Nicoderm) 1 patch TOP DAILY [facility] Last Admin: 09/15/18 07:20 Dose: 1 patch Nitroglycerin (Nitrostat) 0.4 mg SL Q5M PRN PRN Reason: Chest Pain Nystatin (Mycostatin) 5 ml PO QID [facility] Last Admin: 09/15/18 12:40 Dose: 5 ml Ondansetron HCl (Zofran Inj) 4 mg IVP Q6HR PRN PRN Reason: Nausea / Vomiting Last Admin: 09/10/18 19:15 Dose: 4 mg Oxycodone HCl (Roxicodone) 90 mg PO QID PRN PRN Reason: PAIN Last Admin: 09/15/18 07:30 Dose: 90 mg Prochlorperazine Edisylate (Compazine Inj) 10 mg IVP Q4HR PRN PRN Reason: Nausea / Vomiting Last Admin: 09/11/18 05:12 Dose: 10 mg Saccharomyces Boulardii (Florastor) 250 mg PO BIDWM [facility] Last Admin: 09/15/18 07:20 Dose: 250 mg Simethicone (Mylicon) 160 mg PO 0900,1300,1800,2100 [facility] Last Admin: 09/15/18 12:45 Dose: 160 mg Sodium Chloride (Normal Saline Flush 0.9%) 10 ml IVP 0100,0900,1700 [facility] Last Admin: 09/15/18 10:22 Dose: 10 ml Sodium Chloride (Normal Saline Flush 0.9%) 10 ml IVP PRN PRN PRN Reason: NEEDED PER PROVIDER ORDERS Last Admin: 09/14/18 18:34 Dose: 10 ml Tamsulosin HCl (Flomax) 0.4 mg PO DAILY [facility] Last Admin: 09/15/18 07:20 Dose: 0.4 mg Trazodone HCl (Desyrel) 100 mg PO QPM PRN PRN Reason: Insomnia Last Admin: 09/14/18 21:44 Dose: 100 mg Tamsulosin [Flomax] 0.4 mg PO DAILY 01/19/13 Albuterol Sulfate [Proair Hfa Inhaler] 2 inh IH Q4H PRN 09/20/14 Aspirin [Ecotrin] 81 mg PO DAILY 09/20/14 Metoprolol Tartrate [Lopressor] 50 mg PO DAILY 09/20/14 Nitroglycerin [Nitrostat] 1 tab [id number] ONCE 12/07/15 Albuterol 2.5 mg NEB BID PRN 03/01/17 Oxycodone HCl [Roxicodone] 90 mg PO QID MDD nte 12 tabs/24 hours 07/31/17 Trazodone HCl 100 - 200 mg PO QPM PRN 08/29/17 Budesonide/Formoterol Fumarate [Symbicort 160-4.5 Mcg Inhaler] 2 puffs INH BID 09/27/17 Clopidogrel [Plavix] 75 mg PO DAILY 02/16/18 Lovastatin 40 mg PO DAILY 02/16/18 Ipratropium/Albuterol [Duoneb] 1 inh INH Q4HR PRN 09/05/18 - Allergies Allergies/Adverse Reactions: Allergies Allergy/AdvReac Type Severity Reaction Status Date / Time codeine Allergy Unknown Verified 09/10/18 08:17 Iodinated Contrast- Oral and Allergy Unknown Verified 09/10/18 12:56 IV Dye Penicillins Allergy Unknown Verified 09/10/18 08:17 Physical Exam - Vital Signs Vital Signs: Vital Signs x48h Temp Pulse Pulse Resp BP BP Pulse Ox 09/15/18 12:15 86 18 09/15/18 11:42 36.4 C L 85 24 136/70 H 98 09/15/18 09:13 135/58 H 09/15/18 08:29 92 18 09/15/18 07:12 37.2 C 88 18 150/70 H 95 Results - Lab Results Fish Bones: 09/15/18 04:56 09/15/18 04:56 Lab and Imaging Results: Lab Results x24hrs 09/15/18 09/15/18 09/14/18 Range/Units 04:56 04:56 05:25 WBC 23.2 H (4.8-10.8) x10^3/uL RBC 4.03 L (4.70-6.10) 10^6/uL Hgb 13.2 L (14.0-18.0) g/dL Hct 38.5 L (42.0-52.0) % MCV 95.7 H (80.0-94.0) fL MCH 32.8 H (27.0-31.0) pg MCHC 34.3 (32.0-36.0) g/dL RDW 13.3 (12.0-15.0) % Plt Count 322 (130-450) 10^3/uL MPV 8.0 (7.4-11.4) fL Neut # (Auto) 20.8 H (1.5-6.6) 10^3/uL Lymph # (Auto) 0.8 L (1.5-3.5) 10^3/uL [place] # (Auto) 1.5 H (0.0-1.0) 10^3/uL Eos # (Auto) 0.0 (0.0-0.7) 10^3/uL Baso # (Auto) 0.0 (0.0-0.1) 10^3/uL Absolute Nucleated RBC 0.02 x10^3/uL Nucleated RBC % 0.1 /100WBC Manual Slide Review Indicated Platelet Estimate NORMAL (130-450,000) (NORMAL) Platelet Morphology NORMAL APPEARANCE (NORMAL) RBC Morph Micro Appear NORMAL APPEARANCE (NORMAL) Sodium 136 (135-145) mmol/L Potassium 4.4 (3.5-5.0) mmol/L Chloride 100 L (101-111) mmol/L Carbon Dioxide 28 (21-32) mmol/L Anion Gap 8.0 (6-13) BUN 24 H (6-20) mg/dL Creatinine 1.2 (0.6-1.2) mg/dL Estimated GFR (MDRD) 59 L (>89) Glucose 143 H (70-100) mg/dL Glycated Hemoglobin 5.6 (4.6-6.2) % Estim Average Glucose 114 H (70-100) Calcium 8.6 (8.5-10.3) mg/dL Total Bilirubin 0.5 (0.2-1.0) mg/dL AST 16 (10-42) IU/L ALT 36 (10-60) IU/L Alkaline Phosphatase 75 (42-121) IU/L Total Protein 5.1 L (6.7-8.2) g/dL Albumin 2.7 L (3.2-5.5) g/dL Globulin 2.4 (2.1-4.2) g/dL Albumin/Globulin Ratio 1.1 (1.0-2.2)
--- NOTE | 2018-09-15 17:30 | CONSULTATION NOTE ---
Palliative Care Follow Up - Referral Referring Provider: Dr. Porras Time of Visit: 1115-12 Referral setting: Hospitalized patient Referral Reason: COPD exacerbation/Pneumonia - Information Sources Records reviewed: RN notes reviewed, Previous records reviewed History/Review of Systems obtained from: Patient Exam limitations: Clinical condition (patient with moderate cognitive deficits- poor STM) - History of Present Illness Update Brief HPI Update: Is a 72-year-old gentleman who is been admitted for COPD exacerbation and pneumonia. Has been improving slowly, though unfortunately his white count has continued to elevate today is 23.2. He reports his cough is quite weak, but feels like it is improving. He does though at baseline get breathless with just talking, his oxygen requirements are decreasing, he is unable because of his cognitive deficits able to compare his improvement or worsening of symptoms. He has had some abdominal distention, continues with quite taut, but reports had a good bowel movement this a.m. and this is documented as moderate and loose. Patient is getting antsy to be able to be discharged home, in the context of this he is getting somewhat "crabby per his own description". Patient remains fragile, again reviewed goals of care, patient is still wanting to focus on returning home with the goal for improvement versus hospice. Social History - Living Situation Living arrangement: At home Living Situation: With spouse/s.o. Support System: She lives at home with his spouse, who has her own health problems. They do have a daughter who lives on the property provides intermittent support if needed. We did call and speak with her at length, she has found the nursing staff quite supportive when she checks in on patient. Medications/Allergies - Medications Active Medication List: Active Medications Al Hydroxide/Mg Hydroxide (Mylanta Plus) 30 ml PO Q4HR PRN PRN Reason: INDIGESTION Last Admin: 09/10/18 22:43 Dose: 30 ml Albuterol () 2.5 mg INH Q2H PRN PRN Reason: Wheezing Last Admin: 09/14/18 08:26 Dose: 2.5 mg Albuterol/Ipratropium (Duoneb) 3 ml INH Q4HR [facility]A Last Admin: 09/15/18 16:18 Dose: 3 ml Alprazolam (Xanax) 0.25 mg PO Q6HR PRN PRN Reason: Anxiety Last Admin: 09/15/18 12:40 Dose: 0.25 mg Aspirin (Ecotrin) 81 mg PO DAILY [facility] Last Admin: 09/15/18 08:59 Dose: 81 mg Budesonide (Pulmicort) 0.5 mg INH RTBID [facility] Clopidogrel Bisulfate (Plavix) 75 mg PO DAILY [facility] Last Admin: 09/15/18 08:59 Dose: 75 mg Diphenhydramine HCl (Benadryl) 25 mg PO QPM PRN PRN Reason: Insomnia Last Admin: 09/12/18 19:27 Dose: 25 mg Dronabinol (Marinol) 2.5 mg PO BIDAC [facility] Last Admin: 09/15/18 15:44 Dose: 2.5 mg Enoxaparin Sodium (Lovenox) 40 mg SUBQ DAILY [facility] Last Admin: 09/15/18 09:14 Dose: 40 mg Famotidine (Pepcid) 20 mg PO BID [facility] Last Admin: 09/15/18 07:20 Dose: 20 mg Formoterol Fumarate (Perforomist) 20 mcg INH DAILY [facility] Guaifenesin (Mucinex) 600 mg PO BID [facility] Last Admin: 09/15/18 07:20 Dose: 600 mg Levofloxacin (Levaquin 500 Mg/100 Ml) 500 mg in 100 mls @ 100 mls/hr IV Q24H [facility] Last Infusion: 09/15/18 10:05 Dose: Infused Vancomycin HCl 500 mg/ Sodium (Chloride) 100 mls @ 100 mls/hr IV Q12H [facility] Insulin Aspart (Novolog) 2 - 10 unit SUBQ 0800,1200,1700,2100 [facility]; Protocol Last Admin: 09/15/18 12:39 Dose: 4 unit Megestrol Acetate (Megace) 400 mg PO DAILY [facility] Last Admin: 09/15/18 08:57 Dose: 400 mg Methylprednisolone (Solu-Medrol (40mg Vial)) 40 mg IVP Q12H [facility] Last Admin: 09/15/18 06:43 Dose: 40 mg Metoclopramide HCl (Reglan Inj) 5 mg IVP Q6HR PRN PRN Reason: Nausea / Vomiting Last Admin: 09/10/18 22:42 Dose: 5 mg Metoprolol Tartrate (Lopressor) 50 mg PO DAILY [facility] Last Admin: 09/15/18 09:13 Dose: 50 mg Metoprolol Tartrate (Lopressor Inj) 5 mg IVP Q4HR PRN PRN Reason: HR>120 Last Admin: 09/11/18 11:59 Dose: 5 mg Mineral Oil (Cavilon) 1 applic TOP PRN PRN PRN Reason: Skin Care Last Admin: 09/13/18 13:30 Dose: 1 applic Mirtazapine (Remeron) 7.5 mg PO QPM [facility] Last Admin: 09/14/18 21:58 Dose: 7.5 mg Montelukast Sodium (Singulair) 10 mg PO QPM [facility] Last Admin: 09/14/18 21:44 Dose: 10 mg Multivitamins/Folic Acid/Vitamin C (Centrum) 15 ml PO DAILY [facility] Last Admin: 09/15/18 07:22 Dose: 15 ml Nicotine (Nicoderm) 1 patch TOP DAILY [facility] Last Admin: 09/15/18 07:20 Dose: 1 patch Nitroglycerin (Nitrostat) 0.4 mg SL Q5M PRN PRN Reason: Chest Pain Nystatin (Mycostatin) 5 ml PO QID [facility] Last Admin: 09/15/18 12:40 Dose: 5 ml Ondansetron HCl (Zofran Inj) 4 mg IVP Q6HR PRN PRN Reason: Nausea / Vomiting Last Admin: 09/10/18 19:15 Dose: 4 mg Oxycodone HCl (Roxicodone) 90 mg PO QID PRN PRN Reason: PAIN Last Admin: 09/15/18 07:30 Dose: 90 mg Prochlorperazine Edisylate (Compazine Inj) 10 mg IVP Q4HR PRN PRN Reason: Nausea / Vomiting Last Admin: 09/11/18 05:12 Dose: 10 mg Saccharomyces Boulardii (Florastor) 250 mg PO BIDWM [facility] Last Admin: 09/15/18 07:20 Dose: 250 mg Simethicone (Mylicon) 160 mg PO 0900,1300,1800,2100 [facility] Last Admin: 09/15/18 12:45 Dose: 160 mg Sodium Chloride (Normal Saline Flush 0.9%) 10 ml IVP 0100,0900,1700 [facility] Last Admin: 09/15/18 14:04 Dose: 10 ml Sodium Chloride (Normal Saline Flush 0.9%) 10 ml IVP PRN PRN PRN Reason: NEEDED PER PROVIDER ORDERS Last Admin: 09/14/18 18:34 Dose: 10 ml Tamsulosin HCl (Flomax) 0.4 mg PO DAILY [facility] Last Admin: 09/15/18 07:20 Dose: 0.4 mg Trazodone HCl (Desyrel) 100 mg PO QPM PRN PRN Reason: Insomnia Last Admin: 09/14/18 21:44 Dose: 100 mg Tamsulosin [Flomax] 0.4 mg PO DAILY 01/19/13 Albuterol Sulfate [Proair Hfa Inhaler] 2 inh IH Q4H PRN 09/20/14 Aspirin [Ecotrin] 81 mg PO DAILY 09/20/14 Metoprolol Tartrate [Lopressor] 50 mg PO DAILY 09/20/14 Nitroglycerin [Nitrostat] 1 tab [id number] ONCE 12/07/15 Albuterol 2.5 mg NEB BID PRN 03/01/17 Oxycodone HCl [Roxicodone] 90 mg PO QID MDD nte 12 tabs/24 hours 07/31/17 Trazodone HCl 100 - 200 mg PO QPM PRN 08/29/17 Budesonide/Formoterol Fumarate [Symbicort 160-4.5 Mcg Inhaler] 2 puffs INH BID 09/27/17 Clopidogrel [Plavix] 75 mg PO DAILY 02/16/18 Lovastatin 40 mg PO DAILY 02/16/18 Ipratropium/Albuterol [Duoneb] 1 inh INH Q4HR PRN 09/05/18 - Allergies Allergies/Adverse Reactions: Allergies Allergy/AdvReac Type Severity Reaction Status Date / Time codeine Allergy Unknown Verified 09/10/18 08:17 Iodinated Contrast- Oral and Allergy Unknown Verified 09/10/18 12:56 IV Dye Penicillins Allergy Unknown Verified 09/10/18 08:17 Review of Systems - Constitutional Constitutional: reports: Fatigue. denies: Fever, Chills - Eyes Eyes: reports: Vision loss - Ears, Nose & Throat Ears, Nose & Throat: reports: Hearing loss, Dental decay, Dry mouth (improved) - Cardiovascular Cardiovascular: reports: Exertional dyspnea, Decr. exercise tolerance, Orthopnea - Respiratory Respiratory: reports: Cough, SOB at rest, SOB with exertion - Gastrointestinal Gastrointestinal: reports: Good appetite. denies: Constipation (bowels moved), Nausea, Reflux/heartburn - Genitourinary Genitourinary: reports: Frequency - Musculoskeletal Musculoskeletal: reports: Stiffness, Limited range of motion, Muscle weakness - Integumentary Integumentary: reports: Dryness - Neurological Neurological: reports: General weakness, Memory problems - Psychiatric Psychiatric: reports: Depression, Anxiety - Endocrine Endocrine: reports: Other (elevated BS;) - All Other Systems All Other Systems: reports: Reviewed and negative Physical Exam - Vital Signs Vital Signs: Vital Signs x48h Temp Pulse Pulse Resp BP Pulse Ox 09/15/18 16:20 68 22 09/15/18 16:00 36.2 C L 82 24 122/69 99 09/15/18 12:15 86 18 09/15/18 11:42 36.4 C L 85 24 136/70 H 98 - Physical Exam General Appearance: positive: Alert, Mild distress, Anxious Eyes Bilateral: positive: Normal inspection ENT: positive: Dry mucous membranes. negative: Pharyngeal erythema, Oral lesions Neck: positive: No JVD, Trachea midline Cardiovascular: positive: Regular rate & rhythm Respiratory: positive: Diminished throughout. negative: No respiratory distress (patient with breathlessness with conversation; cough weak) Abdomen: positive: Distended, Taut, Other (has abdominal binder on) Skin: positive: Pallor, Dryness Extremities: positive: No pedal edema Neurologic/Psychiatric: positive: Mood/affect nml, Disoriented to time, Weakness, Flat affect Palliative Care - POLST Patient has POLST: Yes POLST Status: DNR, Selective Treatment Pain: Pain unchanged, Location (Patient remains on baseline oxycodone 90 mg 4 times daily, denies any exacerbation or improvement in pain. Patient at home has been on a very slow taper.) Tiredness/Fatigue: Severe (7-10) Drowsiness/Sedation: Mild (1-3) Nausea: None Depression: Moderate (4-6) Anxiety: Severe (7-10) Dyspnea: Severe (7-10) Anorexia: Mild (1-3) Sleep: Variable sleep pattern Constipation: Yes, Opoid induced, Comment (received relistor with results today) Feelings of wellbeing/Perceived Quality of Life: Poor, Acceptable, Worsening Performance Status: Patient wanting to be more active, Patient's dyspnea has limited his endurance. Patient has been up in chair for meals. - Palliative Care Discussion: Because of patient's poor memory and cognitive deficits, as well as his acute illness on arrival to the hospital he has very poor recall of how sick he was as well as previous conversations and understanding of his illness. Did review again, patient was significantly ill, awaiting to finalize antibiotics and evaluate response because his white blood count was elevated. Explained again the doctors have changed up his antibiotics with the hope to improve his overall status. Given patient's fragile status, I did review again his goals of care, he is getting tired of this, is starting to consider weighing benefits and burdens of further hospitalization. He is willing to accept whatever support that might be possible for him including home health. He has had them in the past, would recommend sending same team to [facility] given the complexities of his home situation. Did reach out to they do have an opening on .. Results - Lab Results Lab results reviewed: Yes Fish Bones: 09/15/18 04:56 09/15/18 04:56 Lab and Imaging Results: Lab Results x24hrs 09/15/18 09/15/18 09/14/18 Range/Units 04:56 04:56 05:25 WBC 23.2 H (4.8-10.8) x10^3/uL RBC 4.03 L (4.70-6.10) 10^6/uL Hgb 13.2 L (14.0-18.0) g/dL Hct 38.5 L (42.0-52.0) % MCV 95.7 H (80.0-94.0) fL MCH 32.8 H (27.0-31.0) pg MCHC 34.3 (32.0-36.0) g/dL RDW 13.3 (12.0-15.0) % Plt Count 322 (130-450) 10^3/uL MPV 8.0 (7.4-11.4) fL Neut # (Auto) 20.8 H (1.5-6.6) 10^3/uL Lymph # (Auto) 0.8 L (1.5-3.5) 10^3/uL Snyder # (Auto) 1.5 H (0.0-1.0) 10^3/uL Eos # (Auto) 0.0 (0.0-0.7) 10^3/uL Baso # (Auto) 0.0 (0.0-0.1) 10^3/uL Absolute Nucleated RBC 0.02 x10^3/uL Nucleated RBC % 0.1 /100WBC Manual Slide Review Indicated Platelet Estimate NORMAL (130-450,000) (NORMAL) Platelet Morphology NORMAL APPEARANCE (NORMAL) RBC Morph Micro Appear NORMAL APPEARANCE (NORMAL) Sodium 136 (135-145) mmol/L Potassium 4.4 (3.5-5.0) mmol/L Chloride 100 L (101-111) mmol/L Carbon Dioxide 28 (21-32) mmol/L Anion Gap 8.0 (6-13) BUN 24 H (6-20) mg/dL Creatinine 1.2 (0.6-1.2) mg/dL Estimated GFR (MDRD) 59 L (>89) Glucose 143 H (70-100) mg/dL Glycated Hemoglobin 5.6 (4.6-6.2) % Estim Average Glucose 114 H (70-100) Calcium 8.6 (8.5-10.3) mg/dL Total Bilirubin 0.5 (0.2-1.0) mg/dL AST 16 (10-42) IU/L ALT 36 (10-60) IU/L Alkaline Phosphatase 75 (42-121) IU/L Total Protein 5.1 L (6.7-8.2) g/dL Albumin 2.7 L (3.2-5.5) g/dL Globulin 2.4 (2.1-4.2) g/dL Albumin/Globulin Ratio 1.1 (1.0-2.2) Impression and Recommendations - Palliative Care Impression: This is a 72-year-old gentleman with a long list of comorbidities, including advanced COPD, recently oxygen dependent, increasing AAA, chronic abdominal pain with neuropathic syndrome, coronary artery disease, tobacco abuse, opioid use disorder, and mostly recently with increased functional and cognitive decline. He has had improvement of his symptoms, though has ongoing elevated white count. His goal is to transition home as soon as possible, will accept home health care services. Palliative care will continue to follow on the outpatient basis. Recommendations/Counseling Done: 1. Generalized weakness. Patient's dyspnea has improved slightly, given patient's goals of care, would recommend physical therapy evaluation and treatment during hospitalization. Would also recommend home health PT on discharge. Patient anxious to "get moving", and professes at this point in time willingness to participate. 2. Chronic pain syndrome. Patient on 90 mg every 6 hours at home, does himself administrated according to his own schedule. I am concerned though given he is in the hospital and easily confused, with patient's cognitive deficits and nonscheduled that patient will forget to ask, and will experience withdrawals again. Would recommend nursing staff offer at the 6 hours intervals and monitor for withdrawal symptoms. 3. Anxiety. Patient has had PTSD symptoms in the past regarding hospitalization, this is related to his original perforation of his colonoscopy resulting in at least 18 months of hospitalization and surgeries. Patient was with escalating anxiety at our visit, recommend using alprazolam when patient lashes outs and or/is crabby. Patient is not very good at identifying emotions and or problem solving as far as asking for medications or awareness to identify the problem. 4. Pneumonia. Patient with change in antibiotics again, patient clinically is improving but is very fragile. Patient does have oxygen at home, recommend home health RN for monitoring and medication adherence. Housing provided again regarding tobacco Cessation, recommended again continue nicotine patch. Challenged his reasoning that it was "too expensive", in the context of ongoing smoking. Reviewed with , she is cleaning out cigarettes and smoking paraphernalia in his room in preparation for him to return home. 5. Advanced care planning. Patient remains very fragile, is aware as well as patient has been explained multiple times the seriousness of his illness. Goals of care conversations revisited, patient wanting to return home as soon as possible, though, I cautioned we do not want him to return because he left too soon and did not finish his treatment plan. At this point in time he would like to proceed with home health, has made a commitment to stop smoking, and wants to get "better". [id number]. Is a taxing considerable effort for the patient leave the home secondary to his chronic pain syndrome and generalized weakness. RN for monitoring new oxygen therapy, medications on discharge and adherence, c onstipation, pain and other symptoms. PT for strengthening, home safety, and balance training. Home health aide for personal care and bathing. Call to [facility], they do have an opening on at this point. They are familiar with patient, it is a complex situation to send a new agency in, patient in agreement. Time Spent: 45 minutes with greater than 50% of this done in counseling regarding tobacco cessation, anxiety, goals of care, coordination of care with hospitalist, clinical staff, and home health.
[2018-09-15] MEDS: SODIUM CHLORIDE FLUSH 0.9% 10 ML SYRINGE IVP PRN (17:45)
[2018-09-15] MEDS: BUDESONIDE 0.5 MG/2 ML NEB INH SCH (20:14)
[2018-09-15] MEDS: metroNIDAZOLE 500 MG/100 ML 500 MG/100 ML BAG IV SCH (21:22)
[2018-09-15] MEDS: MIRTAZAPINE 15 MG TABLET PO SCH (21:23)
[2018-09-15] MEDS: MONTELUKAST 10 MG TABLET PO SCH (21:23)
[2018-09-15] MEDS: traZODone 50 MG TABLET PO PRN (22:07)
[2018-09-15] MEDS: VANCOMYCIN INJ 500 MG in SODIUM CHLORIDE 0.9% MINIBAG 100 ML IV SCH (22:49)
[2018-09-16] MEDS: SODIUM CHLORIDE FLUSH 0.9% 10 ML SYRINGE IVP SCH ×2 (00:23→07:46)
[2018-09-16] MEDS: IPRATROPIUM/ALBUTEROL 3 ML NEB INH SCH ×3 (02:49→10:41)
[2018-09-16] MEDS: metroNIDAZOLE 500 MG/100 ML 500 MG/100 ML BAG IV SCH (04:00)
[2018-09-16] MEDS: SODIUM CHLORIDE FLUSH 0.9% 10 ML SYRINGE IVP PRN ×2 (04:00→05:22)
[2018-09-16] MEDS: methylPREDNISolone SUCCINATE 40 MG/ML VIAL IVP SCH (05:20)
[2018-09-16] MEDS: oxyCODONE 30 MG TABLET PO PRN ×2 (05:22→12:16)
[2018-09-16 05:49] LABS: EOSINOPHILS % (AUTO) 0.2 %; HGB - HEMOGLOBIN 13.9 g/dL (14.0-18.0); LYMPHOCYTES # (AUTO) 1.2 10^3/uL (1.5-3.5); LYMPHOCYTES % (AUTO) 4.8 %; MEAN CORPUSCULAR HEMOGLOBIN 31.4 pg (27.0-31.0); MEAN CORPUSCULAR HGB CONC 32.2 g/dL (32.0-36.0); MEAN CORPUSCULAR VOLUME 97.5 fL (80.0-94.0); MEAN PLATELET VOLUME 8.2 fL (7.4-11.4); MONOCYTES # (AUTO) 1.6 10^3/uL (0.0-1.0); MONOCYTES % (AUTO) 6.1 %; NEUTROPHILS # (AUTO) 22.9 10^3/uL (1.5-6.6); NEUTROPHILS % (AUTO) 88.9 %; PLT - PLATELET COUNT 317 10^3/uL (130-450); RED BLOOD COUNT 4.41 10^6/uL (4.70-6.10); RED CELL DISTRIBUTION WIDTH 13.6 % (12.0-15.0); WHITE BLOOD COUNT 25.7 x10^3/uL (4.8-10.8)
[2018-09-16 06:03] LABS: ALBUMIN 2.7 g/dL (3.2-5.5); ALBUMIN/GLOBULIN RATIO 1.1 (1.0-2.2); BILIRUBIN,TOTAL 0.5 mg/dL (0.2-1.0); CALCIUM 8.6 mg/dL (8.5-10.3); CREATININE 0.8 mg/dL (0.6-1.2); TOTAL PROTEIN 5.2 g/dL (6.7-8.2)
[2018-09-16 06:28] LABS: PLATELET ESTIMATE, MANUAL NORMAL (130-450,000) (NORMAL); RBC MORPHOLOGY (MULTIPLE) NORMAL APPEARANCE (NORMAL)
[2018-09-16] MEDS: DRONABINOL 2.5 MG CAPSULE PO SCH (06:45)
[2018-09-16] MEDS: BUDESONIDE 0.5 MG/2 ML NEB INH SCH (07:08)
[2018-09-16] MEDS: levoFLOXacin 500 MG/100 ML 500 MG/100 ML BAG IV SCH (07:44)
[2018-09-16] MEDS: SACCHAROMYCES BOULARDII 250 MG CAPSULE PO SCH (07:44)
[2018-09-16] MEDS: INSULIN ASPART 300 UNIT/3 ML PEN SUBQ SCH ×2 (07:46→12:16)
[2018-09-16] MEDS: SIMETHICONE CHEW 80 MG TABLET PO SCH ×2 (10:10→12:15)
[2018-09-16] MEDS: NYSTATIN 500000 UNITS/5 ML UDC PO SCH ×2 (10:10→12:16)
[2018-09-16] MEDS: ALPRAZolam 0.25 MG TABLET PO PRN (10:10)
[2018-09-16] MEDS: METOPROLOL TARTRATE 50 MG TABLET PO SCH (10:11)
[2018-09-16] MEDS: CLOPIDOGREL 75 MG TABLET PO SCH (10:11)
[2018-09-16] MEDS: guaiFENesin 600 MG TABLET PO SCH (10:11)
[2018-09-16] MEDS: TAMSULOSIN 0.4 MG CAPSULE PO SCH (10:11)
[2018-09-16] MEDS: NICOTINE 14 MG PATCH TOP SCH (10:13)
[2018-09-16] MEDS: VANCOMYCIN INJ 500 MG in SODIUM CHLORIDE 0.9% MINIBAG 100 ML IV SCH (10:13)
[2018-09-16] MEDS: FAMOTIDINE 20 MG TABLET PO SCH (10:13)
[2018-09-16] MEDS: MULTIVITAMIN W/IRON, MINERALS 15 ML PO SCH (10:13)
[2018-09-16] MEDS: ENOXAPARIN 40 MG/0.4 ML SYRINGE SUBQ SCH (10:14)
[2018-09-16] MEDS: ASPIRIN EC 81 MG TABLET PO SCH (10:14)
[2018-09-16] MEDS: MEGESTROL 400 MG/10 ML UDC PO SCH (10:14)
[2018-09-16] MEDS: FORMOTEROL FUMARATE NEB 20 MCG/2 ML INH SCH (10:41)
[2018-09-16] MEDS ORDERED: predniSONE 20 MG TABLET PO SCH (12:00)
[2018-09-16] MEDS ORDERED: metroNIDAZOLE 250 MG TABLET PO SCH (12:00)
--- NOTE | 2018-09-16 13:03 | Discharge Plan ---
Discharge Plan Disposition: 06 Home Health Service Condition: Stable Prescriptions: guaiFENesin [Mucinex] 600 mg PO BID #10 tablet levoFLOXacin [Levaquin] 500 mg PO DAILY #5 tablet metroNIDAZOLE [Flagyl] 250 mg PO TID #15 tablet Montelukast [Singulair] 10 mg PO QPM #30 tablet Nicotine 14 mg Patch [Nicoderm] 1 patch TOP DAILY #21 patch predniSONE [Deltasone] 20 mg PO DAILYWM #30 tablet Saccharomyces Boulardii [Florastor] 250 mg PO BID #10 capsule Diet: Regular Activity Restrictions: Activity as Tolerated Shower Restrictions: No Driving Restrictions: Yes Instruction Topics: Pneumonia, Smoking Kick Habit, Quit Smoking Plan, Quit Smoking Get Support Additional Instructions or Follow Up instructions: You were admitted with worsening of your emphysema and a pneumonia. You are being sent home with prescriptions for 5 more days of 2 antibiotics plus Florastor to prevent diarrhea. There are also prescriptions for 5 more days of the cough medicine Mucinex and you should be on nightly Singular for your lungs. You are also being sent home with a new prescription for steroids for your lungs, with a slow tapering-down schedule to follow. Resume all your other pre-hospital medications. Home Health visits with [facility] has been ordered for you, as recommended by the Palliative Care PSYCHIC READER, Olive Robles. Put on the stop smoking patch daily, to help you quit smoking. You should see your PCP in 5-7 days for hospital follow-up. If you have new or worsening symptoms, call your PCP or come to the ER. No Smoking: If you smoke, Please STOP! Call for help. Follow-up with: Jason Keller MD [Primary Care Provider] -
[2018-09-16 14:12] VITALS: BP 130/70
--- NOTE | 2018-09-16 23:53 | DISCHARGE SUMMARY ---
Physician: Yolanda Levi MD DATE OF ADMISSION: 09/10/2018 DATE OF DISCHARGE: 09/16/2018 HISTORY OF PRESENT ILLNESS: This is a 72-year-old white male who has a history of advanced COPD and is on home oxygen, history of continued tobacco use, abdominal aortic aneurysm and prior admissions for COPD exacerbation and pneumonia. The patient presented this time with shortness of breath more than his normal, a nonproductive cough. He was seen by Palliative Care on 09/04/2018 and had a resting oximetry documented of 90%. He went to the ER where he had a chest x-ray showing bilateral infiltrates and he was put on Azithromycin with no improvement. He returned to the emergency room tachycardic with a blood pressure of 116/68, 91% oxygen saturation on 5 liters nasal cannula (3 liters nasal cannula is his baseline oxygen setting). He was admitted to the ICU for sepsis related to community-acquired pneumonia versus aspiration pneumonia and a COPD exacerbation. HOSPITAL COURSE AND DISCHARGE DIAGNOSES 1. Sepsis. The patient had white count elevated at 21.8 with a left shift and was in sinus tachycardia at a rate of 105 and tachypneic with a respiratory rate of 26. He did not require BiPAP in the ICU and was treated for his pneumonia (see below). His heart rate improved after 24 hours; however, he remained tachypneic and in respiratory distress for 72 hours. His underlying respiratory problem was managed. 2. Acute on chronic respiratory failure with hypoxia. The patient required Oxymizer settings as high as 7 liters per minute and had slow improvement in his respiratory status as described above. Eventually, he did improve, was able to be transferred out of the ICU and had slow increase of his activity. On the day of discharge, he underwent an exercise oximetry evaluation that showed that he needs 3 liters oxygen at rest and with activity, which is back to his baseline. 3. Chronic obstructive pulmonary disease with acute exacerbation. He was given nebulizers around the clock, IV steroids, Mucinex, pulmonary toilet and antibiotics for the pneumonia. The patient has now started to be followed by Palliative Care and they saw him on this admission. Olive Robles NP documented a [id number] visit: Leaving his home is taxing due to his chronic pain and generalized weakness. He will need an RN for monitoring adherence of medications and oxygen due to his poor memory and cognitive deficit (he had poor recall of how sick he was). He will need home PT for strengthening, home safety and balance training, [email or web address] 4. Healthcare-associated pneumonia. The patient was placed on IV antibiotics with a presumed healthcare-associated source because of his frequent hospital visits. His blood had no growth during this stay and respiratory culture was also negative for anything but normal respiratory petra. 5. Aspiration pneumonia. The patient was witnessed to have nausea, vomiting, and may then have aspirated. His antibiotics were broadened. He had improvement following that. He was sent home with new prescriptions for Levaquin orally and Flagyl orally for five more days, along with Mucinex, Florastor, and new Prednisone with a slow steroid taper over four to six weeks. 8. Ileus. Early in the course, it was noted that the patient takes very high doses of oxycodone (90 mg p.o. q.i.d. scheduled). He had findings of an ileus early in the admission, which was felt to be due to his narcotic use. This was transitioned over to p.r.n. use, not scheduled, and the patient was able to tolerate this without four scheduled doses daily. 9. Oral thrush. This is felt to be from his prior steroid use and he was on oral Nystatin while here. 10. History of abdominal aortic aneurysm. Stable with no complaints. 11. Tobacco use. The patient was on nicotine patch while here and did indicate that he was now ready to quit smoking. Therefore, he was sent home with a new prescription for nicotine patches for the next three weeks. The told his nurse that she would entirely remove all smoking paraphernalia from the house. LABORATORY AND IMAGING: Reviewed and summarized above. CONDITION AT DISCHARGE: Poor. PHYSICAL EXAMINATION VITAL SIGNS: Blood pressure 130/70, heart rate 90 in sinus rhythm, afebrile, oxygen saturation 98% on 3 liters oxygen. HEENT: Unremarkable except nasal cannula oxygen use. NECK: With positive JVD in a vertical position. CHEST: Increased AP diameter and fair air movement, but distant and diminished breath sounds. No wheezing or rales. HEART: Sounds distant. No murmur. ABDOMEN: Soft, nontender. No organomegaly. EXTREMITIES: No clubbing, cyanosis, or edema. NEUROLOGIC: Grossly intact. FOLLOWUP: He was advised to see his PCP in a week. CODE STATUS: DNR. Time required to complete this entire discharge, chart review, patient education, prescription orders, dictation: 60 minutes. cc: Jason Keller MD TD: 09/16/2018 20:10 MTDD
[2018-09-17] MEDS ORDERED: levoFLOXacin 250 MG TABLET PO SCH (09:00)
== END 2018-09-16 16:14 | disposition home health service (06) | DRG 871 ==
LOC: EDUNIT# → ED 08:12 → UNDOADMIN 11:51 → ICU 11:51 → MS3 09-13 17:19
PROVIDERS: ADMIT Family Medicine; ATTEND Family Medicine
DX: J18.9 Pneumonia, unspecified organism (principal); J44.9 Chronic obstructive pulmonary disease, unspecified; A41.9 Sepsis, unspecified organism; J96.21 Acute and chronic respiratory failure with hypoxia; J15.9 Unspecified bacterial pneumonia; J69.0 Pneumonitis due to inhalation of food and vomit; J44.1 Chronic obstructive pulmonary disease with (acute) exacerbation; K56.7 Ileus, unspecified; B37.0 Candidal stomatitis; F11.20 Opioid dependence, uncomplicated; E46 Unspecified protein-calorie malnutrition; Z99.81 Dependence on supplemental oxygen; I10 Essential (primary) hypertension; I25.10 Atherosclerotic heart disease of native coronary artery without angina pectoris; Z95.5 Presence of coronary angioplasty implant and graft; I25.2 Old myocardial infarction; K44.9 Diaphragmatic hernia without obstruction or gangrene; K57.90 Diverticulosis of intestine, part unspecified, without perforation or abscess without bleeding; R09.02 Hypoxemia; N40.0 Benign prostatic hyperplasia without lower urinary tract symptoms; H91.90 Unspecified hearing loss, unspecified ear; F32.9 Major depressive disorder, single episode, unspecified; Z79.82 Long term (current) use of aspirin; Z88.0 Allergy status to penicillin; Z88.6 Allergy status to analgesic agent; Z91.041 Radiographic dye allergy status; F17.200 Nicotine dependence, unspecified, uncomplicated; Z66 Do not resuscitate; Y95 Nosocomial condition; T40.2X5A Adverse effect of other opioids, initial encounter; T38.0X5A Adverse effect of glucocorticoids and synthetic analogues, initial encounter; G62.9 Polyneuropathy, unspecified; R62.7 Adult failure to thrive; Z68.20 Body mass index [BMI] 20.0-20.9, adult; R63.0 Anorexia; G89.4 Chronic pain syndrome; K59.09 Other constipation; G47.00 Insomnia, unspecified; R11.2 Nausea with vomiting, unspecified; R41.89 Other symptoms and signs involving cognitive functions and awareness; R14.0 Abdominal distension (gaseous); Z51.5 Encounter for palliative care
CPT/HCPCS: 36415; 36600; 71046; 71250; 74022; 74176; 80053; 82330; 82803; 83036; 83605; 83690; 83735; 83880; 84100; 84484; 85025; 85379; 87040; 87070; 87150; 87205; 92610; 93005; 94640; 94667; 94761; 96374; 97161; 99233; 99284; A6250; A9270; J1170; J1650; J2212; J2765; J3370; J7512; J7626; Q0167; 99283

== ENCOUNTER 2018-09-17 18:22 | Outpatient (CLI) | payer MEDICARE, OTHER | END 2018-09-17 18:23 | disposition critical access hospital (66) | LOC: EMS 18:22 | PROVIDERS: ATTEND Surgery | DX: R06.02 Shortness of breath (principal); R53.1 Weakness; R07.9 Chest pain, unspecified; R05 Cough | CPT/HCPCS: A0425; A0427 ==

== ENCOUNTER 2018-09-17 18:32 | Observation (INO) | payer MEDICARE, OTHER ==
[2018-09-17] MEDS ORDERED: ALBUTEROL NEB 2.5 MG/3 ML INH STA (18:51)
[2018-09-17] MEDS ORDERED: methylPREDNISolone SUCCINATE 125 MG/2 ML VIAL IVP STA (18:53)
--- NOTE | 2018-09-17 18:53 | ED Physician Documentation ---
PD HPI DYSPNEA - Stated complaint Stated Complaint: PNA, SOA - Chief complaint Chief Complaint: Resp - History obtained from History obtained from: Patient, EMS - History of Present Illness Timing - onset: Today (This is a 72-year-old gentleman with severe COPD who was admitted for 6 days and discharged yesterday with sepsis and pneumonia. He went home on his usual oxygen, although I guess he was at 4 L at home and had increased cough and shortness of breath this morning. He says he has not been smoking since admission but the paramedics relate that the says he has been smoking. He was breathing 36 times a minute for paramedics. He denies any significant pain at this juncture. No pedal edema or calf pain.) Review of Systems Ten Systems: 10 systems reviewed and negative Constitutional: reports: Fatigue. denies: Fever, Chills Nose: denies: Rhinorrhea / runny nose, Congestion Throat: denies: Sore throat Cardiac: denies: Chest pain / pressure Respiratory: reports: Dyspnea, Cough PD PAST MEDICAL HISTORY - Past Medical History Cardiovascular: Hypertension, Coronary artery disease Respiratory: COPD Neuro: None Endocrine/Autoimmune: None GI: Hiatal hernia, Diverticulitis, Other : Benign prostate hypertrophy HEENT: Chronic hearing loss Psych: Depression Musculoskeletal: None Derm: None - Past Surgical History Past Surgical History: Yes General: Bowel surgery, Colonoscopy, Other Cardiovascular: Coronary stent, AAA - Present Medications Home Medications: Ambulatory Orders Medication Instructions Recorded Confirmed Tamsulosin [Flomax] 0.4 mg PO DAILY 01/19/13 09/10/18 Albuterol Sulfate [Proair Hfa 2 inh IH Q4H PRN 09/20/14 09/10/18 Inhaler] Aspirin [Ecotrin] 81 mg PO DAILY 09/20/14 09/10/18 Metoprolol Tartrate [Lopressor] 50 mg PO DAILY 09/20/14 09/10/18 Nitroglycerin [Nitrostat] 1 tab [id number] ONCE 12/07/15 09/10/18 Albuterol 2.5 mg NEB BID PRN 03/01/17 09/10/18 Trazodone HCl 100 - 200 mg PO QPM PRN 08/29/17 09/10/18 Budesonide/Formoterol Fumarate 2 puffs INH BID 09/27/17 09/10/18 [Symbicort 160-4.5 Mcg Inhaler] Clopidogrel [Plavix] 75 mg PO DAILY 02/16/18 09/10/18 Lovastatin 40 mg PO DAILY 02/16/18 09/10/18 Ipratropium/Albuterol [Duoneb] 1 inh INH Q4HR PRN 09/05/18 09/10/18 Montelukast [Singulair] 10 mg PO QPM #30 tablet 09/16/18 Nicotine 14 mg Patch [Nicoderm] 1 patch TOP DAILY #21 patch 09/16/18 Oxycodone HCl [Roxicodone] 90 mg PO QID PRN #0 MDD nte 12 09/16/18 09/10/18 tabs/24 hours Saccharomyces Boulardii [Florastor] 250 mg PO BID #10 capsule 09/16/18 guaiFENesin [Mucinex] 600 mg PO BID #10 tablet 09/16/18 levoFLOXacin [Levaquin] 500 mg PO DAILY #5 tablet 09/16/18 metroNIDAZOLE [Flagyl] 250 mg PO TID #15 tablet 09/16/18 predniSONE [Deltasone] 20 mg PO DAILYWM #30 tablet 09/16/18 - Allergies Allergies/Adverse Reactions: Allergies Allergy/AdvReac Type Severity Reaction Status Date / Time codeine Allergy Unknown Verified 09/10/18 08:17 Iodinated Contrast- Oral and Allergy Unknown Verified 09/10/18 12:56 IV Dye Penicillins Allergy Unknown Verified 09/10/18 08:17 - Social History Does the pt smoke?: Yes Smoking Status: Current every day smoker Does the pt drink ETOH?: No Does the pt have substance abuse?: No - Family History Family history: reports: Non contributory - Immunizations Immunizations are current?: Yes - POLST Patient has POLST: Yes POLST Status: DNR PD ED PE NORMAL - Vitals Vital signs reviewed: Yes - General General: Alert and oriented X 3, Other (Tachypneic but talking in full sentences albeit short sentences.) - HEENT HEENT: PERRL, EOMI, Pharynx benign - Neck Neck: Supple, no meningeal sign, No bony TTP - Cardiac Cardiac: RRR, No murmur - Respiratory Respiratory: Other (Rhonchorous throughout and diminished at the bases) - Abdomen Abdomen: Normal bowel sounds, Soft, Non tender - Back Back: No CVA TTP, No spinal TTP - Derm Derm: Normal color, Warm and dry - Extremities Extremities: No edema, No calf tenderness / cord - Neuro Neuro: Alert and oriented X 3, Normal speech Results - Vitals Vitals: Vital Signs - 24 hr 09/17/18 09/17/18 09/17/18 18:44 19:04 19:24 Temperature 36.8 C Heart Rate 105 H 98 Respiratory 18 22 Rate Blood Pressure 116/68 O2 Saturation 98 96 09/17/18 19:47 Temperature Heart Rate 103 H Respiratory 25 H Rate Blood Pressure 119/61 O2 Saturation 97 Oxygen O2 Source [] Room air O2 Source [] Room air O2 Source Nasal cannula Oxygen Flow Rate 4 - EKG (time done) 1840 Rate: Rate (enter#) (103) Rhythm: Sinus tachycardia [place]: Normal Intervals: Other (Wide QRS) QRS: Low voltage Ischemia: Normal ST segments Computer interpretation: Agree with computer - Labs Labs: Laboratory Tests 09/17/18 09/17/18 09/17/18 19:10 19:10 19:10 WBC 27.7 H RBC 4.86 Hgb 15.3 Hct 47.4 MCV 97.6 H MCH 31.6 H MCHC 32.3 RDW 13.8 Plt Count 344 MPV 8.2 Neut # (Auto) Not Reportable Lymph # (Auto) Not Reportable [place] # (Auto) Not Reportable Eos # (Auto) Not Reportable Baso # (Auto) Not Reportable Absolute Nucleated RBC Not Reportable Total Counted 100 Band Neuts % (Manual) 2 Abnorm Lymph % (Manual) 0 Nucleated RBC % Not Reportable Neutrophils # (Manual) 25.2 H Lymphocytes # (Manual) 1.1 L Monocytes # (Manual) 1.4 H Eosinophils # (Manual) 0.0 Basophils # (Manual) 0.0 Differential Comment MANUAL DIFFERENTIAL Platelet Estimate NORMAL (130-450,000) Platelet Morphology NORMAL APPEARANCE RBC Morph Micro Appear NORMAL APPEARANCE PT 11.6 INR 1.0 VBG pH VBG pCO2 VBG pO2 VBG HCO3 VBG Total CO2 VBG O2 Saturation VBG Base Excess Sodium 140 Potassium 4.5 Chloride 104 Carbon Dioxide 26 Anion Gap 10.0 BUN 33 H Creatinine 1.1 Estimated GFR (MDRD) 66 L Glucose 185 H Lactic Acid Calcium 9.0 Total Bilirubin 0.2 AST 26 ALT 40 Alkaline Phosphatase 101 Troponin I B-Natriuretic Peptide Total Protein 6.5 L Albumin 3.6 Globulin 2.9 Albumin/Globulin Ratio 1.2 Lipase 51 09/17/18 09/17/18 09/17/18 19:10 19:10 19:10 WBC RBC Hgb Hct MCV MCH MCHC RDW Plt Count MPV Neut # (Auto) Lymph # (Auto) [place] # (Auto) Eos # (Auto) Baso # (Auto) Absolute Nucleated RBC Total Counted Band Neuts % (Manual) Abnorm Lymph % (Manual) Nucleated RBC % Neutrophils # (Manual) Lymphocytes # (Manual) Monocytes # (Manual) Eosinophils # (Manual) Basophils # (Manual) Differential Comment Platelet Estimate Platelet Morphology RBC Morph Micro Appear PT INR VBG pH VBG pCO2 VBG pO2 VBG HCO3 VBG Total CO2 VBG O2 Saturation VBG Base Excess Sodium Potassium Chloride Carbon Dioxide Anion Gap BUN Creatinine Estimated GFR (MDRD) Glucose Lactic Acid 2.0 Calcium Total Bilirubin AST ALT Alkaline Phosphatase Troponin I < 0.04 B-Natriuretic Peptide 55 Total Protein Albumin Globulin Albumin/Globulin Ratio Lipase 09/17/18 19:10 WBC RBC Hgb Hct MCV MCH MCHC RDW Plt Count MPV Neut # (Auto) Lymph # (Auto) Hyde # (Auto) Eos # (Auto) Baso # (Auto) Absolute Nucleated RBC Total Counted Band Neuts % (Manual) Abnorm Lymph % (Manual) Nucleated RBC % Neutrophils # (Manual) Lymphocytes # (Manual) Monocytes # (Manual) Eosinophils # (Manual) Basophils # (Manual) Differential Comment Platelet Estimate Platelet Morphology RBC Morph Micro Appear PT INR VBG pH 7.391 VBG pCO2 39.4 L VBG pO2 34.4 VBG HCO3 23.4 VBG Total CO2 24.6 VBG O2 Saturation 69.0 VBG Base Excess -1.3 Sodium Potassium Chloride Carbon Dioxide Anion Gap BUN Creatinine Estimated GFR (MDRD) Glucose Lactic Acid Calcium Total Bilirubin AST ALT Alkaline Phosphatase Troponin I B-Natriuretic Peptide Total Protein Albumin Globulin Albumin/Globulin Ratio Lipase PD MEDICAL DECISION MAKING - ED course ED course: 72-year-old gentleman bounces back from home after discharge yesterday for COPD exacerbation. He was administered 3 nebs here and still tachypneic and tachycardic. Spoke with Dr. Koehler for admission at 9 PM. Oral Levaquin is continued. His leukocytosis is not resolved but part of that may be steroid effect. - Critical Care Time(min): 40 Time Includes: Direct patient care, Review records, Reassess patient, Document care, Coordinate care, Medical consult Data interpretation: Labs, Pulse ox Procedures excluded from critical care time: EKG Departure - Departure Disposition: 66 [facility] DC/Xfer Clinical Impression: COPD exacerbation Condition: Serious
[2018-09-17 19:18] LABS: VBG PCO2 39.4 mmHg (41-51); VBG PH 7.391 (7.31-7.41)
[2018-09-17 19:19] LABS: VBG BASE EXCESS -1.3 mmol/L (-2 - +2); VBG PO2 34.4 mmHg (25-47); VBG TOTAL CO2 24.6 mmol/L (24-29)
[2018-09-17 19:21] LABS: BASOPHILS % (AUTO) 0.4 %; HGB - HEMOGLOBIN 15.3 g/dL (14.0-18.0); LYMPHOCYTES % (AUTO) 2.5 %; MEAN CORPUSCULAR HEMOGLOBIN 31.6 pg (27.0-31.0); MEAN CORPUSCULAR HGB CONC 32.3 g/dL (32.0-36.0); MEAN CORPUSCULAR VOLUME 97.6 fL (80.0-94.0); MEAN PLATELET VOLUME 8.2 fL (7.4-11.4); MONOCYTES % (AUTO) 4.1 %; PLT - PLATELET COUNT 344 10^3/uL (130-450); RED BLOOD COUNT 4.86 10^6/uL (4.70-6.10); RED CELL DISTRIBUTION WIDTH 13.8 % (12.0-15.0); WHITE BLOOD COUNT 27.7 x10^3/uL (4.8-10.8)
[2018-09-17 19:26] LABS: ABNORMAL LYMPHS % (MANUAL) 0 %; PT - PROTHROMBIN TIME 11.6 secs (9.9-12.6)
[2018-09-17 19:32] LABS: ALBUMIN 3.6 g/dL (3.2-5.5); ALBUMIN/GLOBULIN RATIO 1.2 (1.0-2.2); BILIRUBIN,TOTAL 0.2 mg/dL (0.2-1.0); CREATININE 1.1 mg/dL (0.6-1.2); TOTAL PROTEIN 6.5 g/dL (6.7-8.2)
--- NOTE | 2018-09-17 19:32 | XRAY Report ---
Reason: dyspnea Procedure Date: 09/17/2018 Accession Number: [id number] / [id number] Procedure: XR - Chest 1 View X-Ray CPT Code: 88294 FULL RESULT: EXAM: CHEST RADIOGRAPHY EXAM DATE: 09/17/2018 07:21 PM. CLINICAL HISTORY: Dyspnea. COMPARISON: ABDOMEN ACUTE 09/11/2018 6:16 AM CHEST W/O 09/11/2018 10:04 AM. TECHNIQUE: 1 view. FINDINGS: Lungs/Pleura: There is bilateral lower lung zone curly B lines and interstitial opacities. Similar findings as previous There is no consolidation or pneumothorax. There is lucency and hyperinflation of the upper lung zones. Mediastinum: Heart size is normal. There is mild to moderate calcification of the aortic arch. The trachea is midline. Other: None. IMPRESSION: 1. Basilar Delia B line suspicious for interstitial pulmonary edema, bibasilar bronchopneumonia, or fibrosis. 2. Upper lobe emphysema. RADIA
[2018-09-17 19:59] LABS: BAND NEUTROPHILS % (MANUAL) 2 %; LYMPHOCYTES # (MANUAL) 1.1 10^3/uL (1.5-3.5); LYMPHOCYTES % (MANUAL) 4 %; MONOCYTES # (MANUAL) 1.4 10^3/uL (0.0-1.0); NEUTROPHILS # (MANUAL) 25.2 10^3/uL (1.5-6.6); NEUTROPHILS % (MANUAL) 89 %
[2018-09-17 20:01] LABS: DIFFERENTIAL COMMENT MANUAL DIFFERENTIAL; PLATELET ESTIMATE, MANUAL NORMAL (130-450,000) (NORMAL); PLATELET MORPHOLOGY NORMAL APPEARANCE (NORMAL); RBC MORPHOLOGY (MULTIPLE) NORMAL APPEARANCE (NORMAL)
[2018-09-17] MEDS ORDERED: levoFLOXacin 250 MG TABLET PO STA (21:04)
[2018-09-17] MEDS ORDERED: oxyCODONE 5 MG TABLET PO STA ×2 (22:37→22:51)
[2018-09-17] MEDS ORDERED: SODIUM CHLORIDE FLUSH 0.9% 10 ML SYRINGE IVP PRN (22:46)
[2018-09-17] MEDS ORDERED: IPRATROPIUM/ALBUTEROL 3 ML NEB INH PRN (22:51)
--- NOTE | 2018-09-17 23:22 | HISTORY & PHYSICAL EXAMINATION ---
Chief Complaint - Chief Complaint Chief Complaint: dyspnea History of Present Illness - Admitted From Admitted From:: [facility] ED - History Obtained From Records Reviewed: yes History obtained from: patient and ED staff - History of Present Illness HPI Comment/Other: Patient seen on 09/17/18 at 20:00pm Patient is a 72 y/o male with history of advanced COPD, chronic tobacco dependence, smoking 10 cigarettes/day and opiate dependence. who presented to the ED today with complain of dyspnea. He was found to be tachycardic with a heart rate of 110's and tachypneic with a respiratory rate in the high 20's. He was just discharged the previous day 09/16/18. He says he woke up from sleep experiencing difficulty breathing and finally decided to come into the ED tonight. He is on 4L of Nasal [place] oxygen at home. He is currently on 4L with an [id number] of 96%. He has a mild wheeze which would not be unusual for him but also has decreased air movement/ sounds tight. He denies chest pain but has chronic neuropathic and abdominal pain from multiple abdominal surgeries. As a result of his persistent tachycardia and tachypnea, he is being admitted for observation History - Past Medical History Cardiovascular: reports: Hypertension, Coronary artery disease Respiratory: reports: COPD Neuro: reports: None Endocrine/Autoimmune: reports: None GI: reports: Hiatal hernia, Diverticulitis, Other : reports: Benign prostate hypertrophy HEENT: reports: Chronic hearing loss Psych: reports: Depression Musculoskeletal: reports: None Derm: reports: None MRSA Hx?: No Other Past Medical History: on home O2 4L NC - Past Surgical History General: reports: Bowel surgery, Colonoscopy, Other Cardiovascular: reports: Coronary stent, AAA - Family & Social History Social History Notes: Lives in [place] with spouse. States that he prevously lived in [place] and had some abdominal pain and what sounds like an obstruction 8-9 years ago and had a bowel resection which apparently went wrong and he has a bunch of scarring on his abdomen and chronic pain since. He is very limited due to his pain and barely gets out of bed. He has 3 biological kids. He smokes 1PPD and has been doing so for 50 years. Was previously a heavy drinker but has quit. Denies any drug use. - Substance History Use: Uses substance without health or social issues: NONE - POLST Patient has POLST: Yes POLST Status: DNR Meds/Allgy - Home Medications Home Medications: Ambulatory Orders Medication Instructions Recorded Confirmed Tamsulosin [Flomax] 0.4 mg PO DAILY 01/19/13 09/10/18 Albuterol Sulfate [Proair Hfa 2 inh IH Q4H PRN 09/20/14 09/10/18 Inhaler] Aspirin [Ecotrin] 81 mg PO DAILY 09/20/14 09/10/18 Metoprolol Tartrate [Lopressor] 50 mg PO DAILY 09/20/14 09/10/18 Nitroglycerin [Nitrostat] 1 tab [id number] ONCE 12/07/15 09/10/18 Albuterol 2.5 mg NEB BID PRN 03/01/17 09/10/18 Trazodone HCl 100 - 200 mg PO QPM PRN 08/29/17 09/10/18 Budesonide/Formoterol Fumarate 2 puffs INH BID 09/27/17 09/10/18 [Symbicort 160-4.5 Mcg Inhaler] Clopidogrel [Plavix] 75 mg PO DAILY 02/16/18 09/10/18 Lovastatin 40 mg PO DAILY 02/16/18 09/10/18 Ipratropium/Albuterol [Duoneb] 1 inh INH Q4HR PRN 09/05/18 09/10/18 Montelukast [Singulair] 10 mg PO QPM #30 tablet 09/16/18 Nicotine 14 mg Patch [Nicoderm] 1 patch TOP DAILY #21 patch 09/16/18 Oxycodone HCl [Roxicodone] 90 mg PO QID PRN #0 MDD nte 12 09/16/18 09/10/18 tabs/24 hours Saccharomyces Boulardii [Florastor] 250 mg PO BID #10 capsule 09/16/18 guaiFENesin [Mucinex] 600 mg PO BID #10 tablet 09/16/18 levoFLOXacin [Levaquin] 500 mg PO DAILY #5 tablet 09/16/18 metroNIDAZOLE [Flagyl] 250 mg PO TID #15 tablet 09/16/18 predniSONE [Deltasone] 20 mg PO DAILYWM #30 tablet 09/16/18 - Allergies Allergies/Adverse Reactions: Allergies Allergy/AdvReac Type Severity Reaction Status Date / Time codeine Allergy Unknown Verified 09/10/18 08:17 Iodinated Contrast- Oral and Allergy Unknown Verified 09/10/18 12:56 IV Dye Penicillins Allergy Unknown Verified 09/10/18 08:17 Review of Systems - Constitutional Constitutional: denies: Fever, Chills, Weakness, Poor appetite - Eyes Eyes: denies: Blurred vision, Vision loss, Dipolpia - Ears, Nose & Throat Ears, Nose & Throat: denies: Nasal pain, Sore throat, Hoarseness - Cardiovascular Cariovascular: denies: Chest pain, Edema, Lightheadedness - Respiratory Respiratory: reports: Wheezing, SOB at rest. denies: Cough - Gastrointestinal Gastrointestinal: reports: Abdominal pain (chronic). denies: Diarrhea, Nausea, Vomiting - Genitourinary Genitourinary: denies: Frequency, Urgency, Hematuria - Musculoskeletal Musculoskeletal: denies: Stiffness, Joint pain - Integumentary Integumentary: denies: Rash, Pruritis, Lesions, Dryness - Neurological Neurological: denies: Focal weakness, Headache, Dizziness, Abnormal gait - Psychiatric Psychiatric: denies: Depression, Anxiety, Suicidal - Endocrine Endocrine: denies: Polyuria, Polydypsia - Hematologic/Lymphatic Hematologic/Lymphatic: denies: Anemia, Bruising, Petechiae Exam - Vital Signs Vital Signs: Vital Signs x48h Temp Pulse Resp BP Pulse Ox 09/17/18 23:00 104 H 25 H 124/79 93 09/17/18 21:42 101 H 22 135/70 H 95 09/17/18 21:16 103 H 23 112/61 98 09/17/18 19:47 103 H 25 H 119/61 97 09/17/18 19:24 98 22 09/17/18 19:04 96 09/17/18 18:44 36.8 C 105 H 18 116/68 98 - Physical Exam General Appearance: positive: Alert, Mild distress Eyes Bilateral: positive: Normal inspection, PERRL, EOMI ENT: positive: Pharynx nml, No signs of dehydration Neck: positive: Nml inspection, No JVD, Trachea midline Respiratory: positive: Chest non-tender, Wheezes, Other (tachypnea, with decreased breath sounds) Cardiovascular: positive: Tachycardia Abdomen: positive: Non-tender, No organomegaly, Nml bowel sounds, No distention. negative: Guarding, Rebound Back: positive: Nml inspection Skin: positive: Color nml, No rash, Warm Extremities: positive: Nml appearance, No pedal edema Neurologic/Psychiatric: positive: Oriented x3 Sepsis Event Note (H) - Evaluation Possible source of Sepsis: positive: Pulmonary - Sepsis Criteria Sepsis Criteria: Recorded Heart Rate greater than 90 bpm, Recorded Respiratory Rate greater than 20, WBC count greater than 12,000 or less than 4000 Conclusion/Plan - Problem List (1) Dyspnea Conclusion/Plan: Patient given a dose of solumedrol 125mg in the ED Will continue duoneb breathing treatment Currently on his baseline oxygen 4L nasal canula Respiratory status appears improved Resting comfortably. Speaking in full sentences Qualifiers: Dyspnea type: acute respiratory distress Qualified Code(s): R06.03 - Acute respiratory distress (2) Leukocytosis Conclusion/Plan: suspect 2/2 steroid use Patient was recently treat for community acquired pneumonia. Discharged yesterday on levaquin and flagyl to complete treatment course. Will continue antibiotic. Qualifiers: Leukocytosis type: unspecified Qualified Code(s): D72.829 - Elevated white blood cell count, unspecified (3) Chronic pain Conclusion/Plan: On oxycodone Patient expressed wish to come off oxycodone He may follow with his PCP for program to assist with this Qualifiers: Chronic pain type: other chronic pain Qualified Code(s): G89.29 - Other chronic pain (4) Tobacco dependence Conclusion/Plan: Nicotine patch - Lab Results Fish Bones: 09/17/18 19:10 09/17/18 19:10 Core Measures - Anticipated LOS I expect patient to be DC'd or transferred within 96 hours.: Yes - DVT/VTE - Prophylaxis VTE/DVT Device ordered at admit?: Yes VTE/DVT Prophylaxis med ordered at admit?: Yes
[2018-09-18] MEDS: SODIUM CHLORIDE FLUSH 0.9% 10 ML SYRINGE IVP SCH ×2 (01:07→08:05)
[2018-09-18] MEDS ORDERED: traZODone 50 MG TABLET PO SCH (01:12)
[2018-09-18] MEDS ORDERED: metroNIDAZOLE 250 MG TABLET PO SCH (06:00)
[2018-09-18 06:07] LABS: BASOPHILS % (AUTO) 0.2 %; LYMPHOCYTES % (AUTO) 2.3 %; MEAN CORPUSCULAR HEMOGLOBIN 31.9 pg (27.0-31.0); MEAN CORPUSCULAR VOLUME 96.9 fL (80.0-94.0); MEAN PLATELET VOLUME 8.4 fL (7.4-11.4); MONOCYTES % (AUTO) 4.5 %; PLT - PLATELET COUNT 289 10^3/uL (130-450); RED BLOOD COUNT 4.08 10^6/uL (4.70-6.10); RED CELL DISTRIBUTION WIDTH 13.8 % (12.0-15.0)
[2018-09-18 06:28] LABS: CALCIUM 8.4 mg/dL (8.5-10.3); CREATININE 1.2 mg/dL (0.6-1.2)
[2018-09-18 06:43] LABS: ABNORMAL LYMPHS % (MANUAL) 0 %
[2018-09-18 06:47] LABS: BAND NEUTROPHILS % (MANUAL) 2 %; LYMPHOCYTES # (MANUAL) 0.8 10^3/uL (1.5-3.5); LYMPHOCYTES % (MANUAL) 3 %; METAMYELOCYTES % (MANUAL) 2 %; MYELOCYTES % (MANUAL) 3 %; NEUTROPHILS # (MANUAL) 22.9 10^3/uL (1.5-6.6); NEUTROPHILS % (MANUAL) 86 %
[2018-09-18 06:48] LABS: PLATELET ESTIMATE, MANUAL NORMAL (130-450,000) (NORMAL); RBC MORPHOLOGY (MULTIPLE) NORMAL APPEARANCE (NORMAL)
--- NOTE | 2018-09-18 07:50 | Discharge Plan ---
Discharge Plan Disposition: 01 Home, Self Care Condition: Poor Prescriptions: Levalbuterol [Xopenex] 1.25 mg INH RTQ4H PRN 28 Days neb PRN Reason: Shortness Of Air/Wheezing metroNIDAZOLE [Flagyl] 250 mg PO TID #15 tablet predniSONE [Deltasone] 40 mg PO DAILYWM #30 tablet Diet: Low Sodium Activity Restrictions: Activity as Tolerated Shower Restrictions: No Additional Instructions or Follow Up instructions: You were in the hospital an additional night & day due to your respiratory problem. A new prescription for Xopenex nebulizer has been prescribed and a higher dose of Prednisone (with a slower tapering down schedule) has been ordered this time. Use it with the nebulizer that you said you already own. Also, it appears you may not have gotten the Flagyl medication for your recent p neumonia, so this has been re-ordered. Take the Flagyl and the Levofloxin until they are done. Please follow the new medication list. Home Health nursing, home Physical Therapy and home Occupational Therapy were ordered for you at the last (recent) discharge. They should be starting today. If you have new or worsening symptoms, call your PCP or come to the ER. No Smoking: If you smoke, Please STOP! Call for help. Follow-up with: Jason Keller MD [Primary Care Provider] -
[2018-09-18] MEDS ORDERED: oxyCODONE 30 MG TABLET PO PRN (08:00)
[2018-09-18 08:36] VITALS: BP 137/58
[2018-09-18] MEDS ORDERED: ENOXAPARIN 40 MG/0.4 ML SYRINGE SUBQ SCH (09:00)
[2018-09-18] MEDS ORDERED: POLYETHYLENE GLYCOL 3350 17 GM PACKET PO SCH (09:00)
--- NOTE | 2018-09-18 10:45 | PROVIDER PROGRESS NOTE ---
Assessment/Plan - Problem List (1) COPD exacerbation Assessment/Plan: Since he improved overnight with iv steroids, will [facility] with higher daily Prednisone: 40 mg po daily for a week and a slow taper. Will also add Xopenex nebulizer for home q4h prn, since he reports to me that he has a nebulizer machine He will need to finish treating the pneumonia as well. This was all reviewed with the patient and he understands and agrees. Since he was in Observation status now just overnight, after just being DC 24 hours earlier, continue with the same plan for his COPD management otherwise, including F/U to his PCP in 5-7 days. (2) History of recent pneumonia Assessment/Plan: He needs to finish the po antibiotics for the PNA, as per recent [facility]. His home med list now does not show Flagyl, which was to be finished aong with Levaquin. It will be re-ordered at today's [facility]. He states that hos daughter did pickle maker the meds from his pharmacy. (3) Dependence on continuous supplemental oxygen Assessment/Plan: Resume home O2. (4) Tobacco dependence Assessment/Plan: At this admission, his was reporting that he restarted smoking, whereas he insisted that he had stopped. he was [facility] with new Nicotine Patches with the last [facility]. He was encouraged to stop smoking, use the patches if helpful. - Current Meds Current Meds: Current Medications Generic Name Dose Route Start Last Admin Trade Name Freq PRN Reason Stop Dose Admin Albuterol/Ipratropium 3 ml 09/17/18 22:51 09/18/18 06:04 Duoneb INH 3 ml Q4HR PRN Administration Wheezing Metronidazole 250 mg 09/18/18 06:00 09/18/18 06:00 Flagyl PO 250 mg TID NORA Administration Oxycodone HCl 90 mg 09/18/18 08:00 09/18/18 08:05 Roxicodone PO 90 mg Q6HR PRN Administration PAIN Polyethylene Glycol 17 gm 09/18/18 09:00 09/18/18 08:05 Miralax PO 17 gm DAILY NROA Administration Sodium Chloride 10 ml 09/18/18 01:00 09/18/18 08:05 Normal Saline Flush 0.9% IVP 10 ml [id number],[id number],1700 NORA Administration Trazodone HCl 100 mg 09/18/18 01:12 09/18/18 01:47 Desyrel PO 100 mg QPM NORA Administration - Lab Result Fish Bone Diagrams: 09/18/18 05:20 09/18/18 05:20 - Additional Planning My Orders: My Active Orders 09/18/18 07:30 Oxygen Desat. Study w/Exercise [RC] .ONCE 09/18/18 08:39 Discharge [RC] .ONCE Initiate Discharge Checklist [RC] .ONCE Plan Discussed with:: Patient Time Spent: 15-30 minutes Subjective - Subjective Patient Reports: Feeling Better, Resting Comfortably Objective Vital Signs: Vital Signs - 24 hr 09/17/18 09/17/18 09/17/18 18:44 19:04 19:24 Temperature 36.8 C Heart Rate 105 H 98 Heart Rate [ Radial] Respiratory 18 22 Rate Blood Pressure 116/68 Blood Pressure [Right Brachial artery] O2 Saturation 98 96 09/17/18 09/17/18 09/17/18 19:47 21:16 21:42 Temperature Heart Rate 103 H 103 H 101 H Heart Rate [ Radial] Respiratory 25 H 23 22 Rate Blood Pressure 119/61 112/61 135/70 H Blood Pressure [Right Brachial artery] O2 Saturation 97 98 95 09/17/18 09/18/18 09/18/18 23:00 00:00 06:05 Temperature 36.4 C L Heart Rate 104 H 77 Heart Rate [ 96 Radial] Respiratory 25 H 17 18 Rate Blood Pressure 124/79 Blood Pressure 117/64 [Right Brachial artery] O2 Saturation 93 96 09/18/18 09/18/18 06:36 08:35 Temperature 36.4 C L 36.7 C Heart Rate Heart Rate [ 80 90 Radial] Respiratory 15 19 Rate Blood Pressure Blood Pressure 120/50 L 137/58 H [Right Brachial artery] O2 Saturation 98 98 Oxygen O2 Source [Without Activity] Room air O2 Source [With Activity] Room air O2 Source Nasal cannula Oxygen Flow Rate 4 I&O (Last 24 Hrs): Intake and Output Totals x24h 09/16/18 09/17/18 09/18/18 23:59 23:59 23:59 Intake Total 440 Output Total 125 475 Balance -125 -35 General: Alert, Oriented x3 HEENT: Mucous membr. moist/pink, Other (wearing O2 per n.c.) Neck: Supple Neuro: Non Focal Cardiovascular: Regular rate, No murmurs Respiratory: No respiratory distress, Other (poor air movement but no wheezes or rales.) Abdomen: Soft Extremities: No edema - Results Results: Laboratory Results WBC 26.0 x10^3/uL (4.8-10.8) H 09/18/18 05:20 RBC 4.08 10^6/uL (4.70-6.10) L 09/18/18 05:20 Hgb 13.0 g/dL (14.0-18.0) L 09/18/18 05:20 Hct 39.5 % (42.0-52.0) L 09/18/18 05:20 MCV 96.9 fL (80.0-94.0) H 09/18/18 05:20 MCH 31.9 pg (27.0-31.0) H 09/18/18 05:20 MCHC 33.0 g/dL (32.0-36.0) 09/18/18 05:20 RDW 13.8 % (12.0-15.0) 09/18/18 05:20 Plt Count 289 10^3/uL (130-450) 09/18/18 05:20 MPV 8.4 fL (7.4-11.4) 09/18/18 05:20 Neut # (Auto) Not Reportable 09/18/18 05:20 Lymph # (Auto) Not Reportable 09/18/18 05:20 Stewart # (Auto) Not Reportable 09/18/18 05:20 Eos # (Auto) Not Reportable 09/18/18 05:20 Baso # (Auto) Not Reportable 09/18/18 05:20 Absolute Nucleated RBC Not Reportable 09/18/18 05:20 Total Counted 100 09/18/18 05:20 Band Neuts % (Manual) 2 % (0-10) 09/18/18 05:20 Abnorm Lymph % (Manual) 0 % 09/18/18 05:20 Metamyelocytes % 2 % (-0) H 09/18/18 05:20 Myelocytes % 3 % (-0) H 09/18/18 05:20 Nucleated RBC % Not Reportable 09/18/18 05:20 Neutrophils # (Manual) 22.9 10^3/uL (1.5-6.6) H 09/18/18 05:20 Lymphocytes # (Manual) 0.8 10^3/uL (1.5-3.5) L 09/18/18 05:20 Monocytes # (Manual) 1.0 10^3/uL (0.0-1.0) 09/18/18 05:20 Eosinophils # (Manual) 0.0 10^3/uL (0-0.7) 09/18/18 05:20 Basophils # (Manual) 0.0 10^3/uL (0-0.1) 09/18/18 05:20 Differential Comment MANUAL DIFFERENTIAL 09/17/18 19:10 Platelet Estimate NORMAL (130-450,000) (NORMAL) 09/18/18 05:20 Platelet Morphology NORMAL APPEARANCE (NORMAL) 09/17/18 19:10 RBC Morph Micro Appear NORMAL APPEARANCE (NORMAL) 09/18/18 05:20 PT 11.6 secs (9.9-12.6) 09/17/18 19:10 INR 1.0 (0.8-1.2) 09/17/18 19:10 VBG pH 7.391 (7.31-7.41) 09/17/18 19:10 VBG pCO2 39.4 mmHg (41-51) L 09/17/18 19:10 VBG pO2 34.4 mmHg (25-47) 09/17/18 19:10 VBG HCO3 23.4 mmol/L (23-28) 09/17/18 19:10 VBG Total CO2 24.6 mmol/L (24-29) 09/17/18 19:10 VBG O2 Saturation 69.0 % (60-80) 09/17/18 19:10 VBG Base Excess -1.3 mmol/L (-2 - +2) 09/17/18 19:10 Sodium 139 mmol/L (135-145) 09/18/18 05:20 Potassium 4.3 mmol/L (3.5-5.0) 09/18/18 05:20 Chloride 107 mmol/L (101-111) 09/18/18 05:20 Carbon Dioxide 24 mmol/L (21-32) 09/18/18 05:20 Anion Gap 8.0 (6-13) 09/18/18 05:20 BUN 35 mg/dL (6-20) H 09/18/18 05:20 Creatinine 1.2 mg/dL (0.6-1.2) 09/18/18 05:20 Estimated GFR (MDRD) 59 (>89) L 09/18/18 05:20 Glucose 209 mg/dL (70-100) H 09/18/18 05:20 Lactic Acid 2.0 mmol/L (0.5-2.2) 09/17/18 19:10 Calcium 8.4 mg/dL (8.5-10.3) L 09/18/18 05:20 Total Bilirubin 0.2 mg/dL (0.2-1.0) 09/17/18 19:10 AST 26 IU/L (10-42) 09/17/18 19:10 ALT 40 IU/L (10-60) 09/17/18 19:10 Alkaline Phosphatase 101 IU/L (42-121) 09/17/18 19:10 Troponin I < 0.04 ng/mL (<0.49) 09/17/18 19:10 B-Natriuretic Peptide 55 pg/mL (5-100) 09/17/18 19:10 Total Protein 6.5 g/dL (6.7-8.2) L 09/17/18 19:10 Albumin 3.6 g/dL (3.2-5.5) 09/17/18 19:10 Globulin 2.9 g/dL (2.1-4.2) 09/17/18 19:10 Albumin/Globulin Ratio 1.2 (1.0-2.2) 09/17/18 19:10 Lipase 51 U/L (22-51) 09/17/18 19:10 - Procedures Procedures: Procedures REPLACEMENT OF LEFT LENS WITH SYNTH SUB, PERC APPROACH (01/25/16) REPLACEMENT OF RIGHT LENS WITH SYNTH SUB, PERC APPROACH (12/28/15) Sepsis Event Note (H) - Evaluation Possible source of Sepsis: positive: Pulmonary - Sepsis Criteria Sepsis Criteria: Recorded Heart Rate greater than 90 bpm, Recorded Respiratory Rate greater than 20, WBC count greater than 12,000 or less than 4000
[2018-09-18] MEDS ORDERED: levoFLOXacin 250 MG TABLET PO SCH (21:00)
== END 2018-09-18 10:57 | disposition home or self-care (01) ==
LOC: EDUNIT# → ED 18:32 → OBS 22:46
PROVIDERS: ADMIT Internal Medicine; ATTEND Internal Medicine
DX: J44.1 Chronic obstructive pulmonary disease with (acute) exacerbation (principal); J18.9 Pneumonia, unspecified organism; Z99.81 Dependence on supplemental oxygen; F17.210 Nicotine dependence, cigarettes, uncomplicated; Z66 Do not resuscitate; F11.20 Opioid dependence, uncomplicated; I25.10 Atherosclerotic heart disease of native coronary artery without angina pectoris; I10 Essential (primary) hypertension; R10.9 Unspecified abdominal pain; G89.29 Other chronic pain
CPT/HCPCS: 36415; 71045; 80048; 80053; 82803; 83605; 83690; 83880; 84484; 85025; 85610; 87040; 93005; 94640; 96374; 99284; 99291; A9270; G0378

== ENCOUNTER 2018-09-23 12:30 | Outpatient (CLI) | payer MEDICARE, OTHER ==
--- NOTE | 2018-09-23 21:26 | CONSULTATION NOTE ---
Palliative Care Follow Up - Referral Referring Provider: Dr. Jason Keller Time of Visit: [id number] Referral setting: Home Referral Reason: Advanced COPD/Chronic Abdominal Pain - Information Sources Records reviewed: RN notes reviewed, Previous records reviewed History/Review of Systems obtained from: Patient, Family ( Magy) Exam limitations: Clinical condition (patient with moderate cognitive deficits/poor STM) - History of Present Illness Update Brief HPI Update: This is a 72-year-old gentleman who has advanced COPD, recently oxygen dependent, and was hospitalized to 09/16/2018 for sepsis, acute on chronic respiratory failure with hypoxia, COPD exacerbation, healthcare associated pneumonia, and aspiration pneumonia. He was sent home, and returned on 09/17 with increasing complaints of dyspnea, not relieved by his nebulizer or meds, was found to be tachycardic and was held in a observation bed. There has been some confusion regarding his medication management, he was discharged the second time on Xopenex, which was not obtained, nor had they initiated the higher prednisone dosing. Patient reports continues with a dry tight cough, nonproductive. Denies wheezing or tightness, reports mostly with activity as far as worsening breathlessness from baseline. Patient has at baseline moderate cognitive deficits, no short-term memory, so has been overseeing medications. She has been following original instructions, regarding antibiotics, unable to find the singular until end of visit so has not received his Singulair since discharge on . He is using DuoNeb about every 4 hours, does not perceive any relief with this. Multiple calls made to [facility] unable to get through have left message to clarify dosing. He also continues to complain of taste changes, and on examination continues to have oral candidiasis. He has finished his Levaquin, despite confusion he did complete his original dose of Flagyl, but has not been on the higher dose of prednisone. He is due to have home health services initiated tomorrow. Will try and reconcile medication management to be able to support him and his in the home. Patient has also discontinued independently his Antidepressant, given his significant history of depression and intermittent suicidal ideation have restarted this with oversight. Patient's other baseline medical conditions include chronic abdominal pain related to complications of a colonoscopy several years ago, requiring multiple abdominal surgery and hospitalizations leaving him with residual chronic neuropathic pain syndrome which he has been on long-term oxycodone. He recently had a lumbar fracture which she had a kyphoplasty, with still some residual baseline pain related to this. He does have a AAA, his hernias are worsening, underlying CAD, and moderate cognitive deficits. Patient also has significant tobacco abuse disorder, reports he is only taking a few puffs, but has remained compliant with his oxygen therapy and continues on the nicotine patches. His goal is to be successful. Social History - Living Situation Living arrangement: At home Living Situation: With spouse/s.o. Support System: Patient lives with Magy. She herself has significant health problems, neither [address] anymore. They do have a daughter lives on the property, but she is often unavailable and has health problems as well, including recently hurting her back. They have a couple friends that will run errands, but are fairly isolated overall. Magy has been overseeing his recent respiratory meds, but does not track his other medications. Medications/Allergies - Medications Home Medications: Ambulatory Orders Medication Instructions Recorded Confirmed Tamsulosin [Flomax] 0.4 mg PO DAILY 01/19/13 09/24/18 Albuterol Sulfate [Proair Hfa 2 inh IH Q4H PRN 09/20/14 09/24/18 Inhaler] Aspirin [Ecotrin] 81 mg PO DAILY 09/20/14 09/24/18 Metoprolol Tartrate [Lopressor] 50 mg PO DAILY 09/20/14 09/24/18 Nitroglycerin [Nitrostat] 1 tab [id number] ONCE 12/07/15 09/24/18 Albuterol 2.5 mg NEB BID PRN MDD hold 03/01/17 09/24/18 Trazodone HCl 100 - 200 mg PO QPM PRN 08/29/17 09/24/18 Budesonide/Formoterol Fumarate 2 puffs INH BID 09/27/17 09/24/18 [Symbicort 160-4.5 Mcg Inhaler] Clopidogrel [Plavix] 75 mg PO DAILY 02/16/18 09/24/18 Lovastatin 40 mg PO DAILY 02/16/18 09/24/18 Ipratropium/Albuterol [Duoneb] 1 inh INH Q4HR PRN MDD hold when 09/05/18 09/24/18 on xopenex Montelukast [Singulair] 10 mg PO QPM #30 tablet 09/16/18 09/24/18 Nicotine 14 mg Patch [Nicoderm] 1 patch TOP DAILY #21 patch 09/16/18 09/24/18 Saccharomyces Boulardii [Florastor] 250 mg PO BID #10 capsule MDD 2 09/16/18 09/24/18 weeks guaiFENesin [Mucinex] 600 mg PO BID #10 tablet 09/16/18 09/24/18 metroNIDAZOLE [Flagyl] 250 mg PO TID #15 tablet MDD 09/16/18 09/24/18 finish 09/24 Levalbuterol [Xopenex] 1.25 mg INH RTQ4H PRN 28 Days neb 09/18/18 09/24/18 MDD not in home predniSONE [Deltasone] 40 mg PO DAILYWM #30 tablet MDD 09/18/18 09/24/18 taper Citalopram Hydrobromide 20 mg PO DAILY 09/24/18 09/24/18 [Citalopram HBr] Clotrimazole Mina 10 mg PO 5XD MDD 2 weeks 09/24/18 09/26/18 Oxycodone HCl [Roxicodone] 60 - 90 mg PO QID PRN MDD nte 12 09/24/18 09/24/18 tabs/24 hours - Allergies Allergies/Adverse Reactions: Allergies Allergy/AdvReac Type Severity Reaction Status Date / Time codeine Allergy Unknown Verified 09/10/18 08:17 Iodinated Contrast- Oral and Allergy Unknown Verified 09/10/18 12:56 IV Dye Penicillins Allergy Unknown Verified 09/10/18 08:17 Review of Systems - Constitutional Constitutional: reports: Fatigue, Weakness, Weight loss. denies: Fever, Chills - Eyes Eyes: reports: Vision loss - Ears, Nose & Throat Ears, Nose & Throat: reports: Hearing loss, Dental decay, Dry mouth, Other (c/o of severe taste changes). denies: Hearing aids - Cardiovascular Cardiovascular: reports: Exertional dyspnea, Decr. exercise tolerance. denies: Chest pain - Respiratory Respiratory: reports: Cough, SOB at rest, SOB with exertion. denies: Wheezing - Gastrointestinal Gastrointestinal: reports: Abdominal pain, Early satiety, Good appetite. d enies: Constipation, Nausea, Reflux/heartburn - Genitourinary Genitourinary: reports: Frequency - Musculoskeletal Musculoskeletal: reports: Muscle aches, Stiffness, Limited range of motion, Muscle weakness, Assistive devices (has walker) - Integumentary Integumentary: reports: Dryness - Neurological Neurological: reports: General weakness, Memory problems, Abnormal gait (peripheral neuropathy) - Psychiatric Psychiatric: reports: Depression, Anxiety - Hematologic/Lymphatic Hematologic/Lymphatic: reports: Recurrent infections - All Other Systems All Other Systems: reports: Reviewed and negative Physical Exam - Vital Signs Temperature: 96.5 C Pulse Rate: 97 Respiratory Rate: 18 O2 Saturation: 95 (on 4 liters at rest) Blood Pressure: 122/62 - Physical Exam General Appearance: positive: Mild distress, Anxious Eyes Bilateral: positive: Normal inspection, Conjunctivae nml ENT: positive: Oral lesions (patient with continued oral candidiasis) Neck: positive: No JVD, Trachea midline Cardiovascular: positive: Regular rate & rhythm Respiratory: positive: Diminished throughout, Other (presents with poor activity tolerance with increased breathlessness). negative: Wheezes, Rales, Rhonchi Abdomen: positive: Nml bowel sounds, Tenderness, Other (multiple hernias; has abdominal binder on) Skin: positive: Pallor, Dryness Extremities: positive: No pedal edema, Other (feet dry with thickened fungal nails) Neurologic/Psychiatric: positive: Disoriented to time, Weakness, Depressed mood/affect, Flat affect Palliative Care - POLST Patient has POLST: Yes POLST Status: DNR, Selective Treatment Pain: Pain unchanged, Location (Patient has chronic abdominal pain most intensely located in his right lower quadrant. This is worsened with constipation, eating, and ambulation when putting stress or stretching those herniated areas. He has long-term been on oxycodone 30 mg 90-120 mg up to 4 times daily. Patient in agreement for de-escalation of pain meds, has been taking 60-90 4 times daily, visual check of oxycodone bottle not counted but appears to be about half full. Denies any changes in his baseline pain.) Tiredness/Fatigue: Severe (7-10) Drowsiness/Sedation: Mild (1-3) Nausea: None Depression: Severe (7-10) (Patient often discontinues his citalopram, though do history does do better on it particular around his mood disorder. Does not appear he has been getting it through his hospitalization, will restart particularly given he is discontinuing his smoking. Did put it with medications is overseen.) Anxiety: Severe (7-10) Dyspnea: Severe (7-10), Comment (Patient reports no improvement with his nebulizer, continue to needs to complain of severe Shortness of breath without any improvement. Has not been smoking.) Anorexia: Moderate (4-6) (Intake is mostly impacted by his taste changes, these are attributed at this point in time to his oral candidiasis), Weight loss Sleep: Variable sleep pattern Constipation: Yes, Opoid induced, Intermittent constipation Feelings of wellbeing/Perceived Quality of Life: Poor, Worsening Performance Status: Patient has continued to deteriorate over the last several months, particularly in area of functional status. He is only able to ambulate short distances this is mostly limited by his dyspnea, weakness, and pain. At this point in time he is unable to bathe safely independently, will need assistance. Is concerned about physical therapy, as does not feel has the stamina to participate at this point in time, did encourage to allow at least for safety eval and baseline measurements. - Palliative Care Discussion: Patient quite discouraged as he is still having significant shortness of breath, remains quite fragile. Reviewed patient's goals of care, patient has been discouraged over his quality of life for several months to years. With increasing limitations, has had intermittent conversations regarding suicidal ideation, though is quite clear he would not follow through on anything given his brother committed suicide a couple years ago and found this quite distressing. His goals are to hopefully continue to stop smoking, we did review in detail the progression of his disease directly related now to his worsening status when smoking. He is able to acknowledge this, was given the choice of transitioning to comfort and hospice during hospitalization, and felt he was not "ready for this yet". Patient's goals are to improve functional status, respiratory status, does have difficulty with insight and staying in the conversation as he does have moderate cognitive deficits and severe short-term memory issues. His other goal which he has restated today, is would like to continue to titrate down on the opioids, though he still has severe underlying pain recognizing the limitations of relief. Patient does have a LISA ST in place, but gets really anxious and often called 911, he professes he is done with this, often is also very afraid of dying in the dying process. Remains ambivalent. aware of patient's fragile status, and patient's continued decline. Both perceive his quality of life continues to deteriorate Results - Lab Results Lab results reviewed: Yes Lab and Imaging Results: WBC on 09/18 26 Impression and Recommendations - Palliative Care Impression: This is a 72-year-old gentleman with a long list of comorbidities, 2 recent hospitalizations, and progressive advanced COPD, recently oxygen dependent. He continues to present with high symptom burden of chronic pain, dyspnea, fatigue, anxiety, depression, and taste changes related to oral candidiasis. Both patient and have difficulty with his complicated medication regimen, patient has though been compliant with his antibiotics and will complete his Flagyl tomorrow. Home health services to initiate oversight, and support 09/24. Palliative care to continue to provide oversight regarding med reconciliation, address quality of life issues, symptom management, and anticipatory guidance Recommendations/Counseling Done: 1. Pneumonia. Patient has been compliant and has completed Levaquin, 1 more day of his Flagyl. Patient reports cough is improved, patient does not present with any wheezing, but does continue to have baseline dyspnea and activity intolerance. 2. COPD exacerbation. Patient was changed out to Xopenex, follow-up with [facility] as prescription is not at home. Does not perceive DuoNeb providing any relief. Attempting to reconcile, given patient's tendency for tachycardia, will put DuoNeb on hold as well as albuterol when medication obtained. There are discrepancies as far as patient's prednisone taper, given his continued perception not improving, will initiate prednisone taper at 40 mg as ordered on discharge 09/18, message left to obtained prescription and will have home health RN work with family to be compliant with taper. Patient is given positive reinforcement for tobacco cessation. [facility] friend had picked up not in medication "bin". 3. Depression. Patient has been reinitiated back on his citalopram 20 mg daily, patient often quit says he hates having so many pills, does not perceive it is of benefit though has proven to be so over several years as he is fluctuated. in agreement to oversee this medication with his other ones. 4. Oral candidiasis. Nystatin has not been available in the community, will initiate Chlortrimazole troches 10 mg 5 times daily for compliance. Instructions reviewed with , order left at [facility]. 5. Generalized weakness. Patient has not been able to tolerate bathing, afraid of safety will initiate home health aide with home health services. Patient may not be able to tolerate shower for couple weeks, may need bed baths will communicate this to the health care team. Patient hesitant to initiate physical therapy, discussed role would be to maximize safety, and as patient improves can progress home exercise program. 6. Advanced care planning. LISA ST is in place, both patient and despite there limitations are aware of his fragile status. Patient's goals are to improve functional status, does not feel he is ready to transition to hospice, and wanting to focus on improving baseline quality of life. Time Spent: 60 minutes with greater than 50% of this done in counseling regarding medication adherence follow-up on med reconciliation, anticipatory guidance and teaching regarding disease tobacco sensation and advanced care planning.
== END 2018-09-23 12:31 | disposition home or self-care (01) ==
LOC: PC 12:30
PROVIDERS: ATTEND Nurse Practitioner Adult Health
DX: Z51.5 Encounter for palliative care (principal); J69.0 Pneumonitis due to inhalation of food and vomit; J44.0 Chronic obstructive pulmonary disease with (acute) lower respiratory infection; J44.1 Chronic obstructive pulmonary disease with (acute) exacerbation; J96.11 Chronic respiratory failure with hypoxia; T48.6X6A Underdosing of antiasthmatics, initial encounter; T38.0X6A Underdosing of glucocorticoids and synthetic analogues, initial encounter; F32.9 Major depressive disorder, single episode, unspecified; T43.226A Underdosing of selective serotonin reuptake inhibitors, initial encounter; Z91.128 Patient's intentional underdosing of medication regimen for other reason; G89.4 Chronic pain syndrome; S32.009S Unspecified fracture of unspecified lumbar vertebra, sequela; K46.9 Unspecified abdominal hernia without obstruction or gangrene; R41.3 Other amnesia; F41.9 Anxiety disorder, unspecified; B37.0 Candidal stomatitis; R53.1 Weakness; Z72.0 Tobacco use; Z79.891 Long term (current) use of opiate analgesic; Z99.81 Dependence on supplemental oxygen; Z79.899 Other long term (current) drug therapy; I25.10 Atherosclerotic heart disease of native coronary artery without angina pectoris; I71.4 Abdominal aortic aneurysm, without rupture; Z66 Do not resuscitate
CPT/HCPCS: 99350

== ENCOUNTER 2018-12-09 14:30 | Outpatient (CLI) | payer MEDICARE, OTHER ==
--- NOTE | 2018-12-09 18:45 | CONSULTATION NOTE ---
Palliative Care Follow Up - Referral Referring Provider: Dr. Jason Keller Time of Visit: [id number] Referral setting: Home Referral Reason: Advanced COPD/Chronic Pain Syndrome - Information Sources Records reviewed: Previous records reviewed History/Review of Systems obtained from: Patient, Family ( present for visit) Exam limitations: Clinical condition (patient with severe STM issues) - History of Present Illness Update Brief HPI Update: This is a 72-year-old gentleman who has advanced COPD, now oxygen dependent, was followed by home health after hospitalization in early September for sepsis, acute on chronic respiratory failure with hypoxia, pneumonia and COPD exacerbation. He continues to be challenged both by his ongoing tobacco use, shortness of breath and dyspnea related to his COPD, and chronic pain syndrome. He has been stable for the last couple months, the home health RN working with him for medication compliance. He is setting up his own [facility], though this remains challenging with his cognitive deficits. Patient reports he is smoking about 6 to 8 cigarettes a day, does this somewhat out of boredom. Has to be reminded constantly not to smoke with his oxygen. He is limited now by his activity intolerance, breathlessness with ambulating 5 to 10 feet. He does have a moist cough of white phlegm, and his breath sounds are diminished throughout. He denies any fever or chills, has not had any recent exacerbations, and uses his nebulizer with DuoNeb's about twice a day. He does have some tightness which this relieves, and allows him to clear his secretions. He continues with his chronic pain syndrome, he reports his back is much improved, but still continues to the chronic abdominal pain related to complications of a colonoscopy multiple years ago which required abdominal surgery and multiple hospitalizations. He has a residual chronic neuropathic pain syndrome and has been on oxycodone long-term. Have attempted to titrate him down, he for currently feels the 10-11 tabs of oxycodone 30 mg divided into 4 doses daily, is adequate for him. Patient unfortunately, has not been answering the phone this week, and when called the day was down to 6 tabs. He is getting his modifications at [facility] now, and won't be available until . Patient gets quite anxious when this news was shared with him by his , did offer to write few tabs for [facility] to tide him over, but he declined. He reports he gets quite miserable, but not severely ill, he is often run out before. Discussed possibly bridging with CBD. Social History - Living Situation Living arrangement: At home Living Situation: With spouse/s.o. Support System: Patient and live in mobile home, Magy herself has multiple chronic health problems, continues to look quite frail. There is supported by their daughter who lives on the property, he will take him to appointments and run errands. They also have some friends that they pay to assist as well. Patient has been offered multiple times other services of support, but remains resistant to changes. Medications/Allergies - Medications Home Medications: Ambulatory Orders Medication Instructions Recorded Confirmed Tamsulosin [Flomax] 0.4 mg PO DAILY 01/19/13 12/09/18 Albuterol Sulfate [Proair Hfa 2 inh IH Q4H PRN 09/20/14 12/09/18 Inhaler] Aspirin [Ecotrin] 81 mg PO DAILY 09/20/14 12/09/18 Metoprolol Tartrate [Lopressor] 50 mg PO DAILY 09/20/14 12/09/18 Nitroglycerin [Nitrostat] 1 tab [id number] ONCE 12/07/15 12/09/18 Trazodone HCl 100 - 200 mg PO QPM PRN 08/29/17 12/09/18 Budesonide/Formoterol Fumarate 2 puffs INH BID 09/27/17 12/09/18 [Symbicort 160-4.5 Mcg Inhaler] Clopidogrel [Plavix] 75 mg PO DAILY 02/16/18 12/09/18 Lovastatin 40 mg PO DAILY 02/16/18 12/09/18 Ipratropium/Albuterol [Duoneb] 1 inh INH Q4HR PRN MDD hold when 09/05/18 12/09/18 on xopenex Montelukast [Singulair] 10 mg PO QPM #30 tablet 09/16/18 12/09/18 Citalopram Hydrobromide 20 mg PO DAILY 09/24/18 12/09/18 [Citalopram HBr] Oxycodone HCl [Roxicodone] 60 - 90 mg PO QID PRN MDD nte 11 09/24/18 12/09/18 tabs/24 hours guaiFENesin [Mucinex] 600 mg PO BID PRN 12/09/18 12/09/18 Bisacodyl [Dulcolax] 5 - 10 mg PO DAILY 12/10/18 12/10/18 Docusate Sodium 100 mg PO DAILY 12/10/18 12/10/18 - Allergies Allergies/Adverse Reactions: Allergies Allergy/AdvReac Type Severity Reaction Status Date / Time codeine Allergy Unknown Verified 09/10/18 08:17 Iodinated Contrast- Oral and Allergy Unknown Verified 09/10/18 12:56 IV Dye Penicillins Allergy Unknown Verified 09/10/18 08:17 Review of Systems - Constitutional Constitutional: reports: Fatigue, Weight gain (135). denies: Fever, Chills - Eyes Eyes: reports: Vision loss - Ears, Nose & Throat Ears, Nose & Throat: reports: Hearing loss, Dental decay (hasnot gone to dentist yet), Dry mouth - Cardiovascular Cardiovascular: reports: Decr. exercise tolerance. denies: Chest pain - Respiratory Respiratory: reports: Cough, Sputum production (clear white), SOB at rest, SOB with exertion - Gastrointestinal Gastrointestinal: reports: Abdominal pain, Good appetite. denies: Constipation - Musculoskeletal Musculoskeletal: reports: Back pain (improved), Stiffness, Muscle weakness - Integumentary Integumentary: reports: Dryness - Neurological Neurological: reports: General weakness, Memory problems - Psychiatric Psychiatric: reports: Depression, Anxiety. denies: Suicidal - All Other Systems All Other Systems: reports: Reviewed and negative Physical Exam - Vital Signs Temperature: 97.3 C Pulse Rate: 67 Respiratory Rate: 18 O2 Saturation: 96 (on 2 liters at rest) Blood Pressure: 102/62 - Physical Exam General Appearance: positive: Mild distress, Anxious Eyes Bilateral: positive: Normal inspection ENT: positive: Other (poor dentition) Neck: positive: No JVD, Trachea midline Cardiovascular: positive: Regular rate & rhythm Respiratory: positive: Diminished throughout Abdomen: positive: Tenderness Skin: positive: Pallor, Dryness Extremities: positive: No pedal edema Neurologic/Psychiatric: positive: Oriented x3, Weakness, Depressed mood/affect, Flat affect Palliative Care - POLST Patient has POLST: Yes POLST Status: DNR, Selective Treatment Pain: Pain worsening, Location (Patient reports pain and mostly right abdominal area, over hernia area. Is sharp shooting in nature, worse with standing and walking, relieved with laying flat out. Does report get some relief from his o xycodone, remains with moderate to severe discomfort.) Tiredness/Fatigue: Severe (7-10) Drowsiness/Sedation: Mild (1-3) Nausea: None Depression: Moderate (4-6) Anxiety: Severe (7-10) (very anxious about oxycodone not be available until ) Dyspnea: Severe (7-10) Anorexia: None Sleep: Variable sleep pattern Constipation: Yes, Opoid induced, Managed Feelings of wellbeing/Perceived Quality of Life: Poor, No change Performance Status: Patient continues with limited activity tolerance, attributes this both to dyspnea and his pain. Does spend most the time laying flat in bed watching TV. Is able to shower maybe once a week, [place] for safety. Patient is trying to ambulate more often, his friend Aaron comes up and take some a couple times a week for short distances with his walker outside. - Palliative Care Discussion: Patient remains quite overwhelmed by his limited quality of life, is not able to identify anything that brings him joe, he is quite bored most of the time. He does watch quite a bit of TV. He does have a couple friends that visit occasionally, he reports he just "wants to going to sleep". He does admit to depression, but denies being suicidal, his brother had committed suicide and does not feel he could do this for his family. But does not want to return to the hospital at all if possible. He finds the environment very confusing and distressing. He would not want to suffer nor have his life prolonged, but gets very anxious when he is short of breath. He continues to struggle with finding meaning in his day-to-day existence. Impression and Recommendations - Palliative Care Impression: This is a 73-year-old gentleman with advanced COPD, and chronic abdominal pain. He continues to have functional decline, and presents with persistent depression. Continues to struggle with his current quality of life, but remains resistant to making any changes. Palliative care continue to provide support given these limitations, and transition to hospice when appropriate Recommendations/Counseling Done: 1. COPD. Patient continues to smoke, despite feeling more poorly. He reports he is down to 6 to 8 cigarettes a day, does not want to restart or rechallenge with the nicotine patch. He had done somewhat better after hospitalization, but is back to his baseline. Patient is using nebulizer twice a day with relief of tightness and wheezing. Patient has intermittent exacerbations, but has not needed any medications or hospitalization at this point. Patient feels he can identify when he is getting in trouble, has been instructed not to wait to the point to becomes emergent. Counseling provided regarding tobacco cessation, encouraged to increase activity, and reviewed signs and symptoms of exacerbation with hopes to avoid hospitalization. 2. Chronic abdominal pain, multifactorial in origin. Patient currently taking 10-11 tabs of 30 mg of oxycodone daily, last decrease was 2 months ago. Patient quite anxious about going down further, though he wants to get "off this stuff". Remains resistant to looking at other adjuvants are medications. Have trialed multiple approaches in the past. Patient without access until , he is quite anxious, declined offered to write bridge prescription. Counseling provided regarding CBD as possible of bridge, also has an adjuvant for his current regimen, patient quite resistant, information provided in response to 's inquiry. 3. Depression. Patient's on his citalopram 20 mg daily, recommendation to try changing up his antidepressant, patient again resistant to any kind of changes. Counseling provided regarding normalizing grief and loss related to his current situation, ongoing loss of health and independence, as well as screen for depression secondary concern for suicidality. 4. Constipation. Patient reports titrating his Dulcolax and MARQUIS with success. 5. Medication adherence. Home health RN worked diligently with patient and , for compliance. Patient reports feeling medisets, declined for me to do a double check and evaluate. Given patient's ongoing cognitive deficits, and 's forgetfulness, always remain concerned about regimen. Though they feel like they are doing good enough. 6. Advanced care planning. POLST is in place, patient remains quite fragile, though has not had any repeat hospitalizations since early September. Patient's goals remain to be as independent as possible, but continues to struggle with identifying issues that make life worth living. Declines support of palliative care social services specialist, though is aware is available.Given patient's ongoing cognitive deficits, and 's forgetfulness, always remain concerned about regimen. Though they feel like they are doing good enough. 6. Advanced care planning. POLST is in place, patient remains quite fragile, though has not had any repeat hospitalizations since early September. Patient's goals remain to be as independent as possible, but continues to struggle with identifying issues that make life worth living. Declines support of palliative care social services specialist, though is aware is available. Time Spent: 45 minutes with greater than 50% of this done in counseling regarding pain and depression, tobacco cessation, and coordination of care for obtaining opioid prescription.
== END 2018-12-09 14:31 | disposition home or self-care (01) ==
LOC: PC 14:30
PROVIDERS: ATTEND Nurse Practitioner Adult Health
DX: Z51.5 Encounter for palliative care (principal); J44.9 Chronic obstructive pulmonary disease, unspecified; G89.4 Chronic pain syndrome; K46.9 Unspecified abdominal hernia without obstruction or gangrene; M79.2 Neuralgia and neuritis, unspecified; F32.9 Major depressive disorder, single episode, unspecified; F41.9 Anxiety disorder, unspecified; K59.03 Drug induced constipation; T40.2X5D Adverse effect of other opioids, subsequent encounter; R41.89 Other symptoms and signs involving cognitive functions and awareness; J96.11 Chronic respiratory failure with hypoxia; Z79.891 Long term (current) use of opiate analgesic; Z72.0 Tobacco use; Z87.01 Personal history of pneumonia (recurrent); Z99.81 Dependence on supplemental oxygen; Z66 Do not resuscitate
CPT/HCPCS: 99349

== ENCOUNTER 2019-04-13 14:15 | Outpatient (CLI) | payer MEDICARE, OTHER ==
--- NOTE | 2019-04-13 15:32 | CONSULTATION NOTE ---
Palliative Care Follow Up - Referral Referring Provider: Dr. Jason Keller Time of Visit: [id number] Referral setting: Home Referral Reason: Advanced COPD/MCI - Information Sources Records reviewed: Previous records reviewed History/Review of Systems obtained from: Patient, Family ( Magy present for part of visit) Exam limitations: Clinical condition (patient with poor STM issues) - History of Present Illness Update Brief HPI Update: This is a 73-year-old gentleman who has advanced COPD, oxygen dependent, hypoxic off of oxygen. He did have a hospitalization in early September for sepsis, acute on chronic respiratory failure with hypoxia, pneumonia and COPD exacerbation. He has remained fairly stable, though his hypoxia has worsened. He does have shortness of breath and dyspnea with any kind of activity, and is complicated by his chronic pain syndrome. Patient presents with breathlessness with conversation, he does have expiratory and inspiratory wheezes throughout. He has a moist cough. He reports his sputum is clear. Patient on 3 L is at 96% at rest with pulse of 68, off of oxygen at rest is 88% after 2 minutes p. 88, ambulated 15 feet with oxygen dropping to 85% and pulse up to 115. Recovery back to 97% after 4 minutes. Patient is using his DuoNeb's twice a day, sometimes up to 3 times a day. He does get some tightness which relieves, allows him to clear his secretions. He continues with chronic pain syndrome, he is continues with abdominal pain related complications of a colonoscopy multiple years ago which required abdominal surgeries and multiple hospitalizations. He has residual chronic neuropathic pain syndrome has been on high doses of oxycodone long-term. He does feel currently he is titrated as low as he can tolerate, he is using 10-11 tabs of oxycodone 30 mg divided into 4 doses daily. His back pain has not been exacerbated, he though does present with increased pain in his upper thighs and feet, describes them as sharp shooting pains. He continues quite resistant and considering transitioning over to methadone, had failed previously as well as long-acting medications. He has had low-dose Lyrica in the past with some relief, but does not want to add it at this point in time. Patient appears quite frail and pale, denies weight loss, but has temporal and upper extremity and lower extremity wasting. He has large abdominal hernias, and wears abdominal binder so appears more full in weight than probably is. He is unable to stand or balance to get a weight in the home setting. He has very dry feet with soft thickened fungal nails, are purple in his tips of his toes, this is a new finding. Is very weak pulses, but his feet are warm to touch. He has no open areas or ulcers at this time, though remains high risk as he does not wear socks or shoes. Patient reports he is eating, reports decreased intake for 2 weeks. Patient does have increased pain with food and bowels. Reports bowels moving every other day, continues with hemorrhoids but no akash bleeding. Social History - Living Situation Living arrangement: At home Living Situation: With spouse/s.o. Support System: He lives is his Magy, she to have significant health problems and is quite frail. They do have a daughter who lives on the property, but is unable to provide much help. We reviewed again my recommendation to hire at least few hours a week for assist with bathing and house cleaning for support for both of them. Medications/Allergies - Medications Home Medications: Ambulatory Orders Medication Instructions Recorded Confirmed Tamsulosin [Flomax] 0.4 mg PO DAILY 01/19/13 04/13/19 Albuterol Sulfate [Proair Hfa 2 inh IH Q4H PRN 09/20/14 04/13/19 Inhaler] Aspirin [Ecotrin] 81 mg PO DAILY 09/20/14 04/13/19 Metoprolol Tartrate [Lopressor] 50 mg PO DAILY 09/20/14 04/13/19 Nitroglycerin [Nitrostat] 1 tab [id number] ONCE 12/07/15 04/13/19 Trazodone HCl 100 - 200 mg PO QPM PRN 08/29/17 04/13/19 Budesonide/Formoterol Fumarate 2 puffs INH BID 09/27/17 04/13/19 [Symbicort 160-4.5 Mcg Inhaler] Clopidogrel [Plavix] 75 mg PO DAILY 02/16/18 04/13/19 Lovastatin 40 mg PO DAILY 02/16/18 04/13/19 Ipratropium/Albuterol [Duoneb] 1 inh INH Q4HR PRN MDD hold when 09/05/18 04/13/19 on xopenex Montelukast [Singulair] 10 mg PO QPM #30 tablet 09/16/18 04/13/19 Citalopram Hydrobromide 20 mg PO DAILY 09/24/18 04/13/19 [Citalopram HBr] Oxycodone HCl [Roxicodone] 60 - 90 mg PO QID PRN MDD nte 11 09/24/18 04/13/19 tabs/24 hours guaiFENesin [Mucinex] 600 mg PO BID PRN 12/09/18 04/13/19 Bisacodyl [Dulcolax] 5 - 10 mg PO DAILY 12/10/18 04/13/19 Docusate Sodium 100 mg PO DAILY 12/10/18 04/13/19 - Allergies Allergies/Adverse Reactions: Allergies Allergy/AdvReac Type Severity Reaction Status Date / Time codeine Allergy Unknown Verified 09/10/18 08:17 Iodinated Contrast Media Allergy Unknown Verified 09/10/18 12:56 [Iodinated Contrast- Oral and IV Dye] Penicillins Allergy Unknown Verified 09/10/18 08:17 Review of Systems - Constitutional Constitutional: reports: Fatigue, Weight loss (unable to confirm). denies: Fever, Chills - Eyes Eyes: reports: Blurred vision, Vision loss - Ears, Nose & Throat Ears, Nose & Throat: reports: Hearing loss, Nasal congestion, Dental decay, Dry mouth - Cardiovascular Cardiovascular: reports: Chest pain (sharp shooting intermittent; not sustained to point to take nitro), Exertional dyspnea, Decr. exercise tolerance. denies: Edema - Respiratory Respiratory: reports: Sputum production, Wheezing, SOB at rest, SOB with exertion, Other (patient continues to smoke about 10 cigs /24 hours; takes off oxygen) - Gastrointestinal Gastrointestinal: reports: Abdominal pain, Abdominal distention, Constipation, Coffee grounds emesis, Early satiety - Genitourinary Genitourinary: denies: Incontinence - Musculoskeletal Musculoskeletal: reports: Back pain, Muscle aches, Stiffness, Limited range of motion, Muscle weakness - Integumentary Integumentary: reports: Dryness, Nail changes (thick fungal nails), Other - Neurological Neurological: reports: General weakness, Dizziness, Numbness, Memory problems, Abnormal gait - Psychiatric Psychiatric: reports: Depression, Anxiety, Suicidal (would like to ; but does not have any plan or intention to harm self) - Hematologic/Lymphatic Hematologic/Lymphatic: denies: Recurrent infections (none since September) - All Other Systems All Other Systems: reports: Other (limited by patients memory) Physical Exam - Vital Signs Temperature: 97.3 C Pulse Rate: 68 (see HPI) Respiratory Rate: 20 O2 Saturation: 96 (on 3 liters see HPI) Blood Pressure: 102/62 - Physical Exam General Appearance: positive: Alert, Moderate distress (related to pain/dyspnea) Eyes Bilateral: positive: Normal inspection ENT: positive: Other (poor dentition; has not followed through on dental appointment) Neck: positive: Trachea midline Cardiovascular: positive: Regular rate & rhythm Respiratory: positive: Diminished throughout, Wheezes Abdomen: positive: Abnml bowel sounds (hypoactive), Tenderness, Guarding, Distended, Other (had abdominal binder on) Skin: positive: Pallor, Dryness Extremities: positive: Full ROM (very difficult to get from sitting to standing; ambulating exacerbates pain), No pedal edema, Other (feet purplish) Neurologic/Psychiatric: positive: Disoriented to time, Weakness, Depressed mood/affect, Flat affect Palliative Care - POLST Patient has POLST: Yes POLST Status: DNR, Selective Treatment Pain: Pain unchanged, Location (see hpi; mostly centralized to lower abdominal area today) Tiredness/Fatigue: Severe (7-10) Drowsiness/Sedation: Moderate (4-6) Nausea: None Depression: Moderate (4-6) Anxiety: Moderate (4-6) Dyspnea: Severe (7-10) Anorexia: Moderate (4-6) Sleep: Variable sleep pattern Constipation: Yes, Opoid induced, Intermittent constipation Feelings of wellbeing/Perceived Quality of Life: Poor, Worsening Performance Status: Continues with limited activity tolerance with attributed both to dyspnea more so lately and his pain. There is been most of his time lying flat in bed watching TV as this is most comfortable for his pain. He does shower weekly, but this is becoming more difficult for both him and his to manage, they have been encouraged to hire help and we reviewed that again today. - Palliative Care Discussion: Patient remains overwhelmed by the limited quality of his life, he reports both of them are quite frail and barely making it these days. He would welcome as a relief from his current level of pain and suffering, but also does not want anything to happen to hasten his . If asked if wanted to transition to hospice and focus on comfort, patient is not ready to do this either, he has a high level of anxiety regarding dying. Impression and Recommendations - Palliative Care Impression: This is a 73-year-old gentleman with advanced COPD, and ongoing poorly controlled chronic abdominal pain neuropathic in nature. He continues to have functional decline, worsening hypoxia, and presents with persistent depression. He continues to struggle with his current quality of life, but remains resistant to making any changes. Palliative care to continue provide support given his limitations, and transition to hospice when appropriate Recommendations/Counseling Done: 1. COPD. Patient with worsening hypoxia, does need to continue with continuous oxygen. They have been having difficulty with prescription for last order for oxygen. Patient though does meet criteria, will send new order and visit note with readings. Encouraged patient to use his nebulizer at least 3 times daily, increase his fluids to help with clearing of secretions, and wear his oxygen continuously except when smoking. Patient has not had a recent exacerbation, hopefully patient will identify early so as not to result in hospitalization. Patient though is presenting with increasing mild cognitive impairment, so of concern. Counseling provided regarding recommended getting flu shot for both he and his . 2. Chronic abdominal pain, multifactorial in origin. Patient currently taking 10-11 tabs of 30 mg of oxycodone daily, he feels this is a slow as he can titrate down to. He is quite anxious about going down further and is feeling somewhat resigned this is as low as is going to go. He continues to have fairly poorly controlled pain, but feels like it is better than without the oxycodone. We have tried multiple adjuvants and approaches in past, patient is not trialing anything currently nor in agreement. 3. Depression. Patient continues on his 20 mg daily, had wanted to change up his antidepressant or increase, patient remains resistant to changes. Counseling provided regarding normalizing grief and loss to his current situation, attempted to help him reframe and set some short-term goals, he is a little happier with [employer]. 4. Constipation. Patient reports his Dulcolax and DOS are fine at this point in time. 5. Medication adherence. Continue to worry about patient's adherence, as his has forgetfulness as well. They did get all the prescriptions on mail order, so feel like they are managing better. Patient did not want to show me his medication regimen,. 6. Advanced care planning. POLST in place, patient remains quite fragile, patient has not had any hospitalizations since early September, no ED visits or falls. Counseling provided to regarding and list of caregiving agencies with encouragement to hire at least weekly for bathing and household assist. They continue to decline support of palliative care social media senior associate, patient's goals are to remain as independent as possible. Patient does perceive he is declining in health, but is very fearful about talking about or dying and including transitioning to hospice team. I would suspect patient at this point in time would meet criteria, will continue to address at regular visits. Time Spent: 45 minutes with greater than 50% of this done in counseling regarding goals of care, oxygen use, COPD, medication adherence, and anticipatory guidance
== END 2019-04-13 14:16 | disposition home or self-care (01) ==
LOC: PC 14:15
PROVIDERS: ATTEND Nurse Practitioner Adult Health
DX: Z51.5 Encounter for palliative care (principal); J44.9 Chronic obstructive pulmonary disease, unspecified; G89.4 Chronic pain syndrome; M79.2 Neuralgia and neuritis, unspecified; G31.84 Mild cognitive impairment of uncertain or unknown etiology; Z99.81 Dependence on supplemental oxygen; J96.11 Chronic respiratory failure with hypoxia; Z87.01 Personal history of pneumonia (recurrent); K66.0 Peritoneal adhesions (postprocedural) (postinfection); Z79.891 Long term (current) use of opiate analgesic; M54.9 Dorsalgia, unspecified; M79.652 Pain in left thigh; M79.651 Pain in right thigh; M79.672 Pain in left foot; M79.671 Pain in right foot; K43.9 Ventral hernia without obstruction or gangrene; B35.1 Tinea unguium; K64.9 Unspecified hemorrhoids; Z79.51 Long term (current) use of inhaled steroids; Z72.0 Tobacco use; F32.9 Major depressive disorder, single episode, unspecified; F41.9 Anxiety disorder, unspecified; Z66 Do not resuscitate; K59.03 Drug induced constipation; T40.2X5D Adverse effect of other opioids, subsequent encounter
CPT/HCPCS: 99349

== ENCOUNTER 2019-05-26 23:58 | Outpatient (CLI) | payer MEDICARE, OTHER | END 2019-05-26 23:59 | disposition critical access hospital (66) | LOC: EMS 23:58 | PROVIDERS: ATTEND Surgery | DX: R06.02 Shortness of breath (principal) | CPT/HCPCS: A0425; A0427 ==

== ENCOUNTER 2019-05-27 00:01 | Inpatient (IN) | payer MEDICARE, OTHER ==
[2019-05-27] MEDS ORDERED: IPRATROPIUM/ALBUTEROL 3 ML NEB INH STA (00:11)
--- NOTE | 2019-05-27 00:13 | ED Physician Documentation ---
PD HPI DYSPNEA - Stated complaint Stated Complaint: SOA - Chief complaint Chief Complaint: Resp - History obtained from History obtained from: Patient, EMS - History of Present Illness Timing - onset: Other (unclear) Severity Comments: severe shortness of breath Associated symptoms: Cough, Wheezing - Treatment prior to arrival Treatment prior to arrival: EMS gave the patient nebulizer treatments and increased his O2 from 3 to 6L - Additional information Additional information: Pt has a hx of COPD and has been coughing and sob. His is his caregiver. He is usually on 3L Of home O2. On EMS's arrival he was saturating only 80% on 3L with tachypnea and wheezing. Limited history due to respiratory distress on arrival but pt is also a poor historian. Review of Systems Unable to obtain: Other (respiratory distress, poor hisotrian) PD PAST MEDICAL HISTORY - Past Medical History Past Medical History: Yes Cardiovascular: Hypertension, Coronary artery disease Respiratory: COPD, Pneumonia Neuro: None Endocrine/Autoimmune: None GI: Hiatal hernia, Diverticulitis, Other : Benign prostate hypertrophy HEENT: Chronic hearing loss Psych: Depression Musculoskeletal: None Derm: None - Past Surgical History Past Surgical History: Yes General: Bowel surgery, Colonoscopy, Other Cardiovascular: Coronary stent, AAA - Present Medications Home Medications: Ambulatory Orders Medication Instructions Recorded Confirmed Tamsulosin [Flomax] 0.4 mg PO DAILY 01/19/13 04/13/19 Albuterol Sulfate [Proair Hfa 2 inh IH Q4H PRN 09/20/14 04/13/19 Inhaler] Aspirin [Ecotrin] 81 mg PO DAILY 09/20/14 04/13/19 Metoprolol Tartrate [Lopressor] 50 mg PO DAILY 09/20/14 04/13/19 Nitroglycerin [Nitrostat] 1 tab [id number] ONCE 12/07/15 04/13/19 Trazodone HCl 100 - 200 mg PO QPM PRN 08/29/17 04/13/19 Budesonide/Formoterol Fumarate 2 puffs INH BID 09/27/17 04/13/19 [Symbicort 160-4.5 Mcg Inhaler] Clopidogrel [Plavix] 75 mg PO DAILY 02/16/18 04/13/19 Lovastatin 40 mg PO DAILY 02/16/18 04/13/19 Ipratropium/Albuterol [Duoneb] 1 inh INH Q4HR PRN MDD hold when 09/05/18 04/13/19 on xopenex Montelukast [Singulair] 10 mg PO QPM #30 tablet 09/16/18 04/13/19 Citalopram Hydrobromide 20 mg PO DAILY 09/24/18 04/13/19 [Citalopram HBr] Oxycodone HCl [Roxicodone] 60 - 90 mg PO QID PRN MDD nte 11 09/24/18 04/13/19 tabs/24 hours guaiFENesin [Mucinex] 600 mg PO BID PRN 12/09/18 04/13/19 Bisacodyl [Dulcolax] 5 - 10 mg PO DAILY 12/10/18 04/13/19 Docusate Sodium 100 mg PO DAILY 12/10/18 04/13/19 - Allergies Allergies/Adverse Reactions: Allergies Allergy/AdvReac Type Severity Reaction Status Date / Time codeine Allergy Unknown Verified 05/27/19 00:15 Iodinated Contrast Media Allergy Unknown Verified 05/27/19 00:15 [Iodinated Contrast- Oral and IV Dye] Penicillins Allergy Unknown Verified 05/27/19 00:15 - Social History Does the pt smoke?: Yes Smoking Status: Former smoker Does the pt drink ETOH?: No Does the pt have substance abuse?: No - Immunizations Immunizations are current?: Yes - POLST Patient has POLST: Yes POLST Status: DNR PD ED PE NORMAL - Vitals Vital signs reviewed: Yes - HEENT HEENT: Atraumatic - Neck Neck: Supple, no meningeal sign - Male Male : Deferred - Rectal Rectal: Deferred - Derm Derm: Normal color, Warm and dry, No rash - Extremities Extremities: No deformity, No tenderness to palpate, No edema PD ED PE EXPANDED - General General: Disheveled, poorly kept, Anxious, In distress, Other (unkempt ) - HEENT HEENT: Dry mucous membranes - Neck Neck: Supple w/out meningeal sx, Other (no JVD) - Cardiac Cardiac: Tachy, Regular Rhythm - Respiratory Respiratory: Labored, Wheezing, Rhonchi, Other (tachypneic ) - Abdomen Abdomen: Distended, Surgical scars, Other (multiple hernias, nontender abdomen ). No: Tender to palpation, Rebound, Guarding - Extremities Extremities: Other (no edema ) Results - Vitals Vitals: Vital Signs - 24 hr 05/27/19 05/27/19 05/27/19 00:06 00:11 00:34 Temperature 37.0 C 36.8 C Heart Rate 105 H 114 H 112 H Respiratory 40 H 26 H 26 H Rate Blood Pressure 157/78 H O2 Saturation 94 97 05/27/19 01:09 Temperature Heart Rate 104 H Respiratory 24 Rate Blood Pressure 123/58 L O2 Saturation 94 Oxygen O2 Source [Without Activity] Room air O2 Source [With Activity] Room air O2 Source Nasal cannula Oxygen Flow Rate 3 - EKG (time done) 00:05 Rate: Rate (enter#) (107), Tachy Rhythm: Sinus tachycardia [place]: Normal Intervals: Normal [place], RBBB QRS: Normal Ischemia: No: ST elevation c/w ischemia, ST elevation c/w repol, ST depression, T wave inversion Computer interpretation: Agree with computer - Labs Labs: Laboratory Tests 05/27/19 05/27/19 05/27/19 00:20 00:20 00:20 WBC 41.1 H* RBC 4.67 L Hgb 14.8 Hct 47.0 MCV 100.6 H MCH 31.7 H MCHC 31.5 L RDW 13.2 Plt Count 206 MPV 11.1 Neut # (Auto) Not Reportable Lymph # (Auto) Not Reportable [place] # (Auto) Not Reportable Eos # (Auto) Not Reportable Baso # (Auto) Not Reportable Absolute Nucleated RBC Not Reportable Total Counted 100 Band Neuts % (Manual) 1 Abnorm Lymph % (Manual) 0 Nucleated RBC % Not Reportable Neutrophils # (Manual) 34.9 H Lymphocytes # (Manual) 0.8 L Monocytes # (Manual) 4.5 H Eosinophils # (Manual) 0.8 H Basophils # (Manual) 0.0 Differential Comment MANUAL DIFFERENTIAL Platelet Estimate NORMAL (130-450,000) RBC Morph Micro Appear NORMAL APPEARANCE VBG pH VBG pCO2 VBG pO2 VBG HCO3 VBG Total CO2 VBG O2 Saturation VBG Base Excess Sodium 138 Potassium 3.9 Chloride 97 L Carbon Dioxide 32 Anion Gap 9.0 BUN 18 Creatinine 0.9 Estimated GFR (MDRD) 82 L Glucose 151 H Lactic Acid 2.4 H Calcium 9.1 Influenza A (Rapid) Influenza B (Rapid) 05/27/19 05/27/19 00:30 00:40 WBC RBC Hgb Hct MCV MCH MCHC RDW Plt Count MPV Neut # (Auto) Lymph # (Auto) [place] # (Auto) Eos # (Auto) Baso # (Auto) Absolute Nucleated RBC Total Counted Band Neuts % (Manual) Abnorm Lymph % (Manual) Nucleated RBC % Neutrophils # (Manual) Lymphocytes # (Manual) Monocytes # (Manual) Eosinophils # (Manual) Basophils # (Manual) Differential Comment Platelet Estimate RBC Morph Micro Appear VBG pH 7.281 L VBG pCO2 67.6 H VBG pO2 19.0 L VBG HCO3 31.1 H VBG Total CO2 33.2 H VBG O2 Saturation 35.1 L VBG Base Excess 2.1 H Sodium Potassium Chloride Carbon Dioxide Anion Gap BUN Creatinine Estimated GFR (MDRD) Glucose Lactic Acid Calcium Influenza A (Rapid) Negative Influenza B (Rapid) Negative - Rads (name of study) CXR Radiology: Final report received, EMP read contemporaneously, See rad report PD MEDICAL DECISION MAKING - ED course Complexity details: reviewed results, re-evaluated patient, considered differential, d/w patient ED course: 73 y/o M with sob, cough, wheezing, hx of COPD, pt is a poor historian also in some respiratory distress Given nebs on arrival, supplemental O2, solumedrol, repeat nebs. Respiratory acidosis on vbg. Pt is improving but still wheezing with diffuse rhonchi as well. afebrile but wbc of 40,000 thus sent blood cultures and started antibiotics for likely PNA. No obvious infiltrate on CXR but pt is dehydrated. Improving thus currently not requiring Bipap, pt now able to speak in full sentences. UA pending Discussed case with hospitalist who agrees to admit to Medicine. - Critical Care Time(min): 30 Time Includes: Direct patient care, Review records, Reassess patient, Document care Data interpretation: Labs, ABG, CXR, Prior EKG Departure - Departure Disposition: 66 [facility] DC/Xfer Clinical Impression: COPD with exacerbation Condition: Fair
[2019-05-27 00:28] LABS: EOSINOPHILS % (AUTO) 0.1 %; HGB - HEMOGLOBIN 14.8 g/dL (14.0-18.0); LYMPHOCYTES % (AUTO) 2.9 %; MEAN CORPUSCULAR HEMOGLOBIN 31.7 pg (27.0-31.0); MEAN CORPUSCULAR HGB CONC 31.5 g/dL (32.0-36.0); MEAN CORPUSCULAR VOLUME 100.6 fL (80.0-94.0); MEAN PLATELET VOLUME 11.1 fL (7.4-11.4); PLT - PLATELET COUNT 206 10^3/uL (130-450); RED BLOOD COUNT 4.67 10^6/uL (4.70-6.10); RED CELL DISTRIBUTION WIDTH 13.2 % (12.0-15.0)
[2019-05-27] MEDS ORDERED: ALBUTEROL NEB 2.5 MG/3 ML INH STA (00:28)
[2019-05-27 00:32] LABS: WHITE BLOOD COUNT 41.1 x10^3/uL (4.8-10.8)
[2019-05-27 00:33] LABS: ABNORMAL LYMPHS % (MANUAL) 0 %
[2019-05-27] MEDS ORDERED: AZITHROMYCIN 250 MG TABLET PO STA (00:34)
[2019-05-27] MEDS ORDERED: cefTRIAXone 2 GM in SODIUM CHLORIDE 0.9% MINIBAG 100 ML IV STA (00:34)
[2019-05-27 00:37] LABS: CALCIUM 9.1 mg/dL (8.5-10.3); CREATININE 0.9 mg/dL (0.6-1.2)
--- NOTE | 2019-05-27 00:38 | XRAY Report ---
Reason: chest pain Procedure Date: 05/27/2019 Accession Number: [id number] / [id number] Procedure: XR - Chest 1 View X-Ray CPT Code: 53674 Final Report FULL RESULT: EXAM: CHEST RADIOGRAPHY EXAM DATE: 05/27/2019 12:26 AM. CLINICAL HISTORY: Chest pain. COMPARISON: CHEST 1 VIEW 09/17/2018 7:10 PM. TECHNIQUE: 1 view. FINDINGS: Atherosclerotic plaque calcifications are seen in the aorta. The heart size is normal. Emphysematous changes are seen in both lungs. Prominent perihilar and bibasilar interstitial opacities are not significantly changed. There is no focal consolidation, pleural effusion, or pneumothorax. Degenerative changes are seen in the spine. There is increased collapse of the lower thoracic vertebral body with increased radiodensity in this region, possibly a result of an interval kyphoplasty. IMPRESSION: No focal consolidation. Unchanged perihilar and bibasilar coarse interstitial opacities. RADIA
[2019-05-27 00:39] LABS: VBG BASE EXCESS 2.1 mmol/L (-2 - +2); VBG PCO2 67.6 mmHg (41-51); VBG PH 7.281 (7.31-7.41); VBG TOTAL CO2 33.2 mmol/L (24-29)
[2019-05-27 00:50] LABS: BAND NEUTROPHILS % (MANUAL) 1 %; EOSINOPHILS # (MANUAL) 0.8 10^3/uL (0-0.7); LYMPHOCYTES # (MANUAL) 0.8 10^3/uL (1.5-3.5); LYMPHOCYTES % (MANUAL) 2 %; MONOCYTES # (MANUAL) 4.5 10^3/uL (0.0-1.0)
[2019-05-27 00:51] LABS: DIFFERENTIAL COMMENT MANUAL DIFFERENTIAL; PLATELET ESTIMATE, MANUAL NORMAL (130-450,000) (NORMAL); RBC MORPHOLOGY (MULTIPLE) NORMAL APPEARANCE (NORMAL)
[2019-05-27] MEDS ORDERED: SODIUM CHLORIDE FLUSH 0.9% 10 ML SYRINGE IVP PRN (01:19)
--- NOTE | 2019-05-27 01:46 | HISTORY & PHYSICAL EXAMINATION ---
Chief Complaint - Chief Complaint Chief Complaint: dyspnea History of Present Illness - Admitted From Admitted From:: [facility] ED - History Obtained From Records Reviewed: yes History obtained from: patient - History of Present Illness HPI Comment/Other: Patient is a 73 y/o who presented to the ED via EMS with dyspnea which started yesterday. He finally called EMS because his symptoms got worse. He has been wheezing and coughing up a creamy colored sputum. He also complained of sharp left sided chest pain with no radiation. He normally uses 3L of oxygen at home, but required 6L today. He reports chills but no fever. He has a history sign ificant for COPD, CAD and multiple abdominal surgeries. Despite his state, he was able to smoke prior to arrival in the ED. he smokes about half a pack of cigarettes daily. In the ED he was tachycardic and tachypneic. He had a pH of 7.2 on a VBG. He was also found to have a WBC of 41 on CBC and a lactic acid of 2.4. His O2Sat was barely 90% on 3L and he readily desaturates into the low 80's with the slightest movement. Chest xray showed nonspecific opacities which raised the concern for possible pneumonia. As a result of his symptoms and lab findings, he was presented for admission for further treatment. History - Past Medical History Cardiovascular: reports: Hypertension, Coronary artery disease Respiratory: reports: COPD, Pneumonia Neuro: reports: None Endocrine/Autoimmune: reports: None GI: reports: Hiatal hernia, Diverticulitis, Other : reports: Benign prostate hypertrophy HEENT: reports: Chronic hearing loss Psych: reports: Depression Musculoskeletal: reports: None Derm: reports: None MRSA Hx?: No Other Past Medical History: home OXYGEN 2-3 Lpm nasal cannula. - Past Surgical History General: reports: Bowel surgery, Colonoscopy, Other Cardiovascular: reports: Coronary stent, AAA - Family & Social History Family History Comment/Other: father: from [place] at age 57. brother: suicide, Alzheimers, depression Living arrangement: At home Living Situation: With spouse/s.o. Social History Notes: Lives in [place] with spouse. States that he prevously lived in [place] and had some abdominal pain and what sounds like an obstruction 8-9 years ago and had a bowel resection which apparently went wrong and he has a bunch of scarring on his abdomen and chronic pain since. He is very limited due to his pain and barely gets out of bed. He has 3 biological kids. He smokes 1PPD and has been doing so for 50 years. Was previously a heavy drinker but has quit. Denies any drug use. - Substance History Use: Uses substance without health or social issues: NONE - POLST Patient has POLST: Yes POLST Status: DNR Meds/Allgy - Home Medications Home Medications: Ambulatory Orders Medication Instructions Recorded Confirmed Tamsulosin [Flomax] 0.4 mg PO DAILY 01/19/13 04/13/19 Albuterol Sulfate [Proair Hfa 2 inh IH Q4H PRN 09/20/14 04/13/19 Inhaler] Aspirin [Ecotrin] 81 mg PO DAILY 09/20/14 04/13/19 Metoprolol Tartrate [Lopressor] 50 mg PO DAILY 09/20/14 04/13/19 Nitroglycerin [Nitrostat] 1 tab [id number] ONCE 12/07/15 04/13/19 Trazodone HCl 100 - 200 mg PO QPM PRN 08/29/17 04/13/19 Budesonide/Formoterol Fumarate 2 puffs INH BID 09/27/17 04/13/19 [Symbicort 160-4.5 Mcg Inhaler] Clopidogrel [Plavix] 75 mg PO DAILY 02/16/18 04/13/19 Lovastatin 40 mg PO DAILY 02/16/18 04/13/19 Ipratropium/Albuterol [Duoneb] 1 inh INH Q4HR PRN MDD hold when 09/05/18 04/13/19 on xopenex Montelukast [Singulair] 10 mg PO QPM #30 tablet 09/16/18 04/13/19 Citalopram Hydrobromide 20 mg PO DAILY 09/24/18 04/13/19 [Citalopram HBr] Oxycodone HCl [Roxicodone] 60 - 90 mg PO QID PRN MDD nte 11 09/24/18 04/13/19 tabs/24 hours guaiFENesin [Mucinex] 600 mg PO BID PRN 12/09/18 04/13/19 Bisacodyl [Dulcolax] 5 - 10 mg PO DAILY 12/10/18 04/13/19 Docusate Sodium 100 mg PO DAILY 12/10/18 04/13/19 - Allergies Allergies/Adverse Reactions: Allergies Allergy/AdvReac Type Severity Reaction Status Date / Time codeine Allergy Unknown Verified 05/27/19 00:15 Iodinated Contrast Media Allergy Unknown Verified 05/27/19 00:15 [Iodinated Contrast- Oral and IV Dye] Penicillins Allergy Unknown Verified 05/27/19 00:15 Review of Systems - Constitutional Constitutional: reports: Chills. denies: Fever - Eyes Eyes: denies: Pain, Vision loss - Ears, Nose & Throat Ears, Nose & Throat: denies: Vertigo - Cardiovascular Cariovascular: reports: Palpitations, Chest pain, Exertional dyspnea. denies: Edema, Syncope - Respiratory Respiratory: reports: Cough, Sputum production, Wheezing, SOB at rest, SOB with exertion - Gastrointestinal Gastrointestinal: reports: Abdominal pain (chronic). denies: Nausea, Vomiting, Coffee grounds emesis - Genitourinary Genitourinary: denies: Dysuria, Frequency, Urgency, Hematuria - Musculoskeletal Musculoskeletal: denies: Muscle pain, Back pain - Integumentary Integumentary: denies: Rash, Pruritis, Lesions - Neurological Neurological: denies: General weakness, Focal weakness, Headache, Dizziness - Psychiatric Psychiatric: denies: Depression, Anxiety - Endocrine Endocrine: denies: Polyuria, Polydypsia - Hematologic/Lymphatic Hematologic/Lymphatic: denies: Anemia, Bruising, Petechiae Prior Level of Functionality: He is independent of activities of daily living Exam - Vital Signs Vital Signs: Vital Signs x48h Temp Pulse Resp BP Pulse Ox 05/27/19 01:09 104 H 24 123/58 L 94 05/27/19 00:34 112 H 26 H 05/27/19 00:11 36.8 C 114 H 26 H 97 05/27/19 00:06 37.0 C 105 H 40 H 157/78 H 94 - Physical Exam General Appearance: positive: Alert, Moderate distress, Severe distress, Other (disheveled). negative: Lethargic Eyes Bilateral: positive: Normal inspection, PERRL, EOMI ENT: positive: ENT inspection nml Neck: positive: Nml inspection, No JVD, Trachea midline Respiratory: positive: Chest non-tender, Wheezes, Other (decreased air movement/ breath sounds) Cardiovascular: positive: Tachycardia Abdomen: positive: Nml bowel sounds, Tenderness (chronic), Other (umbilical/ ventral hernias from multiple abdominal surgeries). negative: Guarding, Rebound Back: positive: Nml inspection Skin: positive: Color nml, No rash, Warm Extremities: positive: Non-tender, Full ROM, Nml appearance, No pedal edema Neurologic/Psychiatric: positive: Oriented x3, CN's nml (2-12), Motor nml, Sensation nml Conclusion/Plan - Problem List (1) Acute respiratory failure with hypoxia and hypercapnia Conclusion/Plan: Likely 2/2 COPD exacerbation and ?pneumonia Patient started on duoneb breathing treatment Solumedrol 125mg tid. Pulmicort and formoterol Rocephin and azithromycin started Blood cultures pending (2) COPD exacerbation Conclusion/Plan: Patient started on duoneb breathing treatment Solumedrol 125mg tid. Pulmicort and formoterol Rocephin and azithromycin started (3) Pneumonia Conclusion/Plan: Patient started on rocephin and azithromycin Will continue. If no improvement, will consider broadening coverage Qualifiers: Pneumonia type: due to unspecified organism Laterality: unspecified laterality Lung location: unspecified part of lung Qualified Code(s): J18.9 - Pneumonia, unspecified organism (4) Leukocytosis Conclusion/Plan: ? 2/2 Infectious cause vs reactive On rocephin and azithromycin. Blood cultures pending. Will check UA as well Qualifiers: Leukocytosis type: unspecified Qualified Code(s): D72.829 - Elevated white blood cell count, unspecified (5) Hx of coronary artery disease Conclusion/Plan: Patient took 4 baby aspirins at home today Will continue baby aspirin daily and resume plavix Will also resume metoprolol and statin once verified Trend troponin. Check BNP (6) Hypertension Conclusion/Plan: On metoprolol (7) Hyperlipidemia Conclusion/Plan: On lovastatin at home Will convert to equivalent on formulary once verified (8) Tobacco abuse Conclusion/Plan: Nicotine patch (9) BPH (benign prostatic hyperplasia) Conclusion/Plan: On flomax.Will resume once verified (10) Depression Conclusion/Plan: Will resume citalopram once verified - Lab Results Fish Bones: 05/27/19 00:20 05/27/19 00:20 Core Measures - Anticipated LOS I expect patient to be DC'd or transferred within 96 hours.: Yes - DVT/VTE - Prophylaxis VTE/DVT Device ordered at admit?: Yes VTE/DVT Prophylaxis med ordered at admit?: Yes
[2019-05-27 01:58] LABS: BILIRUBIN,URINE NEGATIVE (NEGATIVE); GLUCOSE, URINE (UA) NEGATIVE (NEGATIVE); KETONES,URINE (UA) TRACE mg/dL (NEGATIVE); LEUKOCYTE ESTERASE, URINE NEGATIVE (NEGATIVE); NITRITE,URINE NEGATIVE (NEGATIVE); OCCULT BLOOD,URINE NEGATIVE (NEGATIVE); PROTEIN,URINE NEGATIVE (NEGATIVE); UROBILINOGEN,URINE 1 (NORMAL) E.U./dL (NORMAL)
[2019-05-27 02:00] LABS: CLARITY,URINE CLEAR (CLEAR)
[2019-05-27] MEDS ORDERED: methylPREDNISolone SUCCINATE 125 MG/2 ML VIAL IVP SCH (02:00)
[2019-05-27] MEDS: SODIUM CHLORIDE FLUSH 0.9% 10 ML SYRINGE IVP SCH ×2 (03:02→16:15)
[2019-05-27] MEDS: SODIUM CHLORIDE 0.9% 1,000 ML IV SCH ×2 (03:02→16:18)
[2019-05-27 05:32] LABS: BASOPHILS % (AUTO) 0.2 %; HGB - HEMOGLOBIN 14.4 g/dL (14.0-18.0); LYMPHOCYTES % (AUTO) 0.6 %; MEAN CORPUSCULAR HEMOGLOBIN 33.2 pg (27.0-31.0); MEAN CORPUSCULAR HGB CONC 33.5 g/dL (32.0-36.0); MEAN CORPUSCULAR VOLUME 99.1 fL (80.0-94.0); MEAN PLATELET VOLUME 11.1 fL (7.4-11.4); MONOCYTES % (AUTO) 3.3 %; NEUTROPHILS % (AUTO) 92.9 %; PLT - PLATELET COUNT 189 10^3/uL (130-450); RED BLOOD COUNT 4.34 10^6/uL (4.70-6.10); RED CELL DISTRIBUTION WIDTH 12.9 % (12.0-15.0)
[2019-05-27 05:36] LABS: ABG BASE EXCESS 3.9 mmol/L (-2.0-3.0); ABG HCO3 28.4 mmol/L (22.0-26.0); ABG OXYGEN SATURATION 91 % (94-98); ABG PCO2 42 mmHg (34-45); ABG PH 7.45 (7.35-7.45); ABG TCO2 29.7 MMOL/L (21.0-29.0)
[2019-05-27 05:36] LABS: WHITE BLOOD COUNT 49.1 x10^3/uL (4.8-10.8)
[2019-05-27 05:37] LABS: ABNORMAL LYMPHS % (MANUAL) 0 %
[2019-05-27 05:37] LABS: ABG FRACTION OF INSPIRED O2 0.32; ALLEN TEST POSITIVE
[2019-05-27 05:38] LABS: ABG PO2 51 mmHg (80-100)
[2019-05-27 05:41] LABS: CALCIUM 8.6 mg/dL (8.5-10.3)
[2019-05-27 06:03] LABS: BAND NEUTROPHILS % (MANUAL) 6 %; DIFFERENTIAL COMMENT MANUAL DIFFERENTIAL; LYMPHOCYTES # (MANUAL) 0.5 10^3/uL (1.5-3.5); LYMPHOCYTES % (MANUAL) 1 %; MONOCYTES # (MANUAL) 1.5 10^3/uL (0.0-1.0); PLATELET ESTIMATE, MANUAL NORMAL (130-450,000) (NORMAL); RBC MORPHOLOGY (MULTIPLE) NORMAL APPEARANCE (NORMAL)
[2019-05-27] MEDS: PANTOPRAZOLE 40 MG TABLET PO SCH (06:07)
[2019-05-27] MEDS ORDERED: IOVERSOL 320 100 ML VIAL IVP ONE (07:14)
[2019-05-27] MEDS: FORMOTEROL FUMARATE NEB 20 MCG/2 ML INH SCH ×2 (07:50→19:49)
[2019-05-27] MEDS: BUDESONIDE 0.5 MG/2 ML NEB INH SCH ×2 (07:50→19:48)
[2019-05-27] MEDS: IPRATROPIUM/ALBUTEROL 3 ML NEB INH PRN ×4 (07:50→19:49)
[2019-05-27] MEDS ORDERED: CEFEPIME 2 GM in SODIUM CHLORIDE 0.9% MINIBAG 100 ML IV SCH (08:00)
[2019-05-27] MEDS ORDERED: metroNIDAZOLE 500 MG/100 ML 500 MG/100 ML BAG IV SCH (08:00)
[2019-05-27] MEDS ORDERED: VANCOMYCIN PER PHARMACY 100 GM in SODIUM CHLORIDE 0.9% 250 ML IV SCH (08:00)
[2019-05-27] MEDS ORDERED: PIPERACILLIN/TAZOBACTAM 3.375 GM in SODIUM CHLORIDE 0.9% MINIBAG 100 ML IV SCH ×2 (08:00→12:00)
[2019-05-27] MEDS ORDERED: NITROGLYCERIN SL 0.4 MG TABLET SL PRN (08:17)
[2019-05-27] MEDS: ENOXAPARIN 40 MG/0.4 ML SYRINGE SUBQ SCH ×2 (08:29→08:43)
[2019-05-27] MEDS: methylPREDNISolone SUCCINATE 125 MG/2 ML VIAL IVP SCH ×2 (08:29→16:12)
[2019-05-27] MEDS ORDERED: VANCOMYCIN INJ 1.5 GM in SODIUM CHLORIDE 0.9% 500 ML IV ONE ×4 (08:30)
[2019-05-27] MEDS: METOPROLOL TARTRATE 50 MG TABLET PO SCH (08:30)
[2019-05-27] MEDS: CLOPIDOGREL 75 MG TABLET PO SCH (08:30)
--- NOTE | 2019-05-27 08:53 | CT Report ---
Reason: abd pain, leukocytosis Procedure Date: 05/27/2019 Accession Number: [id number] / [id number] Procedure: CT - Abdomen/Pelvis WO CPT Code: Addended Final Report FULL RESULT: EXAM: CT ABDOMEN AND PELVIS (CT KUB) EXAM DATE: 05/27/2019 07:54 AM. CLINICAL HISTORY: Abd pain, leukocytosis. COMPARISONS: ABDOMEN/PELVIS W/O 09/13/2018 9:49 AM CHEST W/O 09/11/2018 10:04 AM. TECHNIQUE: Routine axial helical CT imaging was performed through the abdomen and pelvis without IV contrast. Reconstructions: Coronal and sagittal. In accordance with CT protocol optimization, one or more of the following dose reduction techniques were utilized for this exam: automated exposure control, adjustment of mA and/or KV based on patient size, or use of iterative reconstructive technique. FINDINGS: Lung Bases: There is mild to moderate emphysema in the visualized lung bases, as before. There is decreased mild left greater than right patchy basilar dependent airspace opacity which may reflect atelectasis, although a component of pneumonitis is difficult to exclude particularly on the left. Kidneys and ureters: There are 3 upper pole right renal calculi measuring up to 8 mm. There are at least 5 left renal calculi with the largest in the lower pole measuring 4 mm. There are no ureteral calculi. There is no hydronephrosis or asymmetric perinephric fat stranding. Other Solid Organs: Noncontrast images of the solid organs are grossly unremarkable. Gallbladder/Bile Ducts: Small amount of dependent hyperdensity in the gallbladder which may reflect stones. No evidence of cholecystitis. No ductal dilatation. Peritoneal Cavity: Unopacified stomach and small bowel are nondistended. There is a small amount of formed stool throughout the colon. There is mild sigmoid colon diverticulosis. There is no focal pericolonic fat stranding. There is no lymphadenopathy, ascites, or pneumoperitoneum. Pelvic Organs: The bladder, prostate gland, and seminal vesicles are unremarkable. Vasculature: There is a 5.5 cm diameter (series 4 image 60) fusiform aneurysm of the mid infrarenal abdominal aorta, increased from 4.9 cm on repeat measurement of the prior study. There is a moderate to large amount of calcified plaque throughout the abdominal aorta, iliac arteries, and common femoral arteries. There is no periaortic fluid or fat stranding. Other: As before, there are is diastases recti and a broad anterior bulging of bowel beneath an attenuated anterior abdominal wall suggesting an incisional hernia spanning approximately 12 cm in width and 9 cm in craniocaudal dimension. IMPRESSION: 1. 5.5 cm diameter fusiform aneurysm of the mid infrarenal abdominal aorta, increased from 4.9 cm in September 2018. Recommend vascular surgery consultation. 2. Broad 12 x 9 cm periumbilical incisional hernia, similar to before. 3. Cholelithiasis without evidence of cholecystitis. 4. Nephrolithiasis without hydronephrosis. 5. Bilateral emphysema. Decreased mild left greater than right patchy dependent airspace opacity which may be atelectatic, although a component of aspiration or pneumonitis is not excluded. 6. Mild sigmoid colon diverticulosis without evidence of acute diverticulitis. RADIA The call report notification system was initiated by Dr. Dionicio Augustin at 08:48 AM on 05/27/2019. ADDENDUM: 05/27/19 08:56 The above call report findings were discussed with Dr. Dodd by Dr. Dionicio Augustin at 08:56 AM on 05/27/2019.
--- NOTE | 2019-05-27 08:53 | CT Report ---
Reason: dyspnea, leukocytosis Procedure Date: 05/27/2019 Accession Number: [id number] / [id number] Procedure: CT - CHEST WO CPT Code: Addended Final Report FULL RESULT: EXAM: CT CHEST EXAM DATE: 05/27/2019 07:54 AM. CLINICAL HISTORY: Dyspnea, leukocytosis. COMPARISONS: ABDOMEN/PELVIS W/O 09/13/2018 9:49 AM CHEST W/O 09/11/2018 10:04 AM. TECHNIQUE: Routine helical CT imaging was performed through the chest. IV contrast: None. Reconstructions: Coronal and sagittal. In accordance with CT protocol optimization, one or more of the following dose reduction techniques were utilized for this exam: automated exposure control, adjustment of mA and/or KV based on patient size, or use of iterative reconstructive technique. FINDINGS: Lungs/Pleura: Severe centrilobular emphysema. Decreased mild left greater than right patchy dependent airspace opacity. Moderate to marked mucus plugging in the left lower lobe airways greatest in the left lower lobe bronchus. There is also a moderate amount of dependent mucus in the left main bronchus. There is no bronchiectasis. There is no pleural fluid or pneumothorax. Mediastinum: Heart size is normal. There is moderate to marked three-vessel coronary artery calcification. Central pulmonary arteries are upper normal in size. There is moderate calcification in the normal caliber thoracic aorta. No lymphadenopathy. Lower thyroid gland and esophagus are unremarkable. Bones: Mild diffuse idiopathic skeletal hyperostosis in the lower thoracic spine. Unchanged marked compression deformity and prior kyphoplasty at L1. Visualized Abdomen: Incompletely visualized fusiform aneurysm of the infrarenal abdominal aorta. Probable small gallstones. Bilateral renal calculi. See report of CT abdomen and pelvis today. Other: Chest wall unremarkable. IMPRESSION: 1. Moderate dependent mucus in the left main bronchus. Moderate mucus plugging in the left lower lobe greatest in the central left lower lobe bronchus. 2. Mild patchy left greater than right dependent basilar airspace opacities which are decreased from September 2018 and which could reflect atelectasis, aspiration, or pneumonitis. 3. Severe centrilobular emphysema. 4. Marked three-vessel coronary artery calcification. RADIA The call report notification system was initiated by Dr. Dionicio Augustin at 08:48 AM on 05/27/2019. ADDENDUM: 05/27/19 08:56 The above call report findings were discussed with Dr. Dodd by Dr. Dionicio Augustin at 08:56 AM on 05/27/2019.
[2019-05-27] MEDS ORDERED: guaiFENesin 600 MG TABLET PO SCH (09:00)
[2019-05-27] MEDS ORDERED: oxyCODONE ER 40 MG TABLET PO PRN (09:00)
[2019-05-27] MEDS: NICOTINE 14 MG PATCH TOP SCH (09:23)
[2019-05-27] MEDS: TAMSULOSIN 0.4 MG CAPSULE PO SCH (10:02)
--- NOTE | 2019-05-27 11:06 | PROVIDER PROGRESS NOTE ---
Hospitalist Cross-cover Note - Cross-Cover Note Cross-Cover Note: intervention radiologist Dr. Nehemias Iqbal came to hospitalist office to report the CT of abdomen's finding, pt had 5.5 cm diameter of AAA from previous size 4.9 cm but did not have acute dissection process. pt denies severe abdominal pain, with chronic discomfort since he had abdominal surgery per pt reports. Dr. Iqbal stated to me pt can followup him as out-pt since pt seems no need acute procedure in the hospital now if pt did not have vascular surgeon. I did ask pt, pt stated he did not have vascular surgeon following up him. I discussed the finding of all his CT with pt, and refer pt to followup Dr. Iqbal. pt agreed the plan and stated he will followup Dr. Iqbal for his new finding on his AAA.
[2019-05-27] MEDS: guaiFENesin 600 MG TABLET PO SCH ×2 (13:09→21:09)
[2019-05-27] MEDS: oxyCODONE 5 MG TABLET PO PRN ×2 (13:09→19:16)
[2019-05-27] MEDS: SACCHAROMYCES BOULARDII 250 MG CAPSULE PO SCH (16:16)
[2019-05-27] MEDS: metroNIDAZOLE 500 MG/100 ML 500 MG/100 ML BAG IV SCH (20:22)
[2019-05-27] MEDS: oxyCODONE ER 40 MG TABLET PO SCH (21:10)
[2019-05-27] MEDS: CEFEPIME 2 GM in SODIUM CHLORIDE 0.9% MINIBAG 100 ML IV SCH (21:37)
[2019-05-28] MEDS ORDERED: traZODone 50 MG TABLET PO SCH (00:46)
[2019-05-28] MEDS: oxyCODONE 5 MG TABLET PO PRN ×3 (01:16→12:48)
[2019-05-28] MEDS: methylPREDNISolone SUCCINATE 125 MG/2 ML VIAL IVP SCH ×3 (01:18→17:58)
[2019-05-28] MEDS: SODIUM CHLORIDE FLUSH 0.9% 10 ML SYRINGE IVP SCH ×3 (01:19→17:03)
[2019-05-28] MEDS: VANCOMYCIN INJ 1 GM in SODIUM CHLORIDE 0.9% 250 ML IV SCH ×2 (02:53→20:29)
[2019-05-28 04:52] LABS: BASOPHILS % (AUTO) 0.5 %; HGB - HEMOGLOBIN 12.8 g/dL (14.0-18.0); LYMPHOCYTES % (AUTO) 1.5 %; MEAN CORPUSCULAR HEMOGLOBIN 32.8 pg (27.0-31.0); MEAN CORPUSCULAR HGB CONC 33.4 g/dL (32.0-36.0); MEAN CORPUSCULAR VOLUME 98.2 fL (80.0-94.0); MEAN PLATELET VOLUME 11.4 fL (7.4-11.4); MONOCYTES % (AUTO) 1.9 %; NEUTROPHILS % (AUTO) 92.9 %; PLT - PLATELET COUNT 167 10^3/uL (130-450); RED CELL DISTRIBUTION WIDTH 13.3 % (12.0-15.0)
[2019-05-28] MEDS: metroNIDAZOLE 500 MG/100 ML 500 MG/100 ML BAG IV SCH ×3 (04:58→19:54)
[2019-05-28 05:04] LABS: CALCIUM 8.5 mg/dL (8.5-10.3); CREATININE 0.8 mg/dL (0.6-1.2)
[2019-05-28 05:13] LABS: WHITE BLOOD COUNT 38.2 x10^3/uL (4.8-10.8)
[2019-05-28 05:14] LABS: ABNORMAL LYMPHS % (MANUAL) 0 %
[2019-05-28 05:36] LABS: BAND NEUTROPHILS % (MANUAL) 2 %; DIFFERENTIAL COMMENT MANUAL DIFFERENTIAL; LYMPHOCYTES # (MANUAL) 1.5 10^3/uL (1.5-3.5); LYMPHOCYTES % (MANUAL) 4 %; MONOCYTES # (MANUAL) 0.8 10^3/uL (0.0-1.0); PLATELET ESTIMATE, MANUAL NORMAL (130-450,000) (NORMAL); RBC MORPHOLOGY (MULTIPLE) NORMAL APPEARANCE (NORMAL)
[2019-05-28] MEDS: PANTOPRAZOLE 40 MG TABLET PO SCH (06:04)
[2019-05-28] MEDS: FORMOTEROL FUMARATE NEB 20 MCG/2 ML INH SCH ×2 (07:01→19:33)
[2019-05-28] MEDS: BUDESONIDE 0.5 MG/2 ML NEB INH SCH ×2 (07:02→19:33)
[2019-05-28] MEDS: IPRATROPIUM/ALBUTEROL 3 ML NEB INH PRN ×3 (07:02→16:04)
[2019-05-28] MEDS: oxyCODONE ER 40 MG TABLET PO SCH ×2 (08:04→19:54)
[2019-05-28] MEDS: METOPROLOL TARTRATE 50 MG TABLET PO SCH (08:05)
[2019-05-28] MEDS: TAMSULOSIN 0.4 MG CAPSULE PO SCH (08:05)
[2019-05-28] MEDS: CLOPIDOGREL 75 MG TABLET PO SCH (08:05)
[2019-05-28] MEDS: guaiFENesin 600 MG TABLET PO SCH ×2 (08:05→20:30)
[2019-05-28] MEDS: SACCHAROMYCES BOULARDII 250 MG CAPSULE PO SCH ×2 (08:07→17:03)
[2019-05-28] MEDS: ENOXAPARIN 40 MG/0.4 ML SYRINGE SUBQ SCH (08:08)
[2019-05-28] MEDS: NICOTINE 14 MG PATCH TOP SCH (08:08)
[2019-05-28] MEDS: CEFEPIME 2 GM in SODIUM CHLORIDE 0.9% MINIBAG 100 ML IV SCH ×2 (08:09→20:30)
[2019-05-28] MEDS: ASPIRIN EC 81 MG TABLET PO SCH (08:18)
[2019-05-28] MEDS ORDERED: AZITHROMYCIN 250 MG TABLET PO SCH (09:00)
[2019-05-28] MEDS ORDERED: cefTRIAXone 2 GM in SODIUM CHLORIDE 0.9% MINIBAG 100 ML IV SCH (09:00)
--- NOTE | 2019-05-28 11:05 | PROVIDER PROGRESS NOTE ---
Assessment/Plan - Problem List (1) Acute respiratory failure with hypoxia and hypercapnia Assessment/Plan: improved. pt is comfortably eating his breakfast without acute respiratory distress. pt has 96% sats on 4 liter of O2. lung sound is improved and reduced crackles sound continue antibiotics to treat pneumonia continue steroid and breath treatment continue supplement of O2 as needed (2) COPD exacerbation Conclusion/Plan: improved. continue steroid, reduced dosage 80 mg tid from 125 mg tid (3) Pneumonia with moderate mucus plugging Conclusion/Plan: clinically improved. pt's breathing is better, lung sound improved. yesterday CT of chest reveals infection, also with left moderate mucus plugging at bronchus. continue antibiotics (4) Leukocytosis Conclusion/Plan: improved. today WBC is 38 from yesterday 49. pt has hx leukocytosis as baseline at middle of twenty. acute increase of WBC is likely caused by infection plus steroid usage. pt may followup oncologist as out-pt if he continue to have high WBC after stabilization from acute infection. (5) AAA without rupture CT of abdomen reveals 5.5 cm AAA increased from previous 4.9cm. pt has no acute abdominal pain, CT reveals no acute rupture or dissection process. Intervention radiologist Dr Iqbal would like pt followup his as out-pt (6) Hx of coronary artery disease Conclusion/Plan: troponin slight elevated but stable. pt denies chest pain, palpitation, and without presenting of cardiac distress continue home plavix and aspirin (7) Hypertension Conclusion/Plan: stable, On metoprolol (8) Hyperlipidemia Conclusion/Plan: stable On lovastatin at home (9) Tobacco abuse Conclusion/Plan: Nicotine patch. pt is not willing quit smoking (10) BPH (benign prostatic hyperplasia) Conclusion/Plan: stable On flomax. (10) Depression Conclusion/Plan: stable, on citalopram - Current Meds Current Meds: Current Medications Generic Name Dose Route Start Last Admin Trade Name Freq PRN Reason Stop Dose Admin Albuterol/Ipratropium 3 ml 05/27/19 15:30 05/28/19 07:02 Duoneb INH 3 ml RTQ4H PRN Administration Wheezing Aspirin 81 mg 05/28/19 09:00 05/28/19 08:18 Ecotrin PO 81 mg DAILY NORA Administration Budesonide 0.5 mg 05/27/19 07:00 05/28/19 07:02 Pulmicort INH 0.5 mg RTBID NORA Administration Clopidogrel Bisulfate 75 mg 05/27/19 09:00 05/28/19 08:05 Plavix PO 75 mg DAILY NORA Administration Enoxaparin Sodium 40 mg 05/27/19 09:00 05/28/19 08:08 Lovenox SUBQ Not Given DAILY NORA Formoterol Fumarate 20 mcg 05/27/19 07:00 05/28/19 07:01 Perforomist INH 20 mcg RTBID NORA Administration Guaifenesin 1,200 mg 05/27/19 13:00 05/28/19 08:05 Mucinex PO 1,200 mg BID NORA Administration Vancomycin HCl 1 gm/ Sodium 250 mls @ 167 mls/hr 05/28/19 02:30 05/28/19 04:30 Chloride IV Infused Q18H NORA Infusion Cefepime HCl 2 gm/ Sodium 100 mls @ 200 mls/hr 05/27/19 21:00 05/28/19 08:36 Chloride IV Infused Q12H NORA Infusion Metronidazole 500 mg in 100 mls @ 100 mls/hr 05/27/19 20:00 05/28/19 06:03 Flagyl 500 Mg/100 Ml IV Infused Q8H NORA Infusion Metoprolol Tartrate 50 mg 05/27/19 09:00 05/28/19 08:05 Lopressor PO 50 mg DAILY NORA Administration Nicotine 1 patch 05/27/19 09:00 05/28/19 08:08 Nicoderm TOP 1 patch DAILY NORA Administration Oxycodone HCl 40 mg 05/27/19 21:00 05/28/19 08:04 Oxycontin PO 40 mg BID NORA Administration Oxycodone HCl 20 mg 05/27/19 12:34 05/28/19 06:04 Roxicodone PO 20 mg Q6HR PRN Administration PAIN Pantoprazole Sodium 40 mg 05/27/19 07:00 05/28/19 06:04 Protonix PO 40 mg QDAC NORA Administration Saccharomyces Boulardii 250 mg 05/27/19 17:00 05/28/19 08:07 Florastor PO 250 mg BIDWM NORA Administration Sodium Chloride 10 ml 05/27/19 09:00 05/28/19 08:08 Normal Saline Flush 0.9% IVP 10 ml 0100,0900,1700 NORA Administration Tamsulosin HCl 0.4 mg 05/27/19 09:00 05/28/19 08:05 Flomax PO 0.4 mg DAILY NORA Administration - Lab Result Fish Bone Diagrams: 05/28/19 04:40 05/28/19 04:40 - Additional Planning My Orders: My Active Orders 05/27/19 12:34 oxyCODONE [Roxicodone] 20 mg PO Q6HR PRN 05/27/19 13:00 guaiFENesin [Mucinex] 1,200 mg PO BID 05/27/19 16:42 Acapella (Flutter Valve Device [RC] .TID 05/27/19 17:00 Saccharomyces Boulardii [Florastor] 250 mg PO BIDWM 05/27/19 21:00 oxyCODONE ER [OxyCONTIN] 40 mg PO BID 05/28/19 10:00 methylPREDNISolone SUCCINATE [SOLU-Medrol (125MG VIAL)] 80 mg IVP Q8H 05/28/19 21:00 traZODone [Desyrel] 100 mg PO QPM PRN 05/29/19 02:00 VANCOMYCIN TROUGH [CHEM] Timed Subjective - Subjective Patient Reports: Feeling Better Objective Vital Signs: Vital Signs - 24 hr 05/27/19 05/27/19 05/27/19 12:52 15:35 16:34 Temperature 36.8 C Heart Rate 75 70 Heart Rate [ 71 Brachial] Respiratory 22 18 20 Rate Blood Pressure Blood Pressure 114/67 [Right Brachial artery] O2 Saturation 92 05/27/19 05/27/19 05/27/19 16:38 19:51 20:52 Temperature 36.8 C 37 C Heart Rate 74 73 Heart Rate [ 78 Brachial] Respiratory 18 20 20 Rate Blood Pressure Blood Pressure 129/48 L [Right Brachial artery] O2 Saturation 93 95 05/27/19 05/28/19 05/28/19 23:19 04:32 07:05 Temperature 36.4 C L 36.5 C Heart Rate 76 Heart Rate [ 75 72 Brachial] Respiratory 16 20 18 Rate Blood Pressure Blood Pressure 124/52 L 137/71 H [Right Brachial artery] O2 Saturation 92 96 05/28/19 05/28/19 08:00 08:05 Temperature 36.5 C Heart Rate Heart Rate [ 71 Brachial] Respiratory 18 Rate Blood Pressure 129/50 L Blood Pressure 129/50 L [Right Brachial artery] O2 Saturation 92 Oxygen O2 Source [Without Activity] Room air O2 Source [With Activity] Room air O2 Source Nasal cannula Oxygen Flow Rate 3 I&O (Last 24 Hrs): Intake and Output Totals x24h 05/26/19 05/27/19 05/28/19 23:59 23:59 23:59 Intake Total 2420 1700.000 Output Total 1295 620 Balance 1125 1080.000 General: Alert, Cooperative HEENT: Atraumatic Neck: Supple Lymphatic: no adenopathy Neuro: Alert, Non Focal Cardiovascular: Regular rate Respiratory: Chest non-tender, No respiratory distress Abdomen: Normal bowel sounds, Soft - Results Results: Laboratory Results WBC 38.2 x10^3/uL (4.8-10.8) H* 05/28/19 04:40 RBC 3.90 10^6/uL (4.70-6.10) L 05/28/19 04:40 Hgb 12.8 g/dL (14.0-18.0) L 05/28/19 04:40 Hct 38.3 % (42.0-52.0) L 05/28/19 04:40 MCV 98.2 fL (80.0-94.0) H 05/28/19 04:40 MCH 32.8 pg (27.0-31.0) H 05/28/19 04:40 MCHC 33.4 g/dL (32.0-36.0) 05/28/19 04:40 RDW 13.3 % (12.0-15.0) 05/28/19 04:40 Plt Count 167 10^3/uL (130-450) 05/28/19 04:40 MPV 11.4 fL (7.4-11.4) 05/28/19 04:40 Neut # (Auto) Not Reportable 05/28/19 04:40 Lymph # (Auto) Not Reportable 05/28/19 04:40 Alfalfa # (Auto) Not Reportable 05/28/19 04:40 Eos # (Auto) Not Reportable 05/28/19 04:40 Baso # (Auto) Not Reportable 05/28/19 04:40 Absolute Nucleated RBC Not Reportable 05/28/19 04:40 Total Counted 100 05/28/19 04:40 Band Neuts % (Manual) 2 % (0-10) 05/28/19 04:40 Abnorm Lymph % (Manual) 0 % 05/28/19 04:40 Nucleated RBC % Not Reportable 05/28/19 04:40 Neutrophils # (Manual) 35.9 10^3/uL (1.5-6.6) H 05/28/19 04:40 Lymphocytes # (Manual) 1.5 10^3/uL (1.5-3.5) 05/28/19 04:40 Monocytes # (Manual) 0.8 10^3/uL (0.0-1.0) 05/28/19 04:40 Eosinophils # (Manual) 0.0 10^3/uL (0-0.7) 05/28/19 04:40 Basophils # (Manual) 0.0 10^3/uL (0-0.1) 05/28/19 04:40 Differential Comment MANUAL DIFFERENTIAL 05/28/19 04:40 Platelet Estimate NORMAL (130-450,000) (NORMAL) 05/28/19 04:40 RBC Morph Micro Appear NORMAL APPEARANCE (NORMAL) 05/28/19 04:40 Bld Gas Analysis Time 0535 05/27/19 05:20 Sample Site RIGHT RADIAL 05/27/19 05:20 ABG pH 7.45 (7.35-7.45) 05/27/19 05:20 ABG pCO2 42 mmHg (34-45) 05/27/19 05:20 ABG pO2 51 mmHg (80-100) L* 05/27/19 05:20 ABG HCO3 28.4 mmol/L (22.0-26.0) H 05/27/19 05:20 ABG Total CO2 29.7 MMOL/L (21.0-29.0) H 05/27/19 05:20 ABG O2 Saturation 91 % (94-98) L 05/27/19 05:20 ABG Base Excess 3.9 mmol/L (-2.0-3.0) H 05/27/19 05:20 Srinivas Test POSITIVE 05/27/19 05:20 VBG pH 7.281 (7.31-7.41) L 05/27/19 00:30 VBG pCO2 67.6 mmHg (41-51) H 05/27/19 00:30 VBG pO2 19.0 mmHg (25-47) L 05/27/19 00:30 VBG HCO3 31.1 mmol/L (23-28) H 05/27/19 00:30 VBG Total CO2 33.2 mmol/L (24-29) H 05/27/19 00:30 VBG O2 Saturation 35.1 % (60-80) L 05/27/19 00:30 VBG Base Excess 2.1 mmol/L (-2 - +2) H 05/27/19 00:30 O2 Delivery Device NASAL CANNULA 05/27/19 05:20 O2 Liters/Min 3.00 LPM 05/27/19 05:20 FiO2 0.32 05/27/19 05:20 Sodium 142 mmol/L (135-145) 05/28/19 04:40 Potassium 3.9 mmol/L (3.5-5.0) 05/28/19 04:40 Chloride 108 mmol/L (101-111) 05/28/19 04:40 Carbon Dioxide 29 mmol/L (21-32) 05/28/19 04:40 Anion Gap 5.0 (6-13) L 05/28/19 04:40 BUN 18 mg/dL (6-20) 05/28/19 04:40 Creatinine 0.8 mg/dL (0.6-1.2) 05/28/19 04:40 Estimated GFR (MDRD) 94 (>89) 05/28/19 04:40 Glucose 147 mg/dL (70-100) H 05/28/19 04:40 Lactic Acid 1.6 mmol/L (0.5-2.2) 05/27/19 15:32 Calcium 8.5 mg/dL (8.5-10.3) 05/28/19 04:40 Troponin I High Sens 35.5 ng/L (2.3-19.7) H* 05/27/19 15:32 B-Natriuretic Peptide 117 pg/mL (5-100) H 05/27/19 05:22 Urine Color YELLOW 05/27/19 01:30 Urine Clarity CLEAR (CLEAR) 05/27/19 01:30 Urine pH 6.0 PH (5.0-7.5) 05/27/19 01:[address] [place] 1.025 (1.002-1.030) 05/27/19 01:30 Urine Protein NEGATIVE mg/dL (NEGATIVE) 05/27/19 01:30 Urine Glucose (UA) NEGATIVE mg/dL (NEGATIVE) 05/27/19 01:30 Urine Ketones TRACE mg/dL (NEGATIVE) 05/27/19 01:30 Urine Occult Blood NEGATIVE (NEGATIVE) 05/27/19 01:30 Urine Nitrite NEGATIVE (NEGATIVE) 05/27/19 01:30 Urine Bilirubin NEGATIVE (NEGATIVE) 05/27/19 01:30 Urine Urobilinogen 1 (NORMAL) E.U./dL (NORMAL) 05/27/19 01:30 Ur Leukocyte Esterase NEGATIVE (NEGATIVE) 05/27/19 01:30 Ur Microscopic Review NOT INDICATED 05/27/19 01:30 Urine Culture Comments NOT INDICATED 05/27/19 01:30 Influenza A (Rapid) Negative (Negative) 05/27/19 00:40 Influenza B (Rapid) Negative (Negative) 05/27/19 00:40 - Procedures Procedures: Procedures REPLACEMENT OF LEFT LENS WITH SYNTH SUB, PERC APPROACH (01/25/16) REPLACEMENT OF RIGHT LENS WITH SYNTH SUB, PERC APPROACH (12/28/15) Sepsis Event Note (H) - Evaluation Current Stage of Sepsis: Ruled out ABX Reporting Has patient been on IV antibiotics over the past 48 hours?: Yes Current Medications - Current Medications Current Medications: Active Medications Acetaminophen (Tylenol) 650 mg PO Q4HR PRN PRN Reason: Pain 1 to 4 Albuterol/Ipratropium (Duoneb) 3 ml INH RTQ4H PRN PRN Reason: Wheezing Last Admin: 05/28/19 07:02 Dose: 3 ml Aspirin (Ecotrin) 81 mg PO DAILY [facility] Last Admin: 05/28/19 08:18 Dose: 81 mg Budesonide (Pulmicort) 0.5 mg INH RTBID [facility] Last Admin: 05/28/19 07:02 Dose: 0.5 mg Clopidogrel Bisulfate (Plavix) 75 mg PO DAILY [facility] Last Admin: 05/28/19 08:05 Dose: 75 mg Enoxaparin Sodium (Lovenox) 40 mg SUBQ DAILY [facility] Last Admin: 05/28/19 08:08 Dose: Not Given Formoterol Fumarate (Perforomist) 20 mcg INH RTBID [facility] Last Admin: 05/28/19 07:01 Dose: 20 mcg Guaifenesin (Mucinex) 1,200 mg PO BID [facility] Last Admin: 05/28/19 08:05 Dose: 1,200 mg Vancomycin HCl 1 gm/ Sodium (Chloride) 250 mls @ 167 mls/hr IV Q18H [facility] Last Infusion: 05/28/19 04:30 Dose: Infused Cefepime HCl 2 gm/ Sodium (Chloride) 100 mls @ 200 mls/hr IV Q12H [facility] Last Infusion: 05/28/19 08:36 Dose: Infused Metronidazole (Flagyl 500 Mg/100 Ml) 500 mg in 100 mls @ 100 mls/hr IV Q8H [facility] Last Infusion: 05/28/19 06:03 Dose: Infused Methylprednisolone Sodium Succinate (Solu-Medrol (125mg Vial)) 80 mg IVP Q8H [facility] Metoprolol Tartrate (Lopressor) 50 mg PO DAILY [facility] Last Admin: 05/28/19 08:05 Dose: 50 mg Nicotine (Nicoderm) 1 patch TOP DAILY [facility] Last Admin: 05/28/19 08:08 Dose: 1 patch Nitroglycerin (Nitrostat) 0.4 mg SL Q5MIN PRN PRN Reason: Chest Pain Oxycodone HCl (Oxycontin) 40 mg PO BID [facility] Last Admin: 05/28/19 08:04 Dose: 40 mg Oxycodone HCl (Roxicodone) 20 mg PO Q6HR PRN PRN Reason: PAIN Last Admin: 05/28/19 06:04 Dose: 20 mg Pantoprazole Sodium (Protonix) 40 mg PO QDAC [facility] Last Admin: 05/28/19 06:04 Dose: 40 mg Saccharomyces Boulardii (Florastor) 250 mg PO BIDWM [facility] Last Admin: 05/28/19 08:07 Dose: 250 mg Sodium Chloride (Normal Saline Flush 0.9%) 10 ml IVP PRN PRN PRN Reason: NEEDED PER PROVIDER ORDERS Sodium Chloride (Normal Saline Flush 0.9%) 10 ml IVP 0100,0900,1700 [facility] Last Admin: 05/28/19 08:08 Dose: 10 ml Tamsulosin HCl (Flomax) 0.4 mg PO DAILY [facility] Last Admin: 05/28/19 08:05 Dose: 0.4 mg Trazodone HCl (Desyrel) 100 mg PO QPM PRN PRN Reason: Insomnia Tamsulosin [Flomax] 0.4 mg PO DAILY 01/19/13 Albuterol Sulfate [Proair Hfa Inhaler] 2 inh PO Q4H PRN 09/20/14 Aspirin [Ecotrin] 81 mg PO DAILY 09/20/14 Metoprolol Tartrate [Lopressor] 50 mg PO DAILY 09/20/14 Nitroglycerin [Nitrostat] 1 tab [id number] ONCE 12/07/15 Trazodone HCl 100 - 200 mg PO QPM PRN 08/29/17 Budesonide/Formoterol Fumarate [Symbicort 160-4.5 Mcg Inhaler] 2 puffs INH BID 09/27/17 Clopidogrel [Plavix] 75 mg PO DAILY 02/16/18 Lovastatin 40 mg PO DAILY 02/16/18 Ipratropium/Albuterol [Duoneb] 1 inh INH Q4HR PRN 09/05/18 Citalopram Hydrobromide [Citalopram HBr] 20 mg PO DAILY 09/24/18 Oxycodone HCl [Roxicodone] 60 - 90 mg PO Q6H [facility] nte 11 tabs/24 hours 09/24/18 guaiFENesin [Mucinex] 600 mg PO BID PRN 12/09/18
--- NOTE | 2019-05-28 11:36 | PHARMACY PROGRESS NOTE ---
- Therapy Status Vancomycin regimen day #: 2 (1.5G Loading Dose (05/27) followed by 1G q18h) Therapy status: Awaiting steady state Basis for treatment: Empirical Treatment indication: Community Acquired Pneumonia Trough goal: 15-20 Concurrent antibiotics: Cefepime 2Gm IV q12h, Metronidazole 500mg IV q8h - DILCIA Risk Risk level for Acute Kidney Injury: Moderate Acute Kidney Injury risk factors: Goal trough >15, Chronic baseline hypertension - Monitoring and Recommendation Clinical response to treatment: I&O Previous 24 hours 05/26/19 05/27/19 05/28/19 23:59 23:59 23:59 Intake Total 2420 1700.000 Output Total 1295 770 Balance 1125 930.000 Lab Results 05/28/19 05/27/19 05/27/19 04:40 05:22 00:20 BUN 18 18 18 Creatinine 0.8 1.0 0.9 Estimated GFR (MDRD) 94 73 L 82 L Cultures 05/27/19 00:40 Blood Blood Culture - Preliminary NO GROWTH AFTER 1 DAY 05/27/19 00:35 Blood Blood Culture - Preliminary NO GROWTH AFTER 1 DAY Monitoring plan: Daily serum creatinine, Draw trough early Next trough due prior to maintenance dose #: 3 (Steady state not typically reached until the 4th or 5th maintenance dose) Next trough due (date/time): 05/29 @ 1400 Areas for additional monitoring: IV to PO when appropriate, Therapy de- escalation based on culture results Pharmacy recommendation: Continue current regime
[2019-05-28] MEDS: MONTELUKAST 10 MG TABLET PO SCH (20:30)
[2019-05-28] MEDS: ACETAMINOPHEN 325 MG TABLET PO PRN (20:33)
[2019-05-28] MEDS ORDERED: traZODone 50 MG TABLET PO PRN (21:00)
[2019-05-28] MEDS: MORPHINE 2 MG/ML CARPUJECT IVP PRN (23:09)
[2019-05-29] MEDS: SODIUM CHLORIDE FLUSH 0.9% 10 ML SYRINGE IVP SCH ×3 (00:44→17:12)
[2019-05-29] MEDS: ACETAMINOPHEN 325 MG TABLET PO PRN ×3 (00:45→14:39)
[2019-05-29] MEDS: methylPREDNISolone SUCCINATE 125 MG/2 ML VIAL IVP SCH ×3 (01:52→17:08)
[2019-05-29] MEDS: oxyCODONE 5 MG TABLET PO PRN ×3 (01:52→15:56)
[2019-05-29] MEDS: IPRATROPIUM/ALBUTEROL 3 ML NEB INH PRN ×4 (02:04→19:54)
[2019-05-29] MEDS: MORPHINE 2 MG/ML CARPUJECT IVP PRN (04:14)
[2019-05-29] MEDS: metroNIDAZOLE 500 MG/100 ML 500 MG/100 ML BAG IV SCH ×3 (04:15→20:15)
[2019-05-29 05:42] LABS: BASOPHILS % (AUTO) 0.4 %; LYMPHOCYTES % (AUTO) 1.1 %; MEAN CORPUSCULAR HEMOGLOBIN 32.7 pg (27.0-31.0); MEAN CORPUSCULAR HGB CONC 33.3 g/dL (32.0-36.0); MEAN PLATELET VOLUME 11.7 fL (7.4-11.4); NEUTROPHILS % (AUTO) 92.6 %; PLT - PLATELET COUNT 208 10^3/uL (130-450); RED BLOOD COUNT 3.98 10^6/uL (4.70-6.10); RED CELL DISTRIBUTION WIDTH 13.7 % (12.0-15.0)
[2019-05-29 05:47] LABS: CALCIUM 8.6 mg/dL (8.5-10.3); CREATININE 0.9 mg/dL (0.6-1.2)
[2019-05-29 05:52] LABS: WHITE BLOOD COUNT 38.2 x10^3/uL (4.8-10.8)
[2019-05-29 05:53] LABS: ABNORMAL LYMPHS % (MANUAL) 0 %
[2019-05-29 06:22] LABS: BAND NEUTROPHILS % (MANUAL) 3 %; DIFFERENTIAL COMMENT MANUAL DIFFERENTIAL; LYMPHOCYTES # (MANUAL) 0.4 10^3/uL (1.5-3.5); LYMPHOCYTES % (MANUAL) 1 %; MONOCYTES # (MANUAL) 1.1 10^3/uL (0.0-1.0); PLATELET ESTIMATE, MANUAL NORMAL (130-450,000) (NORMAL); RBC MORPHOLOGY (MULTIPLE) NORMAL APPEARANCE (NORMAL)
[2019-05-29] MEDS: PANTOPRAZOLE 40 MG TABLET PO SCH (06:40)
[2019-05-29] MEDS: BUDESONIDE 0.5 MG/2 ML NEB INH SCH ×2 (07:04→19:54)
[2019-05-29] MEDS: FORMOTEROL FUMARATE NEB 20 MCG/2 ML INH SCH ×2 (07:04→19:54)
[2019-05-29] MEDS: TAMSULOSIN 0.4 MG CAPSULE PO SCH (08:16)
[2019-05-29] MEDS: SACCHAROMYCES BOULARDII 250 MG CAPSULE PO SCH ×2 (08:16→17:41)
[2019-05-29] MEDS: oxyCODONE ER 40 MG TABLET PO SCH ×2 (08:16→20:42)
[2019-05-29] MEDS: NICOTINE 14 MG PATCH TOP SCH (08:16)
[2019-05-29] MEDS: CITALOPRAM HYDROBROMIDE 20 MG TABLET PO SCH (08:16)
[2019-05-29] MEDS: METOPROLOL TARTRATE 50 MG TABLET PO SCH (08:16)
[2019-05-29] MEDS: guaiFENesin 600 MG TABLET PO SCH ×2 (08:16→20:41)
[2019-05-29] MEDS: CLOPIDOGREL 75 MG TABLET PO SCH (08:16)
[2019-05-29] MEDS: ASPIRIN EC 81 MG TABLET PO SCH (08:17)
[2019-05-29] MEDS: ENOXAPARIN 40 MG/0.4 ML SYRINGE SUBQ SCH (08:23)
[2019-05-29] MEDS: CEFEPIME 2 GM in SODIUM CHLORIDE 0.9% MINIBAG 100 ML IV SCH ×2 (09:01→21:43)
--- NOTE | 2019-05-29 13:05 | XRAY Report ---
Reason: SOB Procedure Date: 05/29/2019 Accession Number: [id number] / [id number] Procedure: XR - Chest 1 View X-Ray CPT Code: 55830 Final Report FULL RESULT: EXAM: CHEST RADIOGRAPHY EXAM DATE: 05/29/2019 12:08 PM. CLINICAL HISTORY: Shortness of breath. COMPARISON: CHEST 1 VIEW 05/27/2019 12:05 AM CHEST W/O 05/27/2019 7:43 AM. TECHNIQUE: 1 view. FINDINGS: Cardiac leads overlie the chest. Heart size is normal. Calcified plaque in the thoracic aorta. Patchy opacities again seen in the lung bases, left greater than right. No pleural effusions or pneumothoraces. The bones are osteopenic. IMPRESSION: Persistent mild patchy opacities in the lung bases, left greater than right. No new consolidation. RADIA
[2019-05-29 14:08] LABS: VANCOMYCIN,TROUGH 11.4 ug/mL (10.0-20.0)
[2019-05-29 14:12] LABS: ALBUMIN 3.6 g/dL (3.2-5.5); ALBUMIN/GLOBULIN RATIO 1.4 (1.0-2.2); BILIRUBIN,TOTAL 0.5 mg/dL (0.2-1.0); CALCIUM 8.7 mg/dL (8.5-10.3); CREATININE 0.9 mg/dL (0.6-1.2); TOTAL PROTEIN 6.2 g/dL (6.7-8.2)
[2019-05-29] MEDS: SODIUM CHLORIDE 0.9% 1,000 ML IV SCH (14:18)
[2019-05-29] MEDS: VANCOMYCIN INJ 1 GM in SODIUM CHLORIDE 0.9% 250 ML IV SCH (14:18)
[2019-05-29] MEDS: FLUCONAZOLE 100 MG TABLET PO SCH (15:02)
[2019-05-29] MEDS ORDERED: traZODone 50 MG TABLET PO PRN (15:19)
--- NOTE | 2019-05-29 15:23 | PROVIDER PROGRESS NOTE ---
Assessment/Plan - Problem List (1) Acute respiratory failure with hypoxia and hypercapnia Assessment/Plan: pt is comfortably laying at the bed and talked with his visiting friend. he has no respiratory distress. pt has 93% sats on 3 liter of O2. pt's lung sound has significant improved, significant diminished crackles sound. new CXR reveals stable, no new consolidation. continue antibiotics to treat pneumonia, add fluconazole according to sputum culture with yeast continue steroid and breath treatment continue supplement of O2 as needed (2) COPD exacerbation Conclusion/Plan: improved. continue steroid, reduced dosage 60 mg tid from 125 mg tid (3) Pneumonia with moderate mucus plugging Conclusion/Plan: clinically improved. pt's breathing is better, lung sound improved. yesterday CT of chest reveals infection, also with left moderate mucus plugging at bronchus. continue antibiotics continue mucinex continue gently IVF (4) Leukocytosis Conclusion/Plan: WBC is 38.2 today. pt took steroid. pt has hx leukocytosis as baseline at middle of twenty. acute increase of WBC is likely caused by infection plus steroid usage. pt may followup oncologist as out-pt if he continue to have high WBC after stabilization from acute infection. (5) AAA without rupture CT of abdomen reveals 5.5 cm AAA increased from previous 4.9cm. pt has no acute abdominal pain, CT reveals no acute rupture or dissection process. Intervention radiologist Dr Iqbal would like pt followup his as out-pt (6) Hx of coronary artery disease Conclusion/Plan: troponin slight elevated but stable. pt denies chest pain, palpitation, and without presenting of cardiac distress continue home plavix and aspirin (7) Hypertension Conclusion/Plan: stable, On metoprolol (8) Hyperlipidemia Conclusion/Plan: stable On lovastatin at home (9) Tobacco abuse Conclusion/Plan: Nicotine patch. pt is not willing quit smoking (10) BPH (benign prostatic hyperplasia) Conclusion/Plan: stable On flomax. - Current Meds Current Meds: Current Medications Generic Name Dose Route Start Last Admin Trade Name Freq PRN Reason Stop Dose Admin Acetaminophen 650 mg 05/27/19 01:19 05/29/19 14:39 Tylenol PO 650 mg Q4HR PRN Administration Pain 1 to 4 Albuterol/Ipratropium 3 ml 05/27/19 15:30 05/29/19 11:38 Duoneb INH 3 ml RTQ4H PRN Administration Wheezing Aspirin 81 mg 05/28/19 09:00 05/29/19 08:17 Ecotrin PO 81 mg DAILY NORA Administration Budesonide 0.5 mg 05/27/19 07:00 05/29/19 07:04 Pulmicort INH 0.5 mg RTBID NORA Administration Citalopram Hydrobromide 20 mg 05/29/19 09:00 05/29/19 08:16 Celexa PO 20 mg DAILY NORA Administration Clopidogrel Bisulfate 75 mg 05/27/19 09:00 05/29/19 08:16 Plavix PO 75 mg DAILY NORA Administration Enoxaparin Sodium 40 mg 05/27/19 09:00 05/29/19 08:23 Lovenox SUBQ Not Given DAILY NORA Fluconazole 100 mg 05/29/19 14:34 05/29/19 15:02 Diflucan PO 100 mg DAILY NORA Administration Formoterol Fumarate 20 mcg 05/27/19 07:00 05/29/19 07:04 Perforomist INH 20 mcg RTBID NORA Administration Guaifenesin 1,200 mg 05/27/19 13:00 05/29/19 08:16 Mucinex PO 1,200 mg BID NORA Administration Vancomycin HCl 1 gm/ Sodium 250 mls @ 167 mls/hr 05/28/19 02:30 05/29/19 14:18 Chloride IV 167 mls/hr Q18H NORA Administration Cefepime HCl 2 gm/ Sodium 100 mls @ 200 mls/hr 05/27/19 21:00 05/29/19 10:11 Chloride IV Infused Q12H NORA Infusion Metronidazole 500 mg in 100 mls @ 100 mls/hr 05/27/19 20:00 05/29/19 14:36 Flagyl 500 Mg/100 Ml IV Infused Q8H NORA Infusion Sodium Chloride 1,000 mls @ 83.333 mls/hr 05/29/19 14:00 05/29/19 14:18 Normal Saline 0.9% IV 05/30/19 13:59 83.333 mls/hr .Q12H NORA Administration Methylprednisolone Sodium Succinate 60 mg 05/29/19 08:30 05/29/19 09:06 Solu-Medrol (125mg Vial) IVP 60 mg Q8H NORA Administration Metoprolol Tartrate 50 mg 05/27/19 09:00 05/29/19 08:16 Lopressor PO 50 mg DAILY NORA Administration Montelukast Sodium 10 mg 05/28/19 21:00 05/28/19 20:30 Singulair PO 10 mg QPM NORA Administration Morphine Sulfate 1 mg 05/28/19 22:55 05/29/19 04:14 Morphine (Carpuject) IVP 1 mg Q4H PRN Administration DYSPNEA Nicotine 1 patch 05/27/19 09:00 05/29/19 08:16 Nicoderm TOP 1 patch DAILY NORA Administration Oxycodone HCl 40 mg 05/27/19 21:00 05/29/19 08:16 Oxycontin PO 40 mg BID NORA Administration Pantoprazole Sodium 40 mg 05/27/19 07:00 05/29/19 06:40 Protonix PO 40 mg QDAC NORA Administration Saccharomyces Boulardii 250 mg 05/27/19 17:00 05/29/19 08:16 Florastor PO 250 mg BIDWM NORA Administration Sodium Chloride 10 ml 05/27/19 01:19 05/28/19 18:00 Normal Saline Flush 0.9% IVP 10 ml PRN PRN Administration NEEDED PER PROVIDER ORDERS Sodium Chloride 10 ml 05/27/19 09:00 05/29/19 08:18 Normal Saline Flush 0.9% IVP Not Given 0100,0900,1700 NORA Tamsulosin HCl 0.4 mg 05/27/19 09:00 05/29/19 08:16 Flomax PO 0.4 mg DAILY NORA Administration - Lab Result Fish Bone Diagrams: 05/29/19 05:00 05/29/19 13:50 - Additional Planning My Orders: My Active Orders 05/28/19 21:00 Montelukast [Singulair] 10 mg PO QPM 05/29/19 08:30 methylPREDNISolone SUCCINATE [SOLU-Medrol (125MG VIAL)] 60 mg IVP Q8H 05/29/19 09:00 Citalopram Hydrobromide [Celexa] 20 mg PO DAILY 05/29/19 13:43 oxyCODONE [Roxicodone] 20 mg PO Q4HR PRN 05/29/19 14:00 Sodium Chloride 0.9% [Normal Saline 0.9%] 1,000 ml IV 83.333 mls/hr 05/29/19 14:34 Fluconazole [Diflucan] 100 mg PO DAILY 05/29/19 15:19 traZODone [Desyrel] 200 mg PO QPM PRN Subjective - Subjective Patient Reports: Feeling Better Objective Vital Signs: Vital Signs - 24 hr 05/28/19 05/28/19 05/28/19 15:58 16:05 16:24 Temperature 36.7 C 36.7 C Heart Rate 74 76 Heart Rate [ 79 Brachial] Respiratory 22 18 18 Rate Blood Pressure Blood Pressure 115/60 [Right Brachial artery] O2 Saturation 92 92 05/28/19 05/28/19 05/29/19 19:34 19:42 00:00 Temperature 36.8 C 36.7 C Heart Rate 90 Heart Rate [ 92 83 Brachial] Respiratory 20 18 20 Rate Blood Pressure Blood Pressure 134/53 H 130/62 [Right Brachial artery] O2 Saturation 91 L 94 05/29/19 05/29/19 05/29/19 02:04 03:45 06:32 Temperature 36.5 C Heart Rate 77 Heart Rate [ 79 Brachial] Respiratory 20 20 Rate Blood Pressure Blood Pressure 131/59 H [Right Brachial artery] O2 Saturation 95 99 05/29/19 05/29/19 05/29/19 07:04 08:00 08:16 Temperature 36.6 C Heart Rate 76 Heart Rate [ 90 Brachial] Respiratory 28 H 28 H Rate Blood Pressure 138/53 H Blood Pressure 138/53 H [Right Brachial artery] O2 Saturation 94 05/29/19 05/29/19 11:38 12:35 Temperature 36.5 C Heart Rate 73 Heart Rate [ 78 Brachial] Respiratory 24 23 Rate Blood Pressure Blood Pressure 143/71 H [Right Brachial artery] O2 Saturation 93 Oxygen O2 Source [Without Activity] Room air O2 Source [With Activity] Room air O2 Source Nasal cannula Oxygen Flow Rate 3 I&O (Last 24 Hrs): Intake and Output Totals x24h 05/27/19 05/28/19 05/29/19 23:59 23:59 23:59 Intake Total 2420 2250.000 670 Output Total 1295 1415 925 Balance 1125 835.000 -255 General: Alert, Cooperative, No acute distress HEENT: Atraumatic Neck: Supple Lymphatic: no adenopathy Neuro: Alert, Non Focal Cardiovascular: Regular rate, Normal S1, Normal S2 Respiratory: Chest non-tender, No respiratory distress Abdomen: Normal bowel sounds, Soft - Results Results: Laboratory Results WBC 38.2 x10^3/uL (4.8-10.8) H* 05/29/19 05:00 RBC 3.98 10^6/uL (4.70-6.10) L 05/29/19 05:00 Hgb 13.0 g/dL (14.0-18.0) L 05/29/19 05:00 Hct 39.0 % (42.0-52.0) L 05/29/19 05:00 MCV 98.0 fL (80.0-94.0) H 05/29/19 05:00 MCH 32.7 pg (27.0-31.0) H 05/29/19 05:00 MCHC 33.3 g/dL (32.0-36.0) 05/29/19 05:00 RDW 13.7 % (12.0-15.0) 05/29/19 05:00 Plt Count 208 10^3/uL (130-450) 05/29/19 05:00 MPV 11.7 fL (7.4-11.4) H 05/29/19 05:00 Neut # (Auto) Not Reportable 05/29/19 05:00 Lymph # (Auto) Not Reportable 05/29/19 05:00 [place] # (Auto) Not Reportable 05/29/19 05:00 Eos # (Auto) Not Reportable 05/29/19 05:00 Baso # (Auto) Not Reportable 05/29/19 05:00 Absolute Nucleated RBC Not Reportable 05/29/19 05:00 Total Counted 100 05/29/19 05:00 Band Neuts % (Manual) 3 % (0-10) 05/29/19 05:00 Abnorm Lymph % (Manual) 0 % 05/29/19 05:00 Nucleated RBC % Not Reportable 05/29/19 05:00 Neutrophils # (Manual) 36.7 10^3/uL (1.5-6.6) H 05/29/19 05:00 Lymphocytes # (Manual) 0.4 10^3/uL (1.5-3.5) L 05/29/19 05:00 Monocytes # (Manual) 1.1 10^3/uL (0.0-1.0) H 05/29/19 05:00 Eosinophils # (Manual) 0.0 10^3/uL (0-0.7) 05/29/19 05:00 Basophils # (Manual) 0.0 10^3/uL (0-0.1) 05/29/19 05:00 Differential Comment MANUAL DIFFERENTIAL 05/29/19 05:00 Platelet Estimate NORMAL (130-450,000) (NORMAL) 05/29/19 05:00 RBC Morph Micro Appear NORMAL APPEARANCE (NORMAL) 05/29/19 05:00 Bld Gas Analysis Time 0535 05/27/19 05:20 Sample Site RIGHT RADIAL 05/27/19 05:20 ABG pH 7.45 (7.35-7.45) 05/27/19 05:20 ABG pCO2 42 mmHg (34-45) 05/27/19 05:20 ABG pO2 51 mmHg (80-100) L* 05/27/19 05:20 ABG HCO3 28.4 mmol/L (22.0-26.0) H 05/27/19 05:20 ABG Total CO2 29.7 MMOL/L (21.0-29.0) H 05/27/19 05:20 ABG O2 Saturation 91 % (94-98) L 05/27/19 05:20 ABG Base Excess 3.9 mmol/L (-2.0-3.0) H 05/27/19 05:20 Srinivas Test POSITIVE 05/27/19 05:20 VBG pH 7.281 (7.31-7.41) L 05/27/19 00:30 VBG pCO2 67.6 mmHg (41-51) H 05/27/19 00:30 VBG pO2 19.0 mmHg (25-47) L 05/27/19 00:30 VBG HCO3 31.1 mmol/L (23-28) H 05/27/19 00:30 VBG Total CO2 33.2 mmol/L (24-29) H 05/27/19 00:30 VBG O2 Saturation 35.1 % (60-80) L 05/27/19 00:30 VBG Base Excess 2.1 mmol/L (-2 - +2) H 05/27/19 00:30 O2 Delivery Device NASAL CANNULA 05/27/19 05:20 O2 Liters/Min 3.00 LPM 05/27/19 05:20 FiO2 0.32 05/27/19 05:20 Sodium 142 mmol/L (135-145) 05/29/19 13:50 Potassium 4.2 mmol/L (3.5-5.0) 05/29/19 13:50 Chloride 106 mmol/L (101-111) 05/29/19 13:50 Carbon Dioxide 28 mmol/L (21-32) 05/29/19 13:50 Anion Gap 8.0 (6-13) 05/29/19 13:50 BUN 24 mg/dL (6-20) H 05/29/19 13:50 Creatinine 0.9 mg/dL (0.6-1.2) 05/29/19 13:50 Estimated GFR (MDRD) 82 (>89) L 05/29/19 13:50 Glucose 170 mg/dL (70-100) H 05/29/19 13:50 Lactic Acid 1.6 mmol/L (0.5-2.2) 05/27/19 15:32 Calcium 8.7 mg/dL (8.5-10.3) 05/29/19 13:50 Total Bilirubin 0.5 mg/dL (0.2-1.0) 05/29/19 13:50 AST 22 IU/L (10-42) 05/29/19 13:50 ALT 20 IU/L (10-60) 05/29/19 13:50 Alkaline Phosphatase 60 IU/L (42-121) 05/29/19 13:50 Troponin I High Sens 35.5 ng/L (2.3-19.7) H* 05/27/19 15:32 B-Natriuretic Peptide 117 pg/mL (5-100) H 05/27/19 05:22 Total Protein 6.2 g/dL (6.7-8.2) L 05/29/19 13:50 Albumin 3.6 g/dL (3.2-5.5) 05/29/19 13:50 Globulin 2.6 g/dL (2.1-4.2) 05/29/19 13:50 Albumin/Globulin Ratio 1.4 (1.0-2.2) 05/29/19 13:50 Urine Color YELLOW 05/27/19 01:30 Urine Clarity CLEAR (CLEAR) 05/27/19 01:30 Urine pH 6.0 PH (5.0-7.5) 05/27/19 01:30 Ur Specific [place] 1.025 (1.002-1.030) 05/27/19 01:30 Urine Protein NEGATIVE mg/dL (NEGATIVE) 05/27/19 01:30 Urine Glucose (UA) NEGATIVE mg/dL (NEGATIVE) 05/27/19 01:30 Urine Ketones TRACE mg/dL (NEGATIVE) 05/27/19 01:30 Urine Occult Blood NEGATIVE (NEGATIVE) 05/27/19 01:30 Urine Nitrite NEGATIVE (NEGATIVE) 05/27/19 01:30 Urine Bilirubin NEGATIVE (NEGATIVE) 05/27/19 01:30 Urine Urobilinogen 1 (NORMAL) E.U./dL (NORMAL) 05/27/19 01:30 Ur Leukocyte Esterase NEGATIVE (NEGATIVE) 05/27/19 01:30 Ur Microscopic Review NOT INDICATED 05/27/19 01:30 Urine Culture Comments NOT INDICATED 05/27/19 01:30 Last Dose Date 05/28/19 05/29/19 13:50 Last Dose Time 2240 05/29/19 13:50 Vancomycin Trough 11.4 ug/mL (10.0-20.0) 05/29/19 13:50 Influenza A (Rapid) Negative (Negative) 05/27/19 00:40 Influenza B (Rapid) Negative (Negative) 05/27/19 00:40 - Procedures Procedures: Procedures REPLACEMENT OF LEFT LENS WITH SYNTH SUB, PERC APPROACH (01/25/16) REPLACEMENT OF RIGHT LENS WITH SYNTH SUB, PERC APPROACH (12/28/15) Sepsis Event Note (H) - Evaluation Current Stage of Sepsis: Ruled out ABX Reporting Has patient been on IV antibiotics over the past 48 hours?: Yes Current Medications - Current Medications Current Medications: Active Medications Acetaminophen (Tylenol) 650 mg PO Q4HR PRN PRN Reason: Pain 1 to 4 Last Admin: 05/29/19 14:39 Dose: 650 mg Albuterol/Ipratropium (Duoneb) 3 ml INH RTQ4H PRN PRN Reason: Wheezing Last Admin: 05/29/19 11:38 Dose: 3 ml Aspirin (Ecotrin) 81 mg PO DAILY NORA Last Admin: 05/29/19 08:17 Dose: 81 mg Budesonide (Pulmicort) 0.5 mg INH RTBID [facility] Last Admin: 05/29/19 07:04 Dose: 0.5 mg Citalopram Hydrobromide (Celexa) 20 mg PO DAILY [facility] Last Admin: 05/29/19 08:16 Dose: 20 mg Clopidogrel Bisulfate (Plavix) 75 mg PO DAILY [facility] Last Admin: 05/29/19 08:16 Dose: 75 mg Enoxaparin Sodium (Lovenox) 40 mg SUBQ DAILY [facility] Last Admin: 05/29/19 08:23 Dose: Not Given Fluconazole (Diflucan) 100 mg PO DAILY [facility] Last Admin: 05/29/19 15:02 Dose: 100 mg Formoterol Fumarate (Perforomist) 20 mcg INH RTBID [facility] Last Admin: 05/29/19 07:04 Dose: 20 mcg Guaifenesin (Mucinex) 1,200 mg PO BID [facility] Last Admin: 05/29/19 08:16 Dose: 1,200 mg Vancomycin HCl 1 gm/ Sodium (Chloride) 250 mls @ 167 mls/hr IV Q18H [facility] Last Admin: 05/29/19 14:18 Dose: 167 mls/hr Cefepime HCl 2 gm/ Sodium (Chloride) 100 mls @ 200 mls/hr IV Q12H [facility] Last Infusion: 05/29/19 10:11 Dose: Infused Metronidazole (Flagyl 500 Mg/100 Ml) 500 mg in 100 mls @ 100 mls/hr IV Q8H [facility] Last Infusion: 05/29/19 14:36 Dose: Infused Sodium Chloride (Normal Saline 0.9%) 1,000 mls @ 83.333 mls/hr IV .Q12H [facility] Stop: 05/30/19 13:59 Last Admin: 05/29/19 14:18 Dose: 83.333 mls/hr Methylprednisolone Sodium Succinate (Solu-Medrol (125mg Vial)) 60 mg IVP Q8H [facility] Last Admin: 05/29/19 09:06 Dose: 60 mg Metoprolol Tartrate (Lopressor) 50 mg PO DAILY [facility] Last Admin: 05/29/19 08:16 Dose: 50 mg Montelukast Sodium (Singulair) 10 mg PO QPM [facility] Last Admin: 05/28/19 20:30 Dose: 10 mg Morphine Sulfate (Morphine (Carpuject)) 1 mg IVP Q4H PRN PRN Reason: DYSPNEA Last Admin: 05/29/19 04:14 Dose: 1 mg Nicotine (Nicoderm) 1 patch TOP DAILY [facility] Last Admin: 05/29/19 08:16 Dose: 1 patch Nitroglycerin (Nitrostat) 0.4 mg SL Q5MIN PRN PRN Reason: Chest Pain Oxycodone HCl (Oxycontin) 40 mg PO BID [facility] Last Admin: 05/29/19 08:16 Dose: 40 mg Oxycodone HCl (Roxicodone) 20 mg PO Q4HR PRN PRN Reason: PAIN Pantoprazole Sodium (Protonix) 40 mg PO QDAC [facility] Last Admin: 05/29/19 06:40 Dose: 40 mg Saccharomyces Boulardii (Florastor) 250 mg PO BIDWM [facility] Last Admin: 05/29/19 08:16 Dose: 250 mg Sodium Chloride (Normal Saline Flush 0.9%) 10 ml IVP PRN PRN PRN Reason: NEEDED PER PROVIDER ORDERS Last Admin: 05/28/19 18:00 Dose: 10 ml Sodium Chloride (Normal Saline Flush 0.9%) 10 ml IVP 0100,0900,1700 [facility] Last Admin: 05/29/19 08:18 Dose: Not Given Tamsulosin HCl (Flomax) 0.4 mg PO DAILY [facility] Last Admin: 05/29/19 08:16 Dose: 0.4 mg Trazodone HCl (Desyrel) 200 mg PO QPM PRN PRN Reason: Insomnia Tamsulosin [Flomax] 0.4 mg PO DAILY 01/19/13 Albuterol Sulfate [Proair Hfa Inhaler] 2 inh PO Q4H PRN 09/20/14 Aspirin [Ecotrin] 81 mg PO DAILY 09/20/14 Metoprolol Tartrate [Lopressor] 50 mg PO DAILY 09/20/14 Nitroglycerin [Nitrostat] 1 tab [id number] ONCE 12/07/15 Trazodone HCl 100 - 200 mg PO QPM PRN 08/29/17 Budesonide/Formoterol Fumarate [Symbicort 160-4.5 Mcg Inhaler] 2 puffs INH BID 09/27/17 Clopidogrel [Plavix] 75 mg PO DAILY 02/16/18 Lovastatin 40 mg PO DAILY 02/16/18 Ipratropium/Albuterol [Duoneb] 1 inh INH Q4HR PRN 09/05/18 Citalopram Hydrobromide [Citalopram HBr] 20 mg PO DAILY 09/24/18 Oxycodone HCl [Roxicodone] 60 - 90 mg PO Q6H [facility] nte 11 tabs/24 hours 09/24/18 guaiFENesin [Mucinex] 600 mg PO BID PRN 12/09/18
--- NOTE | 2019-05-29 17:50 | PHARMACY PROGRESS NOTE ---
- Therapy Status Vancomycin regimen day #: 3 (1.5g load, followed by 1G q18h) Therapy status: Awaiting steady state (early trough therapeutic, but less than goal - level not yet at steady state and likely to continue to increase. Will draw trough at steady state and adjust dose if needed based on those results.) Basis for treatment: Empirical Trough goal: 15-20 - DILCIA Risk Risk level for Acute Kidney Injury: Moderate Acute Kidney Injury risk factors: Goal trough >15, Chronic baseline hypertension - Monitoring and Recommendation Clinical response to treatment: I&O Previous 24 hours 05/27/19 05/28/19 05/29/19 23:59 23:59 23:59 Intake Total 2420 2250.000 1160.000 Output Total 1295 1415 925 Balance 1125 835.000 235.000 Lab Results 05/29/19 05/29/19 05/28/19 13:50 05:00 04:40 BUN 24 H 28 H 18 Creatinine 0.9 0.9 0.8 Estimated GFR (MDRD) 82 L 82 L 94 05/27/19 05/27/19 05:22 00:20 BUN 18 18 Creatinine 1.0 0.9 Estimated GFR (MDRD) 73 L 82 L Vancomycin Monitoring 05/29/19 13:50 Vancomycin Trough 11.4 Cultures 05/28/19 11:25 Sputum Respiratory Culture - Preliminary YEAST 05/27/19 00:40 Blood Blood Culture - Preliminary NO GROWTH AFTER 2 DAYS 05/27/19 00:35 Blood Blood Culture - Preliminary NO GROWTH AFTER 2 DAYS Monitoring plan: Daily serum creatinine, Draw trough early Next trough due prior to maintenance dose #: 6 Next trough due (date/time): 05/31/19 @ 1999 Areas for additional monitoring: IV to PO when appropriate, Therapy de- escalation based on culture results Pharmacy recommendation: Continue current regime
[2019-05-29] MEDS: MONTELUKAST 10 MG TABLET PO SCH (20:42)
[2019-05-30] MEDS: oxyCODONE 5 MG TABLET PO PRN ×2 (00:39→05:48)
[2019-05-30] MEDS: methylPREDNISolone SUCCINATE 125 MG/2 ML VIAL IVP SCH ×3 (00:41→16:25)
[2019-05-30] MEDS: SODIUM CHLORIDE FLUSH 0.9% 10 ML SYRINGE IVP SCH ×3 (00:42→16:25)
[2019-05-30] MEDS: ACETAMINOPHEN 325 MG TABLET PO PRN (00:47)
[2019-05-30] MEDS: metroNIDAZOLE 500 MG/100 ML 500 MG/100 ML BAG IV SCH ×2 (03:40→11:55)
[2019-05-30] MEDS: SODIUM CHLORIDE 0.9% 1,000 ML IV SCH (05:39)
[2019-05-30] MEDS: PANTOPRAZOLE 40 MG TABLET PO SCH (05:50)
[2019-05-30 05:59] LABS: HGB - HEMOGLOBIN 12.5 g/dL (14.0-18.0); MEAN CORPUSCULAR VOLUME 97.2 fL (80.0-94.0); MONOCYTES % (AUTO) 2.2 %
[2019-05-30 06:02] LABS: BASOPHILS % (AUTO) 0.4 %; LYMPHOCYTES % (AUTO) 1.7 %; MEAN CORPUSCULAR HEMOGLOBIN 31.6 pg (27.0-31.0); MEAN CORPUSCULAR HGB CONC 32.5 g/dL (32.0-36.0); MEAN PLATELET VOLUME 11.5 fL (7.4-11.4); NEUTROPHILS % (AUTO) 90.6 %; PLT - PLATELET COUNT 207 10^3/uL (130-450); RED BLOOD COUNT 3.96 10^6/uL (4.70-6.10); WHITE BLOOD COUNT 28.4 x10^3/uL (4.8-10.8)
[2019-05-30 06:06] LABS: ABNORMAL LYMPHS % (MANUAL) 0 %
[2019-05-30 06:08] LABS: CALCIUM 8.6 mg/dL (8.5-10.3); CREATININE 0.9 mg/dL (0.6-1.2)
[2019-05-30 06:18] LABS: BAND NEUTROPHILS % (MANUAL) 1 %; LYMPHOCYTES # (MANUAL) 0.6 10^3/uL (1.5-3.5); LYMPHOCYTES % (MANUAL) 2 %; MONOCYTES # (MANUAL) 0.3 10^3/uL (0.0-1.0)
[2019-05-30 06:19] LABS: DIFFERENTIAL COMMENT MANUAL DIFFERENTIAL; PLATELET ESTIMATE, MANUAL NORMAL (130-450,000) (NORMAL); PLATELET MORPHOLOGY NORMAL APPEARANCE (NORMAL); RBC MORPHOLOGY (MULTIPLE) NORMAL APPEARANCE (NORMAL)
[2019-05-30] MEDS: IPRATROPIUM/ALBUTEROL 3 ML NEB INH PRN ×2 (07:20→15:00)
[2019-05-30] MEDS: FORMOTEROL FUMARATE NEB 20 MCG/2 ML INH SCH (07:20)
[2019-05-30] MEDS: BUDESONIDE 0.5 MG/2 ML NEB INH SCH (07:20)
[2019-05-30] MEDS: CEFEPIME 2 GM in SODIUM CHLORIDE 0.9% MINIBAG 100 ML IV SCH (07:52)
[2019-05-30] MEDS: ASPIRIN EC 81 MG TABLET PO SCH (07:57)
[2019-05-30] MEDS: TAMSULOSIN 0.4 MG CAPSULE PO SCH (07:57)
[2019-05-30] MEDS: guaiFENesin 600 MG TABLET PO SCH (07:57)
[2019-05-30] MEDS: CLOPIDOGREL 75 MG TABLET PO SCH (07:57)
[2019-05-30] MEDS: FLUCONAZOLE 100 MG TABLET PO SCH (07:58)
[2019-05-30] MEDS: SACCHAROMYCES BOULARDII 250 MG CAPSULE PO SCH (07:58)
[2019-05-30] MEDS: CITALOPRAM HYDROBROMIDE 20 MG TABLET PO SCH (07:58)
[2019-05-30] MEDS: ENOXAPARIN 40 MG/0.4 ML SYRINGE SUBQ SCH (08:00)
[2019-05-30] MEDS: oxyCODONE ER 40 MG TABLET PO SCH (08:00)
[2019-05-30] MEDS: VANCOMYCIN INJ 1 GM in SODIUM CHLORIDE 0.9% 250 ML IV SCH (08:39)
[2019-05-30] MEDS: METOPROLOL TARTRATE 50 MG TABLET PO SCH (08:40)
[2019-05-30] MEDS: NICOTINE 14 MG PATCH TOP SCH (08:41)
[2019-05-30] MEDS ORDERED: FLUCONAZOLE 100 MG TABLET PO SCH (09:00)
--- NOTE | 2019-05-30 13:53 | Discharge Plan ---
Discharge Plan Problem Reviewed?: Yes Disposition: Home, Self Care Condition: Stable Prescriptions: Azithromycin [Zithromax Tri-Adrian] 500 mg PO DAILY #3 tablet Ipratropium/Albuterol [Duoneb] 1 inh INH QID #2 neb Methylprednisolone [Medrol Dose Pack] 1 each PO .PACKAGEINSTRUCTIONS 6 Days #1 each Nicotine 14 mg Patch [Nicoderm] 1 patch TOP DAILY #30 patch Diet: Low Sodium Activity Restrictions: Activity as Tolerated Shower Restrictions: No Assistance Devices: Cane Health Concerns: You were admitted with a COPD exacerbation and a pneumonia. Plan of Treatment: Finish a course of antibiotics (3 days of Zithromax), take the Medrol steroid tapering down new prescription, use your Duoneb 4 times a day on a schedule , not just as needed. Follow the new medication list as written. Resume your oxygen at home at the same 3-4L/min setting. A new prescription for a Nicotine patch was ordered. Resume your other medications. See your PCP in 1-2 weeks in follow up. You qualify for Pulmonary Rehab, which was ordered for you here, as an outpatient. Care Goals: Symptoms improvement. Assessment: The patient understands. Follow-Up Care: [facility] - Pulmonary No Smoking: If you smoke, Please STOP! Call for help. Follow-up with: Jason Keller MD [Primary Care Provider] -
[2019-05-30 16:49] VITALS: BP 169/87
--- NOTE | 2019-05-30 17:04 | DISCHARGE SUMMARY ---
Discharge Summary Admit Date: 05/27/19 Discharge Date: 05/30/19 Discharging Provider: Dr Yolanda Levi Primary Care Provider: Dr Guillermo Keller Code Status: Do Not Attempt Resuscitation Condition at Discharge: Stable Discharge Disposition: 01 Home, Self Care - DIAGNOSES Admission Diagnoses: 1) Acute respiratory failure with hypoxia and hypercapnia (2) COPD exacerbation (3) Pneumonia (4) Leukocytosis (5) Hx of coronary artery disease (6) Hypertension (7) Hyperlipidemia (8) Tobacco abuse (9) BPH (benign prostatic hyperplasia) (10) Depression Discharge Diagnoses with Status of Each Condition: See below - HPI History of Present Illness: From the admission H&P of Dr Loly Koehler: Patient is a 73 y/o white male who presented to the ED via EMS with dyspnea which started yesterday. He finally called EMS because his symptoms got worse. He has been wheezing and coughing up a creamy colored sputum. He also complained of sharp left sided pleuritic chest pain with no radiation. He normally uses 3L of oxygen at home, but required 6L today. He reports chills but no fever. He has a history significant for COPD, CAD, and multiple abdominal surgeries. Despite his state, he was able to smoke prior to arrival in the ED. He smokes about half a pack of cigarettes daily. In the ED he was tachycardic and tachypneic. He had a pH of 7.2 on a VBG. He was also found to have a WBC of 41 on CBC and a lactic acid of 2.4. His O2 Sat was barely 90% on 3L and he readily desaturated into the low 80's with the slightest movement. Chest xray showed nonspecific opacities which raised the concern for possible pneumonia. As a result of his symptoms and lab findings, he was presented for admission for further treatment. - HOSPITAL COURSE Hospital Course: (1) Acute respiratory failure with hypoxia and hypercapnia He required high supplemental oxygen and was started on nebs, iv steroids and iv antibiotics. By the time of [facility], pt was comfortably laying at the bed and talking with his visiting friend, with no respiratory distress. His lung sounds had significantly improved. A repeat CXR revealed no new consolidation. He had an exercise oximetry test with RT on the day of discharge and was able to maintain 93-94% sats, at his usual home O2 settings per n.c. (2) COPD exacerbation He had significant wheezing and air hunger for several days. He required nebs and iv steroids, Mucinex and Singulair. He was discharged with a Medrol Dose Adrian, for a steroid taper, a new prescription for Singulair, and his home inhalers should be resumed. (3) Pneumonia He was started on empiric iv Zithromax and Ceftriaxone for community acquired pneumonia, this was broadened when his WBC torey, to iv Cefepime and Vancomycin i v. We also added several days of fluconazole based on sputum culture that grew yeast. At the time of [facility], he was transitioned to take several more days of po Zithromax (4) Mucus plugging of bronchi His course did not improve until he had aggressive management of a mucous plug, which was reported on a repeat CT chest (5) Leukocytosis The etiology is unclear. He has a history of leukocytosis at baseline, with WBCs in 20's, per records. His admission WBC was 41K. There was an increase of WBC to 49K, likely caused by infection plus steroid usage. The WBC decreased to 38K and was 28K at discharge. He should followup with Oncology as out-pt if he continue to have high WBC after stabilization from acute infection. (6) Coronary artery disease He was continued on his home Plavix and aspirin and Lovastatin (7) Hypertension This was stable, on metoprolol (8) Tobacco abuse Nicotine patch was ordered and continued at discharge and the patient voiced that he was now willing to quit smoking (9) BPH (benign prostatic hyperplasia) Continued on flomax. (10) Depression Continued on Citalopram (11) Hx of AAA CT of abdomen reveals 5.5 cm AAA increased from previous 4.9cm. pt has no acute abdominal pain, CT reveals no acute rupture or dissection process. Intervention Radiologist here (with Dr Iqbal) could do a procedure if the patient was referred, he said. - ALLERGIES Allergies/Adverse Reactions: Allergies Allergy/AdvReac Type Severity Reaction Status Date / Time codeine Allergy Unknown Verified 05/27/19 00:15 Iodinated Contrast Media Allergy Unknown Verified 05/27/19 00:15 [Iodinated Contrast- Oral and IV Dye] Penicillins Allergy Unknown Verified 05/27/19 00:15 - MEDICATIONS Home Medications: Ambulatory Orders Medication Instructions Recorded Confirmed Tamsulosin [Flomax] 0.4 mg PO DAILY 01/19/13 05/27/19 Albuterol Sulfate [Proair Hfa 2 inh PO Q4H PRN 09/20/14 05/27/19 Inhaler] Aspirin [Ecotrin] 81 mg PO DAILY 09/20/14 05/27/19 Metoprolol Tartrate [Lopressor] 50 mg PO DAILY 09/20/14 05/27/19 Nitroglycerin [Nitrostat] 1 tab [id number] ONCE 12/07/15 04/13/19 Trazodone HCl 100 - 200 mg PO QPM PRN 08/29/17 05/27/19 Budesonide/Formoterol Fumarate 2 puffs INH BID 09/27/17 05/27/19 [Symbicort 160-4.5 Mcg Inhaler] Clopidogrel [Plavix] 75 mg PO DAILY 02/16/18 05/27/19 Lovastatin 40 mg PO DAILY 02/16/18 05/27/19 Montelukast [Singulair] 10 mg PO QPM #30 tablet 09/16/18 05/27/19 Citalopram Hydrobromide 20 mg PO DAILY 09/24/18 05/27/19 [Citalopram HBr] Oxycodone HCl [Roxicodone] 60 - 90 mg PO Q6H MDD nte 11 09/24/18 05/27/19 tabs/24 hours guaiFENesin [Mucinex] 600 mg PO BID PRN 12/09/18 05/27/19 Azithromycin [Zithromax Tri-Adrian] 500 mg PO DAILY #3 tablet 05/30/19 Ipratropium/Albuterol [Duoneb] 1 inh INH QID #2 neb 05/30/19 Methylprednisolone [Medrol Dose 1 each PO .PACKAGEINSTRUCTIONS 6 05/30/19 Pack] Days #1 each Nicotine 14 mg Patch [Nicoderm] 1 patch TOP DAILY #30 patch 05/30/19 - PHYSICAL EXAM AT DISCHARGE General Appearance: positive: No acute distress, Alert Eyes Bilateral: positive: Normal inspection, PERRL ENT: positive: No signs of dehydration, Other (Poor dentition. Wearing O2 per n.c.) Neck: positive: Nml inspection, Other (Garcia) Respiratory: positive: No respiratory distress, Breath sounds nml Cardiovascular: positive: Regular rate & rhythm, No murmur Abdomen: positive: Non-tender Extremities: positive: No pedal edema Neurologic/Psychiatric: positive: Oriented x3, Motor nml - LABS Result Diagrams: 05/30/19 05:32 05/30/19 05:32 - SEPSIS Current Stage of Sepsis: Ruled out - FOLLOW UP Follow Up: He was advised to have a hospital follow-up visit to his PCP in 1-2 weeks. - TIME SPENT Time Spent in Discharge (Minutes): 35
== END 2019-05-30 17:00 | disposition home or self-care (01) | DRG 193 ==
LOC: EDUNIT# → ED 00:01 → MS2 01:19
PROVIDERS: ADMIT Internal Medicine; ATTEND Internal Medicine
DX: J15.9 Unspecified bacterial pneumonia (principal); D72.829 Elevated white blood cell count, unspecified; E86.0 Dehydration; J96.22 Acute and chronic respiratory failure with hypercapnia; B37.1 Pulmonary candidiasis; J96.21 Acute and chronic respiratory failure with hypoxia; J43.2 Centrilobular emphysema; I25.10 Atherosclerotic heart disease of native coronary artery without angina pectoris; I10 Essential (primary) hypertension; E78.5 Hyperlipidemia, unspecified; Z87.891 Personal history of nicotine dependence; N40.0 Benign prostatic hyperplasia without lower urinary tract symptoms; I71.4 Abdominal aortic aneurysm, without rupture; F32.9 Major depressive disorder, single episode, unspecified; K43.2 Incisional hernia without obstruction or gangrene; G89.28 Other chronic postprocedural pain; Z66 Do not resuscitate; Z72.0 Tobacco use; Z99.81 Dependence on supplemental oxygen; Z79.02 Long term (current) use of antithrombotics/antiplatelets; Z79.82 Long term (current) use of aspirin; Z79.899 Other long term (current) drug therapy; Z79.51 Long term (current) use of inhaled steroids; Z95.5 Presence of coronary angioplasty implant and graft
CPT/HCPCS: 36415; 36600; 71045; 71250; 74176; 80048; 80053; 80202; 81003; 82803; 83605; 83735; 83880; 84484; 85025; 87040; 87070; 87205; 87275; 87276; 93005; 93306; 94640; 94761; 99285; 99291; A9270; J1650; J3370; J7626; J8499; 81001; 87086

== ENCOUNTER 2019-06-03 16:07 | Outpatient (CLI) | payer MEDICARE, OTHER ==
--- NOTE | 2019-06-03 16:52 | CONSULTATION NOTE ---
Palliative Care Follow Up - Referral Referring Provider: Dr. Jason Keller Time of Visit: [id number] Referral setting: Home Referral Reason: Pneumonia/COPD exacerbation/Generalized Weakness - Information Sources Records reviewed: Previous records reviewed History/Review of Systems obtained from: Patient, Family ( Magy present for visit) Exam limitations: Clinical condition (patient with poor STM) - History of Present Illness Update Brief HPI Update: This is a 73-year-old gentleman who has advanced COPD, who recently presented on 05/27 to the ED after calling 911 with acute dyspnea, was diagnosed with acute respiratory failure with hypoxia and hypercapnia, COPD exacerbation, pneumonia, leukocytosis and history of AAA. Patient had a lavern course, had significant dyspnea, exacerbation of his pain with his cough, and now presents with severe weakness, ongoing shortness of breath, and completing his antibiotics today. He still on his methylprednisone taper, he had his oxygen up to 5 L, neither he nor his can explain how it got turned up. He is quite weak, only able to tolerate ambulating a few feet, his baseline is actually more 20 to 40 feet. He continues with a moist productive cough, of yellowish-brown sputum. He is afebrile, is using his nebulizers 3-4 times a day, but is not finding much improvement in his baseline shortness of breath. On exam, with O2 down to 3 L, as his O2 sats at rest are 97%, he is afebrile at 97.3. He does have crackles in his left lower lobe, his breath sounds are diminished throughout. He has continued to not smoke, he is on the nicotine patch. On arrival home he had originally have diarrhea, now he is having some difficulty with constipation. His long-standing chronic pain, is worse with his cough, it is located at the right hernia and travels across his abdomen. He does have his abdominal binder on. He has been too weak to shower, or do any personal care, he does appear quite disabled. He "feels like crap", but his tightness is improving, he is worried about returning to any kind of baseline level of functioning. He has had some increased pain in his lower back as well. Patient's past medical history includes depression, anxiety, hypertension, CAD, COPD, hiatal hernia, diverticulitis, BPH, and chronic hearing loss. Social History - Living Situation Living arrangement: At home Living Situation: With spouse/s.o. Support System: Lives at home with his Magy, she 2 has very significant underlying COPD, and poor health. She is able to help him though manage his medications, and oversee his care. Neither [address], they do have Meals on Wheels, the daughter does live on the property and can do some errands for them. For the most part they have friends that they paid to assist with shopping and care needs. Medications/Allergies - Medications Home Medications: Ambulatory Orders Medication Instructions Recorded Confirmed Tamsulosin [Flomax] 0.4 mg PO DAILY 01/19/13 06/03/19 Albuterol Sulfate [Proair Hfa 2 inh PO Q4H PRN 09/20/14 06/03/19 Inhaler] Aspirin [Ecotrin] 81 mg PO DAILY 09/20/14 06/03/19 Metoprolol Tartrate [Lopressor] 50 mg PO DAILY 09/20/14 06/03/19 Nitroglycerin [Nitrostat] 1 tab [id number] ONCE 12/07/15 06/03/19 Trazodone HCl 100 - 200 mg PO QPM PRN 08/29/17 06/03/19 Budesonide/Formoterol Fumarate 2 puffs INH BID 09/27/17 06/03/19 [Symbicort 160-4.5 Mcg Inhaler] Clopidogrel [Plavix] 75 mg PO DAILY 02/16/18 06/03/19 Lovastatin 40 mg PO DAILY 02/16/18 06/03/19 Montelukast [Singulair] 10 mg PO QPM #30 tablet 09/16/18 06/03/19 Citalopram Hydrobromide 20 mg PO DAILY 09/24/18 06/03/19 [Citalopram HBr] Oxycodone HCl [Roxicodone] 60 - 90 mg PO Q6H MDD nte 11 09/24/18 06/03/19 tabs/24 hours guaiFENesin [Mucinex] 600 mg PO BID PRN 12/09/18 06/03/19 Ipratropium/Albuterol [Duoneb] 1 inh INH QID #2 neb 05/30/19 06/03/19 Methylprednisolone [Medrol Dose 1 each PO .PACKAGEINSTRUCTIONS 6 05/30/19 06/03/19 Pack] Days #1 each Nicotine 14 mg Patch [Nicoderm] 1 patch TOP DAILY #30 patch 05/30/19 06/03/19 - Allergies Allergies/Adverse Reactions: Allergies Allergy/AdvReac Type Severity Reaction Status Date / Time codeine Allergy Unknown Verified 05/27/19 00:15 Iodinated Contrast Media Allergy Unknown Verified 05/27/19 00:15 [Iodinated Contrast- Oral and IV Dye] Penicillins Allergy Unknown Verified 05/27/19 00:15 Review of Systems - Constitutional Constitutional: reports: Fatigue, Weakness, Poor appetite, Weight loss. denies: Fever, Chills - Eyes Eyes: reports: Blurred vision, Vision loss - Ears, Nose & Throat Ears, Nose & Throat: reports: Hearing loss, Dental decay (has not gotten teeth fixed), Dry mouth - Cardiovascular Cardiovascular: reports: Exertional dyspnea, Decr. exercise tolerance. denies: Chest pain - Respiratory Respiratory: reports: Cough, Sputum production, Wheezing, SOB at rest, SOB with exertion - Gastrointestinal Gastrointestinal: reports: Abdominal pain, Abdominal distention, Constipation, Bloating, Poor appetite, Early satiety, Other (pain with eating related to abdominal hernias). denies: Rectal bleeding, Nausea, Reflux/heartburn - Genitourinary Genitourinary: reports: Frequency - Musculoskeletal Musculoskeletal: reports: Back pain (worsening; attributes to time spent in bed), Muscle aches, Stiffness, Limited range of motion, Muscle weakness, Assistive devices (walker; furniture walking) - Integumentary Integumentary: reports: Dryness, Nail changes (poor toenails/long and cracking) - Neurological Neurological: reports: General weakness, Memory problems, Abnormal gait - Psychiatric Psychiatric: reports: Depression, Anxiety - Endocrine Endocrine: reports: Intolerance to cold - Hematologic/Lymphatic Hematologic/Lymphatic: reports: Recurrent infections (last tx in September) - All Other Systems All Other Systems: reports: Reviewed and negative Physical Exam - Vital Signs Temperature: 97.3 C Pulse Rate: 77 Respiratory Rate: 20 O2 Saturation: 97 (3 liters) Blood Pressure: 122/74 - Physical Exam General Appearance: positive: Moderate distress, Anxious Eyes Bilateral: positive: Normal inspection ENT: positive: No signs of dehydration, Other (poor dentition) Neck: positive: No JVD, Trachea midline Cardiovascular: positive: Regular rate & rhythm Respiratory: positive: Diminished throughout, Rales. negative: Chest non- tender, No respiratory distress, Breath sounds nml Abdomen: positive: Tenderness, Distended, Other (abdominal binder) Skin: positive: Pallor, Dryness, Other (toenails overgrown; feet dry goes barefoot in house) Extremities: positive: No pedal edema Neurologic/Psychiatric: positive: Disoriented to time, Weakness, Depressed mood/affect, Flat affect Palliative Care - POLST Patient has POLST: Yes POLST Status: DNR, Selective Treatment Pain: Pain worsening, Severity (03/17 Patient back at baseline 60 to 90 mg of oxycodone every 6 hours. He reports it does take the pain down a couple notches, the only lasts for 2 hours at the most. Patient's pain continues to be chronic but more acute in nature today, secondary to cough makes pain worse. Patient also reports new recurrent back pain, does attribute to laying in bed more and recent hospitalization.) Tiredness/Fatigue: Severe (7-10) Drowsiness/Sedation: Mild (1-3) Nausea: None Anorexia: Moderate (4-6) Dyspnea: Severe (7-10) Depression: Severe (7-10) Anxiety: Severe (7-10) Feelings of wellbeing/Perceived Quality of Life: Poor, Worsening Sleep: Variable sleep pattern Constipation: Yes, Opoid induced, Intermittent constipation Performance Status: Patient has had decline in functional status, is only able to ambulate a couple feet, this is due to lower extremity weakness as well as his dyspnea. His has not able to assist him with bathing, they are going to pay a friend tomorrow, to help him. Patient unable to tolerate even being at the sink for sponge bath. Patient is able to self feed, but not able to participate in household tasks, is actually interested in physical therapy for strengthening, but wants to wait a week or 2 given his fragile status. - Palliative Care Discussion: Patient continues to be quite depressed, just wants to "", but is not ready to transition to hospice and no further intervention. He gets quite easily overwhelmed, he perceives his quality of life is quite poor, and gets discouraged. Patient does have POLST in place, with DNA R and selective treatments, his does get concern over his ongoing memory issues, cognitive and functional decline. Both are quite frail, and have very little social support. Results - Lab Results Lab results reviewed: Yes Impression and Recommendations - Palliative Care Impression: This is a 73-year-old gentleman with advanced COPD, now recently hospitalized with pneumonia, acute respiratory failure with hypoxia and hypercapnia, as well as noted increased history of AAA. Patient continues with severe weakness, dyspnea, moist cough with overseeing his care. He continues to struggle with his current quality of life, but remains resistant to making any changes. Palliative care continue provide support given these limitations, and transition to hospice when appropriate Recommendations/Counseling Done: 1. Pneumonia. Patient finished his antibiotic today, continues with moist cough, has difficulty clearing secretions secondary to his abdominal pain. He reports he is doing his nebulizer 3 times a day, has not been using his Acapella. Patient had presented with fairly severe leukocytosis, will continue to monitor. 2. COPD exacerbation. Patient is finishing his methylprednisone pack, he is continuing to not smoke. Unfortunately he was not wearing his oxygen on arrival, he has trouble keeping in his nose, he also had a machine set at 5 L. Reset machine, counseling provided regarding patient's propensity for hypercapnia, need to keep it at 3 L, for the most for exacerbation. Request that they do not touch it. He is satting at 97% on 3 L. 3. Chronic abdominal pain, multifactorial in origin. Patient currently continues on his 10-11 tabs of 30 mg of oxycodone daily, he feels like he cannot titrate less than this, particularly in the setting of his cough. He continues to have poorly controlled pain, but feels is better than without the oxycodone. We have tried multiple adjuvants and approaches in the past, patient currently unable to trial anything as cannot be adherent. 4. Constipation. Patient had diarrhea on arrival home, had taken some Imodium. Now has not had any bowel movements, will initiate his declots and D OS S. 5. Medication adherence. Continue worry about patient's adherence as his has forgetfulness as well. is currently feeling the Mediset, patient is taking them from there. She was able to relay the new medications, and is managing his prednisone taper. 6. Generalized weakness. Patient presents with severe functional decline with hospitalization, has benefited from PT in the past, would like to initiate but not for "a week or 2" given patient's shortness of breath. Discussed given the current nightly holidays, will go ahead and pursue order. Patient would benefit from physical therapy for home exercise program, as well as home health aide once a week. 7. Advanced care planning. POLST is in place, patient remains quite fragile, suspect will not return to previous level of functioning with his most recent hospitalization. He has not had any hospitalizations since September or ED visits or falls. Patient does perceive he is declining health, but remains quite fearful about talking about or transition to hospice team. Patient most likely would meet criteria at this point, we will continue to evaluate. [id number]. Patient unable to leave the home secondary to a taxing considerable effort with his lower extremity weakness, his dyspnea, and continue d functional decline. Patient would benefit from physical therapy for home exercise program, safety, progressive ambulation, and home health aide for bathing assist. Time Spent: 45 minutes with greater than 50% of this done in counseling regarding goals of care, follow-up regarding hospitalization, pain management, and anticipatory guidance.
== END 2019-06-03 16:08 | disposition home or self-care (01) ==
LOC: PC 16:07
PROVIDERS: ATTEND Nurse Practitioner Adult Health
DX: Z51.5 Encounter for palliative care (principal); J44.0 Chronic obstructive pulmonary disease with (acute) lower respiratory infection; J18.9 Pneumonia, unspecified organism; J44.1 Chronic obstructive pulmonary disease with (acute) exacerbation; R53.1 Weakness; G89.29 Other chronic pain; K59.03 Drug induced constipation; T40.2X5D Adverse effect of other opioids, subsequent encounter; Z79.899 Other long term (current) drug therapy; Z79.891 Long term (current) use of opiate analgesic; Z66 Do not resuscitate; Z87.891 Personal history of nicotine dependence
CPT/HCPCS: 99349

== ENCOUNTER 2019-08-23 21:14 | Outpatient (CLI) | payer MEDICARE, OTHER | END 2019-08-23 21:15 | disposition short-term general hospital (02) | LOC: EMS 21:14 | PROVIDERS: ATTEND Surgery | DX: T20.09XA Burn of unspecified degree of multiple sites of head, face, and neck, initial encounter (principal); T24.391A Burn of third degree of multiple sites of right lower limb, except ankle and foot, initial encounter; X04.XXXA Exposure to ignition of highly flammable material, initial encounter; Y92.009 Unspecified place in unspecified non-institutional (private) residence as the place of occurrence of the external cause | CPT/HCPCS: A0425; A0433 ==

== ENCOUNTER 2019-09-11 14:00 | Outpatient (CLI) | payer MEDICARE, OTHER ==
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
== END 2019-09-11 14:01 | disposition home or self-care (01) ==
LOC: PC 14:00
PROVIDERS: ATTEND Nurse Practitioner Adult Health
DX: Z51.5 Encounter for palliative care (principal); G89.4 Chronic pain syndrome; J44.9 Chronic obstructive pulmonary disease, unspecified; T20.30XD Burn of third degree of head, face, and neck, unspecified site, subsequent encounter; T24.301D Burn of third degree of unspecified site of right lower limb, except ankle and foot, subsequent encounter; K59.03 Drug induced constipation; T40.2X5D Adverse effect of other opioids, subsequent encounter; R41.3 Other amnesia; R53.81 Other malaise; M62.81 Muscle weakness (generalized); R63.4 Abnormal weight loss; Z79.899 Other long term (current) drug therapy; Z79.891 Long term (current) use of opiate analgesic; Z79.02 Long term (current) use of antithrombotics/antiplatelets; Z99.81 Dependence on supplemental oxygen; Z87.891 Personal history of nicotine dependence; Z66 Do not resuscitate
CPT/HCPCS: 99310

== ENCOUNTER 2019-09-16 10:53 | Outpatient (CLI) | payer MEDICARE, OTHER ==
[2019-09-16 12:18] LABS: BILIRUBIN,URINE NEGATIVE (NEGATIVE); GLUCOSE, URINE (UA) NEGATIVE (NEGATIVE); KETONES,URINE (UA) NEGATIVE (NEGATIVE); LEUKOCYTE ESTERASE, URINE MODERATE (NEGATIVE); NITRITE,URINE NEGATIVE (NEGATIVE); OCCULT BLOOD,URINE NEGATIVE (NEGATIVE); PROTEIN,URINE NEGATIVE (NEGATIVE); UROBILINOGEN,URINE 0.2 (NORMAL) E.U./dL (NORMAL)
[2019-09-16 12:19] LABS: CLARITY,URINE HAZY (CLEAR)
[2019-09-16 12:33] LABS: BACTERIA,URINE Few /HPF (None Seen); RBC,URINE 0-5 /HPF (0-5); SQUAMOUS EPITHELIAL CELL,UR RARE Squamous (<= Few); YEAST,URINE PRESENT
== END 2019-09-16 23:59 | disposition home or self-care (01) ==
LOC: LAB.R 10:53
DX: N39.0 Urinary tract infection, site not specified (principal)
CPT/HCPCS: 81001; 81003; 87077; 87086; 87181

== ENCOUNTER 2019-09-21 19:14 | Outpatient (CLI) | payer MEDICARE, OTHER ==
[2019-09-21 19:55] LABS: MONOCYTES % (AUTO) 7.9 %; RED CELL DISTRIBUTION WIDTH 13.5 % (12.0-15.0)
[2019-09-21 20:01] LABS: BASOPHILS % (AUTO) 1.3 %; EOSINOPHILS % (AUTO) 0.6 %; HGB - HEMOGLOBIN 14.1 g/dL (14.0-18.0); LYMPHOCYTES % (AUTO) 5.5 %; MEAN CORPUSCULAR HGB CONC 32.7 g/dL (32.0-36.0); MEAN CORPUSCULAR VOLUME 100.9 fL (80.0-94.0); MEAN PLATELET VOLUME 10.7 fL (7.4-11.4); PLT - PLATELET COUNT 289 10^3/uL (130-450); RED BLOOD COUNT 4.27 10^6/uL (4.70-6.10); WHITE BLOOD COUNT 24.1 x10^3/uL (4.8-10.8)
[2019-09-21 20:07] LABS: ALBUMIN 3.2 g/dL (3.2-5.5); ALBUMIN/GLOBULIN RATIO 0.9 (1.0-2.2); ALKALINE PHOSPHATASE 66 IU/L (42-121); ALT ALANINE AMINOTRANSFERASE 31 IU/L (10-60); AST ASPARTATE AMINOTRANSFERASE 22 IU/L (10-42); BILIRUBIN,TOTAL < 0.2 mg/dL (0.2-1.0); BUN - BLOOD UREA NITROGEN 36 mg/dL (6-20); CALCIUM 8.8 mg/dL (8.5-10.3); CARBON DIOXIDE - CO2 29 mmol/L (21-32); CHLORIDE 101 mmol/L (101-111); GFR - MDRD 73 (>89); GLUCOSE 110 mg/dL (70-100); SODIUM 140 mmol/L (135-145); TOTAL PROTEIN 6.6 g/dL (6.7-8.2)
[2019-09-21 20:12] LABS: ABNORMAL LYMPHS % (MANUAL) 0 %
[2019-09-21 20:59] LABS: BAND NEUTROPHILS % (MANUAL) 2 %; LYMPHOCYTES # (MANUAL) 1.4 10^3/uL (1.5-3.5); LYMPHOCYTES % (MANUAL) 6 %; MONOCYTES # (MANUAL) 1.7 10^3/uL (0.0-1.0); PLATELET ESTIMATE, MANUAL NORMAL (130-450,000) (NORMAL); PLATELET MORPHOLOGY NORMAL APPEARANCE (NORMAL); RBC MORPHOLOGY (MULTIPLE) NORMAL APPEARANCE (NORMAL)
[2019-09-21 21:00] LABS: DIFFERENTIAL COMMENT MANUAL DIFFERENTIAL
== END 2019-09-21 23:59 | disposition home or self-care (01) ==
LOC: LAB.R 19:14
PROVIDERS: ATTEND Family Medicine
DX: I48.20 Chronic atrial fibrillation, unspecified (principal)
CPT/HCPCS: 80053; 85025